=== PATIENT | male | born 1960 | race African-American/Black ===

== ENCOUNTER 2017-10-20 17:34 | Inpatient (IN) | payer OTHER ==
[2017-10-20 18:17] LABS: BASO # 0.1 x10^3/uL (0.0-0.2); BASO % 0 % (0-3); EOS # 0.1 x10^3/uL (0.0-0.7); EOS % 0 % (0-3); HEMATOCRIT 25.1 % (39.0-53.0); HEMOGLOBIN 8.3 g/dL (13.0-17.5); LYMPH # 1.1 x10^3/uL (1.0-4.8); LYMPH % 5 % (24-48); MEAN CORPUSCULAR HEMOGLOBIN 25 pg (25-35); MEAN CORPUSCULAR HGB CONC 33 g/dL (31-37); MEAN CORPUSCULAR VOLUME 74 fL (79-100); MONO # 1.9 x10^3/uL (0.0-1.1); MONO % 8 % (0-9); NEUT # 20.3 x10^3uL (1.8-7.7); NEUT % 87 % (31-73); PLATELET COUNT 495 x10^3/uL (140-400); RED BLOOD COUNT 3.39 x10^6/uL (4.30-5.70); RED CELL DISTRIBUTION WIDTH 16.5 % (11.5-14.5); WHITE BLOOD COUNT 23.4 x10^3/uL (4.0-11.0)
[2017-10-20 18:18] LABS: ADD MAN DIFF? YES
[2017-10-20 18:23] LABS: ANION GAP 14 (6-14); BLOOD UREA NITROGEN 79 mg/dL (8-26); BUN/CREATININE RATIO 7 (6-20); CALCIUM 9.7 mg/dL (8.5-10.1); CARBON DIOXIDE 28 mmol/L (21-32); CHLORIDE 92 mmol/L (98-107); CREATININE 11.4 mg/dL (0.7-1.3); GFR 4.6; GLUCOSE 105 mg/dL (70-99); POTASSIUM 4.4 mmol/L (3.5-5.1); SODIUM 134 mmol/L (136-145)
[2017-10-20 18:29] LABS: ALBUMIN 2.2 g/dL (3.4-5.0); ALBUMIN/GLOBULIN RATIO 0.4 (1.0-1.7); ALK PHOS 130 U/L (46-116); ALT (SGPT) 20 U/L (16-63); AST (SGOT) 18 U/L (15-37); TOTAL BILIRUBIN 0.5 mg/dL (0.2-1.0); TOTAL PROTEIN 8.4 g/dL (6.4-8.2)
[2017-10-20 18:35] LABS: NT-PRO BNP > 35000 pg/mL (0-124)
[2017-10-20] MEDS: IV NORMAL SALINE 1000ML BAG 1,000 ML IV (18:41)
[2017-10-20] MEDS ORDERED: CONTRAST GIVEN MC (18:45)
[2017-10-20] MEDS: IOHEXOL 300 MG/ML 100ML VIAL. IV (18:45)
[2017-10-20 18:58] LABS: LACTIC ACID 1.2 mmol/L (0.4-2.0)
[2017-10-20 19:08] LABS: % ATYL 1 % (0-0); % BANDS 1 % (0-9); % LYMPHS 11 % (24-48); % MONOS 4 % (0-10); % SEGS 83 % (35-66)
[2017-10-20 19:09] LABS: ANISOCYTOSIS SLIGHT; HYPOCHROMIA SLIGHT; MICROCYTOSIS SLIGHT; PLT ESTIMATE INCREASED (ADEQUATE); POLYCHROMASIA SLIGHT; TARGET CELLS OCC
[2017-10-20] MEDS ORDERED: PIP/TAZO PER PHARMACY MC (19:45)
[2017-10-20] MEDS ORDERED: MORPHINE SULFATE 4 MG/ML DISP.SYRIN. IV (20:00)
[2017-10-20] MEDS ORDERED: ONDANSETRON PF 4 MG/2 ML VIAL. IV (20:00)
[2017-10-20] MEDS: PIPERACILLIN/TAZOBACTAM 2.25 GM in IV NORMAL SALINE 50ML 50 ML IV (21:56)
[2017-10-20] MEDS: VANCOMYCIN 1.5 GM in IV 1/2 NORMAL SALINE 500 ML IV (22:42)
[2017-10-21] MEDS: VANCOMYCIN PER PHARMACY MC ×2 (02:25→03:04)
[2017-10-21] MEDS: PIPERACILLIN/TAZOBACTAM 2.25 GM in IV NORMAL SALINE 50ML 50 ML IV ×3 (05:33→22:56)
[2017-10-21 08:31] LABS: ADD MAN DIFF? NO
[2017-10-21 08:38] LABS: BASO # 0.1 x10^3/uL (0.0-0.2); BASO % 0 % (0-3); EOS # 0.1 x10^3/uL (0.0-0.7); EOS % 1 % (0-3); HEMATOCRIT 22.9 % (39.0-53.0); HEMOGLOBIN 7.5 g/dL (13.0-17.5); LYMPH # 0.9 x10^3/uL (1.0-4.8); LYMPH % 3 % (24-48); MEAN CORPUSCULAR HEMOGLOBIN 25 pg (25-35); MEAN CORPUSCULAR HGB CONC 33 g/dL (31-37); MEAN CORPUSCULAR VOLUME 75 fL (79-100); MONO # 1.8 x10^3/uL (0.0-1.1); MONO % 7 % (0-9); NEUT # 23.2 x10^3uL (1.8-7.7); NEUT % 89 % (31-73); PLATELET COUNT 487 x10^3/uL (140-400); RED BLOOD COUNT 3.05 x10^6/uL (4.30-5.70); RED CELL DISTRIBUTION WIDTH 16.5 % (11.5-14.5); WHITE BLOOD COUNT 26.1 x10^3/uL (4.0-11.0)
[2017-10-21 08:58] LABS: ALBUMIN 1.9 g/dL (3.4-5.0); ALBUMIN/GLOBULIN RATIO 0.3 (1.0-1.7); ALK PHOS 122 U/L (46-116); ALT (SGPT) 17 U/L (16-63); ANION GAP 13 (6-14); AST (SGOT) 14 U/L (15-37); BLOOD UREA NITROGEN 86 mg/dL (8-26); BUN/CREATININE RATIO 7 (6-20); CALCIUM 9.5 mg/dL (8.5-10.1); CARBON DIOXIDE 26 mmol/L (21-32); CHLORIDE 93 mmol/L (98-107); CREATININE 11.8 mg/dL (0.7-1.3); GFR 5.4; GLUCOSE 109 mg/dL (70-99); POTASSIUM 4.7 mmol/L (3.5-5.1); SODIUM 132 mmol/L (136-145); TOTAL BILIRUBIN 0.5 mg/dL (0.2-1.0); TOTAL PROTEIN 7.5 g/dL (6.4-8.2)
[2017-10-21] MEDS ORDERED: FOLIC/VIT B COMP W-C (RENAL) TABLET. PO (09:00)
[2017-10-21] MEDS ORDERED: FERROUS SULFATE 325 MG TABLET. PO (09:00)
[2017-10-21] MEDS ORDERED: ACETAMINOPHEN 325 MG TABLET. PO (09:00)
[2017-10-21] MEDS ORDERED: IRON SUCROSE COMPLEX 100 MG/5 ML VIAL IV (09:00)
[2017-10-21] MEDS ORDERED: METOPROLOL TART IMMED RELEASE 50 MG TABLET. PO (09:00)
[2017-10-21] MEDS ORDERED: NON FORMULARY ITEM (Pantoprazole Sodium (Protonix) 40 MG) PO (09:00)
[2017-10-21] MEDS: LACTOBACILLUS RHAMNOSUS GG 1 CAPSULE. PO ×2 (10:36→21:14)
[2017-10-21] MEDS ORDERED: PIPERACILLIN/TAZOBACTAM 3.375 GM in IV NORMAL SALINE 50ML 50 ML IV (12:00)
[2017-10-21] MEDS: APIXABAN 5 MG TABLET. PO ×2 (16:44→21:14)
[2017-10-21] MEDS ORDERED: LISINOPRIL 20 MG TABLET PO (21:00)
[2017-10-21] MEDS ORDERED: amLODIPine BESYLATE 10 MG TABLET PO (21:00)
[2017-10-21] MEDS: DARBEPOETIN ALFA 60 MCG/0.3 ML DISP.SYRIN. SQ (21:20)
[2017-10-22] MEDS: PIPERACILLIN/TAZOBACTAM 2.25 GM in IV NORMAL SALINE 50ML 50 ML IV ×3 (05:32→22:08)
[2017-10-22 05:48] LABS: ANION GAP 12 (6-14); BLOOD UREA NITROGEN 35 mg/dL (8-26); CALCIUM 9.4 mg/dL (8.5-10.1); CARBON DIOXIDE 27 mmol/L (21-32); CHLORIDE 97 mmol/L (98-107); CREATININE 6.3 mg/dL (0.7-1.3); GFR 11.1; GLUCOSE 83 mg/dL (70-99); POTASSIUM 4.4 mmol/L (3.5-5.1); SODIUM 136 mmol/L (136-145)
[2017-10-22 06:21] LABS: ADD MAN DIFF? NO
[2017-10-22 06:25] LABS: BASO # 0.1 x10^3/uL (0.0-0.2); BASO % 1 % (0-3); EOS # 0.3 x10^3/uL (0.0-0.7); EOS % 1 % (0-3); HEMATOCRIT 21.9 % (39.0-53.0); HEMOGLOBIN 7.4 g/dL (13.0-17.5); LYMPH # 1.1 x10^3/uL (1.0-4.8); LYMPH % 5 % (24-48); MEAN CORPUSCULAR HEMOGLOBIN 25 pg (25-35); MEAN CORPUSCULAR HGB CONC 34 g/dL (31-37); MEAN CORPUSCULAR VOLUME 75 fL (79-100); MONO # 2.2 x10^3/uL (0.0-1.1); MONO % 10 % (0-9); NEUT # 18.8 x10^3uL (1.8-7.7); NEUT % 84 % (31-73); PLATELET COUNT 461 x10^3/uL (140-400); RED BLOOD COUNT 2.91 x10^6/uL (4.30-5.70); RED CELL DISTRIBUTION WIDTH 16.4 % (11.5-14.5); WHITE BLOOD COUNT 22.5 x10^3/uL (4.0-11.0)
[2017-10-22] MEDS: APIXABAN 5 MG TABLET. PO ×2 (08:27→21:00)
[2017-10-22] MEDS: LACTOBACILLUS RHAMNOSUS GG 1 CAPSULE. PO ×2 (08:27→20:53)
[2017-10-22 10:28] LABS: HEP B SURFACE ABDY Non Reactive (.); HEP B SURFACE AG Negative (Negative)
[2017-10-22] MEDS: MORPHINE SULFATE 4 MG/ML DISP.SYRIN. IV (10:34)
[2017-10-22] MEDS ORDERED: CALCITRIOL 0.25 MCG CAPSULE. PO (16:00)
[2017-10-22] MEDS: VANCOMYCIN RANDOM LEVEL. MC (23:00)
[2017-10-23] MEDS: VANCOMYCIN PER PHARMACY MC (02:12)
[2017-10-23] MEDS: MORPHINE SULFATE 4 MG/ML DISP.SYRIN. IV (02:50)
[2017-10-23] MEDS: PIPERACILLIN/TAZOBACTAM 2.25 GM in IV NORMAL SALINE 50ML 50 ML IV ×3 (06:00→22:01)
[2017-10-23] MEDS: APIXABAN 5 MG TABLET. PO ×2 (08:15→20:53)
[2017-10-23] MEDS: LACTOBACILLUS RHAMNOSUS GG 1 CAPSULE. PO ×2 (08:26→20:53)
[2017-10-23 08:51] LABS: ADD MAN DIFF? NO
[2017-10-23] MEDS ORDERED: DIGOXIN IV 500 MCG/2 ML AMPUL. IV (09:45)
[2017-10-23] MEDS: DIGOXIN IV 500 MCG/2 ML AMPUL. IV ×2 (09:55→11:05)
[2017-10-23 10:08] LABS: ANION GAP 13 (6-14); BLOOD UREA NITROGEN 52 mg/dL (8-26); CALCIUM 9.5 mg/dL (8.5-10.1); CARBON DIOXIDE 28 mmol/L (21-32); CHLORIDE 96 mmol/L (98-107); CREATININE 9.2 mg/dL (0.7-1.3); GFR 7.1; GLUCOSE 73 mg/dL (70-99); POTASSIUM 4.5 mmol/L (3.5-5.1); SODIUM 137 mmol/L (136-145)
[2017-10-23 10:32] LABS: INR 1.8 (0.8-1.1); PROTHROMBIN TIME PATIENT 19.8 SEC (11.7-14.0)
[2017-10-23 10:38] LABS: RED BLOOD COUNT 2.76 x10^6/uL (4.30-5.70)
[2017-10-23] MEDS: METOPROLOL TARTRATE 5 MG/5 ML VIAL. IVP (10:38)
[2017-10-23 10:39] LABS: BASO # 0.1 x10^3/uL (0.0-0.2); BASO % 0 % (0-3); EOS # 0.6 x10^3/uL (0.0-0.7); EOS % 3 % (0-3); HEMOGLOBIN 6.9 g/dL (13.0-17.5); LYMPH # 1.3 x10^3/uL (1.0-4.8); LYMPH % 6 % (24-48); MEAN CORPUSCULAR HEMOGLOBIN 25 pg (25-35); MEAN CORPUSCULAR HGB CONC 33 g/dL (31-37); MEAN CORPUSCULAR VOLUME 76 fL (79-100); MONO # 1.9 x10^3/uL (0.0-1.1); MONO % 9 % (0-9); NEUT % 81 % (31-73); PLATELET COUNT 526 x10^3/uL (140-400); RED CELL DISTRIBUTION WIDTH 16.4 % (11.5-14.5)
[2017-10-23] MEDS ORDERED: LIDOCAINE 2%/EPI 1:100,000 20 ML VIAL. (13:07)
[2017-10-23] MEDS: LIDOCAINE 2%/EPI 1:100,000 20 ML VIAL. IJ (13:29)
[2017-10-23] MEDS: ANTI-COAG MONITOR BY PHARMACY. MC (14:03)
[2017-10-23 14:31] LABS: IMMEDIATE SPIN CROSSMATCH 1 2
[2017-10-23] MEDS: METOPROLOL TART IMMED RELEASE 50 MG TABLET. PO ×2 (14:48→20:56)
[2017-10-23] MEDS: VANCOMYCIN 500 MG in IV NORMAL SALINE 100ML 100 ML IV (17:34)
[2017-10-23 18:26] LABS: ADD MAN DIFF? NO
[2017-10-23 18:32] LABS: BASO # 0.1 x10^3/uL (0.0-0.2); BASO % 0 % (0-3); EOS # 0.3 x10^3/uL (0.0-0.7); EOS % 2 % (0-3); LYMPH # 0.9 x10^3/uL (1.0-4.8); LYMPH % 5 % (24-48); MEAN CORPUSCULAR HEMOGLOBIN 25 pg (25-35); MEAN CORPUSCULAR HGB CONC 33 g/dL (31-37); MEAN CORPUSCULAR VOLUME 76 fL (79-100); MONO # 1.7 x10^3/uL (0.0-1.1); MONO % 10 % (0-9); NEUT # 14.2 x10^3uL (1.8-7.7); NEUT % 83 % (31-73); PLATELET COUNT 467 x10^3/uL (140-400); RED BLOOD COUNT 3.17 x10^6/uL (4.30-5.70); RED CELL DISTRIBUTION WIDTH 16.5 % (11.5-14.5); WHITE BLOOD COUNT 17.2 x10^3/uL (4.0-11.0)
[2017-10-23 21:12] LABS: MRSA BY PCR Positive (Negative)
[2017-10-24] MEDS: MORPHINE SULFATE 4 MG/ML DISP.SYRIN. IV (03:53)
[2017-10-24 04:19] LABS: ADD MAN DIFF? NO
[2017-10-24 04:22] LABS: BASO # 0.1 x10^3/uL (0.0-0.2); BASO % 0 % (0-3); EOS # 0.6 x10^3/uL (0.0-0.7); EOS % 4 % (0-3); HEMATOCRIT 25.7 % (39.0-53.0); HEMOGLOBIN 8.6 g/dL (13.0-17.5); LYMPH # 1.3 x10^3/uL (1.0-4.8); LYMPH % 8 % (24-48); MEAN CORPUSCULAR HEMOGLOBIN 25 pg (25-35); MEAN CORPUSCULAR HGB CONC 34 g/dL (31-37); MEAN CORPUSCULAR VOLUME 76 fL (79-100); MONO % 12 % (0-9); NEUT # 12.7 x10^3uL (1.8-7.7); NEUT % 76 % (31-73); PLATELET COUNT 525 x10^3/uL (140-400); RED BLOOD COUNT 3.41 x10^6/uL (4.30-5.70); RED CELL DISTRIBUTION WIDTH 16.2 % (11.5-14.5); WHITE BLOOD COUNT 16.6 x10^3/uL (4.0-11.0)
[2017-10-24] MEDS: METOPROLOL TARTRATE 5 MG/5 ML VIAL. IVP (04:24)
[2017-10-24 05:01] LABS: ANION GAP 11 (6-14); BLOOD UREA NITROGEN 46 mg/dL (8-26); CALCIUM 9.9 mg/dL (8.5-10.1); CARBON DIOXIDE 28 mmol/L (21-32); CHLORIDE 98 mmol/L (98-107); CREATININE 8.4 mg/dL (0.7-1.3); GFR 7.9; GLUCOSE 101 mg/dL (70-99); POTASSIUM 4.7 mmol/L (3.5-5.1); SODIUM 137 mmol/L (136-145)
[2017-10-24] MEDS: PIPERACILLIN/TAZOBACTAM 2.25 GM in IV NORMAL SALINE 50ML 50 ML IV ×3 (05:55→22:01)
[2017-10-24] MEDS: LACTOBACILLUS RHAMNOSUS GG 1 CAPSULE. PO ×2 (08:38→21:59)
[2017-10-24] MEDS: APIXABAN 5 MG TABLET. PO ×2 (08:38→22:00)
[2017-10-24] MEDS: METOPROLOL TART IMMED RELEASE 50 MG TABLET. PO ×2 (08:39→22:00)
[2017-10-24] MEDS: ANTI-COAG MONITOR BY PHARMACY. MC (10:30)
[2017-10-24] MEDS: VANCOMYCIN PER PHARMACY MC ×2 (10:32→11:00)
[2017-10-24] MEDS ORDERED: diphenhydrAMINE 50 MG/ML VIAL IV ×2 (10:45)
[2017-10-24] MEDS ORDERED: ALBUMIN HUMAN 25% 200 ML IV (10:45)
[2017-10-24] MEDS ORDERED: 0.9 % SODIUM CHLORIDE 10 ML DISP.SYRIN. IV ×2 (10:45)
[2017-10-24] MEDS ORDERED: DIALYSIS PATIENT. MC (10:45)
[2017-10-24] MEDS ORDERED: IV NORMAL SALINE 1000ML BAG 1,000 ML IV ×2 (11:00)
[2017-10-24] MEDS ORDERED: HEPARIN for IV BOLUS 10,000 UNIT/10 ML VIAL. (11:42)
[2017-10-24] MEDS ORDERED: LIDOCAINE WITH 8.4% SOD BICARB 3 ML DISP.SYRIN. (11:42)
[2017-10-24] MEDS: LIDOCAINE WITH 8.4% SOD BICARB 3 ML DISP.SYRIN. INJ (12:35)
[2017-10-24] MEDS ORDERED: METOPROLOL TARTRATE 5 MG/5 ML VIAL. IVP (15:45)
[2017-10-24] MEDS: HYDROcodone/APAP 5/325MG 1 TAB TABLET PO (22:00)
[2017-10-25] MEDS: MORPHINE SULFATE 4 MG/ML DISP.SYRIN. IV (00:10)
[2017-10-25 03:57] LABS: ADD MAN DIFF? NO
[2017-10-25 04:18] LABS: BASO # 0.1 x10^3/uL (0.0-0.2); BASO % 0 % (0-3); EOS # 0.4 x10^3/uL (0.0-0.7); EOS % 2 % (0-3); HEMATOCRIT 24.9 % (39.0-53.0); HEMOGLOBIN 8.4 g/dL (13.0-17.5); LYMPH # 1.2 x10^3/uL (1.0-4.8); LYMPH % 7 % (24-48); MEAN CORPUSCULAR HEMOGLOBIN 25 pg (25-35); MEAN CORPUSCULAR HGB CONC 34 g/dL (31-37); MEAN CORPUSCULAR VOLUME 76 fL (79-100); MONO % 11 % (0-9); NEUT # 14.1 x10^3uL (1.8-7.7); NEUT % 79 % (31-73); PLATELET COUNT 511 x10^3/uL (140-400); RED BLOOD COUNT 3.29 x10^6/uL (4.30-5.70); RED CELL DISTRIBUTION WIDTH 16.3 % (11.5-14.5); WHITE BLOOD COUNT 17.7 x10^3/uL (4.0-11.0)
[2017-10-25 04:33] LABS: ANION GAP 10 (6-14); CALCIUM 9.3 mg/dL (8.5-10.1); CARBON DIOXIDE 30 mmol/L (21-32); CHLORIDE 99 mmol/L (98-107); CREATININE 5.3 mg/dL (0.7-1.3); GFR 13.5; GLUCOSE 104 mg/dL (70-99); POTASSIUM 4.4 mmol/L (3.5-5.1); SODIUM 139 mmol/L (136-145)
[2017-10-25 04:34] LABS: BLOOD UREA NITROGEN 22 mg/dL (8-26)
[2017-10-25] MEDS: PIPERACILLIN/TAZOBACTAM 2.25 GM in IV NORMAL SALINE 50ML 50 ML IV ×3 (06:14→21:57)
[2017-10-25] MEDS: hydrALAZINE 20 MG/ML VIAL. IVP (06:14)
[2017-10-25] MEDS: METOPROLOL TART IMMED RELEASE 50 MG TABLET. PO ×2 (09:02→20:28)
[2017-10-25] MEDS: APIXABAN 5 MG TABLET. PO ×2 (09:02→20:28)
[2017-10-25] MEDS: LACTOBACILLUS RHAMNOSUS GG 1 CAPSULE. PO ×2 (09:02→20:28)
[2017-10-25] MEDS: VANCOMYCIN PER PHARMACY MC (10:12)
[2017-10-25] MEDS: ANTI-COAG MONITOR BY PHARMACY. MC (10:19)
[2017-10-25] MEDS: amLODIPine BESYLATE 5 MG TABLET PO (10:23)
[2017-10-25] MEDS: PANTOPRAZOLE 40 MG TABLET.DR. PO (12:24)
[2017-10-25] MEDS: HYDROcodone/APAP 5/325MG 1 TAB TABLET PO (12:25)
[2017-10-25] MEDS: VANCOMYCIN 500 MG in IV NORMAL SALINE 100ML 100 ML IV (16:59)
[2017-10-26 05:19] LABS: BASO # 0.1 x10^3/uL (0.0-0.2); BASO % 0 % (0-3); EOS # 0.6 x10^3/uL (0.0-0.7); EOS % 3 % (0-3); HEMATOCRIT 25.1 % (39.0-53.0); HEMOGLOBIN 8.3 g/dL (13.0-17.5); LYMPH # 1.4 x10^3/uL (1.0-4.8); LYMPH % 7 % (24-48); MEAN CORPUSCULAR HEMOGLOBIN 25 pg (25-35); MEAN CORPUSCULAR HGB CONC 33 g/dL (31-37); MEAN CORPUSCULAR VOLUME 76 fL (79-100); MONO # 1.7 x10^3/uL (0.0-1.1); MONO % 9 % (0-9); NEUT # 15.5 x10^3uL (1.8-7.7); NEUT % 80 % (31-73); PLATELET COUNT 533 x10^3/uL (140-400); RED BLOOD COUNT 3.29 x10^6/uL (4.30-5.70); RED CELL DISTRIBUTION WIDTH 16.9 % (11.5-14.5); WHITE BLOOD COUNT 19.3 x10^3/uL (4.0-11.0)
[2017-10-26 05:20] LABS: ADD MAN DIFF? NO
[2017-10-26] MEDS: PIPERACILLIN/TAZOBACTAM 2.25 GM in IV NORMAL SALINE 50ML 50 ML IV ×3 (05:53→21:50)
[2017-10-26 06:24] LABS: ANION GAP 14 (6-14); BLOOD UREA NITROGEN 36 mg/dL (8-26); CALCIUM 9.5 mg/dL (8.5-10.1); CARBON DIOXIDE 26 mmol/L (21-32); CHLORIDE 98 mmol/L (98-107); CREATININE 7.8 mg/dL (0.7-1.3); GFR 8.6; GLUCOSE 84 mg/dL (70-99); POTASSIUM 4.6 mmol/L (3.5-5.1); SODIUM 138 mmol/L (136-145)
[2017-10-26] MEDS: APIXABAN 5 MG TABLET. PO ×2 (08:11→20:11)
[2017-10-26] MEDS: LACTOBACILLUS RHAMNOSUS GG 1 CAPSULE. PO ×2 (08:11→20:10)
[2017-10-26] MEDS: PANTOPRAZOLE 40 MG TABLET.DR. PO (08:12)
[2017-10-26] MEDS: METOPROLOL TART IMMED RELEASE 50 MG TABLET. PO ×2 (08:12→20:11)
[2017-10-26] MEDS: amLODIPine BESYLATE 5 MG TABLET PO (08:13)
[2017-10-26] MEDS: VANCOMYCIN PER PHARMACY MC (10:20)
[2017-10-26] MEDS: ANTI-COAG MONITOR BY PHARMACY. MC (10:23)
[2017-10-26] MEDS: ACETAMINOPHEN 325 MG TABLET. PO (20:10)
[2017-10-27 03:48] LABS: ADD MAN DIFF? NO
[2017-10-27] MEDS: hydrALAZINE 20 MG/ML VIAL. IVP (03:56)
[2017-10-27 04:42] LABS: BASO % 1 % (0-3); EOS % 3 % (0-3); HEMATOCRIT 24.7 % (39.0-53.0); HEMOGLOBIN 8.2 g/dL (13.0-17.5); LYMPH % 7 % (24-48); MEAN CORPUSCULAR HEMOGLOBIN 26 pg (25-35); MEAN CORPUSCULAR HGB CONC 33 g/dL (31-37); MEAN CORPUSCULAR VOLUME 77 fL (79-100); MONO % 12 % (0-9); NEUT % 77 % (31-73); PLATELET COUNT 579 x10^3/uL (140-400); RED CELL DISTRIBUTION WIDTH 16.9 % (11.5-14.5); WHITE BLOOD COUNT 21.4 x10^3/uL (4.0-11.0)
[2017-10-27 04:43] LABS: BASO # 0.1 x10^3/uL (0.0-0.2); EOS # 0.7 x10^3/uL (0.0-0.7); LYMPH # 1.5 x10^3/uL (1.0-4.8); MONO # 2.5 x10^3/uL (0.0-1.1); NEUT # 16.6 x10^3uL (1.8-7.7)
[2017-10-27 05:33] LABS: ANION GAP 13 (6-14); BLOOD UREA NITROGEN 52 mg/dL (8-26); CALCIUM 9.5 mg/dL (8.5-10.1); CARBON DIOXIDE 26 mmol/L (21-32); CHLORIDE 98 mmol/L (98-107); CREATININE 9.9 mg/dL (0.7-1.3); GFR 6.6; GLUCOSE 89 mg/dL (70-99); POTASSIUM 4.7 mmol/L (3.5-5.1); SODIUM 137 mmol/L (136-145)
[2017-10-27] MEDS: PIPERACILLIN/TAZOBACTAM 2.25 GM in IV NORMAL SALINE 50ML 50 ML IV (05:58)
[2017-10-27] MEDS ORDERED: fentaNYL PF VIAL 100 MCG/2 ML VIAL IV ×2 (07:00)
[2017-10-27] MEDS ORDERED: PROCHLORPERAZINE 10 MG/2 ML VIAL. IV (07:00)
[2017-10-27] MEDS ORDERED: MORPHINE SULFATE 4 MG/ML DISP.SYRIN. IV (07:00)
[2017-10-27] MEDS ORDERED: ONDANSETRON PF 4 MG/2 ML VIAL. IV (07:00)
[2017-10-27] MEDS ORDERED: LIDOCAINE 1% PF 2 ML VIAL. ID (07:00)
[2017-10-27] MEDS ORDERED: IV RINGERS,LACTATED 1000ML 1,000 ML IV (07:00)
[2017-10-27] MEDS: PANTOPRAZOLE 40 MG TABLET.DR. PO (07:30)
[2017-10-27] MEDS: amLODIPine BESYLATE 5 MG TABLET PO (09:00)
[2017-10-27] MEDS: METOPROLOL TART IMMED RELEASE 50 MG TABLET. PO ×2 (09:00→21:13)
[2017-10-27] MEDS: APIXABAN 5 MG TABLET. PO ×2 (09:00→21:12)
[2017-10-27] MEDS: LACTOBACILLUS RHAMNOSUS GG 1 CAPSULE. PO ×2 (09:00→21:12)
[2017-10-27] MEDS ORDERED: PROPOFOL 20 ML IV (10:51)
[2017-10-27] MEDS ORDERED: LIDOCAINE 2% PF Vial for OR 5 ML VIAL. (10:51)
[2017-10-27] MEDS: IV NORMAL SALINE 1000ML BAG 500 ML IV ×3 (11:00→19:00)
[2017-10-27] MEDS: LIDOCAINE 2% VISCOUS 15 ML SOLUTION. SWSW (11:14)
[2017-10-27] MEDS: BENZOCAINE ONE 20% MUCOSAL SPRAY. MM (11:15)
[2017-10-27] MEDS: LIDOCAINE 2% TOPICAL JELLY 5GM TUBE. TP (11:16)
[2017-10-27] MEDS ORDERED: PHENYLEPHRINE in 0.9% NACL PF 1 MG/10 ML SYRINGE. IV (11:49)
[2017-10-27] MEDS ORDERED: IV NORMAL SALINE 1000ML BAG 1,000 ML IV (13:32)
[2017-10-27] MEDS ORDERED: 0.9 % SODIUM CHLORIDE 10 ML DISP.SYRIN. IV ×2 (13:45)
[2017-10-27] MEDS ORDERED: DIALYSIS PATIENT. MC ×2 (13:45)
[2017-10-27] MEDS: ALTEPLASE 2 MG VIAL INT CAT ×2 (14:00→14:45)
[2017-10-27] MEDS ORDERED: ALTEPLASE 2 MG VIAL INT CAT (14:15)
[2017-10-27] MEDS: VANCOMYCIN 500 MG in IV NORMAL SALINE 100ML 100 ML IV (19:31)
[2017-10-28] MEDS: ACETAMINOPHEN 325 MG TABLET. PO ×2 (03:13→22:48)
[2017-10-28] MEDS: hydrALAZINE 20 MG/ML VIAL. IVP ×2 (03:15→21:04)
[2017-10-28 04:17] LABS: BASO % 0 % (0-3); EOS # 0.4 x10^3/uL (0.0-0.7); EOS % 2 % (0-3); HEMATOCRIT 24.9 % (39.0-53.0); HEMOGLOBIN 8.2 g/dL (13.0-17.5); LYMPH # 1.7 x10^3/uL (1.0-4.8); LYMPH % 9 % (24-48); MEAN CORPUSCULAR HEMOGLOBIN 25 pg (25-35); MEAN CORPUSCULAR HGB CONC 33 g/dL (31-37); MEAN CORPUSCULAR VOLUME 77 fL (79-100); MONO # 2.8 x10^3/uL (0.0-1.1); MONO % 15 % (0-9); NEUT # 14.1 x10^3uL (1.8-7.7); NEUT % 75 % (31-73); PLATELET COUNT 530 x10^3/uL (140-400); RED BLOOD COUNT 3.25 x10^6/uL (4.30-5.70); RED CELL DISTRIBUTION WIDTH 17.1 % (11.5-14.5)
[2017-10-28 04:18] LABS: ADD MAN DIFF? YES
[2017-10-28 04:37] LABS: ANION GAP 9 (6-14); CALCIUM 9.7 mg/dL (8.5-10.1); CARBON DIOXIDE 30 mmol/L (21-32); CHLORIDE 99 mmol/L (98-107); CREATININE 6.3 mg/dL (0.7-1.3); GFR 11.1; GLUCOSE 98 mg/dL (70-99); POTASSIUM 4.7 mmol/L (3.5-5.1); SODIUM 138 mmol/L (136-145)
[2017-10-28 04:38] LABS: BLOOD UREA NITROGEN 30 mg/dL (8-26)
[2017-10-28] MEDS: PANTOPRAZOLE 40 MG TABLET.DR. PO (06:10)
[2017-10-28] MEDS: ANTI-COAG MONITOR BY PHARMACY. MC (08:46)
[2017-10-28] MEDS: METOPROLOL TART IMMED RELEASE 50 MG TABLET. PO ×2 (08:47→21:03)
[2017-10-28] MEDS: APIXABAN 5 MG TABLET. PO ×2 (08:47→21:00)
[2017-10-28] MEDS: LACTOBACILLUS RHAMNOSUS GG 1 CAPSULE. PO ×2 (08:47→21:03)
[2017-10-28] MEDS: amLODIPine BESYLATE 5 MG TABLET PO (08:48)
[2017-10-28 10:08] LABS: % ATYL 3 % (0-0); % BANDS 11 % (0-9); % LYMPHS 6 % (24-48); % MONOS 9 % (0-10); % SEGS 71 % (35-66); NUCLEATED RBC 2; PLT ESTIMATE INCREASED (ADEQUATE)
[2017-10-28 10:09] LABS: ANISOCYTOSIS SLIGHT; POLYCHROMASIA PRESENT; TARGET CELLS FEW
[2017-10-28 10:10] LABS: POIKILOCYTOSIS SLIGHT; SCHISTOCYTES OCC
[2017-10-28] MEDS: VANCOMYCIN PER PHARMACY MC (12:40)
[2017-10-28 18:13] LABS: INR 1.9 (0.8-1.1); PARTIAL THROMBOPLASTIN TIME 43 SEC (24-38); PROTHROMBIN TIME PATIENT 21.5 SEC (11.7-14.0)
[2017-10-28] MEDS: DARBEPOETIN ALFA 60 MCG/0.3 ML DISP.SYRIN. SQ (21:03)
[2017-10-29] MEDS: PANTOPRAZOLE 40 MG TABLET.DR. PO (07:30)
[2017-10-29] MEDS: APIXABAN 5 MG TABLET. PO ×2 (09:00→20:24)
[2017-10-29] MEDS: LACTOBACILLUS RHAMNOSUS GG 1 CAPSULE. PO ×2 (09:00→20:23)
[2017-10-29] MEDS: VANCOMYCIN PER PHARMACY MC (09:23)
[2017-10-29] MEDS: ANTI-COAG MONITOR BY PHARMACY. MC (09:24)
[2017-10-29] MEDS: METOPROLOL TART IMMED RELEASE 50 MG TABLET. PO ×2 (11:15→20:24)
[2017-10-29] MEDS: amLODIPine BESYLATE 10 MG TABLET PO (11:16)
[2017-10-29 12:45] LABS: TYPE AND SCREEN 1 1
[2017-10-29] MEDS: LIDOCAINE WITH 8.4% SOD BICARB 3 ML DISP.SYRIN. INJ (13:37)
[2017-10-29] MEDS ORDERED: DIALYSIS PATIENT. MC (13:45)
[2017-10-29 15:01] LABS: INR 1.5 (0.8-1.1); PROTHROMBIN TIME PATIENT 17.7 SEC (11.7-14.0)
[2017-10-29] MEDS: VANCOMYCIN 500 MG in IV NORMAL SALINE 100ML 100 ML IV (18:15)
[2017-10-29] MEDS: HYDROcodone/APAP 5/325MG 1 TAB TABLET PO (19:41)
[2017-10-29] MEDS: diphenhydrAMINE HCL 25 MG CAPSULE PO (20:24)
[2017-10-30] MEDS: PANTOPRAZOLE 40 MG TABLET.DR. PO (06:12)
[2017-10-30] MEDS: APIXABAN 5 MG TABLET. PO ×2 (10:20→20:56)
[2017-10-30] MEDS: diphenhydrAMINE HCL 25 MG CAPSULE PO (10:20)
[2017-10-30] MEDS: METOPROLOL TART IMMED RELEASE 50 MG TABLET. PO ×2 (10:20→20:54)
[2017-10-30] MEDS: amLODIPine BESYLATE 10 MG TABLET PO (10:20)
[2017-10-30] MEDS: LACTOBACILLUS RHAMNOSUS GG 1 CAPSULE. PO ×2 (10:21→20:54)
[2017-10-30 12:21] LABS: BODY FLUID LDH 106 IU/L (.)
[2017-10-30] MEDS: VANCOMYCIN PER PHARMACY MC (13:59)
[2017-10-31] MEDS: VANCOMYCIN PER PHARMACY MC (08:23)
[2017-10-31] MEDS: ANTI-COAG MONITOR BY PHARMACY. MC (08:23)
[2017-10-31] MEDS: APIXABAN 5 MG TABLET. PO (09:00)
[2017-10-31] MEDS: PANTOPRAZOLE 40 MG TABLET.DR. PO (09:03)
[2017-10-31] MEDS: LACTOBACILLUS RHAMNOSUS GG 1 CAPSULE. PO (09:03)
[2017-10-31] MEDS: amLODIPine BESYLATE 10 MG TABLET PO (09:03)
[2017-10-31] MEDS: METOPROLOL TART IMMED RELEASE 50 MG TABLET. PO (09:04)
[2017-10-31] MEDS ORDERED: MIDAZOLAM HCL/PF 2 MG/2 ML VIAL. (10:35)
[2017-10-31] MEDS ORDERED: fentaNYL PF VIAL 100 MCG/2 ML VIAL (10:35)
[2017-10-31] MEDS ORDERED: LIDOCAINE WITH 8.4% SOD BICARB 3 ML DISP.SYRIN. (10:37)
[2017-10-31] MEDS ORDERED: HEPARIN for IV BOLUS 10,000 UNIT/10 ML VIAL. (10:37)
[2017-10-31] MEDS: MIDAZOLAM HCL/PF 2 MG/2 ML VIAL. IV (11:26)
[2017-10-31] MEDS: fentaNYL PF VIAL 100 MCG/2 ML VIAL IV (11:26)
[2017-10-31] MEDS: HEPARIN for IV BOLUS 10,000 UNIT/10 ML VIAL. INT CAT (11:28)
[2017-10-31] MEDS: LIDOCAINE WITH 8.4% SOD BICARB 3 ML DISP.SYRIN. IJ (11:30)
[2017-10-31] MEDS ORDERED: IV NORMAL SALINE 1000ML BAG 1,000 ML IV ×2 (14:00)
[2017-10-31] MEDS ORDERED: DIALYSIS PATIENT. MC ×2 (15:00)
[2017-10-31] MEDS: VANCOMYCIN 500 MG in IV NORMAL SALINE 100ML 100 ML IV (16:00)
[2017-10-31] MEDS: ACETAMINOPHEN 325 MG TABLET. PO (16:23)
== END 2017-10-31 19:31 | DRG 314 ==
LOC: 5 NORTH 21:09 → 2 NORTH 10-23 10:15 → ER 17:34 → 5 NORTH 20:13
PROVIDERS: Internal Medicine
PROC: B24BZZ4 Ultrasonography of Heart with Aorta, Transesophageal (ICD-10-PCS; principal; 2017-10-27 11:30)
PROC: 0W9B3ZZ Drainage of Left Pleural Cavity, Percutaneous Approach (ICD-10-PCS; 2017-10-27 12:23)
PROC: 05PY33Z Removal of Infusion Device from Upper Vein, Percutaneous Approach (ICD-10-PCS; 2017-10-27 12:23)
PROC: 02H633Z Insertion of Infusion Device into Right Atrium, Percutaneous Approach (ICD-10-PCS; 2017-10-27 12:23)
PROC: 0JH63XZ Insertion of Tunneled Vascular Access Device into Chest Subcutaneous Tissue and Fascia, Percutaneous Approach (ICD-10-PCS; 2017-10-27 12:23)
PROC: 30233L1 Transfusion of Nonautologous Fresh Plasma into Peripheral Vein, Percutaneous Approach (ICD-10-PCS; 2017-10-27 12:23)
PROC: 30233N1 Transfusion of Nonautologous Red Blood Cells into Peripheral Vein, Percutaneous Approach (ICD-10-PCS; 2017-10-27 12:23)
PROC: 30233K1 Transfusion of Nonautologous Frozen Plasma into Peripheral Vein, Percutaneous Approach (ICD-10-PCS; 2017-10-27 12:23)
DX: T80.211A Bloodstream infection due to central venous catheter, initial encounter (principal); A41.02 Sepsis due to Methicillin resistant Staphylococcus aureus; I26.99 Other pulmonary embolism without acute cor pulmonale; E43 Unspecified severe protein-calorie malnutrition; I13.2 Hypertensive heart and chronic kidney disease with heart failure and with stage 5 chronic kidney disease, or end stage renal disease; I27.20 Pulmonary hypertension, unspecified; J18.9 Pneumonia, unspecified organism; N18.6 End stage renal disease; I50.43 Acute on chronic combined systolic (congestive) and diastolic (congestive) heart failure; E87.1 Hypo-osmolality and hyponatremia; Z68.1 Body mass index [BMI] 19.9 or less, adult; I48.91 Unspecified atrial fibrillation; D64.9 Anemia, unspecified; E78.5 Hyperlipidemia, unspecified; K21.9 Gastro-esophageal reflux disease without esophagitis; Z83.3 Family history of diabetes mellitus; Z90.49 Acquired absence of other specified parts of digestive tract; Z90.81 Acquired absence of spleen; Z99.2 Dependence on renal dialysis; F32.9 Major depressive disorder, single episode, unspecified; K59.00 Constipation, unspecified; M19.90 Unspecified osteoarthritis, unspecified site; E21.3 Hyperparathyroidism, unspecified; J44.9 Chronic obstructive pulmonary disease, unspecified
CPT/HCPCS: 32555; 36415; 36556; 36558; 36589; 71045; 71046; 71250; 71275; 76937; 77001; 80048; 80053; 80202; 83605; 83615; 83880; 84157; 85007; 85025; 85610; 85730; 86706; 86850; 86900; 86901; 86920; 86927; 87040; 87070; 87071; 87075; 87186; 87205; 87340; 87641; 88112; 88305; 93005; 93306; 93312; 93320; 93325; 94640; 96360; 97116-GP; 97162-GP; 97166-GO; 97530-GP; 99152; 99153; 99285; 99285-25; A4215; C1750; C1769; C1892; J0360; J0690; J0881; J1160; J1644; J2250; J2270; J2370; J2543; J2704; J3010; J3370; J3490; J7030; P9016; P9017; Q0163; Q9967

== ENCOUNTER 2018-01-13 06:35 | Inpatient (IN) | payer OTHER ==
[2018-01-13] MEDS ORDERED: IPRATRPIUM/ALBUTEROL 0.5/2.5MG 3 ML NEBU. (06:51)
[2018-01-13] MEDS ORDERED: FUROSEMIDE 40 MG/4 ML VIAL. IVP (07:00)
[2018-01-13 07:04] LABS: ADD MAN DIFF? NO
[2018-01-13 07:06] LABS: BASE EXCESS ABG 4 mmol/L (-3-3); HCO3 ABG 30 mmol/L (21-28); PCO2 ABG 48 mmHg (35-46); PH ABG 7.41 (7.35-7.45); PO2 ABG 70 mmHg (65-108); SAT O2 ABG 91 % (92-99)
[2018-01-13 07:08] LABS: BASO # 0.1 x10^3/uL (0.0-0.2); BASO % 1 % (0-3); EOS # 0.2 x10^3/uL (0.0-0.7); EOS % 1 % (0-3); HEMATOCRIT 21.4 % (39.0-53.0); HEMOGLOBIN 7.1 g/dL (13.0-17.5); LYMPH # 1.6 x10^3/uL (1.0-4.8); LYMPH % 13 % (24-48); MEAN CORPUSCULAR HEMOGLOBIN 26 pg (25-35); MEAN CORPUSCULAR HGB CONC 33 g/dL (31-37); MEAN CORPUSCULAR VOLUME 78 fL (79-100); MONO % 8 % (0-9); NEUT # 9.3 x10^3uL (1.8-7.7); NEUT % 76 % (31-73); PLATELET COUNT 468 x10^3/uL (140-400); RED BLOOD COUNT 2.75 x10^6/uL (4.30-5.70); RED CELL DISTRIBUTION WIDTH 19.6 % (11.5-14.5); WHITE BLOOD COUNT 12.1 x10^3/uL (4.0-11.0)
[2018-01-13 07:11] LABS: FIO2 ABG 100
[2018-01-13 07:21] LABS: ANION GAP 7 (6-14); BLOOD UREA NITROGEN 78 mg/dL (8-26); BUN/CREATININE RATIO 9 (6-20); CALCIUM 10.9 mg/dL (8.5-10.1); CARBON DIOXIDE 32 mmol/L (21-32); CHLORIDE 96 mmol/L (98-107); CREATININE 9.1 mg/dL (0.7-1.3); GFR 7.2; GLUCOSE 100 mg/dL (70-99); POTASSIUM 4.5 mmol/L (3.5-5.1); SODIUM 135 mmol/L (136-145)
[2018-01-13] MEDS: FUROSEMIDE 100 MG/10 ML VIAL. IVP (07:25)
[2018-01-13 07:26] LABS: ALBUMIN 2.7 g/dL (3.4-5.0); ALBUMIN/GLOBULIN RATIO 0.4 (1.0-1.7); ALK PHOS 246 U/L (46-116); ALT (SGPT) 38 U/L (16-63); AST (SGOT) 41 U/L (15-37); MAGNESIUM 2.5 mg/dL (1.8-2.4); TOTAL BILIRUBIN 0.4 mg/dL (0.2-1.0); TOTAL PROTEIN 9.4 g/dL (6.4-8.2)
[2018-01-13 07:28] LABS: TROPONINI 0.047 ng/mL (0.000-0.055)
[2018-01-13] MEDS: NITROGLYCERIN OINT 1 GM PACKET. TP (07:28)
[2018-01-13 07:29] LABS: INR 1.3 (0.8-1.1); PROTHROMBIN TIME PATIENT 15.4 SEC (11.7-14.0)
[2018-01-13 07:34] LABS: CKMB INDEX 0.6 % (0-4); CKMB MASS 0.6 ng/mL (0.0-3.6); CREATINE KINASE 102 U/L (39-308)
[2018-01-13 07:41] LABS: LACTIC ACID 1.4 mmol/L (0.4-2.0)
[2018-01-13 08:03] LABS: NT-PRO BNP > 35000 pg/mL (0-124)
[2018-01-13] MEDS ORDERED: ONDANSETRON ODT 4 MG TAB.RAPDIS. PO (09:15)
[2018-01-13] MEDS ORDERED: ONDANSETRON PF 4 MG/2 ML VIAL. IV (09:15)
[2018-01-13] MEDS ORDERED: CALCITRIOL PO (09:15)
[2018-01-13] MEDS ORDERED: ACETAMINOPHEN 325 MG TABLET. PO ×2 (09:15)
[2018-01-13] MEDS ORDERED: MAGNESIUM HYDROXIDE 2,400 MG/30 ML ORAL.SUSP. PO (09:15)
[2018-01-13] MEDS ORDERED: METOPROLOL TART IMMED RELEASE 50 MG TABLET. PO (10:00)
[2018-01-13] MEDS: ALBUTEROL SULFATE 2.5 MG/3 ML NEBU. NEB ×3 (12:34→22:23)
[2018-01-13] MEDS ORDERED: IV NORMAL SALINE 1000ML BAG 1,000 ML IV ×2 (13:31)
[2018-01-13] MEDS ORDERED: ALBUMIN HUMAN 25% 200 ML IV (13:45)
[2018-01-13] MEDS ORDERED: DIALYSIS PATIENT. MC ×2 (13:45)
[2018-01-13] MEDS: METOPROLOL TART IMMED RELEASE 50 MG TABLET. PO ×2 (13:53→22:01)
[2018-01-13] MEDS: CALCIUM ACETATE 667 MG CAPSULE PO ×3 (13:53→17:38)
[2018-01-13] MEDS: PANTOPRAZOLE 40 MG TABLET.DR. PO (13:53)
[2018-01-13] MEDS: FOLIC/VIT B COMP W-C (RENAL) TABLET. PO (13:54)
[2018-01-13] MEDS: FERROUS SULFATE 325 MG TABLET. PO (13:54)
[2018-01-13 16:13] LABS: PHOSPHORUS 3.3 mg/dL (2.6-4.7)
[2018-01-13 17:01] LABS: HEPATITIS B SURFACE AG Nonreactive (Nonreactive)
[2018-01-13] MEDS: CALCITRIOL 0.25 MCG CAPSULE. PO (17:38)
[2018-01-13] MEDS ORDERED: CONTRAST GIVEN. MC (18:00)
[2018-01-13] MEDS: IOHEXOL 300 MG/ML 100ML VIAL. IV ×2 (18:00)
[2018-01-13] MEDS: hydrOXYzine PAMOATE 25 MG CAPSULE PO (22:02)
[2018-01-13] MEDS: amLODIPine BESYLATE 10 MG TABLET PO (22:02)
[2018-01-13] MEDS: LISINOPRIL 20 MG TABLET PO (22:02)
[2018-01-13] MEDS: DARBEPOETIN ALFA 40 MCG/0.4 ML DISP.SYRIN. SQ (22:03)
[2018-01-14] MEDS: ALBUTEROL SULFATE 2.5 MG/3 ML NEBU. IH (01:12)
[2018-01-14] MEDS: FERROUS SULFATE 325 MG TABLET. PO (08:30)
[2018-01-14] MEDS: CALCIUM ACETATE 667 MG CAPSULE PO ×3 (08:31→17:29)
[2018-01-14] MEDS: FOLIC/VIT B COMP W-C (RENAL) TABLET. PO (08:31)
[2018-01-14] MEDS: METOPROLOL TART IMMED RELEASE 50 MG TABLET. PO ×2 (08:31→20:43)
[2018-01-14] MEDS: PANTOPRAZOLE 40 MG TABLET.DR. PO (08:31)
[2018-01-14] MEDS: ALBUTEROL SULFATE 2.5 MG/3 ML NEBU. NEB ×2 (09:22→23:06)
[2018-01-14] MEDS ORDERED: cloNIDine HCL 0.1 MG TABLET PO (09:45)
[2018-01-14 10:26] LABS: CALCIUM PTH 10.6 mg/dL (8.7-10.2); CREATININE PTH 8.15 mg/dL (0.76-1.27); PHOSPHORUS PTH 3.4 mg/dL (2.5-4.5); PTH INTACT 119 pg/mL (15-65); eGFR AFRICAN-AMER 8 (>59); eGFR NON AFRICAN-AMER 6 (>59)
[2018-01-14 10:38] LABS: MEAN CORPUSCULAR HGB CONC 34 g/dL (31-37)
[2018-01-14] MEDS: FUROSEMIDE 40 MG/4 ML VIAL. IVP (10:49)
[2018-01-14 11:02] LABS: HEMOGLOBIN 6.2 g/dL (13.0-17.5)
[2018-01-14 11:03] LABS: HEMATOCRIT 18.7 % (39.0-53.0)
[2018-01-14] MEDS: IPRATRPIUM/ALBUTEROL 0.5/2.5MG 3 ML NEBU. NEB ×3 (11:46→20:29)
[2018-01-14 13:08] LABS: IMMEDIATE SPIN CROSSMATCH 1 1
[2018-01-14] MEDS ORDERED: levOFLOXacin PER PHARMACY. MC (17:30)
[2018-01-14] MEDS: LISINOPRIL 20 MG TABLET PO (20:42)
[2018-01-14] MEDS: amLODIPine BESYLATE 10 MG TABLET PO (20:43)
[2018-01-15] MEDS: ALBUTEROL SULFATE 2.5 MG/3 ML NEBU. NEB ×2 (03:18→09:37)
[2018-01-15 04:46] LABS: ADD MAN DIFF? NO
[2018-01-15 04:50] LABS: BASO % 0 % (0-3); EOS # 0.4 x10^3/uL (0.0-0.7); EOS % 4 % (0-3); HEMOGLOBIN 7.7 g/dL (13.0-17.5); LYMPH # 1.7 x10^3/uL (1.0-4.8); LYMPH % 19 % (24-48); MEAN CORPUSCULAR HEMOGLOBIN 27 pg (25-35); MEAN CORPUSCULAR HGB CONC 34 g/dL (31-37); MEAN CORPUSCULAR VOLUME 79 fL (79-100); MONO % 12 % (0-9); NEUT # 5.6 x10^3uL (1.8-7.7); NEUT % 65 % (31-73); PLATELET COUNT 449 x10^3/uL (140-400); RED BLOOD COUNT 2.92 x10^6/uL (4.30-5.70); RED CELL DISTRIBUTION WIDTH 19.3 % (11.5-14.5); WHITE BLOOD COUNT 8.7 x10^3/uL (4.0-11.0)
[2018-01-15 05:07] LABS: ALBUMIN 2.3 g/dL (3.4-5.0); ANION GAP 9 (6-14); BLOOD UREA NITROGEN 52 mg/dL (8-26); CALCIUM 9.7 mg/dL (8.5-10.1); CARBON DIOXIDE 28 mmol/L (21-32); CHLORIDE 100 mmol/L (98-107); CREATININE 6.5 mg/dL (0.7-1.3); GFR 10.7; GLUCOSE 94 mg/dL (70-99); PHOSPHORUS 1.4 mg/dL (2.6-4.7); POTASSIUM 3.6 mmol/L (3.5-5.1); SODIUM 137 mmol/L (136-145)
[2018-01-15] MEDS: IPRATRPIUM/ALBUTEROL 0.5/2.5MG 3 ML NEBU. NEB ×2 (07:07→13:45)
[2018-01-15] MEDS ORDERED: IV NORMAL SALINE 1000ML BAG 1,000 ML IV ×2 (07:12)
[2018-01-15] MEDS ORDERED: DIALYSIS PATIENT. MC ×2 (07:15)
[2018-01-15] MEDS ORDERED: 0.9 % SODIUM CHLORIDE 10 ML DISP.SYRIN. IV ×2 (07:15)
[2018-01-15] MEDS ORDERED: ALBUMIN HUMAN 25% 200 ML IV (07:15)
[2018-01-15] MEDS: FUROSEMIDE 40 MG/4 ML VIAL. IVP (13:03)
[2018-01-15] MEDS: PANTOPRAZOLE 40 MG TABLET.DR. PO (13:03)
[2018-01-15] MEDS: CALCIUM ACETATE 667 MG CAPSULE PO (13:04)
[2018-01-15] MEDS: FOLIC/VIT B COMP W-C (RENAL) TABLET. PO (13:04)
[2018-01-15] MEDS: METOPROLOL TART IMMED RELEASE 50 MG TABLET. PO (13:04)
[2018-01-15] MEDS: FERROUS SULFATE 325 MG TABLET. PO (13:04)
[2018-01-16] MEDS ORDERED: ERGOCALCIFEROL (VITAMIN D2) 50,000 UNIT CAPSULE. PO (09:00)
== END 2018-01-15 15:35 | disposition home or self-care (01) | DRG 640 ==
LOC: ER 06:35 → 2 NORTH 07:45
PROC: 30233N1 Transfusion of Nonautologous Red Blood Cells into Peripheral Vein, Percutaneous Approach (ICD-10-PCS; principal; 2018-01-13)
PROC: 5A1D70Z Performance of Urinary Filtration, Intermittent, Less than 6 Hours Per Day (ICD-10-PCS; 2018-01-13)
DX: E87.70 Fluid overload, unspecified (principal); J96.21 Acute and chronic respiratory failure with hypoxia; N18.6 End stage renal disease; I13.2 Hypertensive heart and chronic kidney disease with heart failure and with stage 5 chronic kidney disease, or end stage renal disease; R64 Cachexia; J98.11 Atelectasis; J90 Pleural effusion, not elsewhere classified; K21.9 Gastro-esophageal reflux disease without esophagitis; J44.9 Chronic obstructive pulmonary disease, unspecified; I50.9 Heart failure, unspecified; Z87.891 Personal history of nicotine dependence; E78.5 Hyperlipidemia, unspecified; Z86.711 Personal history of pulmonary embolism; F32.9 Major depressive disorder, single episode, unspecified; M19.90 Unspecified osteoarthritis, unspecified site; I48.2 Chronic atrial fibrillation; Z90.49 Acquired absence of other specified parts of digestive tract; Z99.2 Dependence on renal dialysis; Z99.81 Dependence on supplemental oxygen; Z86.14 Personal history of Methicillin resistant Staphylococcus aureus infection; Z79.899 Other long term (current) drug therapy; D63.1 Anemia in chronic kidney disease
CPT/HCPCS: 36415; 36600; 71045; 71046; 71275; 80053; 80069; 82306; 82553; 82805; 83605; 83735; 83880; 83970; 84100; 84484; 85014; 85018; 85025; 85610; 86850; 86900; 86901; 86920; 87340; 93005; 94640; 94760; 96374; 99285-25; J0881; J1940; J1956; J7613; J7620; P9016; Q0177

== ENCOUNTER 2018-02-25 08:16 | Inpatient (IN) | payer OTHER ==
[~2018-02-25] VITALS: Ht 180.3 cm; Wt 54.2 kg
[~2018-02-25 08:16] MED LIST: ACET325T21 PO; ACET325T9 PO; AMLO10TA6 PO; APIX5TAB PO; CALC0.25 PO; CALC667T PO; FERR325T14 PO; FOLI0.8T3 PO; HYDR25TA PO; IPRA3AMP29 NEB; IRON100V2 IV; LISI-130 PO; MAGN400O7 PO; METO50TA6 PO; PANT20TA2 PO
[2018-02-25] MEDS ORDERED: VANCOMYCIN PER PHARMACY MC ONE (08:30)
--- NOTE | 2018-02-25 08:41 | EKG ---
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
[2018-02-25] MEDS ORDERED: PIPERACILLIN/TAZOBACTAM 2.25 GM in IV NORMAL SALINE 100ML 100 ML IV ONE (08:45)
[2018-02-25] MEDS ORDERED: ACETAMINOPHEN 500 MG TABLET PO ONE (09:00)
[2018-02-25] MEDS ORDERED: VANCOMYCIN 1.5 GM in IV NORMAL SALINE 500ML BAG 500 ML IV ONE (09:00)
[2018-02-25 09:10] LABS: BASO % 0 % (0-3); EOS % 0 % (0-3); HEMATOCRIT 29.3 % (39.0-53.0); HEMOGLOBIN 9.6 g/dL (13.0-17.5); LYMPH % 5 % (24-48); MEAN CORPUSCULAR HEMOGLOBIN 26 pg (25-35); MEAN CORPUSCULAR HGB CONC 33 g/dL (31-37); MEAN CORPUSCULAR VOLUME 78 fL (79-100); MONO # 1.6 x10^3/uL (0.0-1.1); MONO % 8 % (0-9); NEUT # 18.3 x10^3uL (1.8-7.7); NEUT % 88 % (31-73); PLATELET COUNT 356 x10^3/uL (140-400); RED BLOOD COUNT 3.73 x10^6/uL (4.30-5.70); RED CELL DISTRIBUTION WIDTH 18.9 % (11.5-14.5); WHITE BLOOD COUNT 20.9 x10^3/uL (4.0-11.0)
--- NOTE | 2018-02-25 09:16 | RAD ---
Exam: AP portable chest History: Fever. Comparison: January 14, 2018. Findings: Cardiac silhouette remains enlarged. Right internal jugular dialysis catheter is again seen. Small bilateral pleural effusions are present. Pulmonary vascularity is accentuated. Both lower lung hernandez demonstrate alveolar densities. Impression: 1. Bilateral alveolar densities, could be asymmetric pulmonary edema versus atelectasis versus pneumonia. 2. Small bilateral pleural effusions, similar to previous study. 3. Accentuation of pulmonary vascularity, compatible with volume overload/pulmonary edema. Electronically signed by: Lincoln Smith MD (02/25/2018 9:13 AM) [place] [id number]
[2018-02-25 09:17] LABS: CALCIUM 9.5 mg/dL (8.5-10.1); CREATININE 7.3 mg/dL (0.7-1.3); GFR 9.3; POTASSIUM 5.4 mmol/L (3.5-5.1)
[2018-02-25 09:23] LABS: ALBUMIN 2.8 g/dL (3.4-5.0); ALBUMIN/GLOBULIN RATIO 0.5 (1.0-1.7); TOTAL BILIRUBIN 0.4 mg/dL (0.2-1.0); TOTAL PROTEIN 8.7 g/dL (6.4-8.2)
[2018-02-25] MEDS: fentaNYL PF VIAL 100 MCG/2 ML VIAL IV PRN ×4 (09:25→21:22)
[2018-02-25] MEDS ORDERED: IV NORMAL SALINE 500ML BAG 500 ML IV ONE (09:30)
--- NOTE | 2018-02-25 10:52 | PHYS DOC ---
Past Medical History Past Medical History: CHF, COPD, GERD, Hypertension, Renal Failure Past Surgical History: Appendectomy, Other Additional Past Surgical Histo: spleen, small bowel Alcohol Use: None Drug Use: None Adult General Chief Complaint Chief Complaint: FEVER HPI HPI 57-year-old male who is chronically ill secondary to multiple medical problems including end-stage renal disease on dialysis who is currently incarcerated presents with fever, lethargy and some shortness of breath. Patient states over the last 2 days he has felt like he's had a fever. He has had a cough. His been dry. He states he is at his last dialysis treatment as scheduled yesterday. He denies any nausea or vomiting. He states he has a very sore spot on his tailbone. He thinks this is from laying around too much. He states he has a port in his right upper chest but it is not been particularly tender and it has been working for dialysis. [] Review of Systems Review of Systems Constitutional: Per history of present illness[] Eyes: Denies change in visual acuity, redness, or eye pain [] HENT: Denies nasal congestion or sore throat [] Respiratory: Denies cough or shortness of breath [] Cardiovascular: No additional information not addressed in HPI [] GI: Denies abdominal pain, nausea, vomiting, bloody stools or diarrhea [] : Denies dysuria or hematuria [] Musculoskeletal: Denies back pain or joint pain [] Integument: A sore area on his buttock[] Neurologic: Denies headache, focal weakness or sensory changes [] Endocrine: Denies polyuria or polydipsia [] All other systems were reviewed and found to be within normal limits, except as documented in this note. Current Medications Current Medications Current Medications Medications (Trade) Dose Ordered Sig/Lissette Start Time Stop Time Status Last Admin Dose Admin Acetaminophen (Tylenol) 1,000 mg 1X ONCE 02/25/18 09:00 02/25/18 09:01 DC 02/25/18 09:25 1,000 MG Fentanyl Citrate (Fentanyl 2ml Vial) 50 mcg PRN Q15MIN PRN 02/25/18 08:30 02/26/18 08:29 02/25/18 09:25 50 MCG Piperacillin Sod/ Tazobactam Sod 2.25 gm/Sodium Chloride 100 ml @ 200 mls/hr 1X ONCE 02/25/18 08:45 02/25/18 09:14 DC 02/25/18 09:25 200 MLS/HR Sodium Chloride 500 ml @ 500 mls/hr 1X ONCE 02/25/18 09:30 02/25/18 10:29 DC 02/25/18 09:47 500 MLS/HR Vancomycin HCl (Vanco Per Pharmacy) 1 each 1X ONCE 02/25/18 08:30 02/25/18 08:56 DC Vancomycin HCl 1.5 gm/Sodium Chloride 500 ml @ 250 mls/hr 1X ONCE 02/25/18 09:00 02/25/18 10:59 DC 02/25/18 11:07 250 MLS/HR Allergies Allergies Allergies Coded Allergies Type Severity Reaction Last Updated Verified I S O L A T I O N *CONTACT* Allergy Unknown 10/27/17 Yes No Known Medication Allergies Allergy Unknown 10/27/17 Yes Physical Exam Physical Exam Constitutional: Frail, acute on chronically ill. [] HENT: Normocephalic, atraumatic, bilateral external ears normal, oropharynx moist, no oral exudates, nose normal. [] Eyes: PERRLA, EOMI, conjunctiva normal, no discharge. [] Neck: Normal range of motion, no tenderness, supple, no stridor. [] Cardiovascular: Tachycardic no obvious murmur[] Lungs & Thorax: He has a dialysis catheter in his right upper chest there is no surrounding erythema or tenderness[] Abdomen: Bowel sounds normal, soft, no tenderness, no masses, no pulsatile masses. [] Skin: Small decubitus and sacral region. [] Back: No tenderness, no CVA tenderness. [] Extremities: Full range of motion no clubbing cyanosis or edema[] Neurologic: Alert and oriented X 3, normal motor function, normal sensory function, no focal deficits noted. [] Psychologic: Depressed affect. [] Current Patient Data Vital Signs Vital Signs Date Time Temp Pulse Resp B/P (MAP) Pulse Ox O2 Delivery O2 Flow Rate FiO2 02/25/18 08:16 100.5 117 32 166/79 (108) 92 Room Air 3.0 100.5 Lab Values Laboratory Tests Test 02/25/18 08:45 White Blood Count 20.9 x10^3/uL (4.0-11.0) H Red Blood Count 3.73 x10^6/uL (4.30-5.70) L Hemoglobin 9.6 g/dL (13.0-17.5) L Hematocrit 29.3 % (39.0-53.0) L Mean Corpuscular Volume 78 fL (79-100) L Mean Corpuscular Hemoglobin 26 pg (25-35) Mean Corpuscular Hemoglobin Concent 33 g/dL (31-37) Red Cell Distribution Width 18.9 % (11.5-14.5) H Platelet Count 356 x10^3/uL (140-400) Neutrophils (%) (Auto) 88 % (31-73) H Lymphocytes (%) (Auto) 5 % (24-48) L Monocytes (%) (Auto) 8 % (0-9) Eosinophils (%) (Auto) 0 % (0-3) Basophils (%) (Auto) 0 % (0-3) Neutrophils # (Auto) 18.3 x10^3uL (1.8-7.7) H Lymphocytes # (Auto) 1.0 x10^3/uL (1.0-4.8) Monocytes # (Auto) 1.6 x10^3/uL (0.0-1.1) H Eosinophils # (Auto) 0.0 x10^3/uL (0.0-0.7) Basophils # (Auto) 0.0 x10^3/uL (0.0-0.2) Segmented Neutrophils % 88 % (35-66) H Band Neutrophils % 3 % (0-9) Lymphocytes % 4 % (24-48) L Monocytes % 4 % (0-10) Eosinophils % 1 % (0-5) Platelet Estimate Adequate (ADEQUATE) Anisocytosis Slight Sodium Level 132 mmol/L (136-145) L Potassium Level 5.4 mmol/L (3.5-5.1) H Chloride Level 94 mmol/L (98-107) L Carbon Dioxide Level 31 mmol/L (21-32) Anion Gap 7 (6-14) Blood Urea Nitrogen 62 mg/dL (8-26) H Creatinine 7.3 mg/dL (0.7-1.3) H Estimated GFR (Cockcroft-Gault) 9.3 BUN/Creatinine Ratio 8 (6-20) Glucose Level 71 mg/dL (70-99) Lactic Acid Level 0.9 mmol/L (0.4-2.0) Calcium Level 9.5 mg/dL (8.5-10.1) Total Bilirubin 0.4 mg/dL (0.2-1.0) Aspartate Amino Transferase (AST) 24 U/L (15-37) Alanine Aminotransferase (ALT) 20 U/L (16-63) Alkaline Phosphatase 93 U/L (46-116) Total Protein 8.7 g/dL (6.4-8.2) H Albumin 2.8 g/dL (3.4-5.0) L Albumin/Globulin Ratio 0.5 (1.0-1.7) L Laboratory Tests 02/25/18 08:45 Laboratory Tests 02/25/18 08:45 EKG EKG EKG: Sinus tachycardia rate of [address]-T changes[] Radiology/Procedures Radiology/Procedures [] Impressions: PROCEDURE: PORTABLE CHEST 1V Exam: AP portable chest History: Fever. Comparison: January 14, 2018. Findings: Cardiac silhouette remains enlarged. Right internal jugular dialysis catheter is again seen. Small bilateral pleural effusions are present. Pulmonary vascularity is accentuated. Both lower lung hernandez demonstrate alveolar densities. Impression: 1. Bilateral alveolar densities, could be asymmetric pulmonary edema versus atelectasis versus pneumonia. 2. Small bilateral pleural effusions, similar to previous study. 3. Accentuation of pulmonary vascularity, compatible with volume overload/pulmonary edema. Course & Med Decision Making Course & Med Decision Making Pertinent Labs and Imaging studies reviewed. (See chart for details) [ED course: A beta which reveals a acutely ill 57-year-old male who has a low- grade temperature tachycardic elevated white count and a potential source of a right chest catheter. Patient mitt Sirs criteria and was initially treated for sepsis using broad-spectrum antibiotics including vancomycin and Zosyn. His lactic acid was 0.9 so IV fluid resuscitation was not initiated. We will go ahead and admit the patient to Dr. Romano to have nephrology and infectious disease help in the assessment of the patient. CRITICAL CARE: Time spent was 35 minutes. This includes medical management, evaluation, reevaluation, discussion with consultants and family. Critical Care does NOT include time spent on separately billed procedures. ] Dragon Disclaimer Dragon Disclaimer This electronic medical record was generated, in whole or in part, using a voice recognition dictation system. Departure Departure Impression: Primary Impression: Sepsis Additional Impression: End stage renal disease on dialysis Disposition: 09 ADMITTED INPATIENT Admitting Physician: Jalen Burr Condition: GUARDED Referrals: NO PCP (PCP) Problem Qualifiers Primary Impression: Sepsis Sepsis type: sepsis due to unspecified organism Qualified Codes: A41.9 - Sepsis, unspecified organism ENE RAMON DO Feb 25, 2018 10:52
[2018-02-25] MEDS ORDERED: ONDANSETRON PF 4 MG/2 ML VIAL. IV PRN (11:15)
[2018-02-25] MEDS ORDERED: ACETAMINOPHEN 325 MG TABLET. PO PRN ×2 (11:15→21:30)
[2018-02-25 11:23] LABS: % BANDS 3 % (0-9); % EOS 1 % (0-5); % LYMPHS 4 % (24-48); % MONOS 4 % (0-10); % SEGS 88 % (35-66)
[2018-02-25 11:26] LABS: ANISOCYTOSIS SLIGHT; PLT ESTIMATE ADEQUATE (ADEQUATE)
--- NOTE | 2018-02-25 12:24 | PDOC1 ---
History and Physical Date of Admission Date of Admission DATE: 02/25/18 TIME: 12:23 Identification/Chief Complaint Chief Complaint CC SEEN IN ER HX end-stage renal disease on dialysis who is currently incarcerated presents with fever, lethargy and some shortness of breath. over the last 2 days he has felt like he's had a fever.ALSO has had a cough. Past Medical History Cardiovascular: CHF, HTN, Hyperlipidemia Pulmonary: Asthma, Pulmonary embolus, Pneumonia GI: GERD Heme/Onc: Anemia NOS Hepatobiliary: No pertinent hx Psych: Depression Musculoskeletal: Osteoarthritis Infectious disease: No pertinent hx Renal/: Chronic renal failure Endocrine: No pertinent hx, Hyperparathyroidism Past Surgical History Past Surgical History: Appendectomy, Other Family History Family History: No Significant, Diabetes Social History ALCOHOL: none Drugs: None Current Problem List Problem List Problems Medical Problems: (1) End stage renal disease on dialysis Status: Acute (2) Sepsis Status: Acute Current Medications Current Medications Current Medications Piperacillin Sod/ Tazobactam Sod 2.25 gm/Sodium Chloride 100 ml @ 200 mls/hr 1X ONCE IV Last administered on 02/25/18at 09:25; Start 02/25/18 at 08:45; Stop 02/25/18 at 09:14; Status DC Vancomycin HCl (Vanco Per Pharmacy) 1 each 1X ONCE MC ; Start 02/25/18 at 08:30 ; Stop 02/25/18 at 08:56; Status DC Fentanyl Citrate (Fentanyl 2ml Vial) 50 mcg PRN Q15MIN PRN IV PAIN GREATER THAN 3/10 Last administered on 02/25/18at 09:25; Start 02/25/18 at 08:30; Stop at 08:29 Acetaminophen (Tylenol) 1,000 mg 1X ONCE PO Last administered on 02/25/18at 09: 25; Start 02/25/18 at 09:00; Stop 02/25/18 at 09:01; Status DC Vancomycin HCl 1.5 gm/Sodium Chloride 500 ml @ 250 mls/hr 1X ONCE IV Last administered on 02/25/18at 11:07; Start 02/25/18 at 09:00; Stop 02/25/18 at 10:59 ; Status DC Sodium Chloride 500 ml @ 500 mls/hr 1X ONCE IV Last administered on at 09:47; Start 02/25/18 at 09:30; Stop 02/25/18 at 10:29; Status DC Ondansetron HCl (Zofran) 4 mg PRN Q8HRS PRN IV NAUSEA/VOMITING; Start 02/25/18 at 11:15; Stop 02/26/18 at 11:14 Fentanyl Citrate (Fentanyl 2ml Vial) 50 mcg PRN Q2HR PRN IV PAIN; Start at 11:15; Stop 02/26/18 at 11:14 Acetaminophen (Tylenol) 650 mg PRN Q4HRS PRN PO FEVER; Start 02/25/18 at 11:15 ; Stop 02/26/18 at 11:14 Active Scripts Active Metoprolol Tartrate 50 Mg Tablet 50 Mg PO BID 60 Days Reported Tylenol (Acetaminophen) 325 Mg Tablet 1-2 Tab PO QID PRN Milk Of Magnesia (Magnesium Hydroxide) 400 Mg/5 Ml Oral.susp 30 Ml PO BID PRN Duoneb 0.5-3(2.5) Mg/3 Ml (Albuterol/Ipratropium) 3 Ml Ampul.neb 3 Ml NEB Q4HRS PRN Hydroxyzine Hcl 25 Mg Tablet 1 Tab PO Q6HRS PRN Calcium Acetate 667 Mg Tablet 667 Mg PO TIDWMEALS Calcitriol 0.25 Mcg Capsule 1 Cap PO QTUTHSA Protonix (Pantoprazole Sodium) 20 Mg Tablet.dr 40 Mg PO DAILY Nephro-Bennie Tablet (Folic Acid/Vitamin B Comp W-C) 0.8 Mg Tablet 1 Tab PO DAILY Metoprolol Tartrate 50 Mg Tablet 1 Tab PO BID Lisinopril 40 Mg Tablet 1 Tab PO QHS Ferrous Sulfate 325 Mg Tablet 1 Tab PO DAILY Calcitriol 0.25 Mcg Capsule 1 Cap PO M/W/F Amlodipine Besylate 10 Mg Tablet 10 Mg PO QHS Acetaminophen 325 Mg Tablet 325 Mg PO PRN Q8HRS Allergies Allergies: Coded Allergies: I S O L A T I O N *CONTACT* (Verified Allergy, Unknown, 10/27/17) mrsa No Known Medication Allergies (Verified Allergy, Unknown, 10/27/17) ROS Review of System Review of Systems Review of Systems Constitutional: Per history of present illness[] Eyes: Denies change in visual acuity, redness, or eye pain [] HENT: Denies nasal congestion or sore throat [] Respiratory: Denies cough or shortness of breath [] Cardiovascular: No additional information not addressed in HPI [] GI: Denies abdominal pain, nausea, vomiting, bloody stools or diarrhea [] : Denies dysuria or hematuria [] Musculoskeletal: Denies back pain or joint pain [] Integument: A sore area on his buttock[] Neurologic: Denies headache, focal weakness or sensory changes [] Endocrine: Denies polyuria or polydipsia [] 14 PT systems were reviewed and found to be within normal limits, except as documented General: YES: Chills, Fatigue, Malaise Skin: Yes Dry Skin Physical Exam Physical Exam Physical Exam Physical Exam Constitutional: Frail, acute on chronically ill. [] HENT: Normocephalic, atraumatic, bilateral external ears normal, oropharynx moist, no oral exudates, nose normal. [] Eyes: PERRLA, EOMI, conjunctiva normal, no discharge. [] Neck: Normal range of motion, no tenderness, supple, no stridor. [] Cardiovascular: Tachycardic no obvious murmur[] Lungs & Thorax: He has a dialysis catheter in his right upper chest there is no surrounding erythema or tenderness[] Abdomen: Bowel sounds normal, soft, no tenderness, no masses, no pulsatile masses. [] Skin: Small decubitus and sacral region. [] Back: No tenderness, no CVA tenderness. [] Extremities: Full range of motion no clubbing cyanosis or edema[] Neurologic: Alert and oriented X 3, normal motor function, normal sensory function, no focal deficits noted. [] Psychologic: Depressed affect. [] General: Alert, Oriented X3, Cooperative, mild distress HEENT: Atraumatic, PERRLA, EOMI Lungs: Normal air movement Breasts: Not examined Abdomen: Normal bowel sounds, Soft Rectal Exam: not examined Neuro: Normal speech, Cranial nerves 3-12 NL Psych/Mental Status: Mood NL Vitals Vitals Vital Signs Date Time Temp Pulse Resp B/P (MAP) Pulse Ox O2 Delivery O2 Flow Rate FiO2 02/25/18 11:06 98.4 98.4 02/25/18 08:16 117 32 166/79 (108) 92 Room Air 3.0 Labs Labs Laboratory Tests Test 02/25/18 08:45 White Blood Count 20.9 x10^3/uL (4.0-11.0) Red Blood Count 3.73 x10^6/uL (4.30-5.70) Hemoglobin 9.6 g/dL (13.0-17.5) Hematocrit 29.3 % (39.0-53.0) Mean Corpuscular Volume 78 fL (79-100) Mean Corpuscular Hemoglobin 26 pg (25-35) Mean Corpuscular Hemoglobin Concent 33 g/dL (31-37) Red Cell Distribution Width 18.9 % (11.5-14.5) Platelet Count 356 x10^3/uL (140-400) Neutrophils (%) (Auto) 88 % (31-73) Lymphocytes (%) (Auto) 5 % (24-48) Monocytes (%) (Auto) 8 % (0-9) Eosinophils (%) (Auto) 0 % (0-3) Basophils (%) (Auto) 0 % (0-3) Neutrophils # (Auto) 18.3 x10^3uL (1.8-7.7) Lymphocytes # (Auto) 1.0 x10^3/uL (1.0-4.8) Monocytes # (Auto) 1.6 x10^3/uL (0.0-1.1) Eosinophils # (Auto) 0.0 x10^3/uL (0.0-0.7) Basophils # (Auto) 0.0 x10^3/uL (0.0-0.2) Segmented Neutrophils % 88 % (35-66) Band Neutrophils % 3 % (0-9) Lymphocytes % 4 % (24-48) Monocytes % 4 % (0-10) Eosinophils % 1 % (0-5) Platelet Estimate Adequate (ADEQUATE) Anisocytosis Slight Sodium Level 132 mmol/L (136-145) Potassium Level 5.4 mmol/L (3.5-5.1) Chloride Level 94 mmol/L (98-107) Carbon Dioxide Level 31 mmol/L (21-32) Anion Gap 7 (6-14) Blood Urea Nitrogen 62 mg/dL (8-26) Creatinine 7.3 mg/dL (0.7-1.3) Estimated GFR (Cockcroft-Gault) 9.3 BUN/Creatinine Ratio 8 (6-20) Glucose Level 71 mg/dL (70-99) Lactic Acid Level 0.9 mmol/L (0.4-2.0) Calcium Level 9.5 mg/dL (8.5-10.1) Total Bilirubin 0.4 mg/dL (0.2-1.0) Aspartate Amino Transf (AST/SGOT) 24 U/L (15-37) Alanine Aminotransferase (ALT/SGPT) 20 U/L (16-63) Alkaline Phosphatase 93 U/L (46-116) Total Protein 8.7 g/dL (6.4-8.2) Albumin 2.8 g/dL (3.4-5.0) Albumin/Globulin Ratio 0.5 (1.0-1.7) Laboratory Tests Test 02/25/18 08:45 White Blood Count 20.9 x10^3/uL (4.0-11.0) Red Blood Count 3.73 x10^6/uL (4.30-5.70) Hemoglobin 9.6 g/dL (13.0-17.5) Hematocrit 29.3 % (39.0-53.0) Mean Corpuscular Volume 78 fL (79-100) Mean Corpuscular Hemoglobin 26 pg (25-35) Mean Corpuscular Hemoglobin Concent 33 g/dL (31-37) Red Cell Distribution Width 18.9 % (11.5-14.5) Platelet Count 356 x10^3/uL (140-400) Neutrophils (%) (Auto) 88 % (31-73) Lymphocytes (%) (Auto) 5 % (24-48) Monocytes (%) (Auto) 8 % (0-9) Eosinophils (%) (Auto) 0 % (0-3) Basophils (%) (Auto) 0 % (0-3) Neutrophils # (Auto) 18.3 x10^3uL (1.8-7.7) Lymphocytes # (Auto) 1.0 x10^3/uL (1.0-4.8) Monocytes # (Auto) 1.6 x10^3/uL (0.0-1.1) Eosinophils # (Auto) 0.0 x10^3/uL (0.0-0.7) Basophils # (Auto) 0.0 x10^3/uL (0.0-0.2) Segmented Neutrophils % 88 % (35-66) Band Neutrophils % 3 % (0-9) Lymphocytes % 4 % (24-48) Monocytes % 4 % (0-10) Eosinophils % 1 % (0-5) Platelet Estimate Adequate (ADEQUATE) Anisocytosis Slight Sodium Level 132 mmol/L (136-145) Potassium Level 5.4 mmol/L (3.5-5.1) Chloride Level 94 mmol/L (98-107) Carbon Dioxide Level 31 mmol/L (21-32) Anion Gap 7 (6-14) Blood Urea Nitrogen 62 mg/dL (8-26) Creatinine 7.3 mg/dL (0.7-1.3) Estimated GFR (Cockcroft-Gault) 9.3 BUN/Creatinine Ratio 8 (6-20) Glucose Level 71 mg/dL (70-99) Lactic Acid Level 0.9 mmol/L (0.4-2.0) Calcium Level 9.5 mg/dL (8.5-10.1) Total Bilirubin 0.4 mg/dL (0.2-1.0) Aspartate Amino Transf (AST/SGOT) 24 U/L (15-37) Alanine Aminotransferase (ALT/SGPT) 20 U/L (16-63) Alkaline Phosphatase 93 U/L (46-116) Total Protein 8.7 g/dL (6.4-8.2) Albumin 2.8 g/dL (3.4-5.0) Albumin/Globulin Ratio 0.5 (1.0-1.7) Images Images Exam: AP portable chest History: Fever. Comparison: January 14, 2018. Findings: Cardiac silhouette remains enlarged. Right internal jugular dialysis catheter is again seen. Small bilateral pleural effusions are present. Pulmonary vascularity is accentuated. Both lower lung hernandez demonstrate alveolar densities. Impression: 1. Bilateral alveolar densities, could be asymmetric pulmonary edema versus atelectasis versus pneumonia. 2. Small bilateral pleural effusions, similar to previous study. 3. Accentuation of pulmonary vascularity, compatible with volume overload/pulmonary edema. Electronically signed by: Lincoln Smith MD (02/25/2018 9:13 AM) [facility] VTE Prophylaxis Ordered VTE Prophylaxis Devices: Yes VTE Pharmacological Prophylaxi: Yes Assessment/Plan Assessment/Plan Impression: Sepsis End stage renal disease on dialysis Possible volume overload vs pneumonia PLAN ADMITTED INPATIENT NEPHROLOGY CONSULT ID CONSULT BLOOD AND URINE CULTURES CARRIE SIFUENTES MD Feb 25, 2018 12:24
[2018-02-25 12:35] VITALS: BP 116/69
--- NOTE | 2018-02-25 12:41 | PDOC ---
Infectious Disease Note Vital Sign Vital Signs Vital Signs Date Time Temp Pulse Resp B/P (MAP) Pulse Ox O2 Delivery O2 Flow Rate FiO2 02/25/18 11:06 98.4 98.4 02/25/18 08:16 117 32 166/79 (108) 92 Room Air 3.0 Labs Lab Laboratory Tests Test 02/25/18 08:45 White Blood Count 20.9 x10^3/uL (4.0-11.0) Red Blood Count 3.73 x10^6/uL (4.30-5.70) Hemoglobin 9.6 g/dL (13.0-17.5) Hematocrit 29.3 % (39.0-53.0) Mean Corpuscular Volume 78 fL (79-100) Mean Corpuscular Hemoglobin 26 pg (25-35) Mean Corpuscular Hemoglobin Concent 33 g/dL (31-37) Red Cell Distribution Width 18.9 % (11.5-14.5) Platelet Count 356 x10^3/uL (140-400) Neutrophils (%) (Auto) 88 % (31-73) Lymphocytes (%) (Auto) 5 % (24-48) Monocytes (%) (Auto) 8 % (0-9) Eosinophils (%) (Auto) 0 % (0-3) Basophils (%) (Auto) 0 % (0-3) Neutrophils # (Auto) 18.3 x10^3uL (1.8-7.7) Lymphocytes # (Auto) 1.0 x10^3/uL (1.0-4.8) Monocytes # (Auto) 1.6 x10^3/uL (0.0-1.1) Eosinophils # (Auto) 0.0 x10^3/uL (0.0-0.7) Basophils # (Auto) 0.0 x10^3/uL (0.0-0.2) Segmented Neutrophils % 88 % (35-66) Band Neutrophils % 3 % (0-9) Lymphocytes % 4 % (24-48) Monocytes % 4 % (0-10) Eosinophils % 1 % (0-5) Platelet Estimate Adequate (ADEQUATE) Anisocytosis Slight Sodium Level 132 mmol/L (136-145) Potassium Level 5.4 mmol/L (3.5-5.1) Chloride Level 94 mmol/L (98-107) Carbon Dioxide Level 31 mmol/L (21-32) Anion Gap 7 (6-14) Blood Urea Nitrogen 62 mg/dL (8-26) Creatinine 7.3 mg/dL (0.7-1.3) Estimated GFR (Cockcroft-Gault) 9.3 BUN/Creatinine Ratio 8 (6-20) Glucose Level 71 mg/dL (70-99) Lactic Acid Level 0.9 mmol/L (0.4-2.0) Calcium Level 9.5 mg/dL (8.5-10.1) Total Bilirubin 0.4 mg/dL (0.2-1.0) Aspartate Amino Transf (AST/SGOT) 24 U/L (15-37) Alanine Aminotransferase (ALT/SGPT) 20 U/L (16-63) Alkaline Phosphatase 93 U/L (46-116) Total Protein 8.7 g/dL (6.4-8.2) Albumin 2.8 g/dL (3.4-5.0) Albumin/Globulin Ratio 0.5 (1.0-1.7) Objective Assessment Fever Leukocytosis Pulmonary infiltrate , pneumonia vs chf Encephalopathy ESRD Plan Plan of Care mcnally culture vanc and zosyn supportive care BILL BENTLEY MD Feb 25, 2018 12:40
[2018-02-25 15:00] VITALS: BP 106/64
[2018-02-25] MEDS ORDERED: IV NORMAL SALINE 1000ML BAG 1,000 ML IV PRN ×2 (16:33)
[2018-02-25] MEDS ORDERED: DIALYSIS PATIENT. MC PRN ×2 (16:45)
[2018-02-25] MEDS ORDERED: 0.9 % SODIUM CHLORIDE 10 ML DISP.SYRIN. IV PRN ×2 (16:45)
[2018-02-25 19:00] VITALS: BP 130/85
[2018-02-25] MEDS: ZOLPIDEM 5 MG TABLET. PO PRN ×2 (21:22→22:38)
[2018-02-25] MEDS ORDERED: MAGNESIUM HYDROXIDE 2,400 MG/30 ML ORAL.SUSP. PO PRN (21:30)
--- NOTE | 2018-02-25 21:40 | CONS ---
DATE OF CONSULTATION: 02/25/2018 REASON FOR CONSULTATION: Pneumonia and antibiotic management. HISTORY OF PRESENT ILLNESS: This is a 57-year-old gentleman, who is incarcerated, who says he was done with dialysis and he was lethargic, weak and not responding properly. He did have fever, hence he was brought in. The patient was found to have fever, leukocytosis and bilateral pulmonary infiltrate. The patient is admitted with the diagnosis of possible pneumonia. The patient denies missing any dialysis. The patient denies any nausea, vomiting, diarrhea. Denies any chest pain. He does have shortness of breath. Denies any headache or visual symptoms. PAST MEDICAL HISTORY: Positive for congestive heart failure, COPD, gastroesophageal reflux disease, hypertension, end-stage renal disease, on hemodialysis. PAST SURGICAL HISTORY: The patient has had splenectomy done, small wall surgery done, appendicectomy done. SOCIAL HISTORY: Negative for smoking, alcohol or illicit drug use. ALLERGIES: No known drug allergies. CURRENT MEDICATIONS: The patient is started on vancomycin and Zosyn. REVIEW OF SYSTEMS: As per HPI, all other systems reviewed are negative. PHYSICAL EXAMINATION: GENERAL: Alert, oriented gentleman, not in any distress. VITAL SIGNS: Stable with a T-max of 100.5, pulse 117, respirations 32, blood pressure 166/79. HEENT: Both pupils are round and reacting. No conjunctival lesion, no lesion in the mouth. NECK: Supple, no JVP, no lymphadenopathy. LUNGS: Clear. HEART: S1, S2 regular. ABDOMEN: Benign. EXTREMITIES: No edema, cyanosis. SKIN: Unremarkable. The patient does have a right upper chest dialysis catheter, which is not showing any obvious signs of infection. LABORATORY DATA: White count is 20.9, hemoglobin 9.6, platelets are normal. BUN and creatinine 62 and 7.3. Lactic acid 0.9. Has had MRSA screen positive in the past and he has had MRSA in the pleural fluid in October. IMAGING STUDIES: Chest x-ray showing bilateral alveolar densities, small pleural effusion. IMPRESSION: 1. Fever. 2. Leukocytosis. 3. Bilateral pulmonary infiltrate. This could be pneumonia. This could be congestive heart failure. 4. History of congestive heart failure. 5. History of empyema with methicillin-resistant Staphylococcus aureus. 6. End-stage renal disease, on hemodialysis. RECOMMENDATIONS: Agree with vancomycin and Zosyn for the time being, supportive care. We will check the cultures and adjust. Thank you very much, Dr. Romano for giving me the opportunity to participate in this patient's care. BILL BENTLEY MD DR: AYLEEN/nahomy JOB#: [id number] / [id number]
[2018-02-25] MEDS: LISINOPRIL 20 MG TABLET PO SCH (22:39)
[2018-02-25 23:00] VITALS: BP 142/75
[2018-02-26 03:00] VITALS: BP 150/82
[2018-02-26] MEDS: fentaNYL PF VIAL 100 MCG/2 ML VIAL IV PRN (03:50)
[2018-02-26 04:42] LABS: BASO % 0 % (0-3); EOS # 0.2 x10^3/uL (0.0-0.7); EOS % 1 % (0-3); HEMATOCRIT 30.5 % (39.0-53.0); HEMOGLOBIN 9.9 g/dL (13.0-17.5); LYMPH % 5 % (24-48); MEAN CORPUSCULAR HEMOGLOBIN 26 pg (25-35); MEAN CORPUSCULAR HGB CONC 32 g/dL (31-37); MEAN CORPUSCULAR VOLUME 79 fL (79-100); MONO # 1.3 x10^3/uL (0.0-1.1); MONO % 6 % (0-9); NEUT # 18.4 x10^3uL (1.8-7.7); NEUT % 88 % (31-73); PLATELET COUNT 373 x10^3/uL (140-400); RED BLOOD COUNT 3.84 x10^6/uL (4.30-5.70); WHITE BLOOD COUNT 20.9 x10^3/uL (4.0-11.0)
[2018-02-26 05:08] LABS: ALBUMIN 2.7 g/dL (3.4-5.0); ALBUMIN/GLOBULIN RATIO 0.5 (1.0-1.7); CALCIUM 9.7 mg/dL (8.5-10.1); CREATININE 5.7 mg/dL (0.7-1.3); GFR 12.4; POTASSIUM 4.4 mmol/L (3.5-5.1); TOTAL BILIRUBIN 0.4 mg/dL (0.2-1.0); TOTAL PROTEIN 8.7 g/dL (6.4-8.2)
[2018-02-26 07:00] VITALS: BP 134/77
[2018-02-26] MEDS: PANTOPRAZOLE 40 MG TABLET.DR. PO SCH (07:30)
[2018-02-26] MEDS: CALCIUM ACETATE 667 MG CAPSULE PO SCH ×3 (08:00→17:31)
[2018-02-26] MEDS: FOLIC/VIT B COMP W-C (RENAL) TABLET. PO SCH (09:00)
[2018-02-26] MEDS ORDERED: METOPROLOL TART IMMED RELEASE 50 MG TABLET. PO SCH ×2 (09:00)
[2018-02-26] MEDS: FERROUS SULFATE 325 MG TABLET. PO SCH (09:00)
[2018-02-26] MEDS ORDERED: cloNIDine HCL 0.1 MG TABLET PO PRN (09:15)
[2018-02-26] MEDS ORDERED: ACETAMINOPHEN 325 MG TABLET. PO PRN (09:15)
[2018-02-26] MEDS ORDERED: IV NORMAL SALINE 1000ML BAG 1,000 ML IV PRN ×2 (10:12)
[2018-02-26] MEDS ORDERED: DIALYSIS PATIENT. MC PRN (10:15)
[2018-02-26] MEDS ORDERED: diphenhydrAMINE 50 MG/ML VIAL IV PRN ×2 (10:15)
--- NOTE | 2018-02-26 10:28 | PDOC ---
Infectious Disease Note Subjective Subjective pt feeling better ROS ROS no n/v/d/sob Vital Sign Vital Signs Vital Signs Date Time Temp Pulse Resp B/P (MAP) Pulse Ox O2 Delivery O2 Flow Rate FiO2 02/26/18 07:00 100.0 84 20 134/77 (96) 99 Nasal Cannula 2.0 100.0 Physical Exam PHYSICAL EXAM GENERAL: Alert, oriented gentleman, not in any distress. VITAL SIGNS: Stable HEENT: Both pupils are round and reacting. No conjunctival lesion, no lesion in the mouth. NECK: Supple, no JVP, no lymphadenopathy. LUNGS: Clear. HEART: S1, S2 regular. ABDOMEN: Benign. EXTREMITIES: No edema, cyanosis. SKIN: Unremarkable. The patient does have a right upper chest dialysis catheter, which is not showing any obvious signs of infection. Labs Lab Laboratory Tests Test 02/25/18 12:35 02/25/18 14:00 02/25/18 16:23 02/26/18 03:30 Lactic Acid Level 1.1 mmol/L (0.4-2.0) Nasal Screen MRSA (PCR) Positive (Negative) Hepatitis B Surface Antigen Nonreactive (Nonreactive) Hepatitis B Surface Antibody Nonreactive White Blood Count 20.9 x10^3/uL (4.0-11.0) Red Blood Count 3.84 x10^6/uL (4.30-5.70) Hemoglobin 9.9 g/dL (13.0-17.5) Hematocrit 30.5 % (39.0-53.0) Mean Corpuscular Volume 79 fL (79-100) Mean Corpuscular Hemoglobin 26 pg (25-35) Mean Corpuscular Hemoglobin Concent 32 g/dL (31-37) Red Cell Distribution Width 19.0 % (11.5-14.5) Platelet Count 373 x10^3/uL (140-400) Neutrophils (%) (Auto) 88 % (31-73) Lymphocytes (%) (Auto) 5 % (24-48) Monocytes (%) (Auto) 6 % (0-9) Eosinophils (%) (Auto) 1 % (0-3) Basophils (%) (Auto) 0 % (0-3) Neutrophils # (Auto) 18.4 x10^3uL (1.8-7.7) Lymphocytes # (Auto) 1.0 x10^3/uL (1.0-4.8) Monocytes # (Auto) 1.3 x10^3/uL (0.0-1.1) Eosinophils # (Auto) 0.2 x10^3/uL (0.0-0.7) Basophils # (Auto) 0.0 x10^3/uL (0.0-0.2) Sodium Level 134 mmol/L (136-145) Potassium Level 4.4 mmol/L (3.5-5.1) Chloride Level 97 mmol/L (98-107) Carbon Dioxide Level 27 mmol/L (21-32) Anion Gap 10 (6-14) Blood Urea Nitrogen 43 mg/dL (8-26) Creatinine 5.7 mg/dL (0.7-1.3) Estimated GFR (Cockcroft-Gault) 12.4 BUN/Creatinine Ratio 8 (6-20) Glucose Level 83 mg/dL (70-99) Calcium Level 9.7 mg/dL (8.5-10.1) Total Bilirubin 0.4 mg/dL (0.2-1.0) Aspartate Amino Transf (AST/SGOT) 22 U/L (15-37) Alanine Aminotransferase (ALT/SGPT) 18 U/L (16-63) Alkaline Phosphatase 102 U/L (46-116) Total Protein 8.7 g/dL (6.4-8.2) Albumin 2.7 g/dL (3.4-5.0) Albumin/Globulin Ratio 0.5 (1.0-1.7) Micro BLOOD CULTURE Final GRAM POSITIVE COCCI IN CLUSTERS IN 5 OF 6(AEROBIC BOTTLE THIS SET);3 SETS WERE DRAWN. THE RESULTS WERE CALLED TO [facility](5S)ON 02/26/18 AT 0940 BY Matt CLEARY. THE BLOOD CULTURE HAS BEEN SENT TO [facility] FOR FURTHER WORKUP. Objective Assessment Fever Leukocytosis Pulmonary infiltrate , pneumonia vs chf Encephalopathy ESRD BC + with staph, id pending Plan Plan of Care mcnally culture vanc supportive care will await id on staph, if staph a , then likely will need to replace HD cath BILL BENTLEY MD Feb 26, 2018 10:28
[2018-02-26 11:00] VITALS: BP 129/91
[2018-02-26] MEDS ORDERED: VANCOMYCIN 1.5 GM in IV NORMAL SALINE 500ML BAG 500 ML IV ONE (11:00)
--- NOTE | 2018-02-26 11:45 | PDOC2 ---
CONSULT Date of Consult Date of Consult DATE: 02/26/18 TIME: 11:40 Reason for Consult Reason for Consult: HIGH K AND ESRD Referring Physician Referring Physician: MARIA Identification/Chief Complaint Chief Complaint FEVERS AND SOB Source Source: Chart review, Patient History of Present Illness Reason for Visit: THIS IS A 57 YR OLD WITH SOB AND FEVERS OF SEVERAL DAYS. CXRAY SUGGESTIVE OF PNEUMONIA. HX ALSO NOTED FOR ESRD AND HE IS ON OP HD ON TTS. HIS K WAS ELEVATED ON ADMIT. ESRD DUE TO HTN. LABS ARE OTHERWISE C/W ESRD. HE IS ALSO NOTED TO HAVE LEUCOCYTOSIS Past Medical History Cardiovascular: CHF, HTN, Hyperlipidemia Pulmonary: Asthma, Pulmonary embolus, Pneumonia GI: GERD Heme/Onc: Anemia NOS Hepatobiliary: No pertinent hx Psych: Depression Musculoskeletal: Osteoarthritis Infectious disease: No pertinent hx Renal/: Chronic renal failure Endocrine: No pertinent hx, Hyperparathyroidism Past Surgical History Past Surgical History: Appendectomy, Other Family History Family History: No Significant, Diabetes Social History ALCOHOL: none Drugs: None Lives: Alone Current Problem List Problem List Problems Medical Problems: (1) End stage renal disease on dialysis Status: Acute (2) Sepsis Status: Acute Current Medications Current Medications Current Medications Piperacillin Sod/ Tazobactam Sod 2.25 gm/Sodium Chloride 100 ml @ 200 mls/hr 1X ONCE IV Last administered on 02/25/18at 09:25; Start 02/25/18 at 08:45; Stop 02/25/18 at 09:14; Status DC Vancomycin HCl (Vanco Per Pharmacy) 1 each 1X ONCE MC ; Start 02/25/18 at 08:30 ; Stop 02/25/18 at 08:56; Status DC Fentanyl Citrate (Fentanyl 2ml Vial) 50 mcg PRN Q15MIN PRN IV PAIN GREATER THAN 3/10 Last administered on 02/25/18at 09:25; Start 02/25/18 at 08:30; Stop at 08:29; Status DC Acetaminophen (Tylenol) 1,000 mg 1X ONCE PO Last administered on 02/25/18at 09: 25; Start 02/25/18 at 09:00; Stop 02/25/18 at 09:01; Status DC Vancomycin HCl 1.5 gm/Sodium Chloride 500 ml @ 250 mls/hr 1X ONCE IV Last administered on 02/25/18at 11:07; Start 02/25/18 at 09:00; Stop 02/25/18 at 10:59 ; Status DC Sodium Chloride 500 ml @ 500 mls/hr 1X ONCE IV Last administered on at 09:47; Start 02/25/18 at 09:30; Stop 02/25/18 at 10:29; Status DC Ondansetron HCl (Zofran) 4 mg PRN Q8HRS PRN IV NAUSEA/VOMITING; Start 02/25/18 at 11:15; Stop 02/26/18 at 09:06; Status DC Fentanyl Citrate (Fentanyl 2ml Vial) 50 mcg PRN Q2HR PRN IV PAIN Last administered on 02/26/18at 03:50; Start 02/25/18 at 11:15; Stop 02/26/18 at 11:14 ; Status DC Acetaminophen (Tylenol) 650 mg PRN Q4HRS PRN PO FEVER Last administered on 02/26at 03:50; Start 02/25/18 at 11:15; Stop 02/26/18 at 09:13; Status DC Sodium Chloride 1,000 ml @ 1,000 mls/hr Q1H PRN IV hypotension; Start 02/25/18 at 16:33; Stop 02/25/18 at 22:32; Status DC Sodium Chloride (Normal Saline Flush) 10 ml 1X PRN PRN IV AP catheter pack; Start 02/25/18 at 16:45; Stop 02/26/18 at 16:44 Sodium Chloride (Normal Saline Flush) 10 ml 1X PRN PRN IV CONSTRUCTION PROJECT MGR catheter pack; Start 02/25/18 at 16:45; Stop 02/26/18 at 16:44 Sodium Chloride 1,000 ml @ 400 mls/hr Q2H30M PRN IV PATENCY; Start 02/25/18 at 16:33; Stop 02/26/18 at 04:32; Status DC Info (PHARMACY MONITORING -- do not chart) 1 each PRN DAILY PRN MC SEE COMMENTS ; Start 02/25/18 at 16:45; Status UNV Info (PHARMACY MONITORING -- do not chart) 1 each PRN DAILY PRN MC SEE COMMENTS ; Start 02/25/18 at 16:45 Zolpidem Tartrate (Ambien) 5 mg HS PRN PO INSOMNIA, MAY REPEAT X1 Last administered on 02/25/18at 22:38; Start 02/25/18 at 21:15 Acetaminophen (Tylenol) 325 mg PRN Q8HRS PRN PO MILD PAIN; Start 02/25/18 at 21 :30; Stop 02/26/18 at 09:06; Status DC Amlodipine Besylate (Norvasc) 10 mg QHS PO ; Start 02/26/18 at 21:00 Ferrous Sulfate (Feosol) 325 mg DAILY PO ; Start 02/26/18 at 09:00 Vitamin B Complex/ Vitamin C (Kiara-Bennie) 1 tab DAILY PO ; Start 02/26/18 at 09: 00 Albuterol Sulfate (Ventolin Neb Soln) 2.5 mg PRN Q4HRS PRN NEB SHORTNESS OF BREATH; Start 02/25/18 at 21:45 Lisinopril (Prinivil) 40 mg QHS PO Last administered on 02/25/18at 22:39; Start 02/25/18 at 22:00 Magnesium Hydroxide (Milk Of Magnesia) 2,400 mg BID PRN PO CONSTIPATION; Start 02/25/18 at 21:30; Status UNV Metoprolol Tartrate (Lopressor) 50 mg BID PO ; Start 02/26/18 at 09:00; Status UNV Metoprolol Tartrate (Lopressor) 50 mg BID PO ; Start 02/26/18 at 09:00; Status UNV Calcitriol (Rocaltrol) 0.25 mcg QTUTHSA PO ; Start 02/26/18 at 16:00 Calcium Acetate (Phoslo) 667 mg TIDWMEALS PO ; Start 02/26/18 at 08:00 Hydroxyzine Pamoate (Vistaril) 25 mg PRN Q6HRS PRN PO ITCHING; Start 02/25/18 at 21:45 Pantoprazole Sodium (Protonix) 40 mg DAILYAC PO ; Start 02/26/18 at 07:30 Acetaminophen (Tylenol) 650 mg PRN Q8HRS PRN PO MILD PAIN; Start 02/26/18 at 09 :15 Ondansetron HCl (Zofran) 4 mg PRN Q6HRS PRN IV NAUSEA/VOMITING; Start 02/26/18 at 09:15 Clonidine HCl (Catapres) 0.1 mg PRN Q1HR PRN PO HYPERTENSION, SEE COMMENTS; Start 02/26/18 at 09:15 Fentanyl Citrate (Fentanyl 2ml Vial) 50 mcg PRN Q2HR PRN IV SEVERE PAIN; Start 02/26/18 at 09:15 Acetaminophen/ Hydrocodone Bitart (Lortab 5/325) 1 tab PRN Q4HRS PRN PO PAIN; Start 02/26/18 at 09:15 Calcitriol (Rocaltrol) 0.25 mcg MoWeFr PO ; Start 02/27/18 at 09:00; Status Cancel Vancomycin HCl (Vanco Per Pharmacy) 1 each PRN DAILY PRN MC SEE COMMENTS; Start 02/26/18 at 10:00 Vancomycin HCl 1.5 gm/Sodium Chloride 500 ml @ 250 mls/hr 1X ONCE IV ; Start 02/26/18 at 11:00; Stop 02/26/18 at 12:59; Status Cancel Sodium Chloride 1,000 ml @ 1,000 mls/hr Q1H PRN IV hypotension; Start 02/26/18 at 10:12; Stop 02/26/18 at 16:11 Diphenhydramine HCl (Benadryl) 25 mg 1X PRN PRN IV ITCHING; Start 02/26/18 at 10:15; Stop 02/27/18 at 10:14 Diphenhydramine HCl (Benadryl) 25 mg 1X PRN PRN IV ITCHING; Start 02/26/18 at 10:15; Stop 02/27/18 at 10:14 Sodium Chloride 1,000 ml @ 400 mls/hr Q2H30M PRN IV PATENCY; Start 02/26/18 at 10:12; Stop 02/26/18 at 22:11 Info (PHARMACY MONITORING -- do not chart) 1 each PRN DAILY PRN MC SEE COMMENTS ; Start 02/26/18 at 10:15 Active Scripts Active Metoprolol Tartrate 50 Mg Tablet 50 Mg PO BID 60 Days Reported Tylenol (Acetaminophen) 325 Mg Tablet 1-2 Tab PO QID PRN Milk Of Magnesia (Magnesium Hydroxide) 400 Mg/5 Ml Oral.susp 30 Ml PO BID PRN Duoneb 0.5-3(2.5) Mg/3 Ml (Albuterol/Ipratropium) 3 Ml Ampul.neb 3 Ml NEB Q4HRS PRN Hydroxyzine Hcl 25 Mg Tablet 1 Tab PO Q6HRS PRN Calcium Acetate 667 Mg Tablet 667 Mg PO TIDWMEALS Calcitriol 0.25 Mcg Capsule 1 Cap PO QTUTHSA Protonix (Pantoprazole Sodium) 20 Mg Tablet.dr 40 Mg PO DAILY Nephro-Bennie Tablet (Folic Acid/Vitamin B Comp W-C) 0.8 Mg Tablet 1 Tab PO DAILY Metoprolol Tartrate 50 Mg Tablet 1 Tab PO BID Lisinopril 40 Mg Tablet 1 Tab PO QHS Ferrous Sulfate 325 Mg Tablet 1 Tab PO DAILY Calcitriol 0.25 Mcg Capsule 1 Cap PO M/W/ Amlodipine Besylate 10 Mg Tablet 10 Mg PO QHS Acetaminophen 325 Mg Tablet 325 Mg PO PRN Q8HRS Allergies Allergies: Coded Allergies: I S O L A T I O N *CONTACT* (Verified Allergy, Unknown, 10/27/17) mrsa No Known Medication Allergies (Verified Allergy, Unknown, 10/27/17) ROS General: YES: Fatigue PSYCHOLOGICAL ROS: YES: Anxiety Eyes: Yes Decreased vision HEENT: YES: Heacaches ALLERGY AND IMMUNOLOGY: YES: Seasonal Allergies Respiratory: YES: Cough, Shortness of breath Cardiovascular: yes Orthopnea Gastrointestinal: Yes Constipation Genitourinary: YES Other (ANURIA) Musculoskeletal: Yes Muscular Weakness Neurological: Yes Weakness Skin: Yes Dry Skin Physical Exam General: Alert, Oriented X3, Cooperative HEENT: Atraumatic, PERRLA, EOMI, Mucous membr. moist/pink Lungs: Other (POOR BASILAR AIRFLOW) Heart: Regular rate Abdomen: Normal bowel sounds, Soft, No tenderness Extremities: No clubbing Skin: No breakdown Neuro: Normal speech, Cranial nerves 3-12 NL Psych/Mental Status: Mental status NL, Mood NL MUSCULOSKELETAL: No deformity, No swelling Vitals VITALS Vital Signs Date Time Temp Pulse Resp B/P (MAP) Pulse Ox O2 Delivery O2 Flow Rate FiO2 02/26/18 11:00 98.2 61 20 129/91 (104) 98.2 02/26/18 08:00 Nasal Cannula 2.0 02/26/18 07:00 99 Labs Labs Laboratory Tests Test 02/25/18 08:45 02/25/18 12:35 02/25/18 14:00 02/25/18 16:23 White Blood Count 20.9 x10^3/uL (4.0-11.0) Red Blood Count 3.73 x10^6/uL (4.30-5.70) Hemoglobin 9.6 g/dL (13.0-17.5) Hematocrit 29.3 % (39.0-53.0) Mean Corpuscular Volume 78 fL (79-100) Mean Corpuscular Hemoglobin 26 pg (25-35) Mean Corpuscular Hemoglobin Concent 33 g/dL (31-37) Red Cell Distribution Width 18.9 % (11.5-14.5) Platelet Count 356 x10^3/uL (140-400) Neutrophils (%) (Auto) 88 % (31-73) Lymphocytes (%) (Auto) 5 % (24-48) Monocytes (%) (Auto) 8 % (0-9) Eosinophils (%) (Auto) 0 % (0-3) Basophils (%) (Auto) 0 % (0-3) Neutrophils # (Auto) 18.3 x10^3uL (1.8-7.7) Lymphocytes # (Auto) 1.0 x10^3/uL (1.0-4.8) Monocytes # (Auto) 1.6 x10^3/uL (0.0-1.1) Eosinophils # (Auto) 0.0 x10^3/uL (0.0-0.7) Basophils # (Auto) 0.0 x10^3/uL (0.0-0.2) Segmented Neutrophils % 88 % (35-66) Band Neutrophils % 3 % (0-9) Lymphocytes % 4 % (24-48) Monocytes % 4 % (0-10) Eosinophils % 1 % (0-5) Platelet Estimate Adequate (ADEQUATE) Anisocytosis Slight Sodium Level 132 mmol/L (136-145) Potassium Level 5.4 mmol/L (3.5-5.1) Chloride Level 94 mmol/L (98-107) Carbon Dioxide Level 31 mmol/L (21-32) Anion Gap 7 (6-14) Blood Urea Nitrogen 62 mg/dL (8-26) Creatinine 7.3 mg/dL (0.7-1.3) Estimated GFR (Cockcroft-Gault) 9.3 BUN/Creatinine Ratio 8 (6-20) Glucose Level 71 mg/dL (70-99) Lactic Acid Level 0.9 mmol/L (0.4-2.0) 1.1 mmol/L (0.4-2.0) Calcium Level 9.5 mg/dL (8.5-10.1) Total Bilirubin 0.4 mg/dL (0.2-1.0) Aspartate Amino Transf (AST/SGOT) 24 U/L (15-37) Alanine Aminotransferase (ALT/SGPT) 20 U/L (16-63) Alkaline Phosphatase 93 U/L (46-116) Total Protein 8.7 g/dL (6.4-8.2) Albumin 2.8 g/dL (3.4-5.0) Albumin/Globulin Ratio 0.5 (1.0-1.7) Nasal Screen MRSA (PCR) Positive (Negative) Hepatitis B Surface Antigen Nonreactive (Nonreactive) Hepatitis B Surface Antibody Nonreactive Test 02/26/18 03:30 White Blood Count 20.9 x10^3/uL (4.0-11.0) Red Blood Count 3.84 x10^6/uL (4.30-5.70) Hemoglobin 9.9 g/dL (13.0-17.5) Hematocrit 30.5 % (39.0-53.0) Mean Corpuscular Volume 79 fL (79-100) Mean Corpuscular Hemoglobin 26 pg (25-35) Mean Corpuscular Hemoglobin Concent 32 g/dL (31-37) Red Cell Distribution Width 19.0 % (11.5-14.5) Platelet Count 373 x10^3/uL (140-400) Neutrophils (%) (Auto) 88 % (31-73) Lymphocytes (%) (Auto) 5 % (24-48) Monocytes (%) (Auto) 6 % (0-9) Eosinophils (%) (Auto) 1 % (0-3) Basophils (%) (Auto) 0 % (0-3) Neutrophils # (Auto) 18.4 x10^3uL (1.8-7.7) Lymphocytes # (Auto) 1.0 x10^3/uL (1.0-4.8) Monocytes # (Auto) 1.3 x10^3/uL (0.0-1.1) Eosinophils # (Auto) 0.2 x10^3/uL (0.0-0.7) Basophils # (Auto) 0.0 x10^3/uL (0.0-0.2) Sodium Level 134 mmol/L (136-145) Potassium Level 4.4 mmol/L (3.5-5.1) Chloride Level 97 mmol/L (98-107) Carbon Dioxide Level 27 mmol/L (21-32) Anion Gap 10 (6-14) Blood Urea Nitrogen 43 mg/dL (8-26) Creatinine 5.7 mg/dL (0.7-1.3) Estimated GFR (Cockcroft-Gault) 12.4 BUN/Creatinine Ratio 8 (6-20) Glucose Level 83 mg/dL (70-99) Calcium Level 9.7 mg/dL (8.5-10.1) Total Bilirubin 0.4 mg/dL (0.2-1.0) Aspartate Amino Transf (AST/SGOT) 22 U/L (15-37) Alanine Aminotransferase (ALT/SGPT) 18 U/L (16-63) Alkaline Phosphatase 102 U/L (46-116) Total Protein 8.7 g/dL (6.4-8.2) Albumin 2.7 g/dL (3.4-5.0) Albumin/Globulin Ratio 0.5 (1.0-1.7) Laboratory Tests Test 02/25/18 12:35 02/25/18 14:00 02/25/18 16:23 02/26/18 03:30 Lactic Acid Level 1.1 mmol/L (0.4-2.0) Nasal Screen MRSA (PCR) Positive (Negative) Hepatitis B Surface Antigen Nonreactive (Nonreactive) Hepatitis B Surface Antibody Nonreactive White Blood Count 20.9 x10^3/uL (4.0-11.0) Red Blood Count 3.84 x10^6/uL (4.30-5.70) Hemoglobin 9.9 g/dL (13.0-17.5) Hematocrit 30.5 % (39.0-53.0) Mean Corpuscular Volume 79 fL (79-100) Mean Corpuscular Hemoglobin 26 pg (25-35) Mean Corpuscular Hemoglobin Concent 32 g/dL (31-37) Red Cell Distribution Width 19.0 % (11.5-14.5) Platelet Count 373 x10^3/uL (140-400) Neutrophils (%) (Auto) 88 % (31-73) Lymphocytes (%) (Auto) 5 % (24-48) Monocytes (%) (Auto) 6 % (0-9) Eosinophils (%) (Auto) 1 % (0-3) Basophils (%) (Auto) 0 % (0-3) Neutrophils # (Auto) 18.4 x10^3uL (1.8-7.7) Lymphocytes # (Auto) 1.0 x10^3/uL (1.0-4.8) Monocytes # (Auto) 1.3 x10^3/uL (0.0-1.1) Eosinophils # (Auto) 0.2 x10^3/uL (0.0-0.7) Basophils # (Auto) 0.0 x10^3/uL (0.0-0.2) Sodium Level 134 mmol/L (136-145) Potassium Level 4.4 mmol/L (3.5-5.1) Chloride Level 97 mmol/L (98-107) Carbon Dioxide Level 27 mmol/L (21-32) Anion Gap 10 (6-14) Blood Urea Nitrogen 43 mg/dL (8-26) Creatinine 5.7 mg/dL (0.7-1.3) Estimated GFR (Cockcroft-Gault) 12.4 BUN/Creatinine Ratio 8 (6-20) Glucose Level 83 mg/dL (70-99) Calcium Level 9.7 mg/dL (8.5-10.1) Total Bilirubin 0.4 mg/dL (0.2-1.0) Aspartate Amino Transf (AST/SGOT) 22 U/L (15-37) Alanine Aminotransferase (ALT/SGPT) 18 U/L (16-63) Alkaline Phosphatase 102 U/L (46-116) Total Protein 8.7 g/dL (6.4-8.2) Albumin 2.7 g/dL (3.4-5.0) Albumin/Globulin Ratio 0.5 (1.0-1.7) Assessment/Plan Assessment/Plan IMP FEVER PROB BACTEREMIA SUSPECT PNEUMONIA ANEMIA HTN ESRD LEUCOCYTOSIS HYPERKALEMIA PLAN HD TODAY UF TO DW ARANESP ANTIBIOTICS DEPENDING ON PATHOGEN MAY NEED TO HAVE DIALYSIS CATHETER REMOVED D/W ID WILL FOLLOW JEANE ESCOBAR MD Feb 26, 2018 11:45
--- NOTE | 2018-02-26 11:48 | PDOC ---
PROGRESS NOTES Chief Complaint Chief Complaint Sepsis End stage renal disease on dialysis Possible volume overload vs pneumonia, mixed Anemia of ESRD Incarcerated CAchexia BMI 17 History of Present Illness History of Present Illness Seen in dialysis Skin and bones, cachectic BMI 17 MAXIMUM TEMPERATURE 101 Blood pressure high Chest x-ray both a component of may be pneumonia and fluid overload WBC 20, hemoglobin 9 Creatinine 5.7 with normal bicarbonate and potassium Did not miss any dialysis Denies real cough but SOA was the prominent symptom Plan: Continue coverage for pneumonia ID on board Clonidine prn Dialysis per renal-renal on board Blood cultures, labs again tomorrow Back to nursing home on discharge Nutrition consult for severe PCM Vitals Vitals Vital Signs Date Time Temp Pulse Resp B/P (MAP) Pulse Ox O2 Delivery O2 Flow Rate FiO2 02/26/18 11:00 98.2 61 20 129/91 (104) 98.2 02/26/18 08:00 Nasal Cannula 2.0 02/26/18 07:00 99 Physical Exam Physical Exam GENERAL: Alert, oriented gentleman, not in any distress. VITAL SIGNS: Stable HEENT: Both pupils are round and reacting. No conjunctival lesion, no lesion in the mouth. NECK: Supple, no JVP, no lymphadenopathy. LUNGS: Clear. HEART: S1, S2 regular. ABDOMEN: Benign. EXTREMITIES: No edema, cyanosis. SKIN: Unremarkable. The patient does have a right upper chest dialysis catheter, which is not showing any obvious signs of infection. General: Alert, Oriented X3, Cooperative Heart: Regular rate Lungs: Crackles Abdomen: Normal bowel sounds, Soft, No tenderness Extremities: No clubbing Skin: No breakdown Labs LABS Laboratory Tests Test 02/25/18 12:35 02/25/18 14:00 02/25/18 16:23 02/26/18 03:30 Lactic Acid Level 1.1 mmol/L (0.4-2.0) Nasal Screen MRSA (PCR) Positive (Negative) Hepatitis B Surface Antigen Nonreactive (Nonreactive) Hepatitis B Surface Antibody Nonreactive White Blood Count 20.9 x10^3/uL (4.0-11.0) Red Blood Count 3.84 x10^6/uL (4.30-5.70) Hemoglobin 9.9 g/dL (13.0-17.5) Hematocrit 30.5 % (39.0-53.0) Mean Corpuscular Volume 79 fL (79-100) Mean Corpuscular Hemoglobin 26 pg (25-35) Mean Corpuscular Hemoglobin Concent 32 g/dL (31-37) Red Cell Distribution Width 19.0 % (11.5-14.5) Platelet Count 373 x10^3/uL (140-400) Neutrophils (%) (Auto) 88 % (31-73) Lymphocytes (%) (Auto) 5 % (24-48) Monocytes (%) (Auto) 6 % (0-9) Eosinophils (%) (Auto) 1 % (0-3) Basophils (%) (Auto) 0 % (0-3) Neutrophils # (Auto) 18.4 x10^3uL (1.8-7.7) Lymphocytes # (Auto) 1.0 x10^3/uL (1.0-4.8) Monocytes # (Auto) 1.3 x10^3/uL (0.0-1.1) Eosinophils # (Auto) 0.2 x10^3/uL (0.0-0.7) Basophils # (Auto) 0.0 x10^3/uL (0.0-0.2) Sodium Level 134 mmol/L (136-145) Potassium Level 4.4 mmol/L (3.5-5.1) Chloride Level 97 mmol/L (98-107) Carbon Dioxide Level 27 mmol/L (21-32) Anion Gap 10 (6-14) Blood Urea Nitrogen 43 mg/dL (8-26) Creatinine 5.7 mg/dL (0.7-1.3) Estimated GFR (Cockcroft-Gault) 12.4 BUN/Creatinine Ratio 8 (6-20) Glucose Level 83 mg/dL (70-99) Calcium Level 9.7 mg/dL (8.5-10.1) Total Bilirubin 0.4 mg/dL (0.2-1.0) Aspartate Amino Transf (AST/SGOT) 22 U/L (15-37) Alanine Aminotransferase (ALT/SGPT) 18 U/L (16-63) Alkaline Phosphatase 102 U/L (46-116) Total Protein 8.7 g/dL (6.4-8.2) Albumin 2.7 g/dL (3.4-5.0) Albumin/Globulin Ratio 0.5 (1.0-1.7) Review of Systems Review of Systems cough, SOA, poor appetite, weak, the rest of ROS 14 point negative Assessment and Plan Assessmemt and Plan Problems Medical Problems: (1) End stage renal disease on dialysis Status: Acute (2) Sepsis Status: Acute Comment Review of Relevant I have reviewed the following items mirian (where applicable) has been applied. Labs Laboratory Tests Test 02/25/18 08:45 02/25/18 12:35 02/25/18 14:00 02/25/18 16:23 White Blood Count 20.9 x10^3/uL (4.0-11.0) Red Blood Count 3.73 x10^6/uL (4.30-5.70) Hemoglobin 9.6 g/dL (13.0-17.5) Hematocrit 29.3 % (39.0-53.0) Mean Corpuscular Volume 78 fL (79-100) Mean Corpuscular Hemoglobin 26 pg (25-35) Mean Corpuscular Hemoglobin Concent 33 g/dL (31-37) Red Cell Distribution Width 18.9 % (11.5-14.5) Platelet Count 356 x10^3/uL (140-400) Neutrophils (%) (Auto) 88 % (31-73) Lymphocytes (%) (Auto) 5 % (24-48) Monocytes (%) (Auto) 8 % (0-9) Eosinophils (%) (Auto) 0 % (0-3) Basophils (%) (Auto) 0 % (0-3) Neutrophils # (Auto) 18.3 x10^3uL (1.8-7.7) Lymphocytes # (Auto) 1.0 x10^3/uL (1.0-4.8) Monocytes # (Auto) 1.6 x10^3/uL (0.0-1.1) Eosinophils # (Auto) 0.0 x10^3/uL (0.0-0.7) Basophils # (Auto) 0.0 x10^3/uL (0.0-0.2) Segmented Neutrophils % 88 % (35-66) Band Neutrophils % 3 % (0-9) Lymphocytes % 4 % (24-48) Monocytes % 4 % (0-10) Eosinophils % 1 % (0-5) Platelet Estimate Adequate (ADEQUATE) Anisocytosis Slight Sodium Level 132 mmol/L (136-145) Potassium Level 5.4 mmol/L (3.5-5.1) Chloride Level 94 mmol/L (98-107) Carbon Dioxide Level 31 mmol/L (21-32) Anion Gap 7 (6-14) Blood Urea Nitrogen 62 mg/dL (8-26) Creatinine 7.3 mg/dL (0.7-1.3) Estimated GFR (Cockcroft-Gault) 9.3 BUN/Creatinine Ratio 8 (6-20) Glucose Level 71 mg/dL (70-99) Lactic Acid Level 0.9 mmol/L (0.4-2.0) 1.1 mmol/L (0.4-2.0) Calcium Level 9.5 mg/dL (8.5-10.1) Total Bilirubin 0.4 mg/dL (0.2-1.0) Aspartate Amino Transf (AST/SGOT) 24 U/L (15-37) Alanine Aminotransferase (ALT/SGPT) 20 U/L (16-63) Alkaline Phosphatase 93 U/L (46-116) Total Protein 8.7 g/dL (6.4-8.2) Albumin 2.8 g/dL (3.4-5.0) Albumin/Globulin Ratio 0.5 (1.0-1.7) Nasal Screen MRSA (PCR) Positive (Negative) Hepatitis B Surface Antigen Nonreactive (Nonreactive) Hepatitis B Surface Antibody Nonreactive Test 02/26/18 03:30 White Blood Count 20.9 x10^3/uL (4.0-11.0) Red Blood Count 3.84 x10^6/uL (4.30-5.70) Hemoglobin 9.9 g/dL (13.0-17.5) Hematocrit 30.5 % (39.0-53.0) Mean Corpuscular Volume 79 fL (79-100) Mean Corpuscular Hemoglobin 26 pg (25-35) Mean Corpuscular Hemoglobin Concent 32 g/dL (31-37) Red Cell Distribution Width 19.0 % (11.5-14.5) Platelet Count 373 x10^3/uL (140-400) Neutrophils (%) (Auto) 88 % (31-73) Lymphocytes (%) (Auto) 5 % (24-48) Monocytes (%) (Auto) 6 % (0-9) Eosinophils (%) (Auto) 1 % (0-3) Basophils (%) (Auto) 0 % (0-3) Neutrophils # (Auto) 18.4 x10^3uL (1.8-7.7) Lymphocytes # (Auto) 1.0 x10^3/uL (1.0-4.8) Monocytes # (Auto) 1.3 x10^3/uL (0.0-1.1) Eosinophils # (Auto) 0.2 x10^3/uL (0.0-0.7) Basophils # (Auto) 0.0 x10^3/uL (0.0-0.2) Sodium Level 134 mmol/L (136-145) Potassium Level 4.4 mmol/L (3.5-5.1) Chloride Level 97 mmol/L (98-107) Carbon Dioxide Level 27 mmol/L (21-32) Anion Gap 10 (6-14) Blood Urea Nitrogen 43 mg/dL (8-26) Creatinine 5.7 mg/dL (0.7-1.3) Estimated GFR (Cockcroft-Gault) 12.4 BUN/Creatinine Ratio 8 (6-20) Glucose Level 83 mg/dL (70-99) Calcium Level 9.7 mg/dL (8.5-10.1) Total Bilirubin 0.4 mg/dL (0.2-1.0) Aspartate Amino Transf (AST/SGOT) 22 U/L (15-37) Alanine Aminotransferase (ALT/SGPT) 18 U/L (16-63) Alkaline Phosphatase 102 U/L (46-116) Total Protein 8.7 g/dL (6.4-8.2) Albumin 2.7 g/dL (3.4-5.0) Albumin/Globulin Ratio 0.5 (1.0-1.7) Laboratory Tests Test 02/25/18 12:35 02/25/18 14:00 02/25/18 16:23 02/26/18 03:30 Lactic Acid Level 1.1 mmol/L (0.4-2.0) Nasal Screen MRSA (PCR) Positive (Negative) Hepatitis B Surface Antigen Nonreactive (Nonreactive) Hepatitis B Surface Antibody Nonreactive White Blood Count 20.9 x10^3/uL (4.0-11.0) Red Blood Count 3.84 x10^6/uL (4.30-5.70) Hemoglobin 9.9 g/dL (13.0-17.5) Hematocrit 30.5 % (39.0-53.0) Mean Corpuscular Volume 79 fL (79-100) Mean Corpuscular Hemoglobin 26 pg (25-35) Mean Corpuscular Hemoglobin Concent 32 g/dL (31-37) Red Cell Distribution Width 19.0 % (11.5-14.5) Platelet Count 373 x10^3/uL (140-400) Neutrophils (%) (Auto) 88 % (31-73) Lymphocytes (%) (Auto) 5 % (24-48) Monocytes (%) (Auto) 6 % (0-9) Eosinophils (%) (Auto) 1 % (0-3) Basophils (%) (Auto) 0 % (0-3) Neutrophils # (Auto) 18.4 x10^3uL (1.8-7.7) Lymphocytes # (Auto) 1.0 x10^3/uL (1.0-4.8) Monocytes # (Auto) 1.3 x10^3/uL (0.0-1.1) Eosinophils # (Auto) 0.2 x10^3/uL (0.0-0.7) Basophils # (Auto) 0.0 x10^3/uL (0.0-0.2) Sodium Level 134 mmol/L (136-145) Potassium Level 4.4 mmol/L (3.5-5.1) Chloride Level 97 mmol/L (98-107) Carbon Dioxide Level 27 mmol/L (21-32) Anion Gap 10 (6-14) Blood Urea Nitrogen 43 mg/dL (8-26) Creatinine 5.7 mg/dL (0.7-1.3) Estimated GFR (Cockcroft-Gault) 12.4 BUN/Creatinine Ratio 8 (6-20) Glucose Level 83 mg/dL (70-99) Calcium Level 9.7 mg/dL (8.5-10.1) Total Bilirubin 0.4 mg/dL (0.2-1.0) Aspartate Amino Transf (AST/SGOT) 22 U/L (15-37) Alanine Aminotransferase (ALT/SGPT) 18 U/L (16-63) Alkaline Phosphatase 102 U/L (46-116) Total Protein 8.7 g/dL (6.4-8.2) Albumin 2.7 g/dL (3.4-5.0) Albumin/Globulin Ratio 0.5 (1.0-1.7) Microbiology 02/25/18 Blood Culture - Final, Complete Medications Current Medications Piperacillin Sod/ Tazobactam Sod 2.25 gm/Sodium Chloride 100 ml @ 200 mls/hr 1X ONCE IV Last administered on 02/25/18at 09:25; Start 02/25/18 at 08:45; Stop 02/25/18 at 09:14; Status DC Vancomycin HCl (Vanco Per Pharmacy) 1 each 1X ONCE MC ; Start 02/25/18 at 08:30 ; Stop 02/25/18 at 08:56; Status DC Fentanyl Citrate (Fentanyl 2ml Vial) 50 mcg PRN Q15MIN PRN IV PAIN GREATER THAN 3/10 Last administered on 02/25/18at 09:25; Start 02/25/18 at 08:30; Stop at 08:29; Status DC Acetaminophen (Tylenol) 1,000 mg 1X ONCE PO Last administered on 02/25/18at 09: 25; Start 02/25/18 at 09:00; Stop 02/25/18 at 09:01; Status DC Vancomycin HCl 1.5 gm/Sodium Chloride 500 ml @ 250 mls/hr 1X ONCE IV Last administered on 02/25/18at 11:07; Start 02/25/18 at 09:00; Stop 02/25/18 at 10:59 ; Status DC Sodium Chloride 500 ml @ 500 mls/hr 1X ONCE IV Last administered on at 09:47; Start 02/25/18 at 09:30; Stop 02/25/18 at 10:29; Status DC Ondansetron HCl (Zofran) 4 mg PRN Q8HRS PRN IV NAUSEA/VOMITING; Start 02/25/18 at 11:15; Stop 02/26/18 at 09:06; Status DC Fentanyl Citrate (Fentanyl 2ml Vial) 50 mcg PRN Q2HR PRN IV PAIN Last administered on 02/26/18at 03:50; Start 02/25/18 at 11:15; Stop 02/26/18 at 11:14 ; Status DC Acetaminophen (Tylenol) 650 mg PRN Q4HRS PRN PO FEVER Last administered on 02/26at 03:50; Start 02/25/18 at 11:15; Stop 02/26/18 at 09:13; Status DC Sodium Chloride 1,000 ml @ 1,000 mls/hr Q1H PRN IV hypotension; Start 02/25/18 at 16:33; Stop 02/25/18 at 22:32; Status DC Sodium Chloride (Normal Saline Flush) 10 ml 1X PRN PRN IV AP catheter pack; Start 02/25/18 at 16:45; Stop 02/26/18 at 16:44 Sodium Chloride (Normal Saline Flush) 10 ml 1X PRN PRN IV PLATE GRINDER catheter pack; Start 02/25/18 at 16:45; Stop 02/26/18 at 16:44 Sodium Chloride 1,000 ml @ 400 mls/hr Q2H30M PRN IV PATENCY; Start 02/25/18 at 16:33; Stop 02/26/18 at 04:32; Status DC Info (PHARMACY MONITORING -- do not chart) 1 each PRN DAILY PRN MC SEE COMMENTS ; Start 02/25/18 at 16:45; Status UNV Info (PHARMACY MONITORING -- do not chart) 1 each PRN DAILY PRN MC SEE COMMENTS ; Start 02/25/18 at 16:45 Zolpidem Tartrate (Ambien) 5 mg HS PRN PO INSOMNIA, MAY REPEAT X1 Last administered on 02/25/18at 22:38; Start 02/25/18 at 21:15 Acetaminophen (Tylenol) 325 mg PRN Q8HRS PRN PO MILD PAIN; Start 02/25/18 at 21 :30; Stop 02/26/18 at 09:06; Status DC Amlodipine Besylate (Norvasc) 10 mg QHS PO ; Start 02/26/18 at 21:00 Ferrous Sulfate (Feosol) 325 mg DAILY PO ; Start 02/26/18 at 09:00 Vitamin B Complex/ Vitamin C (Kiara-Bennie) 1 tab DAILY PO ; Start 02/26/18 at 09: 00 Albuterol Sulfate (Ventolin Neb Soln) 2.5 mg PRN Q4HRS PRN NEB SHORTNESS OF BREATH; Start 02/25/18 at 21:45 Lisinopril (Prinivil) 40 mg QHS PO Last administered on 02/25/18at 22:39; Start 02/25/18 at 22:00 Magnesium Hydroxide (Milk Of Magnesia) 2,400 mg BID PRN PO CONSTIPATION; Start 02/25/18 at 21:30; Status UNV Metoprolol Tartrate (Lopressor) 50 mg BID PO ; Start 02/26/18 at 09:00; Status UNV Metoprolol Tartrate (Lopressor) 50 mg BID PO ; Start 02/26/18 at 09:00; Status UNV Calcitriol (Rocaltrol) 0.25 mcg QTUTHSA PO ; Start 02/26/18 at 16:00 Calcium Acetate (Phoslo) 667 mg TIDWMEALS PO ; Start 02/26/18 at 08:00 Hydroxyzine Pamoate (Vistaril) 25 mg PRN Q6HRS PRN PO ITCHING; Start 02/25/18 at 21:45 Pantoprazole Sodium (Protonix) 40 mg DAILYAC PO ; Start 02/26/18 at 07:30 Acetaminophen (Tylenol) 650 mg PRN Q8HRS PRN PO MILD PAIN; Start 02/26/18 at 09 :15 Ondansetron HCl (Zofran) 4 mg PRN Q6HRS PRN IV NAUSEA/VOMITING; Start 02/26/18 at 09:15 Clonidine HCl (Catapres) 0.1 mg PRN Q1HR PRN PO HYPERTENSION, SEE COMMENTS; Start 02/26/18 at 09:15 Fentanyl Citrate (Fentanyl 2ml Vial) 50 mcg PRN Q2HR PRN IV SEVERE PAIN; Start 02/26/18 at 09:15 Acetaminophen/ Hydrocodone Bitart (Lortab 5/325) 1 tab PRN Q4HRS PRN PO PAIN; Start 02/26/18 at 09:15 Calcitriol (Rocaltrol) 0.25 mcg MoWeFr PO ; Start 02/27/18 at 09:00; Status Cancel Vancomycin HCl (Vanco Per Pharmacy) 1 each PRN DAILY PRN MC SEE COMMENTS; Start 02/26/18 at 10:00 Vancomycin HCl 1.5 gm/Sodium Chloride 500 ml @ 250 mls/hr 1X ONCE IV ; Start 02/26/18 at 11:00; Stop 02/26/18 at 12:59; Status Cancel Sodium Chloride 1,000 ml @ 1,000 mls/hr Q1H PRN IV hypotension; Start 02/26/18 at 10:12; Stop 02/26/18 at 16:11 Diphenhydramine HCl (Benadryl) 25 mg 1X PRN PRN IV ITCHING; Start 02/26/18 at 10:15; Stop 02/27/18 at 10:14 Diphenhydramine HCl (Benadryl) 25 mg 1X PRN PRN IV ITCHING; Start 02/26/18 at 10:15; Stop 02/27/18 at 10:14 Sodium Chloride 1,000 ml @ 400 mls/hr Q2H30M PRN IV PATENCY; Start 02/26/18 at 10:12; Stop 02/26/18 at 22:11 Info (PHARMACY MONITORING -- do not chart) 1 each PRN DAILY PRN MC SEE COMMENTS ; Start 02/26/18 at 10:15 Active Scripts Active Metoprolol Tartrate 50 Mg Tablet 50 Mg PO BID 60 Days Reported Tylenol (Acetaminophen) 325 Mg Tablet 1-2 Tab PO QID PRN Milk Of Magnesia (Magnesium Hydroxide) 400 Mg/5 Ml Oral.susp 30 Ml PO BID PRN Duoneb 0.5-3(2.5) Mg/3 Ml (Albuterol/Ipratropium) 3 Ml Ampul.neb 3 Ml NEB Q4HRS PRN Hydroxyzine Hcl 25 Mg Tablet 1 Tab PO Q6HRS PRN Calcium Acetate 667 Mg Tablet 667 Mg PO TIDWMEALS Calcitriol 0.25 Mcg Capsule 1 Cap PO QTUTHSA Protonix (Pantoprazole Sodium) 20 Mg Tablet.dr 40 Mg PO DAILY Nephro-Bennie Tablet (Folic Acid/Vitamin B Comp W-C) 0.8 Mg Tablet 1 Tab PO DAILY Metoprolol Tartrate 50 Mg Tablet 1 Tab PO BID Lisinopril 40 Mg Tablet 1 Tab PO QHS Ferrous Sulfate 325 Mg Tablet 1 Tab PO DAILY Calcitriol 0.25 Mcg Capsule 1 Cap PO M// Amlodipine Besylate 10 Mg Tablet 10 Mg PO QHS Acetaminophen 325 Mg Tablet 325 Mg PO PRN Q8HRS Vitals/I & O Vital Sign - Last 24 Hours 02/25/18 02/25/18 02/25/18 02/25/18 12:35 15:00 16:10 19:00 Temp 98.2 98.8 98.4 98.2 98.8 98.4 Pulse 134 142 93 Resp 18 18 19 B/P (MAP) 116/69 (85) 106/64 (78) 130/85 (100) Pulse Ox 94 95 92 O2 Delivery Nasal Cannula Nasal Cannula Nasal Cannula Room Air O2 Flow Rate 2.0 2.0 2.0 02/25/18 02/25/18 02/25/18 02/25/18 19:12 20:00 21:22 21:58 Resp 20 Pulse Ox 93 91 91 O2 Delivery Nasal Cannula Nasal Cannula Nasal Cannula Nasal Cannula O2 Flow Rate 2.0 2.0 2.0 2.0 02/25/18 02/25/18 02/26/18 02/26/18 22:39 23:00 03:00 03:50 Temp 100.0 101.0 100.0 101.0 Pulse 101 101 97 Resp 17 16 B/P (MAP) 142/75 142/75 (97) 150/82 (104) Pulse Ox 92 92 92 O2 Delivery Nasal Cannula Nasal Cannula Nasal Cannula O2 Flow Rate 2.0 2.0 2.0 02/26/18 02/26/18 02/26/18 02/26/18 04:20 07:00 08:00 11:00 Temp 100.0 98.2 100.0 98.2 Pulse 84 61 Resp 20 20 B/P (MAP) 134/77 (96) 129/91 (104) Pulse Ox 92 99 O2 Delivery Nasal Cannula Nasal Cannula Nasal Cannula O2 Flow Rate 2.0 2.0 2.0 Intake and Output 02/25/18 02/25/18 02/26/18 15:00 23:00 07:00 Intake Total 600 ml 120 ml Balance 600 ml 120 ml JIMENEZ BELCHER MD Feb 26, 2018 11:48
[2018-02-26] MEDS: ALBUTEROL SULFATE 2.5 MG/3 ML NEBU. NEB PRN ×2 (12:05→21:27)
[2018-02-26] MEDS: HYDROcodone/APAP 5/325MG 1 TAB TABLET PO PRN (13:14)
[2018-02-26 15:00] VITALS: BP 108/73
[2018-02-26] MEDS: ALPRAZolam 0.25 MG TABLET PO PRN (15:15)
[2018-02-26] MEDS: VANCOMYCIN PER PHARMACY MC PRN (15:20)
[2018-02-26] MEDS: CALCITRIOL 0.25 MCG CAPSULE. PO SCH (16:23)
[2018-02-26] MEDS: VANCOMYCIN 500 MG in IV NORMAL SALINE 100ML 100 ML IV SCH (16:24)
[2018-02-26 19:00] VITALS: BP 110/70
[2018-02-26] MEDS: ZOLPIDEM 5 MG TABLET. PO PRN (21:40)
[2018-02-26] MEDS: LISINOPRIL 20 MG TABLET PO SCH (21:40)
[2018-02-26] MEDS: amLODIPine BESYLATE 10 MG TABLET PO SCH (21:41)
[2018-02-26] MEDS: DARBEPOETIN ALFA 60 MCG/0.3 ML DISP.SYRIN. SQ SCH (21:43)
[2018-02-26 23:00] VITALS: BP 134/87
[2018-02-27 03:00] VITALS: BP 107/59
[2018-02-27] MEDS: HYDROcodone/APAP 5/325MG 1 TAB TABLET PO PRN ×2 (03:00→16:48)
[2018-02-27 04:31] LABS: BASO % 0 % (0-3); EOS # 0.4 x10^3/uL (0.0-0.7); EOS % 3 % (0-3); HEMATOCRIT 32.5 % (39.0-53.0); HEMOGLOBIN 10.8 g/dL (13.0-17.5); LYMPH # 1.5 x10^3/uL (1.0-4.8); LYMPH % 13 % (24-48); MEAN CORPUSCULAR HEMOGLOBIN 27 pg (25-35); MEAN CORPUSCULAR HGB CONC 33 g/dL (31-37); MEAN CORPUSCULAR VOLUME 80 fL (79-100); MONO # 1.6 x10^3/uL (0.0-1.1); MONO % 14 % (0-9); NEUT # 7.9 x10^3uL (1.8-7.7); NEUT % 70 % (31-73); PLATELET COUNT 355 x10^3/uL (140-400); RED BLOOD COUNT 4.09 x10^6/uL (4.30-5.70); RED CELL DISTRIBUTION WIDTH 19.2 % (11.5-14.5); WHITE BLOOD COUNT 11.4 x10^3/uL (4.0-11.0)
[2018-02-27 04:42] LABS: ALBUMIN 2.6 g/dL (3.4-5.0); CALCIUM 9.6 mg/dL (8.5-10.1); CREATININE 4.9 mg/dL (0.7-1.3); GFR 14.8; PHOSPHORUS 2.9 mg/dL (2.6-4.7); POTASSIUM 4.1 mmol/L (3.5-5.1)
[2018-02-27 07:00] VITALS: BP 112/69
[2018-02-27] MEDS: FOLIC/VIT B COMP W-C (RENAL) TABLET. PO SCH (08:27)
[2018-02-27] MEDS: PANTOPRAZOLE 40 MG TABLET.DR. PO SCH (08:27)
[2018-02-27] MEDS: FERROUS SULFATE 325 MG TABLET. PO SCH (08:27)
[2018-02-27] MEDS: CALCIUM ACETATE 667 MG CAPSULE PO SCH ×3 (08:27→16:46)
[2018-02-27] MEDS ORDERED: CALCITRIOL 0.25 MCG CAPSULE. PO SCH (09:00)
--- NOTE | 2018-02-27 10:24 | PDOC ---
Infectious Disease Note Subjective Subjective pt feeling better ROS ROS no n/v/d/fever Vital Sign Vital Signs Vital Signs Date Time Temp Pulse Resp B/P (MAP) Pulse Ox O2 Delivery O2 Flow Rate FiO2 02/27/18 08:00 Nasal Cannula 2.0 02/27/18 07:00 97.7 87 18 112/69 (83) 100 97.7 Physical Exam PHYSICAL EXAM GENERAL: Alert, oriented gentleman, not in any distress. VITAL SIGNS: Stable HEENT: Both pupils are round and reacting. No conjunctival lesion, no lesion in the mouth. NECK: Supple, no JVP, no lymphadenopathy. LUNGS: Clear. HEART: S1, S2 regular. ABDOMEN: Benign. EXTREMITIES: No edema, cyanosis. SKIN: Unremarkable. The patient does have a right upper chest dialysis catheter, which is not showing any obvious signs of infection. Labs Lab Laboratory Tests Test 02/27/18 03:25 White Blood Count 11.4 x10^3/uL (4.0-11.0) Red Blood Count 4.09 x10^6/uL (4.30-5.70) Hemoglobin 10.8 g/dL (13.0-17.5) Hematocrit 32.5 % (39.0-53.0) Mean Corpuscular Volume 80 fL (79-100) Mean Corpuscular Hemoglobin 27 pg (25-35) Mean Corpuscular Hemoglobin Concent 33 g/dL (31-37) Red Cell Distribution Width 19.2 % (11.5-14.5) Platelet Count 355 x10^3/uL (140-400) Neutrophils (%) (Auto) 70 % (31-73) Lymphocytes (%) (Auto) 13 % (24-48) Monocytes (%) (Auto) 14 % (0-9) Eosinophils (%) (Auto) 3 % (0-3) Basophils (%) (Auto) 0 % (0-3) Neutrophils # (Auto) 7.9 x10^3uL (1.8-7.7) Lymphocytes # (Auto) 1.5 x10^3/uL (1.0-4.8) Monocytes # (Auto) 1.6 x10^3/uL (0.0-1.1) Eosinophils # (Auto) 0.4 x10^3/uL (0.0-0.7) Basophils # (Auto) 0.0 x10^3/uL (0.0-0.2) Sodium Level 137 mmol/L (136-145) Potassium Level 4.1 mmol/L (3.5-5.1) Chloride Level 97 mmol/L (98-107) Carbon Dioxide Level 30 mmol/L (21-32) Anion Gap 10 (6-14) Blood Urea Nitrogen 36 mg/dL (8-26) Creatinine 4.9 mg/dL (0.7-1.3) Estimated GFR (Cockcroft-Gault) 14.8 Glucose Level 117 mg/dL (70-99) Calcium Level 9.6 mg/dL (8.5-10.1) Phosphorus Level 2.9 mg/dL (2.6-4.7) Albumin 2.6 g/dL (3.4-5.0) Micro BLOOD CULTURE Final GRAM POSITIVE COCCI IN CLUSTERS IN 5 OF 6(AEROBIC BOTTLE THIS SET);3 SETS WERE DRAWN. THE RESULTS WERE CALLED TO [facility](5S)ON 02/26/18 AT 0940 BY Matt CLEARY. THE BLOOD CULTURE HAS BEEN SENT TO LAB [facility] FOR FURTHER WORKUP. Objective Assessment Fever Leukocytosis Pulmonary infiltrate , pneumonia vs chf Encephalopathy ESRD BC + with staph, id pending Plan Plan of Care mcnally culture vanc supportive care will await id on staph, if staph aureus , then likely will need to replace HD BILL Fajardo MD Feb 27, 2018 10:24
[2018-02-27] MEDS: VANCOMYCIN PER PHARMACY MC PRN (11:14)
--- NOTE | 2018-02-27 11:43 | PDOC ---
Renal-Progress Notes Subjective Notes Notes FEELING BETTER History of Present Illness Hx of present illness STABLE Vitals Vitals Vital Signs Date Time Temp Pulse Resp B/P (MAP) Pulse Ox O2 Delivery O2 Flow Rate FiO2 02/27/18 08:00 Nasal Cannula 2.0 02/27/18 07:00 97.7 87 18 112/69 (83) 100 97.7 Weight Weight [ ] I.O. Intake and Output Intake and Output 02/27/18 07:00 Intake Total 840 ml Output Total 0 ml Balance 840 ml Intake Oral 840 ml Output Urine Total 0 ml # Voids 2 # Bowel Movements 1 Labs Labs Laboratory Tests Test 02/27/18 03:25 White Blood Count 11.4 x10^3/uL (4.0-11.0) Red Blood Count 4.09 x10^6/uL (4.30-5.70) Hemoglobin 10.8 g/dL (13.0-17.5) Hematocrit 32.5 % (39.0-53.0) Mean Corpuscular Volume 80 fL (79-100) Mean Corpuscular Hemoglobin 27 pg (25-35) Mean Corpuscular Hemoglobin Concent 33 g/dL (31-37) Red Cell Distribution Width 19.2 % (11.5-14.5) Platelet Count 355 x10^3/uL (140-400) Neutrophils (%) (Auto) 70 % (31-73) Lymphocytes (%) (Auto) 13 % (24-48) Monocytes (%) (Auto) 14 % (0-9) Eosinophils (%) (Auto) 3 % (0-3) Basophils (%) (Auto) 0 % (0-3) Neutrophils # (Auto) 7.9 x10^3uL (1.8-7.7) Lymphocytes # (Auto) 1.5 x10^3/uL (1.0-4.8) Monocytes # (Auto) 1.6 x10^3/uL (0.0-1.1) Eosinophils # (Auto) 0.4 x10^3/uL (0.0-0.7) Basophils # (Auto) 0.0 x10^3/uL (0.0-0.2) Sodium Level 137 mmol/L (136-145) Potassium Level 4.1 mmol/L (3.5-5.1) Chloride Level 97 mmol/L (98-107) Carbon Dioxide Level 30 mmol/L (21-32) Anion Gap 10 (6-14) Blood Urea Nitrogen 36 mg/dL (8-26) Creatinine 4.9 mg/dL (0.7-1.3) Estimated GFR (Cockcroft-Gault) 14.8 Glucose Level 117 mg/dL (70-99) Calcium Level 9.6 mg/dL (8.5-10.1) Phosphorus Level 2.9 mg/dL (2.6-4.7) Albumin 2.6 g/dL (3.4-5.0) Micro Micro Microbiology 02/25/18 Blood Culture - Final, Complete Review of Systems Constitutional: yes: weakness, alert, oriented Ears/Nose/Throat: Yes: no symptom reported Eyes: Yes: no symptom reported Pulmonary: Yes dyspnea Cardiovascular: Yes no symptom reported Gastrointestional: Yes: no symptom reported Genitourinary: Yes: no symptom reported Musculoskeletal: Yes: muscle stiffness Skin: Yes no symptom reported Psychiatric/Neurological: Yes: no symptom reported Endocrine: Yes: no symptom reported Physical Exam General Appearance: no apparent distress Skin: warm Respiratory: bilateral CTA Heart: S1S2 Abdomen: soft, bowel sounds present Genitourinary: bladder flat Extremities: pulses present Neurology: alert, oriented Musculoskeletal: Osteoarthritis Assessment Assessment IMP SEPSIS ANEMIA HTN DM II ESRD PNEUMONIA ACUTE DIASTOLIC CHF PLAN CONT ANTIBIOTICS HD TOMORROW CONT ARANESP ATTEMPT TO SALVAGE CATHETER D/W ID JEANE ESCOBAR MD Feb 27, 2018 11:43
--- NOTE | 2018-02-27 11:47 | PDOC ---
PROGRESS NOTES Chief Complaint Chief Complaint Sepsis End stage renal disease on dialysis Possible volume overload vs pneumonia, mixed Anemia of ESRD Incarcerated CAchexia BMI 17 GPC bacteremia 5 /6 bottles Indwelling HD cath, ry subclavian (changed recently) History of Present Illness History of Present Illness He does not complain of anything, looks clinically well But growing GPC bacteria 5 out of 6 bottles Awaiting further identification and sensitivities On IV vancomycin on hemodialysis days The rest labs and VS are okay No fever, no white ct Plan: Continue IV Vanco Dialysis per renal Will be here over the weekend most likely, still waiting for identification of the GPC and sensitivities Right indwelling HD catheter was recently changed last admission when he had the same bacteremia No redness or pain in that area BAck to fpc on dc Vitals Vitals Vital Signs Date Time Temp Pulse Resp B/P (MAP) Pulse Ox O2 Delivery O2 Flow Rate FiO2 02/27/18 08:00 Nasal Cannula 2.0 02/27/18 07:00 97.7 87 18 112/69 (83) 100 97.7 Physical Exam Physical Exam GENERAL: Alert, oriented gentleman, not in any distress. VITAL SIGNS: Stable HEENT: Both pupils are round and reacting. No conjunctival lesion, no lesion in the mouth. NECK: Supple, no JVP, no lymphadenopathy. LUNGS: Clear. HEART: S1, S2 regular. ABDOMEN: Benign. EXTREMITIES: No edema, cyanosis. SKIN: Unremarkable. The patient does have a right upper chest dialysis catheter, which is not showing any obvious signs of infection. General: Alert, Oriented X3, Cooperative Heart: Regular rate Lungs: Crackles Abdomen: Normal bowel sounds, Soft, No tenderness Extremities: No clubbing Skin: No breakdown Labs LABS Laboratory Tests Test 02/27/18 03:25 White Blood Count 11.4 x10^3/uL (4.0-11.0) Red Blood Count 4.09 x10^6/uL (4.30-5.70) Hemoglobin 10.8 g/dL (13.0-17.5) Hematocrit 32.5 % (39.0-53.0) Mean Corpuscular Volume 80 fL (79-100) Mean Corpuscular Hemoglobin 27 pg (25-35) Mean Corpuscular Hemoglobin Concent 33 g/dL (31-37) Red Cell Distribution Width 19.2 % (11.5-14.5) Platelet Count 355 x10^3/uL (140-400) Neutrophils (%) (Auto) 70 % (31-73) Lymphocytes (%) (Auto) 13 % (24-48) Monocytes (%) (Auto) 14 % (0-9) Eosinophils (%) (Auto) 3 % (0-3) Basophils (%) (Auto) 0 % (0-3) Neutrophils # (Auto) 7.9 x10^3uL (1.8-7.7) Lymphocytes # (Auto) 1.5 x10^3/uL (1.0-4.8) Monocytes # (Auto) 1.6 x10^3/uL (0.0-1.1) Eosinophils # (Auto) 0.4 x10^3/uL (0.0-0.7) Basophils # (Auto) 0.0 x10^3/uL (0.0-0.2) Sodium Level 137 mmol/L (136-145) Potassium Level 4.1 mmol/L (3.5-5.1) Chloride Level 97 mmol/L (98-107) Carbon Dioxide Level 30 mmol/L (21-32) Anion Gap 10 (6-14) Blood Urea Nitrogen 36 mg/dL (8-26) Creatinine 4.9 mg/dL (0.7-1.3) Estimated GFR (Cockcroft-Gault) 14.8 Glucose Level 117 mg/dL (70-99) Calcium Level 9.6 mg/dL (8.5-10.1) Phosphorus Level 2.9 mg/dL (2.6-4.7) Albumin 2.6 g/dL (3.4-5.0) Review of Systems Review of Systems A 14 point ROS was completed with the following noted as positive: Other systems reviewed and negative. \CONSTITUTIONAL: No fever or chills EYES: No recent changes SKIN: No rash or itching CARDIOVASCULAR: No chest pain, syncope, palpitations, or edema RESPIRATORY: No SOB or cough GASTROINTESTINAL: No nausea, vomiting or abdominal pain NEUROLOGICAL: No headaches or weakness ENDOCRINE: No cold or heat intolerance GENITOURINARY: No urgency or frequency of urination MUSCULOSKELETAL: No back pain or joint pain LYMPHATICS: No enlarged lymph nodes PSYCHIATRIC: No anxiety or depression Assessment and Plan Assessmemt and Plan Problems Medical Problems: (1) End stage renal disease on dialysis Status: Acute (2) Sepsis Status: Acute Comment Review of Relevant I have reviewed the following items mirian (where applicable) has been applied. Labs Laboratory Tests Test 02/25/18 12:35 02/25/18 14:00 02/25/18 16:23 02/26/18 03:30 Lactic Acid Level 1.1 mmol/L (0.4-2.0) Nasal Screen MRSA (PCR) Positive (Negative) Hepatitis B Surface Antigen Nonreactive (Nonreactive) Hepatitis B Surface Antibody Nonreactive White Blood Count 20.9 x10^3/uL (4.0-11.0) Red Blood Count 3.84 x10^6/uL (4.30-5.70) Hemoglobin 9.9 g/dL (13.0-17.5) Hematocrit 30.5 % (39.0-53.0) Mean Corpuscular Volume 79 fL (79-100) Mean Corpuscular Hemoglobin 26 pg (25-35) Mean Corpuscular Hemoglobin Concent 32 g/dL (31-37) Red Cell Distribution Width 19.0 % (11.5-14.5) Platelet Count 373 x10^3/uL (140-400) Neutrophils (%) (Auto) 88 % (31-73) Lymphocytes (%) (Auto) 5 % (24-48) Monocytes (%) (Auto) 6 % (0-9) Eosinophils (%) (Auto) 1 % (0-3) Basophils (%) (Auto) 0 % (0-3) Neutrophils # (Auto) 18.4 x10^3uL (1.8-7.7) Lymphocytes # (Auto) 1.0 x10^3/uL (1.0-4.8) Monocytes # (Auto) 1.3 x10^3/uL (0.0-1.1) Eosinophils # (Auto) 0.2 x10^3/uL (0.0-0.7) Basophils # (Auto) 0.0 x10^3/uL (0.0-0.2) Sodium Level 134 mmol/L (136-145) Potassium Level 4.4 mmol/L (3.5-5.1) Chloride Level 97 mmol/L (98-107) Carbon Dioxide Level 27 mmol/L (21-32) Anion Gap 10 (6-14) Blood Urea Nitrogen 43 mg/dL (8-26) Creatinine 5.7 mg/dL (0.7-1.3) Estimated GFR (Cockcroft-Gault) 12.4 BUN/Creatinine Ratio 8 (6-20) Glucose Level 83 mg/dL (70-99) Calcium Level 9.7 mg/dL (8.5-10.1) Total Bilirubin 0.4 mg/dL (0.2-1.0) Aspartate Amino Transf (AST/SGOT) 22 U/L (15-37) Alanine Aminotransferase (ALT/SGPT) 18 U/L (16-63) Alkaline Phosphatase 102 U/L (46-116) Total Protein 8.7 g/dL (6.4-8.2) Albumin 2.7 g/dL (3.4-5.0) Albumin/Globulin Ratio 0.5 (1.0-1.7) Random Vancomycin Level 24.1 mcg/mL Test 02/27/18 03:25 White Blood Count 11.4 x10^3/uL (4.0-11.0) Red Blood Count 4.09 x10^6/uL (4.30-5.70) Hemoglobin 10.8 g/dL (13.0-17.5) Hematocrit 32.5 % (39.0-53.0) Mean Corpuscular Volume 80 fL (79-100) Mean Corpuscular Hemoglobin 27 pg (25-35) Mean Corpuscular Hemoglobin Concent 33 g/dL (31-37) Red Cell Distribution Width 19.2 % (11.5-14.5) Platelet Count 355 x10^3/uL (140-400) Neutrophils (%) (Auto) 70 % (31-73) Lymphocytes (%) (Auto) 13 % (24-48) Monocytes (%) (Auto) 14 % (0-9) Eosinophils (%) (Auto) 3 % (0-3) Basophils (%) (Auto) 0 % (0-3) Neutrophils # (Auto) 7.9 x10^3uL (1.8-7.7) Lymphocytes # (Auto) 1.5 x10^3/uL (1.0-4.8) Monocytes # (Auto) 1.6 x10^3/uL (0.0-1.1) Eosinophils # (Auto) 0.4 x10^3/uL (0.0-0.7) Basophils # (Auto) 0.0 x10^3/uL (0.0-0.2) Sodium Level 137 mmol/L (136-145) Potassium Level 4.1 mmol/L (3.5-5.1) Chloride Level 97 mmol/L (98-107) Carbon Dioxide Level 30 mmol/L (21-32) Anion Gap 10 (6-14) Blood Urea Nitrogen 36 mg/dL (8-26) Creatinine 4.9 mg/dL (0.7-1.3) Estimated GFR (Cockcroft-Gault) 14.8 Glucose Level 117 mg/dL (70-99) Calcium Level 9.6 mg/dL (8.5-10.1) Phosphorus Level 2.9 mg/dL (2.6-4.7) Albumin 2.6 g/dL (3.4-5.0) Laboratory Tests Test 02/27/18 03:25 White Blood Count 11.4 x10^3/uL (4.0-11.0) Red Blood Count 4.09 x10^6/uL (4.30-5.70) Hemoglobin 10.8 g/dL (13.0-17.5) Hematocrit 32.5 % (39.0-53.0) Mean Corpuscular Volume 80 fL (79-100) Mean Corpuscular Hemoglobin 27 pg (25-35) Mean Corpuscular Hemoglobin Concent 33 g/dL (31-37) Red Cell Distribution Width 19.2 % (11.5-14.5) Platelet Count 355 x10^3/uL (140-400) Neutrophils (%) (Auto) 70 % (31-73) Lymphocytes (%) (Auto) 13 % (24-48) Monocytes (%) (Auto) 14 % (0-9) Eosinophils (%) (Auto) 3 % (0-3) Basophils (%) (Auto) 0 % (0-3) Neutrophils # (Auto) 7.9 x10^3uL (1.8-7.7) Lymphocytes # (Auto) 1.5 x10^3/uL (1.0-4.8) Monocytes # (Auto) 1.6 x10^3/uL (0.0-1.1) Eosinophils # (Auto) 0.4 x10^3/uL (0.0-0.7) Basophils # (Auto) 0.0 x10^3/uL (0.0-0.2) Sodium Level 137 mmol/L (136-145) Potassium Level 4.1 mmol/L (3.5-5.1) Chloride Level 97 mmol/L (98-107) Carbon Dioxide Level 30 mmol/L (21-32) Anion Gap 10 (6-14) Blood Urea Nitrogen 36 mg/dL (8-26) Creatinine 4.9 mg/dL (0.7-1.3) Estimated GFR (Cockcroft-Gault) 14.8 Glucose Level 117 mg/dL (70-99) Calcium Level 9.6 mg/dL (8.5-10.1) Phosphorus Level 2.9 mg/dL (2.6-4.7) Albumin 2.6 g/dL (3.4-5.0) Microbiology 02/25/18 Blood Culture - Final, Complete Medications Current Medications Piperacillin Sod/ Tazobactam Sod 2.25 gm/Sodium Chloride 100 ml @ 200 mls/hr 1X ONCE IV Last administered on 02/25/18at 09:25; Start 02/25/18 at 08:45; Stop 02/25/18 at 09:14; Status DC Vancomycin HCl (Vanco Per Pharmacy) 1 each 1X ONCE MC Last administered on 06/02at 08:30; Start 02/25/18 at 08:30; Stop 02/25/18 at 08:56; Status DC Fentanyl Citrate (Fentanyl 2ml Vial) 50 mcg PRN Q15MIN PRN IV PAIN GREATER THAN 3/10 Last administered on 02/25/18at 09:25; Start 02/25/18 at 08:30; Stop at 08:29; Status DC Acetaminophen (Tylenol) 1,000 mg 1X ONCE PO Last administered on 02/25/18at 09: 25; Start 02/25/18 at 09:00; Stop 02/25/18 at 09:01; Status DC Vancomycin HCl 1.5 gm/Sodium Chloride 500 ml @ 250 mls/hr 1X ONCE IV Last administered on 02/25/18at 11:07; Start 02/25/18 at 09:00; Stop 02/25/18 at 10:59 ; Status DC Sodium Chloride 500 ml @ 500 mls/hr 1X ONCE IV Last administered on at 09:47; Start 02/25/18 at 09:30; Stop 02/25/18 at 10:29; Status DC Ondansetron HCl (Zofran) 4 mg PRN Q8HRS PRN IV NAUSEA/VOMITING; Start 02/25/18 at 11:15; Stop 02/26/18 at 09:06; Status DC Fentanyl Citrate (Fentanyl 2ml Vial) 50 mcg PRN Q2HR PRN IV PAIN Last administered on 02/26/18at 03:50; Start 02/25/18 at 11:15; Stop 02/26/18 at 11:14 ; Status DC Acetaminophen (Tylenol) 650 mg PRN Q4HRS PRN PO FEVER Last administered on 02/26at 03:50; Start 02/25/18 at 11:15; Stop 02/26/18 at 09:13; Status DC Sodium Chloride 1,000 ml @ 1,000 mls/hr Q1H PRN IV hypotension; Start 02/25/18 at 16:33; Stop 02/25/18 at 22:32; Status DC Sodium Chloride (Normal Saline Flush) 10 ml 1X PRN PRN IV AP catheter pack; Start 02/25/18 at 16:45; Stop 02/26/18 at 16:44; Status DC Sodium Chloride (Normal Saline Flush) 10 ml 1X PRN PRN IV JAVAS[employer]ELOPER catheter pack; Start 02/25/18 at 16:45; Stop 02/26/18 at 16:44; Status DC Sodium Chloride 1,000 ml @ 400 mls/hr Q2H30M PRN IV PATENCY; Start 02/25/18 at 16:33; Stop 02/26/18 at 04:32; Status DC Info (PHARMACY MONITORING -- do not chart) 1 each PRN DAILY PRN MC SEE COMMENTS ; Start 02/25/18 at 16:45; Status UNV Info (PHARMACY MONITORING -- do not chart) 1 each PRN DAILY PRN MC SEE COMMENTS ; Start 02/25/18 at 16:45 Zolpidem Tartrate (Ambien) 5 mg HS PRN PO INSOMNIA, MAY REPEAT X1 Last administered on 02/26/18at 21:40; Start 02/25/18 at 21:15 Acetaminophen (Tylenol) 325 mg PRN Q8HRS PRN PO MILD PAIN; Start 02/25/18 at 21 :30; Stop 02/26/18 at 09:06; Status DC Amlodipine Besylate (Norvasc) 10 mg QHS PO Last administered on 02/26/18at 21:41 ; Start 02/26/18 at 21:00 Ferrous Sulfate (Feosol) 325 mg DAILY PO Last administered on 02/27/18at 08:27; Start 02/26/18 at 09:00 Vitamin B Complex/ Vitamin C (Kiara-Bennie) 1 tab DAILY PO Last administered on 08:27; Start 02/26/18 at 09:00 Albuterol Sulfate (Ventolin Neb Soln) 2.5 mg PRN Q4HRS PRN NEB SHORTNESS OF BREATH Last administered on 02/26/18at 21:27; Start 02/25/18 at 21:45 Lisinopril (Prinivil) 40 mg QHS PO Last administered on 02/26/18at 21:40; Start 02/25/18 at 22:00 Magnesium Hydroxide (Milk Of Magnesia) 2,400 mg BID PRN PO CONSTIPATION; Start 02/25/18 at 21:30; Status UNV Metoprolol Tartrate (Lopressor) 50 mg BID PO ; Start 02/26/18 at 09:00; Status UNV Metoprolol Tartrate (Lopressor) 50 mg BID PO ; Start 02/26/18 at 09:00; Status UNV Calcitriol (Rocaltrol) 0.25 mcg QTUTHSA PO Last administered on 02/26/18at 16:23 ; Start 02/26/18 at 16:00 Calcium Acetate (Phoslo) 667 mg TIDWMEALS PO Last administered on 02/27/18at 08: 27; Start 02/26/18 at 08:00 Hydroxyzine Pamoate (Vistaril) 25 mg PRN Q6HRS PRN PO ITCHING; Start 02/25/18 at 21:45 Pantoprazole Sodium (Protonix) 40 mg DAILYAC PO Last administered on 02/27/18at 08:27; Start 02/26/18 at 07:30 Acetaminophen (Tylenol) 650 mg PRN Q8HRS PRN PO MILD PAIN; Start 02/26/18 at 09 :15 Ondansetron HCl (Zofran) 4 mg PRN Q6HRS PRN IV NAUSEA/VOMITING; Start 02/26/18 at 09:15 Clonidine HCl (Catapres) 0.1 mg PRN Q1HR PRN PO HYPERTENSION, SEE COMMENTS; Start 02/26/18 at 09:15 Fentanyl Citrate (Fentanyl 2ml Vial) 50 mcg PRN Q2HR PRN IV SEVERE PAIN; Start 02/26/18 at 09:15 Acetaminophen/ Hydrocodone Bitart (Lortab 5/325) 1 tab PRN Q4HRS PRN PO MODERATE-SEVERE PAIN Last administered on 02/27/18at 03:00; Start 02/26/18 at 09: 15 Calcitriol (Rocaltrol) 0.25 mcg MoWeFr PO ; Start 02/27/18 at 09:00; Status Cancel Vancomycin HCl (Vanco Per Pharmacy) 1 each PRN DAILY PRN MC SEE COMMENTS Last administered on 02/27/18at 11:14; Start 02/26/18 at 10:00 Vancomycin HCl 1.5 gm/Sodium Chloride 500 ml @ 250 mls/hr 1X ONCE IV ; Start 02/26/18 at 11:00; Stop 02/26/18 at 12:59; Status Cancel Sodium Chloride 1,000 ml @ 1,000 mls/hr Q1H PRN IV hypotension; Start 02/26/18 at 10:12; Stop 02/26/18 at 16:11; Status DC Diphenhydramine HCl (Benadryl) 25 mg 1X PRN PRN IV ITCHING; Start 02/26/18 at 10:15; Stop 02/27/18 at 10:14; Status DC Diphenhydramine HCl (Benadryl) 25 mg 1X PRN PRN IV ITCHING; Start 02/26/18 at 10:15; Stop 02/27/18 at 10:14; Status DC Sodium Chloride 1,000 ml @ 400 mls/hr Q2H30M PRN IV PATENCY; Start 02/26/18 at 10:12; Stop 02/26/18 at 22:11; Status DC Info (PHARMACY MONITORING -- do not chart) 1 each PRN DAILY PRN MC SEE COMMENTS ; Start 02/26/18 at 10:15 Darbepoetin Uche (Aranesp) 60 mcg WEEKLYHS SQ Last administered on 02/26/18at 21 :43; Start 02/26/18 at 21:00 Alprazolam (Xanax) 0.25 mg PRN Q8HRS PRN PO ANXIETY / AGITATION Last administered on 02/26/18at 15:15; Start 02/26/18 at 14:15 Vancomycin HCl 500 mg/Sodium Chloride 100 ml @ 100 mls/hr QTUTHSA IV Last administered on 02/26/18at 16:24; Start 02/26/18 at 16:00 Lactobacillus Rhamnosus (Culturelle) 1 cap BID PO ; Start 02/27/18 at 21:00 Active Scripts Active Metoprolol Tartrate 50 Mg Tablet 50 Mg PO BID 60 Days Reported Tylenol (Acetaminophen) 325 Mg Tablet 1-2 Tab PO QID PRN Milk Of Magnesia (Magnesium Hydroxide) 400 Mg/5 Ml Oral.susp 30 Ml PO BID PRN Duoneb 0.5-3(2.5) Mg/3 Ml (Albuterol/Ipratropium) 3 Ml Ampul.neb 3 Ml NEB Q4HRS PRN Hydroxyzine Hcl 25 Mg Tablet 1 Tab PO Q6HRS PRN Calcium Acetate 667 Mg Tablet 667 Mg PO TIDWMEALS Calcitriol 0.25 Mcg Capsule 1 Cap PO QTUTHSA Protonix (Pantoprazole Sodium) 20 Mg Tablet.dr 40 Mg PO DAILY Nephro-Bennie Tablet (Folic Acid/Vitamin B Comp W-C) 0.8 Mg Tablet 1 Tab PO DAILY Metoprolol Tartrate 50 Mg Tablet 1 Tab PO BID Lisinopril 40 Mg Tablet 1 Tab PO QHS Ferrous Sulfate 325 Mg Tablet 1 Tab PO DAILY Calcitriol 0.25 Mcg Capsule 1 Cap PO M/W/F Amlodipine Besylate 10 Mg Tablet 10 Mg PO QHS Acetaminophen 325 Mg Tablet 325 Mg PO PRN Q8HRS Vitals/I & O Vital Sign - Last 24 Hours 02/26/18 02/26/18 02/26/18 02/26/18 12:07 13:14 15:00 19:00 Temp 98.6 97.6 98.6 97.6 Pulse 104 92 Resp 20 18 B/P (MAP) 108/73 (85) 110/70 (83) Pulse Ox 94 96 99 O2 Delivery Nasal Cannula Nasal Cannula Nasal Cannula Room Air O2 Flow Rate 2.0 2.0 2.0 02/26/18 02/26/18 02/26/18 02/26/18 20:00 21:28 21:40 21:41 Pulse 94 94 B/P (MAP) 134/87 134/87 O2 Delivery Nasal Cannula Nasal Cannula O2 Flow Rate 2.0 2.0 02/26/18 02/27/18 02/27/18 02/27/18 23:00 03:00 03:00 04:00 Temp 97.7 97.7 97.7 97.7 Pulse 94 91 Resp 18 18 B/P (MAP) 134/87 (103) 107/59 (75) Pulse Ox 99 98 O2 Delivery Nasal Cannula Room Air Nasal Cannula Nasal Cannula O2 Flow Rate 2.0 2.0 2.0 02/27/18 02/27/18 07:00 08:00 Temp 97.7 97.7 Pulse 87 Resp 18 B/P (MAP) 112/69 (83) Pulse Ox 100 O2 Delivery Nasal Cannula Nasal Cannula O2 Flow Rate 2.0 2.0 Intake and Output 02/26/18 02/26/18 02/27/18 15:00 23:00 07:00 Intake Total 480 ml 360 ml Output Total 0 ml Balance 480 ml 360 ml Nutrition Consultation Dietary Evaluation: Recommendations by RD: Increase Calorie Intake, Protein supplementation Comments: nepro tid Expected Outcomes/Goals: to meet > 75% est nutr needs Interpretation of weight loss: >5% in 1 month Malnutrition Findings: Weight Status: Underweight JIMENEZ BELCHER MD Feb 27, 2018 11:47
[2018-02-27 11:52] VITALS: BP 129/81
[2018-02-27 15:41] VITALS: BP 123/78
[2018-02-27 19:00] VITALS: BP 137/81
[2018-02-27] MEDS: LACTOBACILLUS RHAMNOSUS GG 1 CAPSULE. PO SCH (20:29)
[2018-02-27] MEDS: amLODIPine BESYLATE 10 MG TABLET PO SCH (20:30)
[2018-02-27] MEDS: LISINOPRIL 20 MG TABLET PO SCH (20:30)
[2018-02-27] MEDS: ALPRAZolam 0.25 MG TABLET PO PRN (20:36)
[2018-02-27 23:00] VITALS: BP 126/77
[2018-02-28] VITALS (7 sets, daily range): BP systolic 123–155; BP diastolic 68–83
[2018-02-28] MEDS: HYDROcodone/APAP 5/325MG 1 TAB TABLET PO PRN ×3 (02:10→14:58)
[2018-02-28 05:56] LABS: BASO % 0 % (0-3); EOS # 0.6 x10^3/uL (0.0-0.7); EOS % 7 % (0-3); HEMATOCRIT 30.7 % (39.0-53.0); HEMOGLOBIN 10.1 g/dL (13.0-17.5); LYMPH # 1.8 x10^3/uL (1.0-4.8); LYMPH % 19 % (24-48); MEAN CORPUSCULAR HEMOGLOBIN 26 pg (25-35); MEAN CORPUSCULAR HGB CONC 33 g/dL (31-37); MEAN CORPUSCULAR VOLUME 79 fL (79-100); MONO # 1.4 x10^3/uL (0.0-1.1); MONO % 15 % (0-9); NEUT # 5.6 x10^3uL (1.8-7.7); NEUT % 59 % (31-73); PLATELET COUNT 359 x10^3/uL (140-400); RED BLOOD COUNT 3.88 x10^6/uL (4.30-5.70); RED CELL DISTRIBUTION WIDTH 18.8 % (11.5-14.5); WHITE BLOOD COUNT 9.4 x10^3/uL (4.0-11.0)
[2018-02-28 06:15] LABS: ALBUMIN 2.5 g/dL (3.4-5.0); CALCIUM 10.1 mg/dL (8.5-10.1); CREATININE 6.9 mg/dL (0.7-1.3); PHOSPHORUS 3.3 mg/dL (2.6-4.7); POTASSIUM 4.6 mmol/L (3.5-5.1)
[2018-02-28] MEDS: CALCIUM ACETATE 667 MG CAPSULE PO SCH ×3 (09:01→18:44)
[2018-02-28] MEDS: LACTOBACILLUS RHAMNOSUS GG 1 CAPSULE. PO SCH ×2 (09:01→20:42)
[2018-02-28] MEDS: FERROUS SULFATE 325 MG TABLET. PO SCH (09:01)
[2018-02-28] MEDS: PANTOPRAZOLE 40 MG TABLET.DR. PO SCH (09:01)
[2018-02-28] MEDS: FOLIC/VIT B COMP W-C (RENAL) TABLET. PO SCH (09:01)
[2018-02-28] MEDS: ALPRAZolam 0.25 MG TABLET PO PRN (09:09)
--- NOTE | 2018-02-28 09:45 | PDOC ---
PROGRESS NOTES Subjective Subjective SEEN IN FOLLOW UP OF ESRD Objective Objective Vital Signs Date Time Temp Pulse Resp B/P (MAP) Pulse Ox O2 Delivery O2 Flow Rate FiO2 02/28/18 09:02 18 100 Nasal Cannula 2.0 02/28/18 07:00 97.7 71 125/73 (90) 97.7 Intake and Output 02/28/18 07:00 Output Total 2 ml Balance -2 ml Output Urine Total 2 ml # Voids 2 # Bowel Movements 1 Physical Exam Abdomen: Normal bowel sounds, Soft, No tenderness, No hepatosplenomegaly, No masses Heart: Regular rate, Normal S1, Normal S2, No murmurs, Gallops Extremities: No clubbing, No cyanosis, No edema, Normal pulses, No tenderness/ swelling General: Alert, Oriented X3, Cooperative, No acute distress Lungs: Clear to auscultation, Normal air movement Diagnosis RENAL FAILURE: ESRD Assessment Assessment Problems Medical Problems: (1) End stage renal disease on dialysis Status: Acute (2) Sepsis Status: Acute Plan Plan of Care FOR DIALYSIS TODAY FOR SOLUTE CLEARANCE AND FLUID CONTROL Comment Review of Relevant I have reviewed the following items mirian (where applicable) has been applied. Labs Laboratory Tests Test 02/27/18 03:25 02/28/18 04:50 White Blood Count 11.4 x10^3/uL (4.0-11.0) 9.4 x10^3/uL (4.0-11.0) Red Blood Count 4.09 x10^6/uL (4.30-5.70) 3.88 x10^6/uL (4.30-5.70) Hemoglobin 10.8 g/dL (13.0-17.5) 10.1 g/dL (13.0-17.5) Hematocrit 32.5 % (39.0-53.0) 30.7 % (39.0-53.0) Mean Corpuscular Volume 80 fL (79-100) 79 fL (79-100) Mean Corpuscular Hemoglobin 27 pg (25-35) 26 pg (25-35) Mean Corpuscular Hemoglobin Concent 33 g/dL (31-37) 33 g/dL (31-37) Red Cell Distribution Width 19.2 % (11.5-14.5) 18.8 % (11.5-14.5) Platelet Count 355 x10^3/uL (140-400) 359 x10^3/uL (140-400) Neutrophils (%) (Auto) 70 % (31-73) 59 % (31-73) Lymphocytes (%) (Auto) 13 % (24-48) 19 % (24-48) Monocytes (%) (Auto) 14 % (0-9) 15 % (0-9) Eosinophils (%) (Auto) 3 % (0-3) 7 % (0-3) Basophils (%) (Auto) 0 % (0-3) 0 % (0-3) Neutrophils # (Auto) 7.9 x10^3uL (1.8-7.7) 5.6 x10^3uL (1.8-7.7) Lymphocytes # (Auto) 1.5 x10^3/uL (1.0-4.8) 1.8 x10^3/uL (1.0-4.8) Monocytes # (Auto) 1.6 x10^3/uL (0.0-1.1) 1.4 x10^3/uL (0.0-1.1) Eosinophils # (Auto) 0.4 x10^3/uL (0.0-0.7) 0.6 x10^3/uL (0.0-0.7) Basophils # (Auto) 0.0 x10^3/uL (0.0-0.2) 0.0 x10^3/uL (0.0-0.2) Sodium Level 137 mmol/L (136-145) 135 mmol/L (136-145) Potassium Level 4.1 mmol/L (3.5-5.1) 4.6 mmol/L (3.5-5.1) Chloride Level 97 mmol/L (98-107) 96 mmol/L (98-107) Carbon Dioxide Level 30 mmol/L (21-32) 30 mmol/L (21-32) Anion Gap 10 (6-14) 9 (6-14) Blood Urea Nitrogen 36 mg/dL (8-26) 61 mg/dL (8-26) Creatinine 4.9 mg/dL (0.7-1.3) 6.9 mg/dL (0.7-1.3) Estimated GFR (Cockcroft-Gault) 14.8 10.0 Glucose Level 117 mg/dL (70-99) 95 mg/dL (70-99) Calcium Level 9.6 mg/dL (8.5-10.1) 10.1 mg/dL (8.5-10.1) Phosphorus Level 2.9 mg/dL (2.6-4.7) 3.3 mg/dL (2.6-4.7) Albumin 2.6 g/dL (3.4-5.0) 2.5 g/dL (3.4-5.0) Erythrocyte Sedimentation Rate 60 (0-15) Laboratory Tests Test 02/28/18 04:50 White Blood Count 9.4 x10^3/uL (4.0-11.0) Red Blood Count 3.88 x10^6/uL (4.30-5.70) Hemoglobin 10.1 g/dL (13.0-17.5) Hematocrit 30.7 % (39.0-53.0) Mean Corpuscular Volume 79 fL (79-100) Mean Corpuscular Hemoglobin 26 pg (25-35) Mean Corpuscular Hemoglobin Concent 33 g/dL (31-37) Red Cell Distribution Width 18.8 % (11.5-14.5) Platelet Count 359 x10^3/uL (140-400) Neutrophils (%) (Auto) 59 % (31-73) Lymphocytes (%) (Auto) 19 % (24-48) Monocytes (%) (Auto) 15 % (0-9) Eosinophils (%) (Auto) 7 % (0-3) Basophils (%) (Auto) 0 % (0-3) Neutrophils # (Auto) 5.6 x10^3uL (1.8-7.7) Lymphocytes # (Auto) 1.8 x10^3/uL (1.0-4.8) Monocytes # (Auto) 1.4 x10^3/uL (0.0-1.1) Eosinophils # (Auto) 0.6 x10^3/uL (0.0-0.7) Basophils # (Auto) 0.0 x10^3/uL (0.0-0.2) Erythrocyte Sedimentation Rate 60 (0-15) Sodium Level 135 mmol/L (136-145) Potassium Level 4.6 mmol/L (3.5-5.1) Chloride Level 96 mmol/L (98-107) Carbon Dioxide Level 30 mmol/L (21-32) Anion Gap 9 (6-14) Blood Urea Nitrogen 61 mg/dL (8-26) Creatinine 6.9 mg/dL (0.7-1.3) Estimated GFR (Cockcroft-Gault) 10.0 Glucose Level 95 mg/dL (70-99) Calcium Level 10.1 mg/dL (8.5-10.1) Phosphorus Level 3.3 mg/dL (2.6-4.7) Albumin 2.5 g/dL (3.4-5.0) Microbiology 02/25/18 Blood Culture - Final, Complete Medications Current Medications Piperacillin Sod/ Tazobactam Sod 2.25 gm/Sodium Chloride 100 ml @ 200 mls/hr 1X ONCE IV Last administered on 02/25/18 09:25; Start 02/25/18 at 08:45; Stop 02/25/18 at 09:14; Status DC Vancomycin HCl (Vanco Per Pharmacy) 1 each 1X ONCE MC Last administered on 06/02at 08:30; Start 02/25/18 at 08:30; Stop 02/25/18 at 08:56; Status DC Fentanyl Citrate (Fentanyl 2ml Vial) 50 mcg PRN Q15MIN PRN IV PAIN GREATER THAN 3/10 Last administered on 02/25/18at 09:25; Start 02/25/18 at 08:30; Stop at 08:29; Status DC Acetaminophen (Tylenol) 1,000 mg 1X ONCE PO Last administered on 02/25/18at 09: 25; Start 02/25/18 at 09:00; Stop 02/25/18 at 09:01; Status DC Vancomycin HCl 1.5 gm/Sodium Chloride 500 ml @ 250 mls/hr 1X ONCE IV Last administered on 02/25/18at 11:07; Start 02/25/18 at 09:00; Stop 02/25/18 at 10:59 ; Status DC Sodium Chloride 500 ml @ 500 mls/hr 1X ONCE IV Last administered on at 09:47; Start 02/25/18 at 09:30; Stop 02/25/18 at 10:29; Status DC Ondansetron HCl (Zofran) 4 mg PRN Q8HRS PRN IV NAUSEA/VOMITING; Start 02/25/18 at 11:15; Stop 02/26/18 at 09:06; Status DC Fentanyl Citrate (Fentanyl 2ml Vial) 50 mcg PRN Q2HR PRN IV PAIN Last administered on 02/26/18at 03:50; Start 02/25/18 at 11:15; Stop 02/26/18 at 11:14 ; Status DC Acetaminophen (Tylenol) 650 mg PRN Q4HRS PRN PO FEVER Last administered on 02/26at 03:50; Start 02/25/18 at 11:15; Stop 02/26/18 at 09:13; Status DC Sodium Chloride 1,000 ml @ 1,000 mls/hr Q1H PRN IV hypotension; Start 02/25/18 at 16:33; Stop 02/25/18 at 22:32; Status DC Sodium Chloride (Normal Saline Flush) 10 ml 1X PRN PRN IV AP catheter pack; Start 02/25/18 at 16:45; Stop 02/26/18 at 16:44; Status DC Sodium Chloride (Normal Saline Flush) 10 ml 1X PRN PRN IV [employer] catheter pack; Start 02/25/18 at 16:45; Stop 02/26/18 at 16:44; Status DC Sodium Chloride 1,000 ml @ 400 mls/hr Q2H30M PRN IV PATENCY; Start 02/25/18 at 16:33; Stop 02/26/18 at 04:32; Status DC Info (PHARMACY MONITORING -- do not chart) 1 each PRN DAILY PRN MC SEE COMMENTS ; Start 02/25/18 at 16:45; Status UNV Info (PHARMACY MONITORING -- do not chart) 1 each PRN DAILY PRN MC SEE COMMENTS ; Start 02/25/18 at 16:45 Zolpidem Tartrate (Ambien) 5 mg HS PRN PO INSOMNIA, MAY REPEAT X1 Last administered on 02/26/18at 21:40; Start 02/25/18 at 21:15 Acetaminophen (Tylenol) 325 mg PRN Q8HRS PRN PO MILD PAIN; Start 02/25/18 at 21 :30; Stop 02/26/18 at 09:06; Status DC Amlodipine Besylate (Norvasc) 10 mg QHS PO Last administered on 02/27/18at 20:30 ; Start 02/26/18 at 21:00 Ferrous Sulfate (Feosol) 325 mg DAILY PO Last administered on 02/28/18at 09:01; Start 02/26/18 at 09:00 Vitamin B Complex/ Vitamin C (Kiara-Bennie) 1 tab DAILY PO Last administered on at 09:01; Start 02/26/18 at 09:00 Albuterol Sulfate (Ventolin Neb Soln) 2.5 mg PRN Q4HRS PRN NEB SHORTNESS OF BREATH Last administered on 02/26/18at 21:27; Start 02/25/18 at 21:45 Lisinopril (Prinivil) 40 mg QHS PO Last administered on 02/27/18at 20:30; Start 02/25/18 at 22:00 Magnesium Hydroxide (Milk Of Magnesia) 2,400 mg BID PRN PO CONSTIPATION; Start 02/25/18 at 21:30; Status UNV Metoprolol Tartrate (Lopressor) 50 mg BID PO ; Start 02/26/18 at 09:00; Status UNV Metoprolol Tartrate (Lopressor) 50 mg BID PO ; Start 02/26/18 at 09:00; Status UNV Calcitriol (Rocaltrol) 0.25 mcg QTUTHSA PO Last administered on 02/26/18at 16:23 ; Start 02/26/18 at 16:00 Calcium Acetate (Phoslo) 667 mg TIDWMEALS PO Last administered on 02/28/18at 09: 01; Start 02/26/18 at 08:00 Hydroxyzine Pamoate (Vistaril) 25 mg PRN Q6HRS PRN PO ITCHING; Start 02/25/18 at 21:45 Pantoprazole Sodium (Protonix) 40 mg DAILYAC PO Last administered on 02/28/18at 09:01; Start 02/26/18 at 07:30 Acetaminophen (Tylenol) 650 mg PRN Q8HRS PRN PO MILD PAIN; Start 02/26/18 at 09 :15 Ondansetron HCl (Zofran) 4 mg PRN Q6HRS PRN IV NAUSEA/VOMITING; Start 02/26/18 at 09:15 Clonidine HCl (Catapres) 0.1 mg PRN Q1HR PRN PO HYPERTENSION, SEE COMMENTS; Start 02/26/18 at 09:15 Fentanyl Citrate (Fentanyl 2ml Vial) 50 mcg PRN Q2HR PRN IV SEVERE PAIN; Start 02/26/18 at 09:15 Acetaminophen/ Hydrocodone Bitart (Lortab 5/325) 1 tab PRN Q4HRS PRN PO MODERATE-SEVERE PAIN Last administered on 02/28/18at 09:02; Start 02/26/18 at 09: 15 Calcitriol (Rocaltrol) 0.25 mcg MoWeFr PO ; Start 02/27/18 at 09:00; Status Cancel Vancomycin HCl (Vanco Per Pharmacy) 1 each PRN DAILY PRN MC SEE COMMENTS Last administered on 02/27/18at 11:14; Start 02/26/18 at 10:00 Vancomycin HCl 1.5 gm/Sodium Chloride 500 ml @ 250 mls/hr 1X ONCE IV ; Start 02/26/18 at 11:00; Stop 02/26/18 at 12:59; Status Cancel Sodium Chloride 1,000 ml @ 1,000 mls/hr Q1H PRN IV hypotension; Start 02/26/18 at 10:12; Stop 02/26/18 at 16:11; Status DC Diphenhydramine HCl (Benadryl) 25 mg 1X PRN PRN IV ITCHING; Start 02/26/18 at 10:15; Stop 02/27/18 at 10:14; Status DC Diphenhydramine HCl (Benadryl) 25 mg 1X PRN PRN IV ITCHING; Start 02/26/18 at 10:15; Stop 02/27/18 at 10:14; Status DC Sodium Chloride 1,000 ml @ 400 mls/hr Q2H30M PRN IV PATENCY; Start 02/26/18 at 10:12; Stop 02/26/18 at 22:11; Status DC Info (PHARMACY MONITORING -- do not chart) 1 each PRN DAILY PRN MC SEE COMMENTS ; Start 02/26/18 at 10:15 Darbepoetin Uche (Aranesp) 60 mcg WEEKLYHS SQ Last administered on 02/26/18at 21 :43; Start 02/26/18 at 21:00 Alprazolam (Xanax) 0.25 mg PRN Q8HRS PRN PO ANXIETY / AGITATION Last administered on 02/28/18at 09:09; Start 02/26/18 at 14:15 Vancomycin HCl 500 mg/Sodium Chloride 100 ml @ 100 mls/hr QTUTHSA IV Last administered on 02/26/18at 16:24; Start 02/26/18 at 16:00 Lactobacillus Rhamnosus (Culturelle) 1 cap BID PO Last administered on at 09:01; Start 02/27/18 at 21:00 Active Scripts Active Metoprolol Tartrate 50 Mg Tablet 50 Mg PO BID 60 Days Reported Tylenol (Acetaminophen) 325 Mg Tablet 1-2 Tab PO QID PRN Milk Of Magnesia (Magnesium Hydroxide) 400 Mg/5 Ml Oral.susp 30 Ml PO BID PRN Duoneb 0.5-3(2.5) Mg/3 Ml (Albuterol/Ipratropium) 3 Ml Ampul.neb 3 Ml NEB Q4HRS PRN Hydroxyzine Hcl 25 Mg Tablet 1 Tab PO Q6HRS PRN Calcium Acetate 667 Mg Tablet 667 Mg PO TIDWMEALS Calcitriol 0.25 Mcg Capsule 1 Cap PO QTUTHSA Protonix (Pantoprazole Sodium) 20 Mg Tablet.dr 40 Mg PO DAILY Nephro-Bennie Tablet (Folic Acid/Vitamin B Comp W-C) 0.8 Mg Tablet 1 Tab PO DAILY Metoprolol Tartrate 50 Mg Tablet 1 Tab PO BID Lisinopril 40 Mg Tablet 1 Tab PO QHS Ferrous Sulfate 325 Mg Tablet 1 Tab PO DAILY Calcitriol 0.25 Mcg Capsule 1 Cap PO M/W/F Amlodipine Besylate 10 Mg Tablet 10 Mg PO QHS Acetaminophen 325 Mg Tablet 325 Mg PO PRN Q8HRS Vitals/I & O Vital Sign - Last 24 Hours 02/27/18 02/27/18 02/27/18 02/27/18 11:52 15:41 16:48 17:48 Temp 97.9 97.9 97.9 97.9 Pulse 82 93 Resp 18 18 B/P (MAP) 129/81 (97) 123/78 (93) Pulse Ox 100 100 O2 Delivery Nasal Cannula Nasal Cannula Nasal Cannula Nasal Cannula O2 Flow Rate 2.0 2.0 2.0 2.0 02/27/18 02/27/18 02/27/18 02/27/18 19:00 20:00 20:30 20:30 Temp 97.7 97.7 Pulse 87 87 87 Resp 18 B/P (MAP) 137/81 (99) 137/81 137/81 Pulse Ox 100 O2 Delivery Nasal Cannula Nasal Cannula O2 Flow Rate 2.0 2.0 02/27/18 02/28/18 02/28/18 02/28/18 23:00 02:10 03:00 07:00 Temp 97.7 97.8 97.7 97.7 97.8 97.7 Pulse 100 82 71 Resp 18 18 20 B/P (MAP) 126/77 (93) 123/69 (87) 125/73 (90) Pulse Ox 99 99 100 100 O2 Delivery Nasal Cannula Nasal Cannula 2L O2 Flow Rate 2.0 2.0 02/28/18 09:02 Resp 18 Pulse Ox 100 O2 Delivery Nasal Cannula O2 Flow Rate 2.0 Intake and Output 02/27/18 02/27/18 02/28/18 15:00 23:00 07:00 Output Total 2 ml Balance -2 ml Nutrition Consultation Dietary Evaluation: Recommendations by RD: Increase Calorie Intake, Protein supplementation Comments: nepro tid Expected Outcomes/Goals: to meet > 75% est nutr needs Interpretation of weight loss: >5% in 1 month Malnutrition Findings: Weight Status: Underweight DELORES HODGE MD Feb 28, 2018 09:45
--- NOTE | 2018-02-28 11:11 | PDOC ---
PROGRESS NOTES Chief Complaint Chief Complaint Sepsis End stage renal disease on dialysis Possible volume overload vs pneumonia, mixed Anemia of ESRD Incarcerated CAchexia BMI 17 GPC bacteremia 5 /6 bottles Indwelling HD cath, ry subclavian (changed recently) History of Present Illness History of Present Illness Wants To be discharged He does not complain of anything, looks clinically well But growing GPC bacteria 5 out of 6 bottles Awaiting further identification and sensitivities On IV vancomycin on hemodialysis days The rest labs and VS are okay No fever, no white ct Plan: Continue IV Vanco Dialysis per renal Will be here over the weekend most likely, still waiting for identification of the GPC and sensitivities Right indwelling HD catheter was recently changed last admission when he had the same bacteremia No redness or pain in that area BAck to alf on dc SHOULD WE DO AV FISTULA INSTEAD GIVEN RECURRENT STAPH BACTEREMIA PROBS? Vitals Vitals Vital Signs Date Time Temp Pulse Resp B/P (MAP) Pulse Ox O2 Delivery O2 Flow Rate FiO2 02/28/18 09:02 18 100 Nasal Cannula 2.0 02/28/18 07:00 97.7 71 125/73 (90) 97.7 Physical Exam Physical Exam GENERAL: Alert, oriented gentleman, not in any distress. VITAL SIGNS: Stable HEENT: Both pupils are round and reacting. No conjunctival lesion, no lesion in the mouth. NECK: Supple, no JVP, no lymphadenopathy. LUNGS: Clear. HEART: S1, S2 regular. ABDOMEN: Benign. EXTREMITIES: No edema, cyanosis. SKIN: Unremarkable. The patient does have a right upper chest dialysis catheter, which is not showing any obvious signs of infection. General: Alert, Oriented X3, Cooperative, No acute distress Heart: Regular rate, Normal S1, Normal S2, No murmurs, Gallops Lungs: Crackles Abdomen: Normal bowel sounds, Soft, No tenderness, No hepatosplenomegaly, No masses Extremities: No clubbing, No cyanosis, No edema, Normal pulses, No tenderness/ swelling Skin: No breakdown Labs LABS Laboratory Tests Test 02/28/18 04:50 White Blood Count 9.4 x10^3/uL (4.0-11.0) Red Blood Count 3.88 x10^6/uL (4.30-5.70) Hemoglobin 10.1 g/dL (13.0-17.5) Hematocrit 30.7 % (39.0-53.0) Mean Corpuscular Volume 79 fL (79-100) Mean Corpuscular Hemoglobin 26 pg (25-35) Mean Corpuscular Hemoglobin Concent 33 g/dL (31-37) Red Cell Distribution Width 18.8 % (11.5-14.5) Platelet Count 359 x10^3/uL (140-400) Neutrophils (%) (Auto) 59 % (31-73) Lymphocytes (%) (Auto) 19 % (24-48) Monocytes (%) (Auto) 15 % (0-9) Eosinophils (%) (Auto) 7 % (0-3) Basophils (%) (Auto) 0 % (0-3) Neutrophils # (Auto) 5.6 x10^3uL (1.8-7.7) Lymphocytes # (Auto) 1.8 x10^3/uL (1.0-4.8) Monocytes # (Auto) 1.4 x10^3/uL (0.0-1.1) Eosinophils # (Auto) 0.6 x10^3/uL (0.0-0.7) Basophils # (Auto) 0.0 x10^3/uL (0.0-0.2) Erythrocyte Sedimentation Rate 60 (0-15) Sodium Level 135 mmol/L (136-145) Potassium Level 4.6 mmol/L (3.5-5.1) Chloride Level 96 mmol/L (98-107) Carbon Dioxide Level 30 mmol/L (21-32) Anion Gap 9 (6-14) Blood Urea Nitrogen 61 mg/dL (8-26) Creatinine 6.9 mg/dL (0.7-1.3) Estimated GFR (Cockcroft-Gault) 10.0 Glucose Level 95 mg/dL (70-99) Calcium Level 10.1 mg/dL (8.5-10.1) Phosphorus Level 3.3 mg/dL (2.6-4.7) Albumin 2.5 g/dL (3.4-5.0) Review of Systems Review of Systems A 14 point ROS was completed with the following noted as positive: Other systems reviewed and negative. \CONSTITUTIONAL: No fever or chills EYES: No recent changes SKIN: No rash or itching CARDIOVASCULAR: No chest pain, syncope, palpitations, or edema RESPIRATORY: No SOB or cough GASTROINTESTINAL: No nausea, vomiting or abdominal pain NEUROLOGICAL: No headaches or weakness ENDOCRINE: No cold or heat intolerance GENITOURINARY: No urgency or frequency of urination MUSCULOSKELETAL: No back pain or joint pain LYMPHATICS: No enlarged lymph nodes PSYCHIATRIC: No anxiety or depression Assessment and Plan Assessmemt and Plan Problems Medical Problems: (1) End stage renal disease on dialysis Status: Acute (2) Sepsis Status: Acute Comment Review of Relevant I have reviewed the following items mirian (where applicable) has been applied. Labs Laboratory Tests Test 02/27/18 03:25 02/28/18 04:50 White Blood Count 11.4 x10^3/uL (4.0-11.0) 9.4 x10^3/uL (4.0-11.0) Red Blood Count 4.09 x10^6/uL (4.30-5.70) 3.88 x10^6/uL (4.30-5.70) Hemoglobin 10.8 g/dL (13.0-17.5) 10.1 g/dL (13.0-17.5) Hematocrit 32.5 % (39.0-53.0) 30.7 % (39.0-53.0) Mean Corpuscular Volume 80 fL (79-100) 79 fL (79-100) Mean Corpuscular Hemoglobin 27 pg (25-35) 26 pg (25-35) Mean Corpuscular Hemoglobin Concent 33 g/dL (31-37) 33 g/dL (31-37) Red Cell Distribution Width 19.2 % (11.5-14.5) 18.8 % (11.5-14.5) Platelet Count 355 x10^3/uL (140-400) 359 x10^3/uL (140-400) Neutrophils (%) (Auto) 70 % (31-73) 59 % (31-73) Lymphocytes (%) (Auto) 13 % (24-48) 19 % (24-48) Monocytes (%) (Auto) 14 % (0-9) 15 % (0-9) Eosinophils (%) (Auto) 3 % (0-3) 7 % (0-3) Basophils (%) (Auto) 0 % (0-3) 0 % (0-3) Neutrophils # (Auto) 7.9 x10^3uL (1.8-7.7) 5.6 x10^3uL (1.8-7.7) Lymphocytes # (Auto) 1.5 x10^3/uL (1.0-4.8) 1.8 x10^3/uL (1.0-4.8) Monocytes # (Auto) 1.6 x10^3/uL (0.0-1.1) 1.4 x10^3/uL (0.0-1.1) Eosinophils # (Auto) 0.4 x10^3/uL (0.0-0.7) 0.6 x10^3/uL (0.0-0.7) Basophils # (Auto) 0.0 x10^3/uL (0.0-0.2) 0.0 x10^3/uL (0.0-0.2) Sodium Level 137 mmol/L (136-145) 135 mmol/L (136-145) Potassium Level 4.1 mmol/L (3.5-5.1) 4.6 mmol/L (3.5-5.1) Chloride Level 97 mmol/L (98-107) 96 mmol/L (98-107) Carbon Dioxide Level 30 mmol/L (21-32) 30 mmol/L (21-32) Anion Gap 10 (6-14) 9 (6-14) Blood Urea Nitrogen 36 mg/dL (8-26) 61 mg/dL (8-26) Creatinine 4.9 mg/dL (0.7-1.3) 6.9 mg/dL (0.7-1.3) Estimated GFR (Cockcroft-Gault) 14.8 10.0 Glucose Level 117 mg/dL (70-99) 95 mg/dL (70-99) Calcium Level 9.6 mg/dL (8.5-10.1) 10.1 mg/dL (8.5-10.1) Phosphorus Level 2.9 mg/dL (2.6-4.7) 3.3 mg/dL (2.6-4.7) Albumin 2.6 g/dL (3.4-5.0) 2.5 g/dL (3.4-5.0) Erythrocyte Sedimentation Rate 60 (0-15) Laboratory Tests Test 02/28/18 04:50 White Blood Count 9.4 x10^3/uL (4.0-11.0) Red Blood Count 3.88 x10^6/uL (4.30-5.70) Hemoglobin 10.1 g/dL (13.0-17.5) Hematocrit 30.7 % (39.0-53.0) Mean Corpuscular Volume 79 fL (79-100) Mean Corpuscular Hemoglobin 26 pg (25-35) Mean Corpuscular Hemoglobin Concent 33 g/dL (31-37) Red Cell Distribution Width 18.8 % (11.5-14.5) Platelet Count 359 x10^3/uL (140-400) Neutrophils (%) (Auto) 59 % (31-73) Lymphocytes (%) (Auto) 19 % (24-48) Monocytes (%) (Auto) 15 % (0-9) Eosinophils (%) (Auto) 7 % (0-3) Basophils (%) (Auto) 0 % (0-3) Neutrophils # (Auto) 5.6 x10^3uL (1.8-7.7) Lymphocytes # (Auto) 1.8 x10^3/uL (1.0-4.8) Monocytes # (Auto) 1.4 x10^3/uL (0.0-1.1) Eosinophils # (Auto) 0.6 x10^3/uL (0.0-0.7) Basophils # (Auto) 0.0 x10^3/uL (0.0-0.2) Erythrocyte Sedimentation Rate 60 (0-15) Sodium Level 135 mmol/L (136-145) Potassium Level 4.6 mmol/L (3.5-5.1) Chloride Level 96 mmol/L (98-107) Carbon Dioxide Level 30 mmol/L (21-32) Anion Gap 9 (6-14) Blood Urea Nitrogen 61 mg/dL (8-26) Creatinine 6.9 mg/dL (0.7-1.3) Estimated GFR (Cockcroft-Gault) 10.0 Glucose Level 95 mg/dL (70-99) Calcium Level 10.1 mg/dL (8.5-10.1) Phosphorus Level 3.3 mg/dL (2.6-4.7) Albumin 2.5 g/dL (3.4-5.0) Microbiology 02/25/18 Blood Culture - Final, Complete Medications Current Medications Piperacillin Sod/ Tazobactam Sod 2.25 gm/Sodium Chloride 100 ml @ 200 mls/hr 1X ONCE IV Last administered on 02/25/18at 09:25; Start 02/25/18 at 08:45; Stop 02/25/18 at 09:14; Status DC Vancomycin HCl (Vanco Per Pharmacy) 1 each 1X ONCE MC Last administered on 06/02at 08:30; Start 02/25/18 at 08:30; Stop 02/25/18 at 08:56; Status DC Fentanyl Citrate (Fentanyl 2ml Vial) 50 mcg PRN Q15MIN PRN IV PAIN GREATER THAN 3/10 Last administered on 02/25/18at 09:25; Start 02/25/18 at 08:30; Stop at 08:29; Status DC Acetaminophen (Tylenol) 1,000 mg 1X ONCE PO Last administered on 02/25/18at 09: 25; Start 02/25/18 at 09:00; Stop 02/25/18 at 09:01; Status DC Vancomycin HCl 1.5 gm/Sodium Chloride 500 ml @ 250 mls/hr 1X ONCE IV Last administered on 02/25/18at 11:07; Start 02/25/18 at 09:00; Stop 02/25/18 at 10:59 ; Status DC Sodium Chloride 500 ml @ 500 mls/hr 1X ONCE IV Last administered on at 09:47; Start 02/25/18 at 09:30; Stop 02/25/18 at 10:29; Status DC Ondansetron HCl (Zofran) 4 mg PRN Q8HRS PRN IV NAUSEA/VOMITING; Start 02/25/18 at 11:15; Stop 02/26/18 at 09:06; Status DC Fentanyl Citrate (Fentanyl 2ml Vial) 50 mcg PRN Q2HR PRN IV PAIN Last administered on 02/26/18at 03:50; Start 02/25/18 at 11:15; Stop 02/26/18 at 11:14 ; Status DC Acetaminophen (Tylenol) 650 mg PRN Q4HRS PRN PO FEVER Last administered on 02/26at 03:50; Start 02/25/18 at 11:15; Stop 02/26/18 at 09:13; Status DC Sodium Chloride 1,000 ml @ 1,000 mls/hr Q1H PRN IV hypotension; Start 02/25/18 at 16:33; Stop 02/25/18 at 22:32; Status DC Sodium Chloride (Normal Saline Flush) 10 ml 1X PRN PRN IV AP catheter pack; Start 02/25/18 at 16:45; Stop 02/26/18 at 16:44; Status DC Sodium Chloride (Normal Saline Flush) 10 ml 1X PRN PRN IV YARD PERSON catheter pack; Start 02/25/18 at 16:45; Stop 02/26/18 at 16:44; Status DC Sodium Chloride 1,000 ml @ 400 mls/hr Q2H30M PRN IV PATENCY; Start 02/25/18 at 16:33; Stop 02/26/18 at 04:32; Status DC Info (PHARMACY MONITORING -- do not chart) 1 each PRN DAILY PRN MC SEE COMMENTS ; Start 02/25/18 at 16:45; Status UNV Info (PHARMACY MONITORING -- do not chart) 1 each PRN DAILY PRN MC SEE COMMENTS ; Start 02/25/18 at 16:45 Zolpidem Tartrate (Ambien) 5 mg HS PRN PO INSOMNIA, MAY REPEAT X1 Last administered on 02/26/18at 21:40; Start 02/25/18 at 21:15 Acetaminophen (Tylenol) 325 mg PRN Q8HRS PRN PO MILD PAIN; Start 02/25/18 at 21 :30; Stop 02/26/18 at 09:06; Status DC Amlodipine Besylate (Norvasc) 10 mg QHS PO Last administered on 02/27/18at 20:30 ; Start 02/26/18 at 21:00 Ferrous Sulfate (Feosol) 325 mg DAILY PO Last administered on 02/28/18at 09:01; Start 02/26/18 at 09:00 Vitamin B Complex/ Vitamin C (Kiara-Bennie) 1 tab DAILY PO Last administered on at 09:01; Start 02/26/18 at 09:00 Albuterol Sulfate (Ventolin Neb Soln) 2.5 mg PRN Q4HRS PRN NEB SHORTNESS OF BREATH Last administered on 02/26/18at 21:27; Start 02/25/18 at 21:45 Lisinopril (Prinivil) 40 mg QHS PO Last administered on 02/27/18at 20:30; Start 02/25/18 at 22:00 Magnesium Hydroxide (Milk Of Magnesia) 2,400 mg BID PRN PO CONSTIPATION; Start 02/25/18 at 21:30; Status UNV Metoprolol Tartrate (Lopressor) 50 mg BID PO ; Start 02/26/18 at 09:00; Status UNV Metoprolol Tartrate (Lopressor) 50 mg BID PO ; Start 02/26/18 at 09:00; Status UNV Calcitriol (Rocaltrol) 0.25 mcg QTUTHSA PO Last administered on 02/26/18at 16:23 ; Start 02/26/18 at 16:00 Calcium Acetate (Phoslo) 667 mg TIDWMEALS PO Last administered on 02/28/18at 09: 01; Start 02/26/18 at 08:00 Hydroxyzine Pamoate (Vistaril) 25 mg PRN Q6HRS PRN PO ITCHING; Start 02/25/18 at 21:45 Pantoprazole Sodium (Protonix) 40 mg DAILYAC PO Last administered on 02/28/18at 09:01; Start 02/26/18 at 07:30 Acetaminophen (Tylenol) 650 mg PRN Q8HRS PRN PO MILD PAIN; Start 02/26/18 at 09 :15 Ondansetron HCl (Zofran) 4 mg PRN Q6HRS PRN IV NAUSEA/VOMITING; Start 02/26/18 at 09:15 Clonidine HCl (Catapres) 0.1 mg PRN Q1HR PRN PO HYPERTENSION, SEE COMMENTS; Start 02/26/18 at 09:15 Fentanyl Citrate (Fentanyl 2ml Vial) 50 mcg PRN Q2HR PRN IV SEVERE PAIN; Start 02/26/18 at 09:15 Acetaminophen/ Hydrocodone Bitart (Lortab 5/325) 1 tab PRN Q4HRS PRN PO MODERATE-SEVERE PAIN Last administered on 02/28/18at 09:02; Start 02/26/18 at 09: 15 Calcitriol (Rocaltrol) 0.25 mcg MoWeFr PO ; Start 02/27/18 at 09:00; Status Cancel Vancomycin HCl (Vanco Per Pharmacy) 1 each PRN DAILY PRN MC SEE COMMENTS Last administered on 02/27/18at 11:14; Start 02/26/18 at 10:00 Vancomycin HCl 1.5 gm/Sodium Chloride 500 ml @ 250 mls/hr 1X ONCE IV ; Start 02/26/18 at 11:00; Stop 02/26/18 at 12:59; Status Cancel Sodium Chloride 1,000 ml @ 1,000 mls/hr Q1H PRN IV hypotension; Start 02/26/18 at 10:12; Stop 02/26/18 at 16:11; Status DC Diphenhydramine HCl (Benadryl) 25 mg 1X PRN PRN IV ITCHING; Start 02/26/18 at 10:15; Stop 02/27/18 at 10:14; Status DC Diphenhydramine HCl (Benadryl) 25 mg 1X PRN PRN IV ITCHING; Start 02/26/18 at 10:15; Stop 02/27/18 at 10:14; Status DC Sodium Chloride 1,000 ml @ 400 mls/hr Q2H30M PRN IV PATENCY; Start 02/26/18 at 10:12; Stop 02/26/18 at 22:11; Status DC Info (PHARMACY MONITORING -- do not chart) 1 each PRN DAILY PRN MC SEE COMMENTS ; Start 02/26/18 at 10:15 Darbepoetin Uche (Aranesp) 60 mcg WEEKLYHS SQ Last administered on 02/26/18at 21 :43; Start 02/26/18 at 21:00 Alprazolam (Xanax) 0.25 mg PRN Q8HRS PRN PO ANXIETY / AGITATION Last administered on 02/28/18at 09:09; Start 02/26/18 at 14:15 Vancomycin HCl 500 mg/Sodium Chloride 100 ml @ 100 mls/hr QTUTHSA IV Last administered on 02/26/18at 16:24; Start 02/26/18 at 16:00 Lactobacillus Rhamnosus (Culturelle) 1 cap BID PO Last administered on at 09:01; Start 02/27/18 at 21:00 Active Scripts Active Metoprolol Tartrate 50 Mg Tablet 50 Mg PO BID 60 Days Reported Tylenol (Acetaminophen) 325 Mg Tablet 1-2 Tab PO QID PRN Milk Of Magnesia (Magnesium Hydroxide) 400 Mg/5 Ml Oral.susp 30 Ml PO BID PRN Duoneb 0.5-3(2.5) Mg/3 Ml (Albuterol/Ipratropium) 3 Ml Ampul.neb 3 Ml NEB Q4HRS PRN Hydroxyzine Hcl 25 Mg Tablet 1 Tab PO Q6HRS PRN Calcium Acetate 667 Mg Tablet 667 Mg PO TIDWMEALS Calcitriol 0.25 Mcg Capsule 1 Cap PO QTUTHSA Protonix (Pantoprazole Sodium) 20 Mg Tablet.dr 40 Mg PO DAILY Nephro-Bennie Tablet (Folic Acid/Vitamin B Comp W-C) 0.8 Mg Tablet 1 Tab PO DAILY Metoprolol Tartrate 50 Mg Tablet 1 Tab PO BID Lisinopril 40 Mg Tablet 1 Tab PO QHS Ferrous Sulfate 325 Mg Tablet 1 Tab PO DAILY Calcitriol 0.25 Mcg Capsule 1 Cap PO // Amlodipine Besylate 10 Mg Tablet 10 Mg PO QHS Acetaminophen 325 Mg Tablet 325 Mg PO PRN Q8HRS Vitals/I & O Vital Sign - Last 24 Hours 02/27/18 02/27/18 02/27/18 02/27/18 11:52 15:41 16:48 17:48 Temp 97.9 97.9 97.9 97.9 Pulse 82 93 Resp 18 18 B/P (MAP) 129/81 (97) 123/78 (93) Pulse Ox 100 100 O2 Delivery Nasal Cannula Nasal Cannula Nasal Cannula Nasal Cannula O2 Flow Rate 2.0 2.0 2.0 2.0 02/27/18 02/27/18 02/27/18 02/27/18 19:00 20:00 20:30 20:30 Temp 97.7 97.7 Pulse 87 87 87 Resp 18 B/P (MAP) 137/81 (99) 137/81 137/81 Pulse Ox 100 O2 Delivery Nasal Cannula Nasal Cannula O2 Flow Rate 2.0 2.0 02/27/18 02/28/18 02/28/18 02/28/18 23:00 02:10 03:00 07:00 Temp 97.7 97.8 97.7 97.7 97.8 97.7 Pulse 100 82 71 Resp 18 18 20 B/P (MAP) 126/77 (93) 123/69 (87) 125/73 (90) Pulse Ox 99 99 100 100 O2 Delivery Nasal Cannula Nasal Cannula 2L O2 Flow Rate 2.0 2.0 02/28/18 09:02 Resp 18 Pulse Ox 100 O2 Delivery Nasal Cannula O2 Flow Rate 2.0 Intake and Output 02/27/18 02/27/18 02/28/18 15:00 23:00 07:00 Output Total 2 ml Balance -2 ml Nutrition Consultation Dietary Evaluation: Recommendations by RD: Increase Calorie Intake, Protein supplementation Comments: nepro tid Expected Outcomes/Goals: to meet > 75% est nutr needs Interpretation of weight loss: >5% in 1 month Malnutrition Findings: Weight Status: Underweight JIMENEZ BELCEHR MD Feb 28, 2018 11:11
--- NOTE | 2018-02-28 11:29 | PDOC ---
Infectious Disease Note Subjective Subjective No further fevers last 48 hours No N/V/D/chills/sweats/SOA Wants to leave or at least be able to get up and walk ROS ROS per HPI otherwise neg Vital Sign Vital Signs Vital Signs Date Time Temp Pulse Resp B/P (MAP) Pulse Ox O2 Delivery O2 Flow Rate FiO2 02/28/18 09:02 18 100 Nasal Cannula 2.0 02/28/18 07:00 97.7 71 125/73 (90) 97.7 Physical Exam PHYSICAL EXAM GENERAL: Lying down, NAD LUNGS: Clear. HEART: S1, S2 regular. ABDOMEN: Soft, NT EXTREMITIES: No edema, cyanosis. SKIN: warm without rash OPERATIONS SUPPORT SPECIALIST: Alert and oriented x 3 Tunnelled HDC (10/31) no obvious signs of infection Labs Lab Laboratory Tests Test 02/28/18 04:50 White Blood Count 9.4 x10^3/uL (4.0-11.0) Red Blood Count 3.88 x10^6/uL (4.30-5.70) Hemoglobin 10.1 g/dL (13.0-17.5) Hematocrit 30.7 % (39.0-53.0) Mean Corpuscular Volume 79 fL (79-100) Mean Corpuscular Hemoglobin 26 pg (25-35) Mean Corpuscular Hemoglobin Concent 33 g/dL (31-37) Red Cell Distribution Width 18.8 % (11.5-14.5) Platelet Count 359 x10^3/uL (140-400) Neutrophils (%) (Auto) 59 % (31-73) Lymphocytes (%) (Auto) 19 % (24-48) Monocytes (%) (Auto) 15 % (0-9) Eosinophils (%) (Auto) 7 % (0-3) Basophils (%) (Auto) 0 % (0-3) Neutrophils # (Auto) 5.6 x10^3uL (1.8-7.7) Lymphocytes # (Auto) 1.8 x10^3/uL (1.0-4.8) Monocytes # (Auto) 1.4 x10^3/uL (0.0-1.1) Eosinophils # (Auto) 0.6 x10^3/uL (0.0-0.7) Basophils # (Auto) 0.0 x10^3/uL (0.0-0.2) Erythrocyte Sedimentation Rate 60 (0-15) Sodium Level 135 mmol/L (136-145) Potassium Level 4.6 mmol/L (3.5-5.1) Chloride Level 96 mmol/L (98-107) Carbon Dioxide Level 30 mmol/L (21-32) Anion Gap 9 (6-14) Blood Urea Nitrogen 61 mg/dL (8-26) Creatinine 6.9 mg/dL (0.7-1.3) Estimated GFR (Cockcroft-Gault) 10.0 Glucose Level 95 mg/dL (70-99) Calcium Level 10.1 mg/dL (8.5-10.1) Phosphorus Level 3.3 mg/dL (2.6-4.7) Albumin 2.5 g/dL (3.4-5.0) Micro BLOOD CULTURE Final GRAM POSITIVE COCCI IN CLUSTERS IN 5 OF 6(AEROBIC BOTTLE THIS SET);3 SETS WERE DRAWN. THE RESULTS WERE CALLED TO PIPER BARRIENTOS(5S)ON 02/26/18 AT 0940 BY Matt CLEARY. 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 The chart was reviewed. The case was discussed. Agree with the plan of care. LACEY MONTGOMERY APRN Feb 28, 2018 11:29 BILL BENTLEY MD Feb 28, 2018 13:01
[2018-02-28] MEDS: VANCOMYCIN PER PHARMACY MC PRN (13:49)
[2018-02-28] MEDS ORDERED: IV NORMAL SALINE 1000ML BAG 1,000 ML IV PRN ×2 (14:39)
[2018-02-28] MEDS ORDERED: LABETALOL 20 MG/4 ML DISP.SYRIN. IVP PRN (14:45)
[2018-02-28] MEDS ORDERED: ALBUMIN HUMAN 25% 200 ML IV PRN (14:45)
[2018-02-28] MEDS ORDERED: DIALYSIS PATIENT. MC PRN (14:45)
[2018-02-28] MEDS ORDERED: diphenhydrAMINE 50 MG/ML VIAL IV PRN ×2 (14:45)
[2018-02-28] MEDS ORDERED: ACETAMINOPHEN 500 MG TABLET PO PRN (14:45)
[2018-02-28] MEDS ORDERED: cloNIDine HCL 0.1 MG TABLET PO PRN (14:45)
[2018-02-28] MEDS: CALCITRIOL 0.25 MCG CAPSULE. PO SCH (18:44)
[2018-02-28] MEDS: VANCOMYCIN 500 MG in IV NORMAL SALINE 100ML 100 ML IV SCH (18:46)
[2018-02-28] MEDS: LISINOPRIL 20 MG TABLET PO SCH (20:42)
[2018-02-28] MEDS: amLODIPine BESYLATE 10 MG TABLET PO SCH (20:42)
[2018-02-28] MEDS: fentaNYL PF VIAL 100 MCG/2 ML VIAL IV PRN (22:51)
[2018-03-01] MEDS: ZOLPIDEM 5 MG TABLET. PO PRN ×2 (00:25→21:13)
[2018-03-01] MEDS: fentaNYL PF VIAL 100 MCG/2 ML VIAL IV PRN ×4 (02:06→19:19)
[2018-03-01 03:00] VITALS: BP 129/66
[2018-03-01] MEDS: HYDROcodone/APAP 5/325MG 1 TAB TABLET PO PRN ×3 (03:33→16:05)
[2018-03-01 07:00] VITALS: BP 136/69
[2018-03-01] MEDS: VANCOMYCIN PER PHARMACY MC PRN (08:28)
[2018-03-01] MEDS: LACTOBACILLUS RHAMNOSUS GG 1 CAPSULE. PO SCH ×2 (09:18→21:13)
[2018-03-01] MEDS: PANTOPRAZOLE 40 MG TABLET.DR. PO SCH (09:18)
[2018-03-01] MEDS: CALCIUM ACETATE 667 MG CAPSULE PO SCH ×3 (09:18→21:13)
[2018-03-01] MEDS: FOLIC/VIT B COMP W-C (RENAL) TABLET. PO SCH (09:18)
[2018-03-01] MEDS: FERROUS SULFATE 325 MG TABLET. PO SCH (09:18)
--- NOTE | 2018-03-01 10:43 | PDOC ---
Infectious Disease Note Subjective Subjective Feeling alright No N/V/D/chills/sweats/SOA Vital Sign Vital Signs Vital Signs Date Time Temp Pulse Resp B/P (MAP) Pulse Ox O2 Delivery O2 Flow Rate FiO2 03/01/18 09:15 18 Nasal Cannula 03/01/18 07:00 97.9 90 136/69 (91) 100 2.0 97.9 Physical Exam PHYSICAL EXAM GENERAL: Lying down, watching TV LUNGS: Clear. HEART: S1, S2 regular. ABDOMEN: Soft, NT EXTREMITIES: No edema, cyanosis. SKIN: warm without rash DOVETAILER: Alert and oriented x 3 Tunnelled HDC (10/31) no obvious signs of infection Labs Micro 02/25. BLD CULT RESULT 1 Preliminary Staphylococcus aureus Objective Assessment Staph aureus bacteremia (5 of 6 bottles) POA from 02/25. 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 The chart was reviewed. The case was discussed. Agree with the plan of care. LACEY MONTGOMERY APRN Mar 01, 2018 10:43 BILL BENTLEY MD Mar 01, 2018 11:50
[2018-03-01 11:00] VITALS: BP 144/70
--- NOTE | 2018-03-01 11:47 | PDOC ---
PROGRESS NOTES Chief Complaint Chief Complaint Sepsis End stage renal disease on dialysis Possible volume overload vs pneumonia, mixed Anemia of ESRD Incarcerated CAchexia BMI 17 GPC bacteremia 5 /6 bottles Indwelling HD cath, ry subclavian (changed recently) History of Present Illness History of Present Illness Wants To be discharged He does not complain of anything, looks clinically well But growing GPC bacteria 5 out of 6 bottles Awaiting further identification and sensitivities On IV vancomycin on hemodialysis days The rest labs and VS are okay No fever, no white ct After Discussion with ID and renal, agreeable to AV fistula-has previous histories of GPC bacteremia and HD dialysis catheters being changed Pt agreeable to AV fistula Plan: Continue IV Vanco Dialysis per renal Wants to dc tmr Awaiting vasc sx to se pt re AV fistula creation Vitals Vitals Vital Signs Date Time Temp Pulse Resp B/P (MAP) Pulse Ox O2 Delivery O2 Flow Rate FiO2 03/01/18 10:56 18 Nasal Cannula 3.0 03/01/18 09:45 100 03/01/18 07:00 97.9 90 136/69 (91) 97.9 Physical Exam Physical Exam GENERAL: Lying down, watching TV LUNGS: Clear. HEART: S1, S2 regular. ABDOMEN: Soft, NT EXTREMITIES: No edema, cyanosis. SKIN: warm without rash [employer]: Alert and oriented x 3 Tunnelled HDC (10/31) no obvious signs of infection General: Alert, Oriented X3, Cooperative, No acute distress Heart: Regular rate, Normal S1, Normal S2, No murmurs, Gallops Lungs: Crackles Abdomen: Normal bowel sounds, Soft, No tenderness, No hepatosplenomegaly, No masses Extremities: No clubbing, No cyanosis, No edema, Normal pulses, No tenderness/ swelling Skin: No breakdown Review of Systems Review of Systems A 14 point ROS was completed with the following noted as positive: Other systems reviewed and negative. \CONSTITUTIONAL: No fever or chills EYES: No recent changes SKIN: No rash or itching CARDIOVASCULAR: No chest pain, syncope, palpitations, or edema RESPIRATORY: No SOB or cough GASTROINTESTINAL: No nausea, vomiting or abdominal pain NEUROLOGICAL: No headaches or weakness ENDOCRINE: No cold or heat intolerance GENITOURINARY: No urgency or frequency of urination MUSCULOSKELETAL: No back pain or joint pain LYMPHATICS: No enlarged lymph nodes PSYCHIATRIC: No anxiety or depression Assessment and Plan Assessmemt and Plan Problems Medical Problems: (1) End stage renal disease on dialysis Status: Acute (2) Sepsis Status: Acute Comment Review of Relevant I have reviewed the following items mirian (where applicable) has been applied. Labs Laboratory Tests Test 02/28/18 04:50 White Blood Count 9.4 x10^3/uL (4.0-11.0) Red Blood Count 3.88 x10^6/uL (4.30-5.70) Hemoglobin 10.1 g/dL (13.0-17.5) Hematocrit 30.7 % (39.0-53.0) Mean Corpuscular Volume 79 fL (79-100) Mean Corpuscular Hemoglobin 26 pg (25-35) Mean Corpuscular Hemoglobin Concent 33 g/dL (31-37) Red Cell Distribution Width 18.8 % (11.5-14.5) Platelet Count 359 x10^3/uL (140-400) Neutrophils (%) (Auto) 59 % (31-73) Lymphocytes (%) (Auto) 19 % (24-48) Monocytes (%) (Auto) 15 % (0-9) Eosinophils (%) (Auto) 7 % (0-3) Basophils (%) (Auto) 0 % (0-3) Neutrophils # (Auto) 5.6 x10^3uL (1.8-7.7) Lymphocytes # (Auto) 1.8 x10^3/uL (1.0-4.8) Monocytes # (Auto) 1.4 x10^3/uL (0.0-1.1) Eosinophils # (Auto) 0.6 x10^3/uL (0.0-0.7) Basophils # (Auto) 0.0 x10^3/uL (0.0-0.2) Erythrocyte Sedimentation Rate 60 (0-15) Sodium Level 135 mmol/L (136-145) Potassium Level 4.6 mmol/L (3.5-5.1) Chloride Level 96 mmol/L (98-107) Carbon Dioxide Level 30 mmol/L (21-32) Anion Gap 9 (6-14) Blood Urea Nitrogen 61 mg/dL (8-26) Creatinine 6.9 mg/dL (0.7-1.3) Estimated GFR (Cockcroft-Gault) 10.0 Glucose Level 95 mg/dL (70-99) Calcium Level 10.1 mg/dL (8.5-10.1) Phosphorus Level 3.3 mg/dL (2.6-4.7) Albumin 2.5 g/dL (3.4-5.0) Microbiology 02/25/18 Blood Culture - Preliminary, Resulted 02/25/18 Blood Culture Result 1 (LILIANA) - Preliminary, Resulted Medications Current Medications Piperacillin Sod/ Tazobactam Sod 2.25 gm/Sodium Chloride 100 ml @ 200 mls/hr 1X ONCE IV Last administered on 02/25/18at 09:25; Start 02/25/18 at 08:45; Stop 02/25/18 at 09:14; Status DC Vancomycin HCl (Vanco Per Pharmacy) 1 each 1X ONCE MC Last administered on 06/02at 08:30; Start 02/25/18 at 08:30; Stop 02/25/18 at 08:56; Status DC Fentanyl Citrate (Fentanyl 2ml Vial) 50 mcg PRN Q15MIN PRN IV PAIN GREATER THAN 3/10 Last administered on 02/25/18at 09:25; Start 02/25/18 at 08:30; Stop at 08:29; Status DC Acetaminophen (Tylenol) 1,000 mg 1X ONCE PO Last administered on 02/25/18at 09: 25; Start 02/25/18 at 09:00; Stop 02/25/18 at 09:01; Status DC Vancomycin HCl 1.5 gm/Sodium Chloride 500 ml @ 250 mls/hr 1X ONCE IV Last administered on 02/25/18at 11:07; Start 02/25/18 at 09:00; Stop 02/25/18 at 10:59 ; Status DC Sodium Chloride 500 ml @ 500 mls/hr 1X ONCE IV Last administered on at 09:47; Start 02/25/18 at 09:30; Stop 02/25/18 at 10:29; Status DC Ondansetron HCl (Zofran) 4 mg PRN Q8HRS PRN IV NAUSEA/VOMITING; Start 02/25/18 at 11:15; Stop 02/26/18 at 09:06; Status DC Fentanyl Citrate (Fentanyl 2ml Vial) 50 mcg PRN Q2HR PRN IV PAIN Last administered on 02/26/18at 03:50; Start 02/25/18 at 11:15; Stop 02/26/18 at 11:14 ; Status DC Acetaminophen (Tylenol) 650 mg PRN Q4HRS PRN PO FEVER Last administered on 02/26at 03:50; Start 02/25/18 at 11:15; Stop 02/26/18 at 09:13; Status DC Sodium Chloride 1,000 ml @ 1,000 mls/hr Q1H PRN IV hypotension; Start 02/25/18 at 16:33; Stop 02/25/18 at 22:32; Status DC Sodium Chloride (Normal Saline Flush) 10 ml 1X PRN PRN IV AP catheter pack; Start 02/25/18 at 16:45; Stop 02/26/18 at 16:44; Status DC Sodium Chloride (Normal Saline Flush) 10 ml 1X PRN PRN IV CUSTOM BIKE BUILDER catheter pack; Start 02/25/18 at 16:45; Stop 02/26/18 at 16:44; Status DC Sodium Chloride 1,000 ml @ 400 mls/hr Q2H30M PRN IV PATENCY; Start 02/25/18 at 16:33; Stop 02/26/18 at 04:32; Status DC Info (PHARMACY MONITORING -- do not chart) 1 each PRN DAILY PRN MC SEE COMMENTS ; Start 02/25/18 at 16:45; Status UNV Info (PHARMACY MONITORING -- do not chart) 1 each PRN DAILY PRN MC SEE COMMENTS ; Start 02/25/18 at 16:45; Stop 02/28/18 at 13:49; Status DC Zolpidem Tartrate (Ambien) 5 mg HS PRN PO INSOMNIA, MAY REPEAT X1 Last administered on 03/01/18at 00:25; Start 02/25/18 at 21:15 Acetaminophen (Tylenol) 325 mg PRN Q8HRS PRN PO MILD PAIN; Start 02/25/18 at 21 :30; Stop 02/26/18 at 09:06; Status DC Amlodipine Besylate (Norvasc) 10 mg QHS PO Last administered on 02/28/18at 20:42 ; Start 02/26/18 at 21:00 Ferrous Sulfate (Feosol) 325 mg DAILY PO Last administered on 03/01/18at 09:18; Start 02/26/18 at 09:00 Vitamin B Complex/ Vitamin C (Kiara-Bennie) 1 tab DAILY PO Last administered on at 09:18; Start 02/26/18 at 09:00 Albuterol Sulfate (Ventolin Neb Soln) 2.5 mg PRN Q4HRS PRN NEB SHORTNESS OF BREATH Last administered on 02/26/18at 21:27; Start 02/25/18 at 21:45 Lisinopril (Prinivil) 40 mg QHS PO Last administered on 02/28/18at 20:42; Start 02/25/18 at 22:00 Magnesium Hydroxide (Milk Of Magnesia) 2,400 mg BID PRN PO CONSTIPATION; Start 02/25/18 at 21:30; Status UNV Metoprolol Tartrate (Lopressor) 50 mg BID PO ; Start 02/26/18 at 09:00; Status UNV Metoprolol Tartrate (Lopressor) 50 mg BID PO ; Start 02/26/18 at 09:00; Status UNV Calcitriol (Rocaltrol) 0.25 mcg QTUTHSA PO Last administered on 02/28/18at 18:44 ; Start 02/26/18 at 16:00 Calcium Acetate (Phoslo) 667 mg TIDWMEALS PO Last administered on 03/01/18at 09: 18; Start 02/26/18 at 08:00 Hydroxyzine Pamoate (Vistaril) 25 mg PRN Q6HRS PRN PO ITCHING; Start 02/25/18 at 21:45 Pantoprazole Sodium (Protonix) 40 mg DAILYAC PO Last administered on 03/01/18at 09:18; Start 02/26/18 at 07:30 Acetaminophen (Tylenol) 650 mg PRN Q8HRS PRN PO MILD PAIN; Start 02/26/18 at 09 :15 Ondansetron HCl (Zofran) 4 mg PRN Q6HRS PRN IV NAUSEA/VOMITING; Start 02/26/18 at 09:15 Clonidine HCl (Catapres) 0.1 mg PRN Q1HR PRN PO HYPERTENSION, SEE COMMENTS; Start 02/26/18 at 09:15 Fentanyl Citrate (Fentanyl 2ml Vial) 50 mcg PRN Q2HR PRN IV SEVERE PAIN Last administered on 03/01/18at 09:15; Start 02/26/18 at 09:15 Acetaminophen/ Hydrocodone Bitart (Lortab 5/325) 1 tab PRN Q4HRS PRN PO MODERATE-SEVERE PAIN Last administered on 03/01/18at 10:56; Start 02/26/18 at 09: 15 Calcitriol (Rocaltrol) 0.25 mcg MoWeFr PO ; Start 02/27/18 at 09:00; Status Cancel Vancomycin HCl (Vanco Per Pharmacy) 1 each PRN DAILY PRN MC SEE COMMENTS Last administered on 03/01/18at 08:28; Start 02/26/18 at 10:00 Vancomycin HCl 1.5 gm/Sodium Chloride 500 ml @ 250 mls/hr 1X ONCE IV ; Start 02/26/18 at 11:00; Stop 02/26/18 at 12:59; Status Cancel Sodium Chloride 1,000 ml @ 1,000 mls/hr Q1H PRN IV hypotension; Start 02/26/18 at 10:12; Stop 02/26/18 at 16:11; Status DC Diphenhydramine HCl (Benadryl) 25 mg 1X PRN PRN IV ITCHING; Start 02/26/18 at 10:15; Stop 02/27/18 at 10:14; Status DC Diphenhydramine HCl (Benadryl) 25 mg 1X PRN PRN IV ITCHING; Start 02/26/18 at 10:15; Stop 02/27/18 at 10:14; Status DC Sodium Chloride 1,000 ml @ 400 mls/hr Q2H30M PRN IV PATENCY; Start 02/26/18 at 10:12; Stop 02/26/18 at 22:11; Status DC Info (PHARMACY MONITORING -- do not chart) 1 each PRN DAILY PRN MC SEE COMMENTS ; Start 02/26/18 at 10:15; Stop 02/28/18 at 14:47; Status DC Darbepoetin Uche (Aranesp) 60 mcg WEEKLYHS SQ Last administered on 02/26/18at 21 :43; Start 02/26/18 at 21:00 Alprazolam (Xanax) 0.25 mg PRN Q8HRS PRN PO ANXIETY / AGITATION Last administered on 02/28/18at 09:09; Start 02/26/18 at 14:15 Vancomycin HCl 500 mg/Sodium Chloride 100 ml @ 100 mls/hr QTUTHSA IV Last administered on 02/28/18at 18:46; Start 02/26/18 at 16:00 Lactobacillus Rhamnosus (Culturelle) 1 cap BID PO Last administered on at 09:18; Start 02/27/18 at 21:00 Sodium Chloride 1,000 ml @ 1,000 mls/hr Q1H PRN IV hypotension; Start 02/28/18 at 14:39; Stop 02/28/18 at 20:38; Status DC Albumin Human 200 ml @ 200 mls/hr 1X PRN PRN IV Hypotension; Start 02/28/18 at 14:45; Stop 02/28/18 at 20:44; Status DC Acetaminophen (Tylenol) 500 mg 1X PRN PRN PO MILD PAIN / TEMP; Start 02/28/18 at 14:45; Stop 03/01/18 at 14:44 Diphenhydramine HCl (Benadryl) 25 mg 1X PRN PRN IV ITCHING; Start 02/28/18 at 14:45; Stop 03/01/18 at 14:44 Diphenhydramine HCl (Benadryl) 25 mg 1X PRN PRN IV ITCHING; Start 02/28/18 at 14:45; Stop 03/01/18 at 14:44 Labetalol HCl (Normodyne Iv Push) 10 mg PRN Q1HR PRN IVP SBP > 180; Start 02/28 at 14:45; Stop 03/01/18 at 14:44 Clonidine HCl (Catapres) 0.1 mg 1X PRN PRN PO SBP > 180; Start 02/28/18 at 14: 45; Stop 03/01/18 at 14:44 Sodium Chloride 1,000 ml @ 400 mls/hr Q2H30M PRN IV PATENCY; Start 02/28/18 at 14:39; Stop 03/01/18 at 02:38; Status DC Info (PHARMACY MONITORING -- do not chart) 1 each PRN DAILY PRN MC SEE COMMENTS ; Start 02/28/18 at 14:45 Active Scripts Active Metoprolol Tartrate 50 Mg Tablet 50 Mg PO BID 60 Days Reported Tylenol (Acetaminophen) 325 Mg Tablet 1-2 Tab PO QID PRN Milk Of Magnesia (Magnesium Hydroxide) 400 Mg/5 Ml Oral.susp 30 Ml PO BID PRN Duoneb 0.5-3(2.5) Mg/3 Ml (Albuterol/Ipratropium) 3 Ml Ampul.neb 3 Ml NEB Q4HRS PRN Hydroxyzine Hcl 25 Mg Tablet 1 Tab PO Q6HRS PRN Calcium Acetate 667 Mg Tablet 667 Mg PO TIDWMEALS Calcitriol 0.25 Mcg Capsule 1 Cap PO QTUTHSA Protonix (Pantoprazole Sodium) 20 Mg Tablet.dr 40 Mg PO DAILY Nephro-Bennie Tablet (Folic Acid/Vitamin B Comp W-C) 0.8 Mg Tablet 1 Tab PO DAILY Metoprolol Tartrate 50 Mg Tablet 1 Tab PO BID Lisinopril 40 Mg Tablet 1 Tab PO QHS Ferrous Sulfate 325 Mg Tablet 1 Tab PO DAILY Calcitriol 0.25 Mcg Capsule 1 Cap PO // Amlodipine Besylate 10 Mg Tablet 10 Mg PO QHS Acetaminophen 325 Mg Tablet 325 Mg PO PRN Q8HRS Vitals/I & O Vital Sign - Last 24 Hours 02/28/18 02/28/18 02/28/18 02/28/18 14:58 15:00 15:59 16:22 Temp 98.6 98.6 98.6 98.6 Pulse 79 79 Resp 18 18 18 18 B/P (MAP) 136/76 (96) 136/73 (94) Pulse Ox 100 100 100 O2 Delivery Nasal Cannula 2L 2L O2 Flow Rate 2.0 02/28/18 02/28/18 02/28/18 02/28/18 19:00 20:00 20:42 20:42 Temp 97.7 97.7 Pulse 86 86 86 Resp 18 B/P (MAP) 144/71 (95) 144/71 144/71 Pulse Ox 100 O2 Delivery Nasal Cannula Nasal Cannula O2 Flow Rate 2.0 2.0 02/28/18 02/28/18 03/01/18 03/01/18 22:51 22:55 02:06 03:00 Temp 97.9 98.3 97.9 98.3 Pulse 95 85 Resp 19 20 B/P (MAP) 155/83 (107) 129/66 (87) Pulse Ox 100 99 99 96 O2 Delivery Nasal Cannula Nasal Cannula Nasal Cannula Nasal Cannula O2 Flow Rate 2.0 2.0 2.0 2.0 03/01/18 03/01/18 03/01/18 03/01/18 03:33 04:33 07:00 08:00 Temp 97.9 97.9 Pulse 90 Resp 18 B/P (MAP) 136/69 (91) Pulse Ox 99 99 100 O2 Delivery Nasal Cannula Nasal Cannula Nasal Cannula Nasal Cannula O2 Flow Rate 2.0 2.0 2.0 3.0 03/01/18 03/01/18 03/01/18 09:15 09:45 10:56 Resp 18 18 Pulse Ox 100 O2 Delivery Nasal Cannula Nasal Cannula Nasal Cannula O2 Flow Rate 3.0 3.0 Intake and Output 02/28/18 02/28/18 03/01/18 15:00 23:00 07:00 Intake Total 300 ml 600 ml Output Total 0 ml Balance 300 ml 600 ml 0 ml Nutrition Consultation Dietary Evaluation: Recommendations by RD: Increase Calorie Intake, Protein supplementation Comments: nepro tid Expected Outcomes/Goals: to meet > 75% est nutr needs Interpretation of weight loss: >5% in 1 month Malnutrition Findings: Weight Status: Underweight JIMENEZ BELCHER MD Mar 01, 2018 11:47
--- NOTE | 2018-03-01 13:18 | PDOC ---
Provider Note Provider Note (please see full dictation) 57 yo male with ESRD on dialysis via a right IJ tunneled catheter. He is right handed. Good radial pulses. Will need bilateral arm vein mapping to determine the best option for intermediate project manager arm access construction. AUSTIN PATEL MD Mar 01, 2018 13:18
--- NOTE | 2018-03-01 14:37 | RAD ---
Bilateral upper extremity vein mapping, 03/01/2018: History: Renal failure, surgical planning Duplex evaluation of the cephalic and basilic veins in the upper extremities was performed utilizing grayscale, color-flow and spectral Doppler analysis. The basilic vein in the right upper extremity is patent measuring 2.2 to 2.5 mm in diameter in the upper arm and 1.6 to 2.2 mm in the forearm. The cephalic vein in the right upper extremity is patent but small measuring 1.3 mm in the upper arm and 0.7 mm in the forearm. The left basilic vein is patent measuring 1.9 to 2.0 mm in the upper arm and approximately 1.1 mm in the forearm. The left cephalic vein is patent measuring 1.3 to 1.8 mm in the upper arm and 1.1 to 1.4 mm in the forearm. IMPRESSION: Patent but small basilic and cephalic veins in both upper extremities as described above and fully delineated on the technologist worksheet available in the [employer] PACS system.
[2018-03-01 15:00] VITALS: BP 142/78
[2018-03-01 19:00] VITALS: BP 159/80
--- NOTE | 2018-03-01 20:52 | CONS ---
DATE OF CONSULTATION: 03/01/2018 CHIEF COMPLAINT: Chronic renal failure. HISTORY OF PRESENT ILLNESS: The patient is a 57-year-old male, with chronic kidney disease, who was admitted with fevers, lethargy and shortness of breath. He has had intermittent fevers for the last few months. He has been on dialysis for several months. He is currently dialyzing through a right internal jugular tunneled catheter. He is right-handed. He denies any recent imaging of his arms for dialysis access mapping. PAST MEDICAL HISTORY: 1. Chronic kidney disease, on dialysis. 2. Hypertension. 3. Hyperlipidemia. 4. Congestive heart failure. 5. History of asthma. 6. Gastroesophageal reflux disease. 7. COPD. PAST SURGICAL HISTORY: 1. Splenectomy. 2. Appendectomy. 3. Tunneled catheter placement. SOCIAL HISTORY: He denies any smoking or alcohol use. He is currently incarcerated. CURRENT MEDICATIONS: Please see detailed medication administration record. This was reviewed. He is on clonidine, labetalol, lactobacillus, erythropoietin, amlodipine, vancomycin, calcitriol, vancomycin, iron sulfate, calcium acetate, Protonix, lisinopril, hydroxyzine and albuterol. ALLERGIES: No known drug allergies. FAMILY HISTORY: Noncontributory. REVIEW OF SYSTEMS: He has had generalized fevers as well as malaise. He denies any specific chest pain. He has intermittent shortness of breath. He denies any nausea, vomiting, diarrhea, constipation, hematochezia, melena or other GI symptoms at this time. He has chronic renal failure, on hemodialysis. He denies any unilateral weakness, numbness, visual loss, speech change or other TIA or stroke symptoms. He has some chronic numbness in his hands that is unchanged. PHYSICAL EXAMINATION: GENERAL: This is a thin, chronically ill appearing male, in no acute distress. VITAL SIGNS: Temperature 97.9, pulse 63, blood pressure 144/70, respirations 18. NECK: Supple, no lymphadenopathy. He has a right internal jugular tunneled dialysis catheter. No tenderness along the catheter site. ABDOMEN: Soft, nontender, nondistended. No palpable masses. EXTREMITIES: He has palpable radial, femoral and popliteal pulse bilaterally. No significant peripheral edema. LABORATORY DATA: Significant for white blood cell 9.4, hemoglobin 10.1, platelet count of 359. Sodium 135, potassium 4.6, BUN 61, creatinine 6.9, glucose 95. IMPRESSION: 1. Chronic kidney disease requiring long-term hemodialysis access. 2. Hypertension. 3. Chronic obstructive pulmonary disease. 4. Intermittent fevers, although no fevers recently. RECOMMENDATIONS: 1. Vein mapping of both upper extremities to determine best option for long-term access. 2. I discussed options for long-term hemodialysis placement including pamunkey arteriovenous fistula formation versus shunt placement. Risks and potential benefits were detailed. He acknowledged and requested to proceed as soon as possible. AUSTIN PATEL MD DR: FRANCE/nahomy JOB#: [id number] / [id number] BILL Mauro MD, CARRIE HODGE, JEANE CARABALLO MD, MD
[2018-03-01] MEDS: LISINOPRIL 20 MG TABLET PO SCH (21:13)
[2018-03-01] MEDS: amLODIPine BESYLATE 10 MG TABLET PO SCH (21:14)
[2018-03-01 23:00] VITALS: BP 155/84
[2018-03-02] MEDS: HYDROcodone/APAP 5/325MG 1 TAB TABLET PO PRN ×4 (01:58→19:12)
[2018-03-02 03:00] VITALS: BP 145/78
[2018-03-02 07:00] VITALS: BP 164/91
[2018-03-02] MEDS: CALCIUM ACETATE 667 MG CAPSULE PO SCH ×3 (09:15→16:37)
[2018-03-02] MEDS: FERROUS SULFATE 325 MG TABLET. PO SCH (09:15)
[2018-03-02] MEDS: FOLIC/VIT B COMP W-C (RENAL) TABLET. PO SCH (09:15)
[2018-03-02] MEDS: PANTOPRAZOLE 40 MG TABLET.DR. PO SCH (09:15)
[2018-03-02] MEDS: LACTOBACILLUS RHAMNOSUS GG 1 CAPSULE. PO SCH ×2 (09:15→21:11)
[2018-03-02] MEDS: fentaNYL PF VIAL 100 MCG/2 ML VIAL IV PRN ×5 (09:16→21:12)
--- NOTE | 2018-03-02 09:22 | PDOC ---
Infectious Disease Note Subjective: Subjective Feeling alright No N/V/D/chills/sweats/SOA ROS: ROS Negative except for above. Vital Signs: Vital Signs Vital Signs Date Time Temp Pulse Resp B/P (MAP) Pulse Ox O2 Delivery O2 Flow Rate FiO2 03/02/18 07:00 98.0 82 20 164/91 (115) 100 Room Air 98.0 03/02/18 03:00 2.0 Physical Exam: PHYSICAL EXAM GENERAL: Lying down, watching TV LUNGS: Clear. HEART: S1, S2 regular. ABDOMEN: Soft, NT EXTREMITIES: No edema, cyanosis. SKIN: warm without rash ,has some skin lesions ,superficial scratch unger, no signs of secondary infection CANDY WAFFLE ASSEMBLER: Alert and oriented x 3 Tunnelled HDC (10/31) no obvious signs of infection Medications: Inpatient Meds: Current Medications Medications (Trade) Dose Ordered Sig/Lissette Start Time Stop Time Status Last Admin Dose Admin Acetaminophen (Tylenol) 500 mg 1X PRN PRN 02/28/18 14:45 03/01/18 14:44 DC Acetaminophen/ Hydrocodone Bitart (Lortab 5/325) 1 tab PRN Q4HRS PRN 02/26/18 09:15 03/02/18 01:58 Albumin Human 200 ml @ 200 mls/hr 1X PRN PRN 02/28/18 14:45 02/28/18 20:44 DC Albuterol Sulfate (Ventolin Neb Soln) 2.5 mg PRN Q4HRS PRN 02/25/18 21:45 02/26/18 21:27 Alprazolam (Xanax) 0.25 mg PRN Q8HRS PRN 02/26/18 14:15 02/28/18 09:09 Amlodipine Besylate (Norvasc) 10 mg QHS 02/26/18 21:00 03/01/18 21:14 Calcitriol (Rocaltrol) 0.25 mcg MoWeFr 02/27/18 09:00 Cancel Calcium Acetate (Phoslo) 667 mg TIDWMEALS 02/26/18 08:00 03/01/18 21:13 Clonidine HCl (Catapres) 0.1 mg 1X PRN PRN 02/28/18 14:45 03/01/18 14:44 DC Darbepoetin Uche (Aranesp) 60 mcg WEEKLYHS 02/26/18 21:00 02/26/18 21:43 Diphenhydramine HCl (Benadryl) 25 mg 1X PRN PRN 02/28/18 14:45 03/01/18 14:44 DC Fentanyl Citrate (Fentanyl 2ml Vial) 50 mcg PRN Q2HR PRN 02/26/18 09:15 03/01/18 19:19 Ferrous Sulfate (Feosol) 325 mg DAILY 02/26/18 09:00 03/01/18 09:18 Hydroxyzine Pamoate (Vistaril) 25 mg PRN Q6HRS PRN 02/25/18 21:45 Info (PHARMACY MONITORING -- do not chart) 1 each PRN DAILY PRN 02/28/18 14:45 Labetalol HCl (Normodyne Iv Push) 10 mg PRN Q1HR PRN 02/28/18 14:45 03/01/18 14:44 DC Lactobacillus Rhamnosus (Culturelle) 1 cap BID 02/27/18 21:00 03/01/18 21:13 Lisinopril (Prinivil) 40 mg QHS 02/25/18 22:00 03/01/18 21:13 Magnesium Hydroxide (Milk Of Magnesia) 2,400 mg BID PRN 02/25/18 21:30 UNV Metoprolol Tartrate (Lopressor) 50 mg BID 02/26/18 09:00 UNV Ondansetron HCl (Zofran) 4 mg PRN Q6HRS PRN 02/26/18 09:15 Pantoprazole Sodium (Protonix) 40 mg DAILYAC 02/26/18 07:30 03/01/18 09:18 Piperacillin Sod/ Tazobactam Sod 2.25 gm/Sodium Chloride 100 ml @ 200 mls/hr 1X ONCE 02/25/18 08:45 02/25/18 09:14 DC 02/25/18 09:25 Sodium Chloride 1,000 ml @ 400 mls/hr Q2H30M PRN 02/28/18 14:39 03/01/18 02:38 DC Sodium Chloride (Normal Saline Flush) 10 ml 1X PRN PRN 02/25/18 16:45 02/26/18 16:44 DC Vancomycin HCl (Vanco Per Pharmacy) 1 each PRN DAILY PRN 02/26/18 10:00 03/01/18 08:28 Vancomycin HCl 1.5 gm/Sodium Chloride 500 ml @ 250 mls/hr 1X ONCE 02/26/18 11:00 02/26/18 12:59 Cancel Vancomycin HCl 500 mg/Sodium Chloride 100 ml @ 100 mls/hr QTUTHSA 02/26/18 16:00 02/28/18 18:46 Vitamin B Complex/ Vitamin C (Kiara-Bennie) 1 tab DAILY 02/26/18 09:00 03/01/18 09:18 Zolpidem Tartrate (Ambien) 5 mg HS PRN 02/25/18 21:15 03/01/18 21:13 Labs: Micro RUN DATE: 03/01/18 PAGE 1 RUN TIME: 1611 [facility] [address] [place] [address] Yossi Wilson M.D., Automotive Design Drafter PATIENT: TEJA ROSENBAUM ACCT: [id number] LOC: [address] [place] [address] U : [id number] AGE/SX: 57/M ROOM: [facility] REG : 02/25/[address]: CARRIE SIFUENTES MD : 1960 BED: 1 DIS : STATUS: ADM IN TLOC: SPEC #: [id number] ILYA: 02/25/18-1235 STATUS: COMP REQ #: [id number] RECD: 09/ [facility] DR: ENE RAMON DO SOURCE: BLOOD ENTR: 02/26/[address] [facility] [address]: BILL BENTLEY MD [facility]: CARRIE SIFUENTES MD, VENU S MD NO PCP ORDERED: BLD CULT - LC Procedure Result BLOOD CULTURE LC Final Final report BLD CULT RESULT 1 Final Comment Methicillin - resistant Staphylococcus aureus Based on resistance to oxacillin this isolate would be resistant to all currently available beta-lactam antimicrobial agents, with the exception of the newer cephalosporins with anti-MRSA activity, such as Ceftaroline This isolate is presumed to be resistant to clindamycin based on detection of inducible clindamycin resistance in vitro by D test. Clindamycin may still be effective in some patients. CLINDAMYCIN =R ERYTHROMYCIN =R ANTIMICROBIAL SUSCEPTIBILITY Final Comment S = Susceptible; I = Intermediate; R = Resistant P = Positive; N = Negative MICS are expressed in micrograms per mL Antibiotic RSLT#1 RSLT#2 RSLT#3 RSLT#4 Ciprofloxacin R>=8 Clindamycin R =R Erythromycin R>=8 Gentamicin S<=0.5 Levofloxacin R>=8 Linezolid S =2 Oxacillin R>=4 Penicillin R>=0.5 Rifampin S<=0.5 Tetracycline R>=16 Trimethoprim/Sulfa R>=320 Vancomycin S =1 CONTINUED ON NEXT PAGE RUN DATE: 03/01/18 PAGE 2 RUN TIME: 1069 [facility] [address] [facility] [place] [address] Yossi Wilson M.D., Automotive Design Drafter SPEC: [id number] PATIENT: TEJA ROSENBAUM [id number] ( Continued) Procedure Result ANTIMICROBIAL SUSCEPTIBILITY Final (continued) Performed at: [address], [place], [place] [id number] Policy Writer Sales: MAYA Epps MD, Phone: [phone] Objective: Assessment: MRSA bacteremia (5 of 6 bottles) POA from 02/25. Source ? likely skin or HDC different strain compared to October 2017 Tetracycline resistant Fever - better Leukocytosis - resolved Pulmonary infiltrates with bilateral pleural effusion,likely CHF Encephalopathy - improved ESRD currently getting dialysed through a right internal jugular tunneled catheter. 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 Plan: Plan of Care Continue vancomycin q //fri postdialysis Random trough 24.1 HDC will need be replace ,Vascular on case Repeat BC from 02/28 in process repeat BC will need echo Supportive care TATA BENTLEY MD Mar 02, 2018 09:22
--- NOTE | 2018-03-02 09:24 | PDOC ---
PROGRESS NOTES Chief Complaint Chief Complaint Sepsis MRSA BACTEREMIA End stage renal disease on dialysis Possible volume overload vs pneumonia, mixed Anemia of ESRD Incarcerated CAchexia BMI 17 GPC bacteremia 5 /6 bottles Indwelling HD cath, ry subclavian (changed recently) History of Present Illness History of Present Illness Wants To be discharged MRSA bacteremia on blood culture final No fevers, no white count Nontoxic appearing Resistant to most antibiotics, sensitive to gentamicin and vancomycin Vein mapping done, appreciate vasc surgery I am unsure though if AV fistula making will be done as outpatient or while here inpatient Patient wants to go home and prefers to have it done as outpatient Plan: Await ID rounds, await vasc surgery Rounds might need PICC line Vitals Vitals Vital Signs Date Time Temp Pulse Resp B/P (MAP) Pulse Ox O2 Delivery O2 Flow Rate FiO2 03/02/18 09:16 18 100 Nasal Cannula 3.0 03/02/18 07:00 98.0 82 164/91 (115) 98.0 Physical Exam Physical Exam GENERAL: Lying down, watching TV LUNGS: Clear. HEART: S1, S2 regular. ABDOMEN: Soft, NT EXTREMITIES: No edema, cyanosis. 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 \CONSTITUTIONAL: No fever or chills EYES: No recent changes SKIN: No rash or itching CARDIOVASCULAR: No chest pain, syncope, palpitations, or edema RESPIRATORY: No SOB or cough GASTROINTESTINAL: No nausea, vomiting or abdominal pain NEUROLOGICAL: No headaches or weakness ENDOCRINE: No cold or heat intolerance GENITOURINARY: No urgency or frequency of urination MUSCULOSKELETAL: No back pain or joint pain LYMPHATICS: No enlarged lymph nodes PSYCHIATRIC: No anxiety or depression Assessment and Plan Assessmemt and Plan Problems Medical Problems: (1) End stage renal disease on dialysis Status: Acute (2) Sepsis Status: Acute Comment Review of Relevant I have reviewed the following items mirian (where applicable) has been applied. Labs Microbiology 02/28/18 Blood Culture - Preliminary, Resulted NO GROWTH AFTER 1 DAY Medications Current Medications Piperacillin Sod/ Tazobactam Sod 2.25 gm/Sodium Chloride 100 ml @ 200 mls/hr 1X ONCE IV Last administered on 02/25/18at 09:25; Start 02/25/18 at 08:45; Stop 02/25/18 at 09:14; Status DC Vancomycin HCl (Vanco Per Pharmacy) 1 each 1X ONCE MC Last administered on 06/02at 08:30; Start 02/25/18 at 08:30; Stop 02/25/18 at 08:56; Status DC Fentanyl Citrate (Fentanyl 2ml Vial) 50 mcg PRN Q15MIN PRN IV PAIN GREATER THAN 3/10 Last administered on 02/25/18at 09:25; Start 02/25/18 at 08:30; Stop at 08:29; Status DC Acetaminophen (Tylenol) 1,000 mg 1X ONCE PO Last administered on 02/25/18at 09: 25; Start 02/25/18 at 09:00; Stop 02/25/18 at 09:01; Status DC Vancomycin HCl 1.5 gm/Sodium Chloride 500 ml @ 250 mls/hr 1X ONCE IV Last administered on 02/25/18at 11:07; Start 02/25/18 at 09:00; Stop 02/25/18 at 10:59 ; Status DC Sodium Chloride 500 ml @ 500 mls/hr 1X ONCE IV Last administered on at 09:47; Start 02/25/18 at 09:30; Stop 02/25/18 at 10:29; Status DC Ondansetron HCl (Zofran) 4 mg PRN Q8HRS PRN IV NAUSEA/VOMITING; Start 02/25/18 at 11:15; Stop 02/26/18 at 09:06; Status DC Fentanyl Citrate (Fentanyl 2ml Vial) 50 mcg PRN Q2HR PRN IV PAIN Last administered on 02/26/18at 03:50; Start 02/25/18 at 11:15; Stop 02/26/18 at 11:14 ; Status DC Acetaminophen (Tylenol) 650 mg PRN Q4HRS PRN PO FEVER Last administered on 02/26at 03:50; Start 02/25/18 at 11:15; Stop 02/26/18 at 09:13; Status DC Sodium Chloride 1,000 ml @ 1,000 mls/hr Q1H PRN IV hypotension; Start 02/25/18 at 16:33; Stop 02/25/18 at 22:32; Status DC Sodium Chloride (Normal Saline Flush) 10 ml 1X PRN PRN IV AP catheter pack; Start 02/25/18 at 16:45; Stop 02/26/18 at 16:44; Status DC Sodium Chloride (Normal Saline Flush) 10 ml 1X PRN PRN IV 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; Start 02/25/18 at 16:45; Stop 02/26/18 at 16:44; Status DC Sodium Chloride 1,000 ml @ 400 mls/hr Q2H30M PRN IV PATENCY; Start 02/25/18 at 16:33; Stop 02/26/18 at 04:32; Status DC Info (PHARMACY MONITORING -- do not chart) 1 each PRN DAILY PRN MC SEE COMMENTS ; Start 02/25/18 at 16:45; Status UNV Info (PHARMACY MONITORING -- do not chart) 1 each PRN DAILY PRN MC SEE COMMENTS ; Start 02/25/18 at 16:45; Stop 02/28/18 at 13:49; Status DC Zolpidem Tartrate (Ambien) 5 mg HS PRN PO INSOMNIA, MAY REPEAT X1 Last administered on 03/01/18at 21:13; Start 02/25/18 at 21:15 Acetaminophen (Tylenol) 325 mg PRN Q8HRS PRN PO MILD PAIN; Start 02/25/18 at 21 :30; Stop 02/26/18 at 09:06; Status DC Amlodipine Besylate (Norvasc) 10 mg QHS PO Last administered on 03/01/18at 21:14 ; Start 02/26/18 at 21:00 Ferrous Sulfate (Feosol) 325 mg DAILY PO Last administered on 03/02/18at 09:15; Start 02/26/18 at 09:00 Vitamin B Complex/ Vitamin C (Kiara-Bennie) 1 tab DAILY PO Last administered on at 09:15; Start 02/26/18 at 09:00 Albuterol Sulfate (Ventolin Neb Soln) 2.5 mg PRN Q4HRS PRN NEB SHORTNESS OF BREATH Last administered on 02/26/18at 21:27; Start 02/25/18 at 21:45 Lisinopril (Prinivil) 40 mg QHS PO Last administered on 03/01/18at 21:13; Start 02/25/18 at 22:00 Magnesium Hydroxide (Milk Of Magnesia) 2,400 mg BID PRN PO CONSTIPATION; Start 02/25/18 at 21:30; Status UNV Metoprolol Tartrate (Lopressor) 50 mg BID PO ; Start 02/26/18 at 09:00; Status UNV Metoprolol Tartrate (Lopressor) 50 mg BID PO ; Start 02/26/18 at 09:00; Status UNV Calcitriol (Rocaltrol) 0.25 mcg QTUTHSA PO Last administered on 02/28/18at 18:44 ; Start 02/26/18 at 16:00 Calcium Acetate (Phoslo) 667 mg TIDWMEALS PO Last administered on 03/02/18at 09: 15; Start 02/26/18 at 08:00 Hydroxyzine Pamoate (Vistaril) 25 mg PRN Q6HRS PRN PO ITCHING; Start 02/25/18 at 21:45 Pantoprazole Sodium (Protonix) 40 mg DAILYAC PO Last administered on 03/02/18at 09:15; Start 02/26/18 at 07:30 Acetaminophen (Tylenol) 650 mg PRN Q8HRS PRN PO MILD PAIN; Start 02/26/18 at 09 :15 Ondansetron HCl (Zofran) 4 mg PRN Q6HRS PRN IV NAUSEA/VOMITING; Start 02/26/18 at 09:15 Clonidine HCl (Catapres) 0.1 mg PRN Q1HR PRN PO HYPERTENSION, SEE COMMENTS; Start 02/26/18 at 09:15 Fentanyl Citrate (Fentanyl 2ml Vial) 50 mcg PRN Q2HR PRN IV SEVERE PAIN Last administered on 03/02/18at 09:16; Start 02/26/18 at 09:15 Acetaminophen/ Hydrocodone Bitart (Lortab 5/325) 1 tab PRN Q4HRS PRN PO MODERATE-SEVERE PAIN Last administered on 03/02/18at 09:16; Start 02/26/18 at 09: 15 Calcitriol (Rocaltrol) 0.25 mcg MoWeFr PO ; Start 02/27/18 at 09:00; Status Cancel Vancomycin HCl (Vanco Per Pharmacy) 1 each PRN DAILY PRN MC SEE COMMENTS Last administered on 03/01/18at 08:28; Start 02/26/18 at 10:00 Vancomycin HCl 1.5 gm/Sodium Chloride 500 ml @ 250 mls/hr 1X ONCE IV ; Start 02/26/18 at 11:00; Stop 02/26/18 at 12:59; Status Cancel Sodium Chloride 1,000 ml @ 1,000 mls/hr Q1H PRN IV hypotension; Start 02/26/18 at 10:12; Stop 02/26/18 at 16:11; Status DC Diphenhydramine HCl (Benadryl) 25 mg 1X PRN PRN IV ITCHING; Start 02/26/18 at 10:15; Stop 02/27/18 at 10:14; Status DC Diphenhydramine HCl (Benadryl) 25 mg 1X PRN PRN IV ITCHING; Start 02/26/18 at 10:15; Stop 02/27/18 at 10:14; Status DC Sodium Chloride 1,000 ml @ 400 mls/hr Q2H30M PRN IV PATENCY; Start 02/26/18 at 10:12; Stop 02/26/18 at 22:11; Status DC Info (PHARMACY MONITORING -- do not chart) 1 each PRN DAILY PRN MC SEE COMMENTS ; Start 02/26/18 at 10:15; Stop 02/28/18 at 14:47; Status DC Darbepoetin Uche (Aranesp) 60 mcg WEEKLYHS SQ Last administered on 02/26/18at 21 :43; Start 02/26/18 at 21:00 Alprazolam (Xanax) 0.25 mg PRN Q8HRS PRN PO ANXIETY / AGITATION Last administered on 02/28/18at 09:09; Start 02/26/18 at 14:15 Vancomycin HCl 500 mg/Sodium Chloride 100 ml @ 100 mls/hr QTUTHSA IV Last administered on 02/28/18at 18:46; Start 02/26/18 at 16:00 Lactobacillus Rhamnosus (Culturelle) 1 cap BID PO Last administered on at 09:15; Start 02/27/18 at 21:00 Sodium Chloride 1,000 ml @ 1,000 mls/hr Q1H PRN IV hypotension; Start 02/28/18 at 14:39; Stop 02/28/18 at 20:38; Status DC Albumin Human 200 ml @ 200 mls/hr 1X PRN PRN IV Hypotension; Start 02/28/18 at 14:45; Stop 02/28/18 at 20:44; Status DC Acetaminophen (Tylenol) 500 mg 1X PRN PRN PO MILD PAIN / TEMP; Start 02/28/18 at 14:45; Stop 03/01/18 at 14:44; Status DC Diphenhydramine HCl (Benadryl) 25 mg 1X PRN PRN IV ITCHING; Start 02/28/18 at 14:45; Stop 03/01/18 at 14:44; Status DC Diphenhydramine HCl (Benadryl) 25 mg 1X PRN PRN IV ITCHING; Start 02/28/18 at 14:45; Stop 03/01/18 at 14:44; Status DC Labetalol HCl (Normodyne Iv Push) 10 mg PRN Q1HR PRN IVP SBP > 180; Start 02/28 at 14:45; Stop 03/01/18 at 14:44; Status DC Clonidine HCl (Catapres) 0.1 mg 1X PRN PRN PO SBP > 180; Start 02/28/18 at 14: 45; Stop 03/01/18 at 14:44; Status DC Sodium Chloride 1,000 ml @ 400 mls/hr Q2H30M PRN IV PATENCY; Start 02/28/18 at 14:39; Stop 03/01/18 at 02:38; Status DC Info (PHARMACY MONITORING -- do not chart) 1 each PRN DAILY PRN MC SEE COMMENTS ; Start 02/28/18 at 14:45 Active Scripts Active Metoprolol Tartrate 50 Mg Tablet 50 Mg PO BID 60 Days Reported Tylenol (Acetaminophen) 325 Mg Tablet 1-2 Tab PO QID PRN Milk Of Magnesia (Magnesium Hydroxide) 400 Mg/5 Ml Oral.susp 30 Ml PO BID PRN Duoneb 0.5-3(2.5) Mg/3 Ml (Albuterol/Ipratropium) 3 Ml Ampul.neb 3 Ml NEB Q4HRS PRN Hydroxyzine Hcl 25 Mg Tablet 1 Tab PO Q6HRS PRN Calcium Acetate 667 Mg Tablet 667 Mg PO TIDWMEALS Calcitriol 0.25 Mcg Capsule 1 Cap PO QTUTHSA Protonix (Pantoprazole Sodium) 20 Mg Tablet.dr 40 Mg PO DAILY Nephro-Bennie Tablet (Folic Acid/Vitamin B Comp W-C) 0.8 Mg Tablet 1 Tab PO DAILY Metoprolol Tartrate 50 Mg Tablet 1 Tab PO BID Lisinopril 40 Mg Tablet 1 Tab PO QHS Ferrous Sulfate 325 Mg Tablet 1 Tab PO DAILY Calcitriol 0.25 Mcg Capsule 1 Cap PO M// Amlodipine Besylate 10 Mg Tablet 10 Mg PO QHS Acetaminophen 325 Mg Tablet 325 Mg PO PRN Q8HRS Vitals/I & O Vital Sign - Last 24 Hours 03/01/18 03/01/18 03/01/18 03/01/18 10:56 11:00 11:56 15:00 Temp 97.7 97.8 97.7 97.8 Pulse 63 65 Resp 18 18 16 18 B/P (MAP) 144/70 (94) 142/78 (99) Pulse Ox 94 95 O2 Delivery Nasal Cannula Nasal Cannula Nasal Cannula O2 Flow Rate 3.0 2.0 2.0 03/01/18 03/01/18 03/01/18 03/01/18 16:05 19:00 19:19 19:50 Temp 98.2 98.2 Pulse 84 Resp 16 16 B/P (MAP) 159/80 (106) Pulse Ox 100 95 95 O2 Delivery Nasal Cannula Nasal Cannula Nasal Cannula Nasal Cannula O2 Flow Rate 3.0 2.0 3.0 3.0 03/01/18 03/01/18 03/01/18 03/01/18 20:00 21:13 21:14 23:00 Temp 98.2 98.2 Pulse 84 84 87 Resp 16 B/P (MAP) 159/80 159/80 155/84 (107) Pulse Ox 98 O2 Delivery Nasal Cannula Nasal Cannula O2 Flow Rate 2.0 2.0 03/02/18 03/02/18 03/02/18 03/02/18 01:58 03:00 03:00 07:00 Temp 98.0 98.0 98.0 98.0 Pulse 76 82 Resp 18 20 B/P (MAP) 145/78 (100) 164/91 (115) Pulse Ox 98 99 99 100 O2 Delivery Nasal Cannula Nasal Cannula Room Air Room Air O2 Flow Rate 2.0 2.0 03/02/1818 09:16 09:16 Resp 18 18 Pulse Ox 100 100 O2 Delivery Nasal Cannula Nasal Cannula O2 Flow Rate 2.0 3.0 Intake and Output 03/01/18 03/01/18 03/02/18 15:00 23:00 07:00 Intake Total 600 ml 1100 ml 250 ml Balance 600 ml 1100 ml 250 ml Nutrition Consultation Dietary Evaluation: Recommendations by RD: Increase Calorie Intake, Protein supplementation Comments: nepro tid Expected Outcomes/Goals: to meet > 75% est nutr needs Interpretation of weight loss: >5% in 1 month Malnutrition Findings: Weight Status: Underweight JIMENEZ BELCHER MD Mar 02, 2018 09:24
[2018-03-02 09:29] LABS: PROTHROMBIN TIME PATIENT 13.1 SEC (11.7-14.0)
--- NOTE | 2018-03-02 10:41 | CARD ---
MR#: [id number] Date of Study: 03/02/2018 Ordering Physician: LACEY MONTGOMERY, Referring Physician: CARRIE SIFUENTES Tech: Katie Barber RDCS APPROVED REPORT EXAM: Two-dimensional and M-mode echocardiogram with Doppler and color Doppler. Other Information Quality : Good INDICATION Infection:Rule out subacute bacterial endocarditis 2D DIMENSIONS RVDd2.8 (2.9-3.5cm)Left Atrium(2D)3.9 (1.6-4.0cm) IVSd1.3 (0.7-1.1cm)Aortic Root(2D)2.9 (2.0-3.7cm) LVDd3.7 (3.9-5.9cm)LVOT Diameter2.0 (1.8-2.4cm) PWd1.2 (0.7-1.1cm)LVDs2.8 (2.5-4.0cm) FS (%) 27.0 %SV28.9 ml LVEF(%)55.0 (>50%) Aortic Valve AoV Peak Norris.158.1cm/sAoV VTI27.1cm AO Peak GR.10.0mmHgLVOT VTI 20.46cm AO Mean GR.5mmHgAVA (VTI)2.30cm2 Mitral Valve MV E Eseymmip71.0cm/sMV DECEL [id number] MV A Apawtoig68.8cm/sE/A Ratio0.7 TDI Lateral E' P. V7.72cm/sMedial E' P. V4.31cm/s E/Lateral E'8.7E/Medial E'15.5 Tricuspid Valve TR P. Tlydzhid606sq/sRAP [id number] TR Peak Gr.35fcYyNEAQ00boBi Pulmonary Vein S1 Ntrvhynt72.3cm/sS2 Hyqfzlga79.81cm/s D2 Bmawrwkk70.8cm/s LEFT VENTRICLE The left ventricle is normal size. There is mild concentric left ventricular hypertrophy. The left ve ntricular systolic function is normal. The Ejection Fraction is 55-60%. There is normal LV segmental wall motion. Transmitral Doppler flow pattern is Grade I-abnormal relaxation pattern. RIGHT VENTRICLE The right ventricle is normal size. The right ventricular systolic function is normal. ATRIA The left atrium size is normal. The right atrium size is normal. The interatrial septum is intact wit h no evidence for an atrial septal defect or patent foramen ovale as noted on 2-D or Doppler imaging. AORTIC VALVE The aortic valve is mildly thickened but opens well. Doppler and Color Flow revealed no significant a ortic regurgitation. There is no significant aortic valvular stenosis. MITRAL VALVE The mitral valve is modeately calcified but opens well. Mitral annular calcification is mild. There i s no evidence of mitral valve prolapse. There is no mitral valve stenosis. Doppler and Color-flow rev ealed mild mitral regurgitation. TRICUSPID VALVE The tricuspid valve is normal in structure and function. Doppler and Color Flow revealed trace tricus pid regurgitation. There is mild pulmonary hypertension. The PA pressure was estimated at 36 mmHg. Th ere is no tricuspid valve stenosis. PULMONIC VALVE The pulmonic valve is not well visualized. Doppler and Color Flow revealed no pulmonic valvular regur gitation. There is no pulmonic valvular stenosis. GREAT VESSELS The aortic root is normal in size. The ascending aorta is not well seen. The IVC is normal in size an d collapses >50% with inspiration. PERICARDIAL EFFUSION There is no evidence of significant pericardial effusion. Critical Notification Critical Value: No <Conclusion> The left ventricular systolic function is normal. The Ejection Fraction is 55-60%. There is normal LV segmental wall motion. Transmitral Doppler flow pattern is Grade I-abnormal relaxation pattern. Mild mitral regurgitation. Trace tricuspid regurgitation. The PA pressure was estimated at 36 mmHg. There is no evidence of significant pericardial effusion. Signed by : Rafi Diaz, Electronically Approved : 03/02/2018 10:40:10
[2018-03-02 11:00] VITALS: BP_SYST 123; BP_SYST 159; BP_DIAS 75
--- NOTE | 2018-03-02 13:09 | PDOC ---
Renal-Progress Notes Subjective Notes Notes FEELING BETTER History of Present Illness Hx of present illness NONE Vitals Vitals Vital Signs Date Time Temp Pulse Resp B/P (MAP) Pulse Ox O2 Delivery O2 Flow Rate FiO2 03/02/18 13:05 100 Nasal Cannula 3.0 03/02/18 13:04 16 03/02/18 11:00 98.0 74 159/75 (103) 98.0 Weight Weight [ ] I.O. Intake and Output Intake and Output 03/02/18 07:00 Intake Total 1950 ml Balance 1950 ml Intake Oral 1950 ml # Bowel Movements 1 Labs Labs Laboratory Tests Test 03/02/18 08:35 Prothrombin Time 13.1 SEC (11.7-14.0) Prothromb Time International Ratio 1.0 (0.8-1.1) Micro Micro Microbiology 02/28/18 Blood Culture - Preliminary, Resulted NO GROWTH AFTER 2 DAYS Review of Systems Constitutional: yes: weakness, alert, oriented Ears/Nose/Throat: Yes: no symptom reported Eyes: Yes: no symptom reported Pulmonary: Yes dyspnea Cardiovascular: Yes no symptom reported Gastrointestional: Yes: no symptom reported Genitourinary: Yes: no symptom reported Musculoskeletal: Yes: muscle stiffness Skin: Yes no symptom reported Psychiatric/Neurological: Yes: no symptom reported Endocrine: Yes: no symptom reported Physical Exam General Appearance: no apparent distress Skin: warm Respiratory: bilateral CTA Heart: S1S2 Abdomen: soft, bowel sounds present Genitourinary: bladder flat Extremities: pulses present Neurology: alert, oriented Musculoskeletal: Osteoarthritis Assessment Assessment IMP SEPSIS ANEMIA HTN DM II ESRD PNEUMONIA ACUTE DIASTOLIC CHF PLAN CONT ANTIBIOTICS HD TOMORROW CONT ARANESP VASCULAR FOLLOWING FOR ACCESS JEANE ESCOBAR MD Mar 02, 2018 13:09
[2018-03-02] MEDS: VANCOMYCIN PER PHARMACY MC PRN (14:23)
[2018-03-02 15:00] VITALS: BP 158/77
--- NOTE | 2018-03-02 16:03 | PDOC ---
Provider Note Provider Note Vascular S: Patient seen in room, no complaints. O: Awake and alert VSS, afebrile Bilateral palpable radial pulses, IV in right arm. Vein Mapping: The basilic vein in the right upper extremity is patent measuring 2.2 to 2.5 mm in diameter in the upper arm and 1.6 to 2.2 mm in the forearm. The cephalic vein in the right upper extremity is patent but small measuring 1.3 mm in the upper arm and 0.7 mm in the forearm. The left basilic vein is patent measuring 1.9 to 2.0 mm in the upper arm and approximately 1.1 mm in the forearm. The left cephalic vein is patent measuring 1.3 to 1.8 mm in the upper arm and 1.1 to 1.4 mm in the forearm. A/P: End-stage renal disease currently receiving dialysis via a permacath needs long- term access. Vein mapping with small bilateral cephalic and basilic veins by US, probably too small for fistula, will likely need shunt, discussed with Dr. Souza, he will perform a bedside US prior to surgical procedure. Protective measures left arm. NPO after IVONE NAVA APRN Mar 02, 2018 16:03
[2018-03-02 19:00] VITALS: BP 156/90
[2018-03-02] MEDS: ALPRAZolam 0.25 MG TABLET PO PRN (21:11)
[2018-03-02] MEDS: amLODIPine BESYLATE 10 MG TABLET PO SCH (21:11)
[2018-03-02] MEDS: LISINOPRIL 20 MG TABLET PO SCH (21:12)
[2018-03-02] MEDS: ZOLPIDEM 5 MG TABLET. PO PRN (22:19)
[2018-03-02 22:44] VITALS: BP 164/87
[2018-03-03 03:00] VITALS: BP 144/82
[2018-03-03] MEDS ORDERED: SURGICEL HEMOSTAT 2X3 EACH. ONE (05:51)
[2018-03-03] MEDS ORDERED: SURGICEL FIBRILLAR 1X2 EACH. ONE (05:52)
[2018-03-03] MEDS ORDERED: PAPAVERINE 60 MG/2 ML VIAL FOR OR ONLY. ONE (05:53)
[2018-03-03] MEDS ORDERED: HEPARIN SODIUM 5,000 UNIT in IV NORMAL SALINE 500ML BAG 500 ML IRR ONE (06:00)
[2018-03-03] MEDS ORDERED: LIDOCAINE 1% PF 2 ML VIAL. ID PRN (07:00)
[2018-03-03] MEDS ORDERED: fentaNYL PF VIAL 100 MCG/2 ML VIAL IV PRN ×2 (07:00)
[2018-03-03] MEDS ORDERED: IV RINGERS,LACTATED 1000ML 1,000 ML IV SCH (07:00)
[2018-03-03] MEDS ORDERED: PROCHLORPERAZINE 10 MG/2 ML VIAL. IV PRN (07:00)
[2018-03-03] MEDS ORDERED: ONDANSETRON PF 4 MG/2 ML VIAL. IV PRN (07:00)
[2018-03-03] MEDS ORDERED: MORPHINE SULFATE 2 MG/ML VIAL. IV PRN (07:00)
[2018-03-03] MEDS ORDERED: HYDROmorphone 2 MG/ML VIAL IV PRN (07:00)
[2018-03-03] MEDS ORDERED: fentaNYL PF VIAL 100 MCG/2 ML VIAL ONE (07:21)
[2018-03-03] MEDS: PANTOPRAZOLE 40 MG TABLET.DR. PO SCH (07:30)
[2018-03-03] MEDS: CALCIUM ACETATE 667 MG CAPSULE PO SCH ×3 (08:00→17:56)
[2018-03-03] MEDS ORDERED: LIDOCAINE 1% PF 30 ML VIAL. INJ ONE (08:07)
[2018-03-03] MEDS ORDERED: PROPOFOL 20 ML IV ONE ×2 (08:12)
[2018-03-03] MEDS ORDERED: SEVOFLURANE 61 TO 120 MINUTES. IH ONE (08:13)
[2018-03-03] MEDS ORDERED: ONDANSETRON PF 4 MG/2 ML VIAL. ONE (08:13)
[2018-03-03] MEDS ORDERED: DEXAMETHASONE SOD PHOS 20 MG/5 ML VIAL. ONE (08:13)
[2018-03-03] MEDS ORDERED: PHENYLEPHRINE in 0.9% NACL PF 1 MG/10 ML SYRINGE. IV ONE ×2 (08:17→08:49)
[2018-03-03] MEDS ORDERED: HEPARIN for IV BOLUS 10,000 UNIT/10 ML VIAL. ONE (08:49)
[2018-03-03] MEDS ORDERED: PROTAMINE 50 MG/5 ML VIAL. IV ONE (08:49)
[2018-03-03] MEDS: FOLIC/VIT B COMP W-C (RENAL) TABLET. PO SCH (09:00)
[2018-03-03] MEDS: LACTOBACILLUS RHAMNOSUS GG 1 CAPSULE. PO SCH ×2 (09:00→20:57)
[2018-03-03] MEDS: FERROUS SULFATE 325 MG TABLET. PO SCH (09:00)
--- NOTE | 2018-03-03 09:15 | PDOC ---
BRIEF OPERATIVE NOTE Date: Mar 03, 2018 Pre-Op Diagnosis ESRD Post-Op Diagnosis Same Procedure Performed Left Brachial-Cephalic AV Fistula Creation Surgeon Beti Borrego DO, FACS, RPVI Anesthesia Type: General Blood Loss 5mL Specimens Obtained None Complications None Operative Note Dictated BETI BORREGO DO Mar 03, 2018 09:15
--- NOTE | 2018-03-03 09:17 | PDOC ---
SURGICAL PROGRESS NOTE Vital Signs Vital Signs Date Time Temp Pulse Resp B/P (MAP) Pulse Ox O2 Delivery O2 Flow Rate FiO2 03/03/18 07:16 97.4 77 15 188/84 97 Nasal Cannula 2.0 97.4 I&O Intake and Output 03/03/18 07:00 Intake Total 900 ml Output Total 0 ml Balance 900 ml Intake Oral 900 ml Output Urine Total 0 ml Labs Laboratory Tests Test 03/02/18 08:35 Prothrombin Time 13.1 SEC (11.7-14.0) Prothromb Time International Ratio 1.0 (0.8-1.1) Problem List Problems Medical Problems: (1) End stage renal disease on dialysis Status: Acute (2) Sepsis Status: Acute Assessment/Plan OK to D/C from vascular standpoint once stable from medical team. Remove ZOHRA bandage in 2 days. Ok to shower. BETI BORREGO DO Mar 03, 2018 09:17
--- NOTE | 2018-03-03 09:20 | PDOC ---
Infectious Disease Note Subjective: Subjective attempted twice to see pt per dialysis unit pt is in surgery since 7 am this am Vital Signs: Vital Signs Vital Signs Date Time Temp Pulse Resp B/P (MAP) Pulse Ox O2 Delivery O2 Flow Rate FiO2 03/03/18 07:16 97.4 77 15 188/84 97 Nasal Cannula 2.0 97.4 Medications: Inpatient Meds: Current Medications Medications (Trade) Dose Ordered Sig/Lissette Start Time Stop Time Status Last Admin Dose Admin Acetaminophen (Tylenol) 500 mg 1X PRN PRN 02/28/18 14:45 03/01/18 14:44 DC Acetaminophen/ Hydrocodone Bitart (Lortab 5/325) 1 tab PRN Q4HRS PRN 02/26/18 09:15 03/02/18 19:12 1 TAB Albumin Human 200 ml @ 200 mls/hr 1X PRN PRN 02/28/18 14:45 02/28/18 20:44 DC Albuterol Sulfate (Ventolin Neb Soln) 2.5 mg PRN Q4HRS PRN 02/25/18 21:45 02/26/18 21:27 2.5 MG Alprazolam (Xanax) 0.25 mg PRN Q8HRS PRN 02/26/18 14:15 03/02/18 21:11 0.25 MG Amlodipine Besylate (Norvasc) 10 mg QHS 02/26/18 21:00 03/02/18 21:11 10 MG Calcitriol (Rocaltrol) 0.25 mcg MoWeFr 02/27/18 09:00 Cancel Calcium Acetate (Phoslo) 667 mg TIDWMEALS 02/26/18 08:00 03/02/18 16:37 667 MG Cefazolin Sodium 1 gm/Sodium Chloride 500 ml @ 500 mls/hr 1X ONCE 03/03/18 06:00 03/03/18 06:59 DC 03/03/18 08:15 Cefazolin Sodium/ Dextrose 50 ml @ 100 mls/hr 1X PREOP PRN 03/03/18 06:00 03/04/18 05:59 03/03/18 07:53 100 MLS/HR Cellulose (Surgicel Fibrillar 1x2) 1 each STK-MED ONCE 03/03/18 05:52 03/03/18 06:52 DC 03/03/18 08:47 1 EACH Cellulose (Surgicel Hemostat 2x3) 1 each STK-MED ONCE 03/03/18 05:51 03/03/18 06:52 DC Clonidine HCl (Catapres) 0.1 mg 1X PRN PRN 02/28/18 14:45 03/01/18 14:44 DC Darbepoetin Uche (Aranesp) 60 mcg WEEKLYHS 02/26/18 21:00 02/26/18 21:43 60 MCG Dexamethasone Sodium Phosphate (Decadron) 20 mg STK-MED ONCE 03/03/18 08:13 03/03/18 08:14 DC Diphenhydramine HCl (Benadryl) 25 mg 1X PRN PRN 02/28/18 14:45 03/01/18 14:44 DC Fentanyl Citrate (Fentanyl 2ml Vial) 100 mcg STK-MED ONCE 03/03/18 07:21 03/03/18 07:22 DC Ferrous Sulfate (Feosol) 325 mg DAILY 02/26/18 09:00 03/02/18 09:15 325 MG Heparin Sodium (Porcine) (Heparin Sodium) 10,000 unit STK-MED ONCE 03/03/18 08:49 03/03/18 08:50 DC Heparin Sodium (Porcine) 5000 unit/Sodium Chloride 505 ml @ 505 mls/hr 1X ONCE 03/03/18 06:00 03/03/18 06:59 DC 03/03/18 08:15 Hydromorphone HCl (Dilaudid) 0.5 mg PRN Q10MIN PRN 03/03/18 07:00 03/03/18 21:00 Hydroxyzine Pamoate (Vistaril) 25 mg PRN Q6HRS PRN 02/25/18 21:45 Info (PHARMACY MONITORING -- do not chart) 1 each PRN DAILY PRN 02/28/18 14:45 Labetalol HCl (Normodyne Iv Push) 10 mg PRN Q1HR PRN 02/28/18 14:45 03/01/18 14:44 DC Lactobacillus Rhamnosus (Culturelle) 1 cap BID 02/27/18 21:00 03/02/18 21:11 1 CAP Lidocaine HCl (Xylocaine 1% Pf 30ml Vial) 30 ml STK-MED ONCE 03/03/18 08:07 03/03/18 08:12 DC 03/03/18 08:07 1 ML Lidocaine HCl (Xylocaine-Mpf 1% 2ml Vial) 2 ml PRN 1X PRN 03/03/18 07:00 03/03/18 21:00 Lisinopril (Prinivil) 40 mg QHS 02/25/18 22:00 03/02/18 21:12 40 MG Magnesium Hydroxide (Milk Of Magnesia) 2,400 mg BID PRN 02/25/18 21:30 UNV Metoprolol Tartrate (Lopressor) 50 mg BID 02/26/18 09:00 UNV Morphine Sulfate (Morphine Sulfate) 1 mg PRN Q10MIN PRN 03/03/18 07:00 03/03/18 21:00 Ondansetron HCl (Zofran) 4 mg STK-MED ONCE 03/03/18 08:13 03/03/18 08:14 DC Pantoprazole Sodium (Protonix) 40 mg DAILYAC 02/26/18 07:30 03/02/18 09:15 40 MG Papaverine HCl 60 mg STK-MED ONCE 03/03/18 05:53 03/03/18 06:53 DC Phenylephrine HCl (PHENYLEPHRINE in 0.9% NACL PF) 1 mg STK-MED ONCE 03/03/18 08:49 03/03/18 08:50 DC Piperacillin Sod/ Tazobactam Sod 2.25 gm/Sodium Chloride 100 ml @ 200 mls/hr 1X ONCE 02/25/18 08:45 02/25/18 09:14 DC 02/25/18 09:25 200 MLS/HR Prochlorperazine Edisylate (Compazine) 5 mg PACU PRN PRN 03/03/18 07:00 03/03/18 21:00 Propofol 20 ml @ As Directed STK-MED ONCE 03/03/18 08:12 03/03/18 08:14 DC Protamine Sulfate (Protamine) 50 mg STK-MED ONCE 03/03/18 08:49 03/03/18 08:50 DC Ringer's Solution 1,000 ml @ 30 mls/hr Q24H 03/03/18 07:00 03/03/18 18:59 Sevoflurane (Ultane) 60 ml STK-MED ONCE 03/03/18 08:13 03/03/18 08:14 DC Sodium Chloride 1,000 ml @ 400 mls/hr Q2H30M PRN 02/28/18 14:39 03/01/18 02:38 DC Sodium Chloride (Normal Saline Flush) 10 ml 1X PRN PRN 02/25/18 16:45 02/26/18 16:44 DC Vancomycin HCl (Vanco Per Pharmacy) 1 each PRN DAILY PRN 02/26/18 10:00 03/02/18 14:23 1 EACH Vancomycin HCl 1.5 gm/Sodium Chloride 500 ml @ 250 mls/hr 1X ONCE 02/26/18 11:00 02/26/18 12:59 Cancel Vancomycin HCl 500 mg/Sodium Chloride 100 ml @ 100 mls/hr QTUTHSA 02/26/18 16:00 02/28/18 18:46 100 MLS/HR Vitamin B Complex/ Vitamin C (Kiara-Bennie) 1 tab DAILY 02/26/18 09:00 03/02/18 09:15 1 TAB Zolpidem Tartrate (Ambien) 5 mg HS PRN 02/25/18 21:15 03/02/18 22:19 5 MG Labs: Micro RUN DATE: 03/01/18 PAGE 1 RUN TIME: 1611 [facility] [address] [place] [address] Yossi Wilson M.D., Facility Service Associate PATIENT: TEJA ROSENBAUM ACCT: [id number] LOC: [address] [place] [address] U : [id number] AGE/SX: 57/M ROOM: 563 REG : 02/25/[address]: CARRIE SIFUENTES MD : 1960 BED: 1 DIS : STATUS: ADM IN TLOC: SPEC #: [id number] ILYA: 02/25/18 STATUS: COMP REQ #: [id number] RECD: 02/26/[address] [facility] [address]: ENE RAMON DO SOURCE: BLOOD ENTR: 02/26/[address] [facility] [address]: BILL BENTLEY MD SPDESC: CARRIE SIFUENTES MD, VENU S MD NO PCP ORDERED: JAVIER CULT - LC Procedure Result BLOOD CULTURE LC Final Final report BLD CULT RESULT 1 Final Comment Methicillin - resistant Staphylococcus aureus Based on resistance to oxacillin this isolate would be resistant to all currently available beta-lactam antimicrobial agents, with the exception of the newer cephalosporins with anti-MRSA activity, such as Ceftaroline This isolate is presumed to be resistant to clindamycin based on detection of inducible clindamycin resistance in vitro by D test. Clindamycin may still be effective in some patients. CLINDAMYCIN =R ERYTHROMYCIN =R ANTIMICROBIAL SUSCEPTIBILITY Final Comment S = Susceptible; I = Intermediate; R = Resistant P = Positive; N = Negative MICS are expressed in micrograms per mL Antibiotic RSLT#1 RSLT#2 RSLT#3 RSLT#4 Ciprofloxacin R>=8 Clindamycin R =R Erythromycin R>=8 Gentamicin S<=0.5 Levofloxacin R>=8 Linezolid S =2 Oxacillin R>=4 Penicillin R>=0.5 Rifampin S<=0.5 Tetracycline R>=16 Trimethoprim/Sulfa R>=320 Vancomycin S =1 CONTINUED ON NEXT PAGE RUN DATE: 03/01/18 PAGE 2 RUN TIME: 1619 [facility] [address] [place] [address] Yossi Wilson M.D., Facility Service Associate SPEC: [id number] PATIENT: ALEJANDRA ROSENBAUMD [id number] ( Continued) Procedure Result ANTIMICROBIAL SUSCEPTIBILITY Final (continued) Performed at: - [facility] [address] [facility] [address], [place], [place] [id number] Roof Slater: MAYA Epps MD, Phone: [phone] Objective: Assessment: MRSA bacteremia (5 of 6 bottles) POA from 02/25. Source ? likely skin or HDC different strain compared to October 2017 Tetracycline resistant BC from 02/28 neg so far Fever - better Leukocytosis - resolved Pulmonary infiltrates with bilateral pleural effusion,likely CHF Encephalopathy - improved ESRD currently getting dialysed through a right internal jugular tunneled catheter. 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
--- NOTE | 2018-03-03 09:41 | OP ---
DATE OF SURGERY: 03/03/2018 ATTENDING SURGEON: Beti Borrego DO PREOPERATIVE DIAGNOSIS: End-stage renal disease, on hemodialysis. POSTOPERATIVE DIAGNOSIS: End-stage renal disease, on hemodialysis. PROCEDURE: Creation of a left upper extremity brachiocephalic AV fistula. ANESTHESIA: General. SPECIMENS: None. ESTIMATED BLOOD LOSS: 5 mL. COMPLICATIONS: None. PREOPERATIVE INDICATIONS: The patient is a pleasant 57-year-old male who is currently an inmate who is in need of permanent dialysis access. The patient currently has a right-sided tunneled dialysis catheter. The patient was consented for left upper extremity fistula creation and understood all risks, benefits and alternatives of the procedure including but not limited to arterial steal syndrome, chronic neuropathy, need for revision of his fistula and thrombosis of his fistula. The patient understood these risks and agreed to proceed. OPERATIVE PROCEDURE: The patient was brought to the operating suite, placed in supine position. After establishing adequate anesthesia, the patient's left upper extremity was prepped and draped in sterile fashion. Next, a timeout procedure was performed. It was confirmed that the patient did receive appropriate preoperative antibiotics and the correct operative site was marked and draped. Following this, an antecubital incision just above the antecubital fossa was made and carried through skin and subcutaneous tissue. Dissection was carried down to the cephalic vein where the patient had a large generous cephalic vein, which was not appreciated on the vein mapping. This was circumferentially dissected proximally and distally and I felt that this vein was usable for fistula creation. After I had mobilized the entire length of the vein that I would need then incised over the deep fascia and exposed the brachial artery just above the antecubital fossa. Brachial artery was controlled proximally and distally with vessel loops. The vessel was soft and healthy vessel. Next, the patient was systemically heparinized per weight-based protocol and this was allowed to circulate. Following this, the brachial artery was controlled proximally and distally and then 11 blade scalpel was used to create an arteriotomy. This was extended using Maria scissors. Following this, the cephalic vein was ligated with silk ligatures and divided. A bulldog clamp was used to control backbleeding. The vein was flushed with heparinized saline solution and this flushed easily with no obstruction. Following this after preparing the vein, a 7-0 Prolene suture was used to sew an end-to-side anastomosis in a running fashion. Prior to completing the anastomosis, we did backbleed and flush the vessels appropriately and then the anastomosis was completed and flow was restored. The patient had an excellent palpable thrill throughout the cephalic vein after resuming flow. We had good hemostasis at the level of the anastomosis. Following this, a small dose of protamine was administered and then Fibrillar was used surrounding the connection. After I was satisfied with the hemostasis and I confirmed that the lap, sponge, needle and instrument count to be correct, the skin was closed using interrupted 3-0 Vicryl suture in a deep dermal fashion followed by Dermabond for the skin. A sterile dressing was subsequently placed including a compressive wrap. The patient tolerated the procedure well, had a palpable pulse at the level of the wrist and the radial artery at the conclusion of the procedure and he was transferred to the postanesthesia care unit in stable condition. BETI BORREGO DO DR: CARA/nahomy JOB#: [id number] / [id number]
[2018-03-03] MEDS ORDERED: IV NORMAL SALINE 1000ML BAG 1,000 ML IV PRN ×2 (10:19)
--- NOTE | 2018-03-03 10:28 | PDOC ---
Renal-Progress Notes Subjective Notes Notes NONE History of Present Illness Hx of present illness STABLE Vitals Vitals Vital Signs Date Time Temp Pulse Resp B/P (MAP) Pulse Ox O2 Delivery O2 Flow Rate FiO2 03/03/18 10:00 Nasal Cannula 2 03/03/18 09:54 97 78 20 166/78 98 97.0 Weight Weight [ ] I.O. Intake and Output Intake and Output 03/03/18 07:00 Intake Total 900 ml Output Total 0 ml Balance 900 ml Intake Oral 900 ml Output Urine Total 0 ml Micro Micro Microbiology 02/28/18 Blood Culture - Preliminary, Resulted NO GROWTH AFTER 2 DAYS Review of Systems Constitutional: yes: weakness, alert, oriented Ears/Nose/Throat: Yes: no symptom reported Eyes: Yes: no symptom reported Pulmonary: Yes dyspnea Cardiovascular: Yes no symptom reported Gastrointestional: Yes: no symptom reported Genitourinary: Yes: no symptom reported Musculoskeletal: Yes: muscle stiffness Skin: Yes no symptom reported Psychiatric/Neurological: Yes: no symptom reported Endocrine: Yes: no symptom reported Physical Exam General Appearance: no apparent distress Skin: warm Respiratory: bilateral CTA Heart: S1S2 Abdomen: soft, bowel sounds present Genitourinary: bladder flat Extremities: pulses present Neurology: alert, oriented Musculoskeletal: Osteoarthritis Assessment Assessment IMP SEPSIS ANEMIA HTN DM II ESRD PNEUMONIA ACUTE DIASTOLIC CHF S/P L AVF PLAN CONT ANTIBIOTICS HD TODAY UF TO DW CONT ARANESP VASCULAR FOLLOWING FOR ACCESS JEANE ESCOBAR MD Mar 03, 2018 10:28
[2018-03-03] MEDS ORDERED: DIALYSIS PATIENT. MC PRN ×2 (10:30)
--- NOTE | 2018-03-03 10:38 | PDOC ---
PROGRESS NOTES Chief Complaint Chief Complaint Sepsis MRSA BACTEREMIA - End stage renal disease on dialysis Possible volume overload vs pneumonia, mixed Anemia of ESRD Incarcerated CAchexia BMI 17 GPC bacteremia 5 /6 bottles Indwelling HD cath, ry subclavian (changed recently) History of Present Illness History of Present Illness Wants To be discharged MRSA bacteremia on blood culture final No fevers, no white count Nontoxic appearing Hold off on PICC line until tomorrow as per ID-discussed with ID Echocardiogram ordered yesterday 03/02/18 results below <Conclusion> The left ventricular systolic function is normal. The Ejection Fraction is 55-60%. There is normal LV segmental wall motion. Transmitral Doppler flow pattern is Grade I-abnormal relaxation pattern. Mild mitral regurgitation. Trace tricuspid regurgitation. The PA pressure was estimated at 36 mmHg. There is no evidence of significant pericardial effusion. BC: Resistant to most antibiotics, sensitive to gentamicin and vancomycin Vein mapping done, appreciate vasc surgery Plan: Follow ID recs VAnc PICC maybe tmr HD per renal Vitals Vitals Vital Signs Date Time Temp Pulse Resp B/P (MAP) Pulse Ox O2 Delivery O2 Flow Rate FiO2 03/03/18 10:00 Nasal Cannula 2 03/03/18 09:54 97 78 20 166/78 98 97.0 Physical Exam General: Alert, Oriented X3, Cooperative, No acute distress Heart: Regular rate, Normal S1, Normal S2, No murmurs, Gallops Lungs: Crackles Abdomen: Normal bowel sounds, Soft, No tenderness, No hepatosplenomegaly, No masses Extremities: No clubbing, No cyanosis, No edema, Normal pulses, No tenderness/ swelling Skin: No breakdown Review of Systems Review of Systems A 14 point ROS was completed with the following noted as positive: Other systems reviewed and negative. \CONSTITUTIONAL: No fever or chills EYES: No recent changes SKIN: No rash or itching CARDIOVASCULAR: No chest pain, syncope, palpitations, or edema RESPIRATORY: No SOB or cough GASTROINTESTINAL: No nausea, vomiting or abdominal pain NEUROLOGICAL: No headaches or weakness ENDOCRINE: No cold or heat intolerance GENITOURINARY: No urgency or frequency of urination MUSCULOSKELETAL: No back pain or joint pain LYMPHATICS: No enlarged lymph nodes PSYCHIATRIC: No anxiety or depression Assessment and Plan Assessmemt and Plan Problems Medical Problems: (1) End stage renal disease on dialysis Status: Acute (2) Sepsis Status: Acute Comment Review of Relevant I have reviewed the following items mirian (where applicable) has been applied. Labs Laboratory Tests Test 03/02/18 08:35 Prothrombin Time 13.1 SEC (11.7-14.0) Prothromb Time International Ratio 1.0 (0.8-1.1) Microbiology 02/28/18 Blood Culture - Preliminary, Resulted NO GROWTH AFTER 2 DAYS Medications Current Medications Piperacillin Sod/ Tazobactam Sod 2.25 gm/Sodium Chloride 100 ml @ 200 mls/hr 1X ONCE IV Last administered on 02/25/18at 09:25; Start 02/25/18 at 08:45; Stop 02/25/18 at 09:14; Status DC Vancomycin HCl (Vanco Per Pharmacy) 1 each 1X ONCE MC Last administered on 06/02at 08:30; Start 02/25/18 at 08:30; Stop 02/25/18 at 08:56; Status DC Fentanyl Citrate (Fentanyl 2ml Vial) 50 mcg PRN Q15MIN PRN IV PAIN GREATER THAN 3/10 Last administered on 02/25/18at 09:25; Start 02/25/18 at 08:30; Stop at 08:29; Status DC Acetaminophen (Tylenol) 1,000 mg 1X ONCE PO Last administered on 02/25/18at 09: 25; Start 02/25/18 at 09:00; Stop 02/25/18 at 09:01; Status DC Vancomycin HCl 1.5 gm/Sodium Chloride 500 ml @ 250 mls/hr 1X ONCE IV Last administered on 02/25/18at 11:07; Start 02/25/18 at 09:00; Stop 02/25/18 at 10:59 ; Status DC Sodium Chloride 500 ml @ 500 mls/hr 1X ONCE IV Last administered on at 09:47; Start 02/25/18 at 09:30; Stop 02/25/18 at 10:29; Status DC Ondansetron HCl (Zofran) 4 mg PRN Q8HRS PRN IV NAUSEA/VOMITING; Start 02/25/18 at 11:15; Stop 02/26/18 at 09:06; Status DC Fentanyl Citrate (Fentanyl 2ml Vial) 50 mcg PRN Q2HR PRN IV PAIN Last administered on 02/26/18at 03:50; Start 02/25/18 at 11:15; Stop 02/26/18 at 11:14 ; Status DC Acetaminophen (Tylenol) 650 mg PRN Q4HRS PRN PO FEVER Last administered on 02/26at 03:50; Start 02/25/18 at 11:15; Stop 02/26/18 at 09:13; Status DC Sodium Chloride 1,000 ml @ 1,000 mls/hr Q1H PRN IV hypotension; Start 02/25/18 at 16:33; Stop 02/25/18 at 22:32; Status DC Sodium Chloride (Normal Saline Flush) 10 ml 1X PRN PRN IV AP catheter pack; Start 02/25/18 at 16:45; Stop 02/26/18 at 16:44; Status DC Sodium Chloride (Normal Saline Flush) 10 ml 1X PRN PRN IV [employer] ADVIS[employer] catheter pack; Start 02/25/18 at 16:45; Stop 02/26/18 at 16:44; Status DC Sodium Chloride 1,000 ml @ 400 mls/hr Q2H30M PRN IV PATENCY; Start 02/25/18 at 16:33; Stop 02/26/18 at 04:32; Status DC Info (PHARMACY MONITORING -- do not chart) 1 each PRN DAILY PRN MC SEE COMMENTS ; Start 02/25/18 at 16:45; Status UNV Info (PHARMACY MONITORING -- do not chart) 1 each PRN DAILY PRN MC SEE COMMENTS ; Start 02/25/18 at 16:45; Stop 02/28/18 at 13:49; Status DC Zolpidem Tartrate (Ambien) 5 mg HS PRN PO INSOMNIA, MAY REPEAT X1 Last administered on 03/02/18at 22:19; Start 02/25/18 at 21:15 Acetaminophen (Tylenol) 325 mg PRN Q8HRS PRN PO MILD PAIN; Start 02/25/18 at 21 :30; Stop 02/26/18 at 09:06; Status DC Amlodipine Besylate (Norvasc) 10 mg QHS PO Last administered on 03/02/18at 21:11 ; Start 02/26/18 at 21:00 Ferrous Sulfate (Feosol) 325 mg DAILY PO Last administered on 03/02/18at 09:15; Start 02/26/18 at 09:00 Vitamin B Complex/ Vitamin C (Kiara-Bennie) 1 tab DAILY PO Last administered on at 09:15; Start 02/26/18 at 09:00 Albuterol Sulfate (Ventolin Neb Soln) 2.5 mg PRN Q4HRS PRN NEB SHORTNESS OF BREATH Last administered on 02/26/18at 21:27; Start 02/25/18 at 21:45 Lisinopril (Prinivil) 40 mg QHS PO Last administered on 03/02/18at 21:12; Start 02/25/18 at 22:00 Magnesium Hydroxide (Milk Of Magnesia) 2,400 mg BID PRN PO CONSTIPATION; Start 02/25/18 at 21:30; Status UNV Metoprolol Tartrate (Lopressor) 50 mg BID PO ; Start 02/26/18 at 09:00; Status UNV Metoprolol Tartrate (Lopressor) 50 mg BID PO ; Start 02/26/18 at 09:00; Status UNV Calcitriol (Rocaltrol) 0.25 mcg QTUTHSA PO Last administered on 02/28/18at 18:44 ; Start 02/26/18 at 16:00 Calcium Acetate (Phoslo) 667 mg TIDWMEALS PO Last administered on 03/02/18at 16: 37; Start 02/26/18 at 08:00 Hydroxyzine Pamoate (Vistaril) 25 mg PRN Q6HRS PRN PO ITCHING; Start 02/25/18 at 21:45 Pantoprazole Sodium (Protonix) 40 mg DAILYAC PO Last administered on 03/02/18at 09:15; Start 02/26/18 at 07:30 Acetaminophen (Tylenol) 650 mg PRN Q8HRS PRN PO MILD PAIN; Start 02/26/18 at 09 :15 Ondansetron HCl (Zofran) 4 mg PRN Q6HRS PRN IV NAUSEA/VOMITING; Start 02/26/18 at 09:15 Clonidine HCl (Catapres) 0.1 mg PRN Q1HR PRN PO HYPERTENSION, SEE COMMENTS; Start 02/26/18 at 09:15 Fentanyl Citrate (Fentanyl 2ml Vial) 50 mcg PRN Q2HR PRN IV SEVERE PAIN Last administered on 03/02/18at 21:12; Start 02/26/18 at 09:15 Acetaminophen/ Hydrocodone Bitart (Lortab 5/325) 1 tab PRN Q4HRS PRN PO MODERATE-SEVERE PAIN Last administered on 03/02/18at 19:12; Start 02/26/18 at 09: 15 Calcitriol (Rocaltrol) 0.25 mcg MoWeFr PO ; Start 02/27/18 at 09:00; Status Cancel Vancomycin HCl (Vanco Per Pharmacy) 1 each PRN DAILY PRN MC SEE COMMENTS Last administered on 03/02/18at 14:23; Start 02/26/18 at 10:00 Vancomycin HCl 1.5 gm/Sodium Chloride 500 ml @ 250 mls/hr 1X ONCE IV ; Start 02/26/18 at 11:00; Stop 02/26/18 at 12:59; Status Cancel Sodium Chloride 1,000 ml @ 1,000 mls/hr Q1H PRN IV hypotension; Start 02/26/18 at 10:12; Stop 02/26/18 at 16:11; Status DC Diphenhydramine HCl (Benadryl) 25 mg 1X PRN PRN IV ITCHING; Start 02/26/18 at 10:15; Stop 02/27/18 at 10:14; Status DC Diphenhydramine HCl (Benadryl) 25 mg 1X PRN PRN IV ITCHING; Start 02/26/18 at 10:15; Stop 02/27/18 at 10:14; Status DC Sodium Chloride 1,000 ml @ 400 mls/hr Q2H30M PRN IV PATENCY; Start 02/26/18 at 10:12; Stop 02/26/18 at 22:11; Status DC Info (PHARMACY MONITORING -- do not chart) 1 each PRN DAILY PRN MC SEE COMMENTS ; Start 02/26/18 at 10:15; Stop 02/28/18 at 14:47; Status DC Darbepoetin Uche (Aranesp) 60 mcg WEEKLYHS SQ Last administered on 02/26/18at 21 :43; Start 02/26/18 at 21:00 Alprazolam (Xanax) 0.25 mg PRN Q8HRS PRN PO ANXIETY / AGITATION Last administered on 03/02/18at 21:11; Start 02/26/18 at 14:15 Vancomycin HCl 500 mg/Sodium Chloride 100 ml @ 100 mls/hr QTUTHSA IV Last administered on 02/28/18at 18:46; Start 02/26/18 at 16:00 Lactobacillus Rhamnosus (Culturelle) 1 cap BID PO Last administered on at 21:11; Start 02/27/18 at 21:00 Sodium Chloride 1,000 ml @ 1,000 mls/hr Q1H PRN IV hypotension; Start 02/28/18 at 14:39; Stop 02/28/18 at 20:38; Status DC Albumin Human 200 ml @ 200 mls/hr 1X PRN PRN IV Hypotension; Start 02/28/18 at 14:45; Stop 02/28/18 at 20:44; Status DC Acetaminophen (Tylenol) 500 mg 1X PRN PRN PO MILD PAIN / TEMP; Start 02/28/18 at 14:45; Stop 03/01/18 at 14:44; Status DC Diphenhydramine HCl (Benadryl) 25 mg 1X PRN PRN IV ITCHING; Start 02/28/18 at 14:45; Stop 03/01/18 at 14:44; Status DC Diphenhydramine HCl (Benadryl) 25 mg 1X PRN PRN IV ITCHING; Start 02/28/18 at 14:45; Stop 03/01/18 at 14:44; Status DC Labetalol HCl (Normodyne Iv Push) 10 mg PRN Q1HR PRN IVP SBP > 180; Start 02/28 at 14:45; Stop 03/01/18 at 14:44; Status DC Clonidine HCl (Catapres) 0.1 mg 1X PRN PRN PO SBP > 180; Start 02/28/18 at 14: 45; Stop 03/01/18 at 14:44; Status DC Sodium Chloride 1,000 ml @ 400 mls/hr Q2H30M PRN IV PATENCY; Start 02/28/18 at 14:39; Stop 03/01/18 at 02:38; Status DC Info (PHARMACY MONITORING -- do not chart) 1 each PRN DAILY PRN MC SEE COMMENTS ; Start 02/28/18 at 14:45 Heparin Sodium (Porcine) 5000 unit/Sodium Chloride 505 ml @ 505 mls/hr 1X ONCE IRR Last administered on 03/03/18at 08:15; Start 03/03/18 at 06:00; Stop at 06:59; Status DC Cefazolin Sodium 1 gm/Sodium Chloride 500 ml @ 500 mls/hr 1X ONCE IRR Last administered on 03/03/18at 08:15; Start 03/03/18 at 06:00; Stop 03/03/18 at 06:59 ; Status DC Ondansetron HCl (Zofran) 4 mg PRN Q6HRS PRN IV NAUSEA/VOMITING; Start 03/03/18 at 07:00; Stop 03/03/18 at 21:00 Fentanyl Citrate (Fentanyl 2ml Vial) 25 mcg PRN Q5MIN PRN IV MILD PAIN; Start 03/03/18 at 07:00; Stop 03/03/18 at 21:00 Fentanyl Citrate (Fentanyl 2ml Vial) 50 mcg PRN Q5MIN PRN IV MODERATE TO SEVERE PAIN Last administered on 03/03/18at 09:41; Start 03/03/18 at 07:00; Stop 03/03/18 at 21:00 Morphine Sulfate (Morphine Sulfate) 1 mg PRN Q10MIN PRN IV SEVERE PAIN; Start 03/03/18 at 07:00; Stop 03/03/18 at 21:00 Ringer's Solution 1,000 ml @ 30 mls/hr Q24H IV ; Start 03/03/18 at 07:00; Stop 03/03/18 at 18:59 Lidocaine HCl (Xylocaine-Mpf 1% 2ml Vial) 2 ml PRN 1X PRN ID IV START; Start at 07:00; Stop 03/03/18 at 21:00 Hydromorphone HCl (Dilaudid) 0.5 mg PRN Q10MIN PRN IV SEV PAIN, Second choice; Start 03/03/18 at 07:00; Stop 03/03/18 at 21:00 Prochlorperazine Edisylate (Compazine) 5 mg PACU PRN PRN IV NAUSEA, MRX1; Start 03/03/18 at 07:00; Stop 03/03/18 at 21:00 Cellulose (Surgicel Hemostat 2x3) 1 each STK-MED ONCE .ROUTE ; Start 03/03/18 at 05:51; Stop 03/03/18 at 06:52; Status DC Cellulose (Surgicel Fibrillar 1x2) 1 each STK-MED ONCE .ROUTE Last administered on 03/03/18at 08:47; Start 03/03/18 at 05:52; Stop 03/03/18 at 06:52 ; Status DC Papaverine HCl 60 mg STK-MED ONCE .ROUTE ; Start 03/03/18 at 05:53; Stop at 06:53; Status DC Cefazolin Sodium/ Dextrose 50 ml @ As Directed STK-MED ONCE IV ; Start 03/03/18 at 06:56; Stop 03/03/18 at 06:57; Status DC Cefazolin Sodium/ Dextrose 50 ml @ 100 mls/hr 1X PREOP PRN IV Pre Op Dose Last administered on 03/03/18at 07:53; Start 03/03/18 at 06:00; Stop 03/04/18 at 05:59 Fentanyl Citrate (Fentanyl 2ml Vial) 100 mcg STK-MED ONCE .ROUTE ; Start at 07:21; Stop 03/03/18 at 07:22; Status DC Lidocaine HCl (Xylocaine 1% Pf 30ml Vial) 30 ml STK-MED ONCE INJ Last administered on 03/03/18at 08:07; Start 03/03/18 at 08:07; Stop 03/03/18 at 08:12 ; Status DC Propofol 20 ml @ As Directed STK-MED ONCE IV ; Start 03/03/18 at 08:12; Stop at 08:14; Status DC Propofol 20 ml @ As Directed STK-MED ONCE IV ; Start 03/03/18 at 08:12; Stop at 08:14; Status DC Dexamethasone Sodium Phosphate (Decadron) 20 mg STK-MED ONCE .ROUTE ; Start at 08:13; Stop 03/03/18 at 08:14; Status DC Ondansetron HCl (Zofran) 4 mg STK-MED ONCE .ROUTE ; Start 03/03/18 at 08:13; Stop 03/03/18 at 08:14; Status DC Sevoflurane (Ultane) 60 ml STK-MED ONCE IH ; Start 03/03/18 at 08:13; Stop 03/03 at 08:14; Status DC Phenylephrine HCl (PHENYLEPHRINE in 0.9% NACL PF) 1 mg STK-MED ONCE IV ; Start 03/03/18 at 08:17; Stop 03/03/18 at 08:18; Status DC Heparin Sodium (Porcine) (Heparin Sodium) 10,000 unit STK-MED ONCE .ROUTE ; Start 03/03/18 at 08:49; Stop 03/03/18 at 08:50; Status DC Protamine Sulfate (Protamine) 50 mg STK-MED ONCE IV ; Start 03/03/18 at 08:49; Stop 03/03/18 at 08:50; Status DC Phenylephrine HCl (PHENYLEPHRINE in 0.9% NACL PF) 1 mg STK-MED ONCE IV ; Start 03/03/18 at 08:49; Stop 03/03/18 at 08:50; Status DC Sodium Chloride 1,000 ml @ 1,000 mls/hr Q1H PRN IV hypotension; Start 03/03/18 at 10:19; Stop 03/03/18 at 16:18 Sodium Chloride 1,000 ml @ 400 mls/hr Q2H30M PRN IV PATENCY; Start 03/03/18 at 10:19; Stop 03/03/18 at 22:18 Info (PHARMACY MONITORING -- do not chart) 1 each PRN DAILY PRN MC SEE COMMENTS ; Start 03/03/18 at 10:30; Status UNV Info (PHARMACY MONITORING -- do not chart) 1 each PRN DAILY PRN MC SEE COMMENTS ; Start 03/03/18 at 10:30; Status UNV Active Scripts Active Metoprolol Tartrate 50 Mg Tablet 50 Mg PO BID 60 Days Reported Tylenol (Acetaminophen) 325 Mg Tablet 1-2 Tab PO QID PRN Milk Of Magnesia (Magnesium Hydroxide) 400 Mg/5 Ml Oral.susp 30 Ml PO BID PRN Duoneb 0.5-3(2.5) Mg/3 Ml (Albuterol/Ipratropium) 3 Ml Ampul.neb 3 Ml NEB Q4HRS PRN Hydroxyzine Hcl 25 Mg Tablet 1 Tab PO Q6HRS PRN Calcium Acetate 667 Mg Tablet 667 Mg PO TIDWMEALS Calcitriol 0.25 Mcg Capsule 1 Cap PO QTUTHSA Protonix (Pantoprazole Sodium) 20 Mg Tablet.dr 40 Mg PO DAILY Nephro-Bennie Tablet (Folic Acid/Vitamin B Comp W-C) 0.8 Mg Tablet 1 Tab PO DAILY Metoprolol Tartrate 50 Mg Tablet 1 Tab PO BID Lisinopril 40 Mg Tablet 1 Tab PO QHS Ferrous Sulfate 325 Mg Tablet 1 Tab PO DAILY Calcitriol 0.25 Mcg Capsule 1 Cap PO M/W/F Amlodipine Besylate 10 Mg Tablet 10 Mg PO QHS Acetaminophen 325 Mg Tablet 325 Mg PO PRN Q8HRS Vitals/I & O Vital Sign - Last 24 Hours 03/02/18 03/02/18 03/02/18 03/02/18 11:00 12:11 13:05 14:05 Temp 98.0 98.0 Pulse 74 Resp 20 16 16 B/P (MAP) 159/75 (103) Pulse Ox 100 100 100 O2 Delivery Room Air Nasal Cannula Nasal Cannula O2 Flow Rate 3.0 3.0 03/02/18 03/02/18 03/02/18 03/02/18 14:22 14:52 15:00 16:38 Temp 98.0 98.0 Pulse 79 Resp 16 16 20 18 B/P (MAP) 158/77 (104) Pulse Ox 100 100 100 O2 Delivery Nasal Cannula 2L Nasal Cannula O2 Flow Rate 3.0 3.0 03/02/18 03/02/18 03/02/18 03/02/18 19:00 19:12 20:00 20:12 Temp 97.6 97.6 Pulse 78 Resp 19 16 B/P (MAP) 156/90 (112) Pulse Ox 96 96 O2 Delivery Nasal Cannula Nasal Cannula Nasal Cannula Nasal Cannula O2 Flow Rate 2.0 3.0 3.0 3.0 03/02/18 03/02/18 03/02/18 03/02/18 21:11 21:12 21:12 21:42 Pulse 78 78 B/P (MAP) 156/90 156/90 Pulse Ox 96 93 O2 Delivery Nasal Cannula Nasal Cannula O2 Flow Rate 3.0 3.0 03/02/18 03/03/18 03/03/18 03/03/18 22:44 03:00 07:16 08:00 Temp 97.8 97.4 97.4 97.8 97.4 97.4 Pulse 78 77 77 Resp 17 16 15 B/P (MAP) 164/87 (112) 144/82 (102) 188/84 Pulse Ox 93 100 97 O2 Delivery Room Air Nasal Cannula Nasal Cannula Nasal Cannula O2 Flow Rate 2.0 2.0 2.0 03/03/18 03/03/18 03/03/18 03/03/18 08:54 09:09 09:09 09:24 Temp 97.0 96.9 97.0 96.9 Pulse 78 92 69 Resp 20 20 20 B/P (MAP) 166/81 138/78 112/85 Pulse Ox 99 100 98 O2 Delivery Nasal Cannula Mask Simple Mask O2 Flow Rate 2 10 10 10 03/03/18 03/03/18 03/03/18 03/03/18 09:39 09:41 09:54 10:00 Temp 97 97.0 Pulse 78 78 Resp 20 22 20 B/P (MAP) 146/77 166/78 Pulse Ox 99 96 98 O2 Delivery Nasal Cannula Room Air Nasal Cannula Nasal Cannula O2 Flow Rate 2 2 2 Intake and Output 03/02/18 03/02/18 03/03/18 15:00 23:00 07:00 Intake Total 600 ml 300 ml Output Total 0 ml Balance 600 ml 300 ml 0 ml Nutrition Consultation Dietary Evaluation: Recommendations by RD: Increase Calorie Intake, Protein supplementation Comments: nepro tid Expected Outcomes/Goals: to meet > 75% est nutr needs Interpretation of weight loss: >5% in 1 month Malnutrition Findings: Weight Status: Underweight JIMENEZ BELCHER MD Mar 03, 2018 10:38
[2018-03-03 11:00] VITALS: BP 147/73
[2018-03-03] MEDS: HYDROcodone/APAP 5/325MG 1 TAB TABLET PO PRN ×2 (11:49→17:56)
[2018-03-03] MEDS: VANCOMYCIN PER PHARMACY MC PRN ×2 (13:44→13:48)
[2018-03-03] MEDS: ALBUTEROL SULFATE 2.5 MG/3 ML NEBU. NEB PRN (17:19)
[2018-03-03] MEDS: CALCITRIOL 0.25 MCG CAPSULE. PO SCH (17:56)
[2018-03-03] MEDS: VANCOMYCIN 500 MG in IV NORMAL SALINE 100ML 100 ML IV SCH (17:56)
[2018-03-03] MEDS: ALPRAZolam 0.25 MG TABLET PO PRN (17:59)
[2018-03-03 19:00] VITALS: BP 151/75
[2018-03-03] MEDS: amLODIPine BESYLATE 10 MG TABLET PO SCH (20:57)
[2018-03-03] MEDS: LISINOPRIL 20 MG TABLET PO SCH (20:58)
[2018-03-03] MEDS: fentaNYL PF VIAL 100 MCG/2 ML VIAL IV PRN (20:58)
[2018-03-03] MEDS: ZOLPIDEM 5 MG TABLET. PO PRN (22:45)
[2018-03-03 23:00] VITALS: BP 157/82
[2018-03-04] MEDS: ALPRAZolam 0.25 MG TABLET PO PRN ×2 (02:12→15:33)
[2018-03-04] MEDS: HYDROcodone/APAP 5/325MG 1 TAB TABLET PO PRN ×3 (02:12→15:27)
[2018-03-04 03:00] VITALS: BP 156/85
[2018-03-04 07:00] VITALS: BP 137/69
[2018-03-04] MEDS: PANTOPRAZOLE 40 MG TABLET.DR. PO SCH (08:45)
[2018-03-04] MEDS: CALCIUM ACETATE 667 MG CAPSULE PO SCH ×3 (08:45→17:07)
[2018-03-04] MEDS: FERROUS SULFATE 325 MG TABLET. PO SCH (08:45)
[2018-03-04] MEDS: LACTOBACILLUS RHAMNOSUS GG 1 CAPSULE. PO SCH ×2 (08:45→21:11)
--- NOTE | 2018-03-04 08:49 | PDOC ---
PROGRESS NOTES Subjective Subjective "I feel fine. I don't have any pain in my left arm or hand." Objective Objective Vascular Surgery - POD#1 Left brachial AVF creation O: Resting comfortably in bed. No complaints LUE: Mathew wrap and dressing removed. Incision intact. No swelling to hand or arm. +thrill and bruit to AVF. Left hand slightly cooler than right. No pallor or mottling noted. Strong radial pulse. 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 Patient denies numbness, tingling or pain to left hand. Plan: 1. POD#1 Left brachial AVF creation. Instructed patient that access cannot happen for 6-8 weeks. This will allow AVF to mature. 2. Continue to use tunneled dialysis catheter until AVF has matured. 3. Instructed patient to remove dressing tomorrow and may shower as long as tunneled catheter is protected. 4. Instructed patient to apply a warm glove to left hand if he notices tingling or numbness to hand. 5. Ok to discharge from a Vascular Surgery perspective. Will sign off at this point. Vital Signs Date Time Temp Pulse Resp B/P (MAP) Pulse Ox O2 Delivery O2 Flow Rate FiO2 03/04/18 07:00 98.2 78 16 137/69 (91) 97 Room Air 98.2 18 06:23 95.0 Intake and Output 18 07:00 Intake Total 980 ml Output Total 0 ml Balance 980 ml Intake Oral 930 ml IV Total 50 ml Output Urine Total 0 ml # Voids 1 Assessment Assessment Problems Medical Problems: (1) End stage renal disease on dialysis Status: Acute (2) Sepsis Status: Acute Comment Review of Relevant I have reviewed the following items mirian (where applicable) has been applied. Labs Microbiology 03/02/18 Blood Culture - Final, Complete Medications Current Medications Piperacillin Sod/ Tazobactam Sod 2.25 gm/Sodium Chloride 100 ml @ 200 mls/hr 1X ONCE IV Last administered on 02/25/18at 09:25; Start 02/25/18 at 08:45; Stop 02/25/18 at 09:14; Status DC Vancomycin HCl (Vanco Per Pharmacy) 1 each 1X ONCE MC Last administered on 06/02at 08:30; Start 02/25/18 at 08:30; Stop 02/25/18 at 08:56; Status DC Fentanyl Citrate (Fentanyl 2ml Vial) 50 mcg PRN Q15MIN PRN IV PAIN GREATER THAN 3/10 Last administered on 02/25/18at 09:25; Start 02/25/18 at 08:30; Stop at 08:29; Status DC Acetaminophen (Tylenol) 1,000 mg 1X ONCE PO Last administered on 02/25/18at 09: 25; Start 02/25/18 at 09:00; Stop 02/25/18 at 09:01; Status DC Vancomycin HCl 1.5 gm/Sodium Chloride 500 ml @ 250 mls/hr 1X ONCE IV Last administered on 02/25/18at 11:07; Start 02/25/18 at 09:00; Stop 02/25/18 at 10:59 ; Status DC Sodium Chloride 500 ml @ 500 mls/hr 1X ONCE IV Last administered on at 09:47; Start 02/25/18 at 09:30; Stop 02/25/18 at 10:29; Status DC Ondansetron HCl (Zofran) 4 mg PRN Q8HRS PRN IV NAUSEA/VOMITING; Start 02/25/18 at 11:15; Stop 02/26/18 at 09:06; Status DC Fentanyl Citrate (Fentanyl 2ml Vial) 50 mcg PRN Q2HR PRN IV PAIN Last administered on 02/26/18at 03:50; Start 02/25/18 at 11:15; Stop 02/26/18 at 11:14 ; Status DC Acetaminophen (Tylenol) 650 mg PRN Q4HRS PRN PO FEVER Last administered on 02/26at 03:50; Start 02/25/18 at 11:15; Stop 02/26/18 at 09:13; Status DC Sodium Chloride 1,000 ml @ 1,000 mls/hr Q1H PRN IV hypotension; Start 02/25/18 at 16:33; Stop 02/25/18 at 22:32; Status DC Sodium Chloride (Normal Saline Flush) 10 ml 1X PRN PRN IV AP catheter pack; Start 02/25/18 at 16:45; Stop 02/26/18 at 16:44; Status DC Sodium Chloride (Normal Saline Flush) 10 ml 1X PRN PRN 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; Start 02/25/18 at 16:45; Stop 02/26/18 at 16:44; Status DC Sodium Chloride 1,000 ml @ 400 mls/hr Q2H30M PRN IV PATENCY; Start 02/25/18 at 16:33; Stop 02/26/18 at 04:32; Status DC Info (PHARMACY MONITORING -- do not chart) 1 each PRN DAILY PRN MC SEE COMMENTS ; Start 02/25/18 at 16:45; Status UNV Info (PHARMACY MONITORING -- do not chart) 1 each PRN DAILY PRN MC SEE COMMENTS ; Start 02/25/18 at 16:45; Stop 02/28/18 at 13:49; Status DC Zolpidem Tartrate (Ambien) 5 mg HS PRN PO INSOMNIA, MAY REPEAT X1 Last administered on 03/03/18at 22:45; Start 02/25/18 at 21:15 Acetaminophen (Tylenol) 325 mg PRN Q8HRS PRN PO MILD PAIN; Start 02/25/18 at 21 :30; Stop 02/26/18 at 09:06; Status DC Amlodipine Besylate (Norvasc) 10 mg QHS PO Last administered on 03/03/18at 20:57 ; Start 02/26/18 at 21:00 Ferrous Sulfate (Feosol) 325 mg DAILY PO Last administered on 03/02/18at 09:15; Start 02/26/18 at 09:00 Vitamin B Complex/ Vitamin C (Kiara-Bennie) 1 tab DAILY PO Last administered on at 09:15; Start 02/26/18 at 09:00 Albuterol Sulfate (Ventolin Neb Soln) 2.5 mg PRN Q4HRS PRN NEB SHORTNESS OF BREATH Last administered on 03/03/18at 17:19; Start 02/25/18 at 21:45 Lisinopril (Prinivil) 40 mg QHS PO Last administered on 03/03/18at 20:58; Start 02/25/18 at 22:00 Magnesium Hydroxide (Milk Of Magnesia) 2,400 mg BID PRN PO CONSTIPATION; Start 02/25/18 at 21:30; Status UNV Metoprolol Tartrate (Lopressor) 50 mg BID PO ; Start 02/26/18 at 09:00; Status UNV Metoprolol Tartrate (Lopressor) 50 mg BID PO ; Start 02/26/18 at 09:00; Status UNV Calcitriol (Rocaltrol) 0.25 mcg QTUTHSA PO Last administered on 03/03/18at 17:56 ; Start 02/26/18 at 16:00 Calcium Acetate (Phoslo) 667 mg TIDWMEALS PO Last administered on 03/03/18at 17: 56; Start 02/26/18 at 08:00 Hydroxyzine Pamoate (Vistaril) 25 mg PRN Q6HRS PRN PO ITCHING; Start 02/25/18 at 21:45 Pantoprazole Sodium (Protonix) 40 mg DAILYAC PO Last administered on 03/02/18at 09:15; Start 02/26/18 at 07:30 Acetaminophen (Tylenol) 650 mg PRN Q8HRS PRN PO MILD PAIN; Start 02/26/18 at 09 :15 Ondansetron HCl (Zofran) 4 mg PRN Q6HRS PRN IV NAUSEA/VOMITING; Start 02/26/18 at 09:15 Clonidine HCl (Catapres) 0.1 mg PRN Q1HR PRN PO HYPERTENSION, SEE COMMENTS; Start 02/26/18 at 09:15 Fentanyl Citrate (Fentanyl 2ml Vial) 50 mcg PRN Q2HR PRN IV SEVERE PAIN Last administered on 03/03/18at 20:58; Start 02/26/18 at 09:15 Acetaminophen/ Hydrocodone Bitart (Lortab 5/325) 1 tab PRN Q4HRS PRN PO MODERATE-SEVERE PAIN Last administered on 03/04/18at 06:23; Start 02/26/18 at 09: 15 Calcitriol (Rocaltrol) 0.25 mcg MoWeFr PO ; Start 02/27/18 at 09:00; Status Cancel Vancomycin HCl (Vanco Per Pharmacy) 1 each PRN DAILY PRN MC SEE COMMENTS Last administered on 03/03/18at 13:48; Start 02/26/18 at 10:00 Vancomycin HCl 1.5 gm/Sodium Chloride 500 ml @ 250 mls/hr 1X ONCE IV ; Start 02/26/18 at 11:00; Stop 02/26/18 at 12:59; Status Cancel Sodium Chloride 1,000 ml @ 1,000 mls/hr Q1H PRN IV hypotension; Start 02/26/18 at 10:12; Stop 02/26/18 at 16:11; Status DC Diphenhydramine HCl (Benadryl) 25 mg 1X PRN PRN IV ITCHING; Start 02/26/18 at 10:15; Stop 02/27/18 at 10:14; Status DC Diphenhydramine HCl (Benadryl) 25 mg 1X PRN PRN IV ITCHING; Start 02/26/18 at 10:15; Stop 02/27/18 at 10:14; Status DC Sodium Chloride 1,000 ml @ 400 mls/hr Q2H30M PRN IV PATENCY; Start 02/26/18 at 10:12; Stop 02/26/18 at 22:11; Status DC Info (PHARMACY MONITORING -- do not chart) 1 each PRN DAILY PRN MC SEE COMMENTS ; Start 02/26/18 at 10:15; Stop 02/28/18 at 14:47; Status DC Darbepoetin Uche (Aranesp) 60 mcg WEEKLYHS SQ Last administered on 02/26/18at 21 :43; Start 02/26/18 at 21:00 Alprazolam (Xanax) 0.25 mg PRN Q8HRS PRN PO ANXIETY / AGITATION Last administered on 03/04/18at 02:12; Start 02/26/18 at 14:15 Vancomycin HCl 500 mg/Sodium Chloride 100 ml @ 100 mls/hr QTUTHSA IV Last administered on 03/03/18at 17:56; Start 02/26/18 at 16:00 Lactobacillus Rhamnosus (Culturelle) 1 cap BID PO Last administered on at 20:57; Start 02/27/18 at 21:00 Sodium Chloride 1,000 ml @ 1,000 mls/hr Q1H PRN IV hypotension; Start 02/28/18 at 14:39; Stop 02/28/18 at 20:38; Status DC Albumin Human 200 ml @ 200 mls/hr 1X PRN PRN IV Hypotension; Start 02/28/18 at 14:45; Stop 02/28/18 at 20:44; Status DC Acetaminophen (Tylenol) 500 mg 1X PRN PRN PO MILD PAIN / TEMP; Start 02/28/18 at 14:45; Stop 03/01/18 at 14:44; Status DC Diphenhydramine HCl (Benadryl) 25 mg 1X PRN PRN IV ITCHING; Start 02/28/18 at 14:45; Stop 03/01/18 at 14:44; Status DC Diphenhydramine HCl (Benadryl) 25 mg 1X PRN PRN IV ITCHING; Start 02/28/18 at 14:45; Stop 03/01/18 at 14:44; Status DC Labetalol HCl (Normodyne Iv Push) 10 mg PRN Q1HR PRN IVP SBP > 180; Start 02/28 at 14:45; Stop 03/01/18 at 14:44; Status DC Clonidine HCl (Catapres) 0.1 mg 1X PRN PRN PO SBP > 180; Start 02/28/18 at 14: 45; Stop 03/01/18 at 14:44; Status DC Sodium Chloride 1,000 ml @ 400 mls/hr Q2H30M PRN IV PATENCY; Start 02/28/18 at 14:39; Stop 03/01/18 at 02:38; Status DC Info (PHARMACY MONITORING -- do not chart) 1 each PRN DAILY PRN MC SEE COMMENTS ; Start 02/28/18 at 14:45 Heparin Sodium (Porcine) 5000 unit/Sodium Chloride 505 ml @ 505 mls/hr 1X ONCE IRR Last administered on 03/03/18at 08:15; Start 03/03/18 at 06:00; Stop at 06:59; Status DC Cefazolin Sodium 1 gm/Sodium Chloride 500 ml @ 500 mls/hr 1X ONCE IRR Last administered on 03/03/18at 08:15; Start 03/03/18 at 06:00; Stop 03/03/18 at 06:59 ; Status DC Ondansetron HCl (Zofran) 4 mg PRN Q6HRS PRN IV NAUSEA/VOMITING; Start 03/03/18 at 07:00; Stop 03/03/18 at 21:00; Status DC Fentanyl Citrate (Fentanyl 2ml Vial) 25 mcg PRN Q5MIN PRN IV MILD PAIN; Start 03/03/18 at 07:00; Stop 03/03/18 at 21:00; Status DC Fentanyl Citrate (Fentanyl 2ml Vial) 50 mcg PRN Q5MIN PRN IV MODERATE TO SEVERE PAIN Last administered on 03/03/18at 09:41; Start 03/03/18 at 07:00; Stop 03/03/18 at 21:00; Status DC Morphine Sulfate (Morphine Sulfate) 1 mg PRN Q10MIN PRN IV SEVERE PAIN; Start 03/03/18 at 07:00; Stop 03/03/18 at 21:00; Status DC Ringer's Solution 1,000 ml @ 30 mls/hr Q24H IV Last administered on 03/03/18at 07:00; Start 03/03/18 at 07:00; Stop 03/03/18 at 18:59; Status DC Lidocaine HCl (Xylocaine-Mpf 1% 2ml Vial) 2 ml PRN 1X PRN ID IV START; Start at 07:00; Stop 03/03/18 at 21:00; Status DC Hydromorphone HCl (Dilaudid) 0.5 mg PRN Q10MIN PRN IV SEV PAIN, Second choice; Start 03/03/18 at 07:00; Stop 03/03/18 at 21:00; Status DC Prochlorperazine Edisylate (Compazine) 5 mg PACU PRN PRN IV NAUSEA, MRX1; Start 03/03/18 at 07:00; Stop 03/03/18 at 21:00; Status DC Cellulose (Surgicel Hemostat 2x3) 1 each STK-MED ONCE .ROUTE ; Start 03/03/18 at 05:51; Stop 03/03/18 at 06:52; Status DC Cellulose (Surgicel Fibrillar 1x2) 1 each STK-MED ONCE .ROUTE Last administered on 03/03/18at 08:47; Start 03/03/18 at 05:52; Stop 03/03/18 at 06:52 ; Status DC Papaverine HCl 60 mg STK-MED ONCE .ROUTE ; Start 03/03/18 at 05:53; Stop at 06:53; Status DC Cefazolin Sodium/ Dextrose 50 ml @ As Directed STK-MED ONCE IV ; Start 03/03/18 at 06:56; Stop 03/03/18 at 06:57; Status DC Cefazolin Sodium/ Dextrose 50 ml @ 100 mls/hr 1X PREOP PRN IV Pre Op Dose Last administered on 03/03/18at 07:53; Start 03/03/18 at 06:00; Stop 03/04/18 at 05:59; Status DC Fentanyl Citrate (Fentanyl 2ml Vial) 100 mcg STK-MED ONCE .ROUTE ; Start at 07:21; Stop 03/03/18 at 07:22; Status DC Lidocaine HCl (Xylocaine 1% Pf 30ml Vial) 30 ml STK-MED ONCE INJ Last administered on 03/03/18at 08:07; Start 03/03/18 at 08:07; Stop 03/03/18 at 08:12 ; Status DC Propofol 20 ml @ As Directed STK-MED ONCE IV ; Start 03/03/18 at 08:12; Stop at 08:14; Status DC Propofol 20 ml @ As Directed STK-MED ONCE IV ; Start 03/03/18 at 08:12; Stop at 08:14; Status DC Dexamethasone Sodium Phosphate (Decadron) 20 mg STK-MED ONCE .ROUTE ; Start at 08:13; Stop 03/03/18 at 08:14; Status DC Ondansetron HCl (Zofran) 4 mg STK-MED ONCE .ROUTE ; Start 03/03/18 at 08:13; Stop 03/03/18 at 08:14; Status DC Sevoflurane (Ultane) 60 ml STK-MED ONCE IH ; Start 03/03/18 at 08:13; Stop 03/03 at 08:14; Status DC Phenylephrine HCl (PHENYLEPHRINE in 0.9% NACL PF) 1 mg STK-MED ONCE IV ; Start 03/03/18 at 08:17; Stop 03/03/18 at 08:18; Status DC Heparin Sodium (Porcine) (Heparin Sodium) 10,000 unit STK-MED ONCE .ROUTE ; Start 03/03/18 at 08:49; Stop 03/03/18 at 08:50; Status DC Protamine Sulfate (Protamine) 50 mg STK-MED ONCE IV ; Start 03/03/18 at 08:49; Stop 03/03/18 at 08:50; Status DC Phenylephrine HCl (PHENYLEPHRINE in 0.9% NACL PF) 1 mg STK-MED ONCE IV ; Start 03/03/18 at 08:49; Stop 03/03/18 at 08:50; Status DC Sodium Chloride 1,000 ml @ 1,000 mls/hr Q1H PRN IV hypotension; Start 03/03/18 at 10:19; Stop 03/03/18 at 16:18; Status DC Sodium Chloride 1,000 ml @ 400 mls/hr Q2H30M PRN IV PATENCY; Start 03/03/18 at 10:19; Stop 03/03/18 at 22:18; Status DC Info (PHARMACY MONITORING -- do not chart) 1 each PRN DAILY PRN MC SEE COMMENTS ; Start 03/03/18 at 10:30; Status UNV Info (PHARMACY MONITORING -- do not chart) 1 each PRN DAILY PRN MC SEE COMMENTS ; Start 03/03/18 at 10:30; Status UNV Vancomycin HCl (Vancomycin Random Level) 1 each 1X ONCE MC ; Start 03/05/18 at 06:00; Stop 03/05/18 at 06:01 Active Scripts Active Metoprolol Tartrate 50 Mg Tablet 50 Mg PO BID 60 Days Reported Tylenol (Acetaminophen) 325 Mg Tablet 1-2 Tab PO QID PRN Milk Of Magnesia (Magnesium Hydroxide) 400 Mg/5 Ml Oral.susp 30 Ml PO BID PRN Duoneb 0.5-3(2.5) Mg/3 Ml (Albuterol/Ipratropium) 3 Ml Ampul.neb 3 Ml NEB Q4HRS PRN Hydroxyzine Hcl 25 Mg Tablet 1 Tab PO Q6HRS PRN Calcium Acetate 667 Mg Tablet 667 Mg PO TIDWMEALS Calcitriol 0.25 Mcg Capsule 1 Cap PO QTUTHSA Protonix (Pantoprazole Sodium) 20 Mg Tablet.dr 40 Mg PO DAILY Nephro-Bennie Tablet (Folic Acid/Vitamin B Comp W-C) 0.8 Mg Tablet 1 Tab PO DAILY Metoprolol Tartrate 50 Mg Tablet 1 Tab PO BID Lisinopril 40 Mg Tablet 1 Tab PO QHS Ferrous Sulfate 325 Mg Tablet 1 Tab PO DAILY Calcitriol 0.25 Mcg Capsule 1 Cap PO M/W/F Amlodipine Besylate 10 Mg Tablet 10 Mg PO QHS Acetaminophen 325 Mg Tablet 325 Mg PO PRN Q8HRS Vitals/I & O Vital Sign - Last 24 Hours 03/03/18 03/03/18 03/03/18 03/03/18 08:54 09:09 09:09 09:24 Temp 97.0 96.9 97.0 96.9 Pulse 78 92 69 Resp 20 20 20 B/P (MAP) 166/81 138/78 112/85 Pulse Ox 99 100 98 O2 Delivery Nasal Cannula Mask Simple Mask O2 Flow Rate 2 10 10 10 03/03/18 03/03/18 03/03/18 03/03/18 09:39 09:41 09:54 10:00 Temp 97 97.0 Pulse 78 78 Resp 20 22 20 B/P (MAP) 146/77 166/78 Pulse Ox 99 96 98 O2 Delivery Nasal Cannula Room Air Nasal Cannula Nasal Cannula O2 Flow Rate 2 2 2 03/03/18 03/03/18 03/03/18 03/03/18 10:56 11:00 11:49 17:20 Temp 97.5 97.5 Pulse 73 Resp 20 B/P (MAP) 147/73 (97) Pulse Ox 100 99 O2 Delivery Nasal Cannula Nasal Cannula Nasal Cannula Nasal Cannula O2 Flow Rate 2.0 2.0 2.0 2.0 03/03/18 03/03/18 03/03/18 03/03/18 17:56 19:00 19:00 20:00 Temp 98.4 98.4 Pulse 88 Resp 18 B/P (MAP) 151/75 (100) Pulse Ox 98 O2 Delivery Nasal Cannula Nasal Cannula Room Air Nasal Cannula O2 Flow Rate 2.0 2.0 2.0 03/03/18 03/03/18 03/03/18 03/03/18 20:57 20:58 20:58 23:00 Temp 98.3 98.3 Pulse 88 88 84 Resp 18 B/P (MAP) 151/75 151/75 157/82 (107) Pulse Ox 98 O2 Delivery Nasal Cannula Room Air O2 Flow Rate 2.0 95.0 03/04/18 03/04/18 03/04/18 03/04/18 02:12 03:00 06:23 07:00 Temp 98.1 98.2 98.1 98.2 Pulse 91 78 Resp 18 16 B/P (MAP) 156/85 (108) 137/69 (91) Pulse Ox 98 95 95 97 O2 Delivery Nasal Cannula Room Air Nasal Cannula Room Air O2 Flow Rate 95.0 95.0 Intake and Output 03/03/18 03/03/18 03/04/18 15:00 23:00 07:00 Intake Total 540 ml 240 ml 200 ml Output Total 0 ml Balance 540 ml 240 ml 200 ml Nutrition Consultation Dietary Evaluation: Recommendations by RD: Increase Calorie Intake, Protein supplementation Comments: nepro tid Expected Outcomes/Goals: to meet > 75% est nutr needs Interpretation of weight loss: >5% in 1 month Malnutrition Findings: Weight Status: Underweight LUBNA MELCHOR APRN Mar 04, 2018 08:49
--- NOTE | 2018-03-04 09:46 | PDOC ---
Infectious Disease Note Subjective: Subjective pt says feels ok had av fistula on lue yesterday denies any complaints ROS: ROS Negative except for above. Vital Signs: Vital Signs Vital Signs Date Time Temp Pulse Resp B/P (MAP) Pulse Ox O2 Delivery O2 Flow Rate FiO2 03/04/18 08:44 Nasal Cannula 2.0 03/04/18 07:00 98.2 78 16 137/69 (91) 97 98.2 Medications: Inpatient Meds: Current Medications Medications (Trade) Dose Ordered Sig/Lissette Start Time Stop Time Status Last Admin Dose Admin Acetaminophen (Tylenol) 500 mg 1X PRN PRN 02/28/18 14:45 03/01/18 14:44 DC Acetaminophen/ Hydrocodone Bitart (Lortab 5/325) 1 tab PRN Q4HRS PRN 02/26/18 09:15 03/04/18 06:23 1 TAB Albumin Human 200 ml @ 200 mls/hr 1X PRN PRN 02/28/18 14:45 02/28/18 20:44 DC Albuterol Sulfate (Ventolin Neb Soln) 2.5 mg PRN Q4HRS PRN 02/25/18 21:45 03/03/18 17:19 2.5 MG Alprazolam (Xanax) 0.25 mg PRN Q8HRS PRN 02/26/18 14:15 03/04/18 02:12 0.25 MG Amlodipine Besylate (Norvasc) 10 mg QHS 02/26/18 21:00 03/03/18 20:57 10 MG Calcitriol (Rocaltrol) 0.25 mcg MoWeFr 02/27/18 09:00 Cancel Calcium Acetate (Phoslo) 667 mg TIDWMEALS 02/26/18 08:00 03/04/18 08:45 667 MG Cefazolin Sodium 1 gm/Sodium Chloride 500 ml @ 500 mls/hr 1X ONCE 03/03/18 06:00 03/03/18 06:59 DC 03/03/18 08:15 Cefazolin Sodium/ Dextrose 50 ml @ 100 mls/hr 1X PREOP PRN 03/03/18 06:00 03/04/18 05:59 DC 03/03/18 07:53 100 MLS/HR Cellulose (Surgicel Fibrillar 1x2) 1 each STK-MED ONCE 03/03/18 05:52 03/03/18 06:52 DC 03/03/18 08:47 1 EACH Cellulose (Surgicel Hemostat 2x3) 1 each STK-MED ONCE 03/03/18 05:51 03/03/18 06:52 DC Clonidine HCl (Catapres) 0.1 mg 1X PRN PRN 02/28/18 14:45 03/01/18 14:44 DC Darbepoetin Uche (Aranesp) 60 mcg WEEKLYHS 02/26/18 21:00 02/26/18 21:43 60 MCG Dexamethasone Sodium Phosphate (Decadron) 20 mg STK-MED ONCE 03/03/18 08:13 03/03/18 08:14 DC Diphenhydramine HCl (Benadryl) 25 mg 1X PRN PRN 02/28/18 14:45 03/01/18 14:44 DC Fentanyl Citrate (Fentanyl 2ml Vial) 100 mcg STK-MED ONCE 03/03/18 07:21 03/03/18 07:22 DC Ferrous Sulfate (Feosol) 325 mg DAILY 02/26/18 09:00 03/04/18 08:45 325 MG Heparin Sodium (Porcine) (Heparin Sodium) 10,000 unit STK-MED ONCE 03/03/18 08:49 03/03/18 08:50 DC Heparin Sodium (Porcine) 5000 unit/Sodium Chloride 505 ml @ 505 mls/hr 1X ONCE 03/03/18 06:00 03/03/18 06:59 DC 03/03/18 08:15 Hydromorphone HCl (Dilaudid) 0.5 mg PRN Q10MIN PRN 03/03/18 07:00 03/03/18 21:00 DC Hydroxyzine Pamoate (Vistaril) 25 mg PRN Q6HRS PRN 02/25/18 21:45 Info (PHARMACY MONITORING -- do not chart) 1 each PRN DAILY PRN 03/03/18 10:30 UNV Labetalol HCl (Normodyne Iv Push) 10 mg PRN Q1HR PRN 02/28/18 14:45 03/01/18 14:44 DC Lactobacillus Rhamnosus (Culturelle) 1 cap BID 02/27/18 21:00 03/04/18 08:45 1 CAP Lidocaine HCl (Xylocaine 1% Pf 30ml Vial) 30 ml STK-MED ONCE 03/03/18 08:07 03/03/18 08:12 DC 03/03/18 08:07 1 ML Lidocaine HCl (Xylocaine-Mpf 1% 2ml Vial) 2 ml PRN 1X PRN 03/03/18 07:00 03/03/18 21:00 DC Lisinopril (Prinivil) 40 mg QHS 02/25/18 22:00 03/03/18 20:58 40 MG Magnesium Hydroxide (Milk Of Magnesia) 2,400 mg BID PRN 02/25/18 21:30 UNV Metoprolol Tartrate (Lopressor) 50 mg BID 02/26/18 09:00 UNV Morphine Sulfate (Morphine Sulfate) 1 mg PRN Q10MIN PRN 03/03/18 07:00 03/03/18 21:00 DC Ondansetron HCl (Zofran) 4 mg STK-MED ONCE 03/03/18 08:13 03/03/18 08:14 DC Pantoprazole Sodium (Protonix) 40 mg DAILYAC 02/26/18 07:30 03/04/18 08:45 40 MG Papaverine HCl 60 mg STK-MED ONCE 03/03/18 05:53 03/03/18 06:53 DC Phenylephrine HCl (PHENYLEPHRINE in 0.9% NACL PF) 1 mg STK-MED ONCE 03/03/18 08:49 03/03/18 08:50 DC Piperacillin Sod/ Tazobactam Sod 2.25 gm/Sodium Chloride 100 ml @ 200 mls/hr 1X ONCE 02/25/18 08:45 02/25/18 09:14 DC 02/25/18 09:25 200 MLS/HR Prochlorperazine Edisylate (Compazine) 5 mg PACU PRN PRN 03/03/18 07:00 03/03/18 21:00 DC Propofol 20 ml @ As Directed STK-MED ONCE 03/03/18 08:12 03/03/18 08:14 DC Protamine Sulfate (Protamine) 50 mg STK-MED ONCE 03/03/18 08:49 03/03/18 08:50 DC Ringer's Solution 1,000 ml @ 30 mls/hr Q24H 9/18/18 07:00 03/03/18 18:59 DC 03/03/18 07:00 30 MLS/HR Sevoflurane (Ultane) 60 ml STK-MED ONCE 03/03/18 08:13 03/03/18 08:14 DC Sodium Chloride 1,000 ml @ 400 mls/hr Q2H30M PRN 03/03/18 10:19 03/03/18 22:18 DC Sodium Chloride (Normal Saline Flush) 10 ml 1X PRN PRN 02/25/18 16:45 02/26/18 16:44 DC Vancomycin HCl (Vanco Per Pharmacy) 1 each PRN DAILY PRN 02/26/18 10:00 03/03/18 13:48 1 EACH Vancomycin HCl (Vancomycin Random Level) 1 each 1X ONCE 03/05/18 06:00 03/05/18 06:01 Vancomycin HCl 1.5 gm/Sodium Chloride 500 ml @ 250 mls/hr 1X ONCE 02/26/18 11:00 02/26/18 12:59 Cancel Vancomycin HCl 500 mg/Sodium Chloride 100 ml @ 100 mls/hr QTUTHSA 02/26/18 16:00 03/03/18 17:56 100 MLS/HR Vitamin B Complex/ Vitamin C (Kiara-Bennie) 1 tab DAILY 02/26/18 09:00 03/02/18 09:15 1 TAB Zolpidem Tartrate (Ambien) 5 mg HS PRN 02/25/18 21:15 03/03/18 22:45 5 MG Labs: Micro RUN DATE: 03/03/18 PAGE 1 RUN TIME: 1307 [facility] [address] [place] [address] Yossi Wilson M.D., Belly Dancer PATIENT: TEJA ROSENBAUM ACCT: [id number] LOC: [address] [place] [address] U : [id number] AGE/SX: 57/M ROOM: 563 REG : 02/25/[address]: CARRIE SIFUENTES MD : [id number] BED: 1 DIS : STATUS: ADM IN TLOC: SPEC #: [id number] ILYA: 03/02/18 STATUS: COMP REQ #: [id number] RECD: 03/02/[address]: TATA BENTLEY MD SOURCE: BLOOD ENTR: 03/02/[address] [facility] [address]: ALISSA REDMOND MD SPDESC: BILL BENTLEY MD, THOMAS W MD NAIR, VENU S MD NO PCP ORDERED: BCULT Procedure Result BLOOD CULTURE Final GRAM POSITIVE COCCI IN CLUSTERS, SUGGESTIVE OF STAPH, IN 1 OF 2 BOTTLES, ONE SET DRAWN ON 03/02/18 CALLED TO PIPER BARRIENTOS RN ON 5S AT 13:05 ON 03/03/18 DW MNT SENT TO [facility] FOR FURTHER WORKUP. 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 Source ? 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 Plan: Plan of Care Continue vancomycin q //fri postdialysis Random trough 24.1 HDC will need be removed this admission due to high grade bacteremia If possible avoid line placement for HD atleast for 48 hrs f/u BC 03/04 BERNA ordered Supportive care D/W pt and TATA Barnhart MD Mar 04, 2018 09:46
--- NOTE | 2018-03-04 09:52 | DISCH ---
DISCHARGE WITH HOME HEALTH DISCHARGE INFORMATION: Discharge Date: Mar 04, 2018 Final Diagnosis: Problems Medical Problems: (1) End stage renal disease on dialysis Status: Acute (2) Sepsis Status: Acute Condition on Discharge: Stable CODE STATUS: Code Status: Full HOME HEALTH: Face to Face: I certify this patient is under my care and that I, or a nurse practitioner or physician's sales assistant working with me, had a face to face encounter that meets the physician face to face encounter requirements with this patient on []. POST DISCHARGE ORDERS: Activity Instructions for Disc: Activity as tolerated CHECKS AFTER DISCHARGE: Checks after discharge: Check blood press - daily Comment: Vancomycin 500mg IV After dialysis 2 weeks FOLLOW-UP: Follow up with: [facility] Follow Up With: vascular surgery 10-14 days DC TO SNF LABS: per nephrology CERTIFICATION STATEMENT: Certification Statement: Certification Statement: Based on the above finding, I certify that this patient is confined to the home and needs intermittent senior living care, physical therapy and/or speech therapy, or continues to need occupational therapy.~ This patient is under my care, and I have initiated the establishment of the plan of care.~ This patient will be followed by myself or a community physician who will periodically review the plan of care. Home Meds Active Scripts Docusate Sodium (COLACE) 100 Mg Capsule, 1 CAP PO BID PRN for CONSTIPATION, #60 CAP Prov:AMAN COWAN MD 03/04/18 [Darbepoetin Uche] 60 MCG/0.3 ML DISP.SYRIN No Conflict Check, 60 MCG SQ WEEKLYHS, #4 DIS.SYR Prov:AMAN COWAN MD 03/04/18 Vancomycin Hcl (VANCOMYCIN HCL) 1 Gm Vial, 1 EACH MC PRN DAILY PRN for SEE COMMENTS for 14 Days, EACH 500mg IV after each dialysis 2 weeks Prov:AMAN COWAN MD 03/04/18 Metoprolol Tartrate (METOPROLOL TARTRATE) 50 Mg Tablet, 50 MG PO BID for 60 Days , #120 TAB Prov:JIMENEZ BELCHER MD 10/28/17 Reported Medications Acetaminophen (TYLENOL) 325 Mg Tablet, 1-2 TAB PO QID PRN for PAIN, #60 TAB 2 Refills 11/10/17 Magnesium Hydroxide (MILK OF MAGNESIA) 400 Mg/5 Ml Oral.susp, 30 ML PO BID PRN for CONSTIPATION, MISC 11/10/17 Ipratropium/Albuterol Sulfate (DUONEB 0.5-3(2.5) MG/3 ML) 3 Ml Ampul.neb, 3 ML NEB Q4HRS PRN for SHORTNESS OF BREATH, EACH 11/10/17 Hydroxyzine Hcl (HYDROXYZINE HCL) 25 Mg Tablet, 1 TAB PO Q6HRS PRN for ITCHING, #30 TAB 11/10/17 Calcium Acetate (CALCIUM ACETATE) 667 Mg Tablet, 667 MG PO TIDWMEALS for DIALYSIS PATIENTS, CAP 11/10/17 Calcitriol (CALCITRIOL) 0.25 Mcg Capsule, 1 CAP PO QTUTHSA for dialysis, #30 CAP 5 Refills 11/10/17 Pantoprazole Sodium (PROTONIX) 20 Mg Tablet.dr, 40 MG PO DAILY, TAB 10/20/17 Folic Acid/Vitamin B Comp W-C (NEPHRO-PATITO TABLET) 0.8 Mg Tablet, 1 TAB PO DAILY , #30 TAB 5 Refills 10/20/17 Metoprolol Tartrate (METOPROLOL TARTRATE) 50 Mg Tablet, 1 TAB PO BID, #60 TAB 5 Refills 10/20/17 Lisinopril (LISINOPRIL) 40 Mg Tablet, 1 TAB PO QHS, #30 TAB 5 Refills 10/20/17 Ferrous Sulfate (FERROUS SULFATE) 325 Mg Tablet, 1 TAB PO DAILY, #30 TAB 3 Refills 10/20/17 Calcitriol (CALCITRIOL) 0.25 Mcg Capsule, 1 CAP PO //, #30 CAP 5 Refills 10/20/17 Amlodipine Besylate (AMLODIPINE BESYLATE) 10 Mg Tablet, 10 MG PO QHS, TAB 10/20/17 Acetaminophen (ACETAMINOPHEN) 325 Mg Tablet, 325 MG PO PRN Q8HRS, #1 TAB 10/20/17 AMAN COWAN MD Mar 04, 2018 09:51
[2018-03-04] MEDS ORDERED: DOCU-109 PO (09:54)
[2018-03-04] MEDS ORDERED: DARBEPOETIN ALFA IN POLYSORBAT SQ (09:54)
[2018-03-04] MEDS ORDERED: VANC1VIA3 MC (09:54)
--- NOTE | 2018-03-04 09:58 | PDOC3 ---
Discharge Summary Visit Information Date of Admission: Feb 25, 2018 Date of Discharge: Mar 04, 2018 Admitting Diagnosis: sepsis Final Diagnosis Sepsis MRSA BACTEREMIA - End stage renal disease on dialysis Possible volume overload Anemia of ESRD Incarcerated BMI 17 GPC bacteremia 5 /6 bottles Indwelling HD cath, ry subclavian (changed recently) Problems Medical Problems: (1) End stage renal disease on dialysis Status: Acute (2) Sepsis Status: Acute Brief Hospital Course Allergies Allergies Coded Allergies Type Severity Reaction Last Updated Verified I S O L A T I O N *CONTACT* Allergy Unknown 03/03/18 Yes No Known Medication Allergies Allergy Unknown 03/03/18 Yes Vital Signs Vital Signs Date Time Temp Pulse Resp B/P (MAP) Pulse Ox O2 Delivery O2 Flow Rate FiO2 03/04/18 08:44 Nasal Cannula 2.0 03/04/18 07:00 98.2 78 16 137/69 (91) 97 98.2 Brief Hospital Course Mr. Briseno is a 57 old admit with sepsis, sepsis syndrome. + blood cx. staph , then MRSA - IV vanco, ID consult vasc surg placed fistula in left arm. Dr. Souza, 03/03 pt was much improved Discharge Information Condition at Discharge: Improved Follow Up: Weeks Disposition/Orders: D/C to Another Facility ([facility]) Scheduled Acetaminophen (Acetaminophen) 325 Mg Tablet, 325 MG PO PRN Q8HRS, #1 (Reported) Entered as Reported by: SAHARA DUMONT RN on 10/20/172355 Last Action: Continued on 02/25/182129 by Sally Ryan RN Amlodipine Besylate (Amlodipine Besylate) 10 Mg Tablet, 10 MG PO QHS, (Reported) Entered as Reported by: SAHARA DUMONT RN on 10/20/172355 Last Action: Continued on 02/25/182129 by Sally Ryan, SAIMA Calcitriol (Calcitriol) 0.25 Mcg Capsule, 1 CAP PO M//, #30 Ref 5 (Reported) Entered as Reported by: SAHARA DUMONT RN on 10/20/172355 Last Action: Converted on 02/26/18 09 by JIMENEZ BELCHER Calcitriol (Calcitriol) 0.25 Mcg Capsule, 1 CAP PO QTUTHSA for dialysis, #30 Ref 5 (Reported) Entered as Reported by: ELVIN SANCHEZ on 11/10/17343 Last Action: Converted on 02/25/182129 by Sally Ryan RN Calcium Acetate (Calcium Acetate) 667 Mg Tablet, 667 MG PO TIDWMEALS for DIALYSIS PATIENTS, (Reported) Entered as Reported by: ELVIN SANCHEZ on 11/10/17343 Last Action: Converted on 02/25/182129 by Sally Ryan RN Ferrous Sulfate (Ferrous Sulfate) 325 Mg Tablet, 1 TAB PO DAILY, #30 Ref 3 ( Reported) Entered as Reported by: SAHARA DUMONT RN on 10/20/172355 Last Action: Continued on 02/25/182129 by Sally Ryan RN Folic Acid/Vitamin B Comp W-C (Nephro-Bennie Tablet) 0.8 Mg Tablet, 1 TAB PO DAILY , #30 Ref 5 (Reported) Entered as Reported by: SAHARA DUMONT RN on 10/20/172355 Last Action: Continued on 02/25/182129 by Sally Ryan RN Lisinopril (Lisinopril) 40 Mg Tablet, 1 TAB PO QHS, #30 Ref 5 (Reported) Entered as Reported by: SAHARA DUMONT RN on 10/20/172355 Last Action: Continued on 02/25/182129 by Sally Ryan RN Metoprolol Tartrate (Metoprolol Tartrate) 50 Mg Tablet, 1 TAB PO BID, #60 Ref 5 (Reported) Entered as Reported by: SAHARA DUMONT RN on 10/20/172355 Last Action: Continued on 02/25/182129 by Sally Ryan RN Metoprolol Tartrate (Metoprolol Tartrate) 50 Mg Tablet, 50 MG PO BID for 60 Days , #120 Prescribed by: JIMENEZ BELCHER on 10/28/17 1210 Last Action: Continued on 02/25/182129 by Sally Ryan RN Pantoprazole Sodium (Protonix) 20 Mg Tablet.dr, 40 MG PO DAILY, (Reported) Entered as Reported by: SAHARA DUMONT RN on 10/20/172355 Last Action: Converted on 02/25/182129 by Sally Ryan RN [Darbepoetin Uche In Polysorbat] 60 MCG/0.3 ML DISP.SYRIN, 60 MCG SQ WEEKLYHS, # 4 Prescribed by: AMAN COWAN on 03/04/18953 Scheduled PRN Acetaminophen (Tylenol) 325 Mg Tablet, 1-2 TAB PO QID PRN for PAIN, #60 Ref 2 ( Reported) Entered as Reported by: ELVIN SANCHEZ on 11/10/17343 Last Action: HELD on 02/26/18906 by JIMENEZ BELCHER Docusate Sodium (Colace) 100 Mg Capsule, 1 CAP PO BID PRN for CONSTIPATION, #60 Prescribed by: AMAN COWAN on 03/04/18953 Hydroxyzine Hcl (Hydroxyzine Hcl) 25 Mg Tablet, 1 TAB PO Q6HRS PRN for ITCHING, #30 (Reported) Entered as Reported by: ELVIN SANCHEZ on 11/10/17343 Last Action: Converted on 02/25/182129 by Sally Ryan RN Ipratropium/Albuterol Sulfate (Duoneb 0.5-3(2.5) Mg/3 Ml) 3 Ml Ampul.neb, 3 ML NEB Q4HRS PRN for SHORTNESS OF BREATH, (Reported) Entered as Reported by: ELVIN SANCHEZ on 11/10/17343 Last Action: Continued on 02/25/182129 by Sally Ryan RN Magnesium Hydroxide (Milk Of Magnesia) 400 Mg/5 Ml Oral.susp, 30 ML PO BID PRN for CONSTIPATION, (Reported) Entered as Reported by: ELVIN SANCHEZ on 11/10/17343 Last Action: Continued on 02/25/182129 by Sally Ryan RN Vancomycin Hcl (Vancomycin Hcl) 1 Gm Vial, 1 EACH MC PRN DAILY PRN for SEE COMMENTS for 14 Days 500mg IV after each dialysis 2 weeks Prescribed by: AMAN COWAN on 03/04/18953 Patient Instructions Patient Instructions echo <Conclusion> The left ventricular systolic function is normal. The Ejection Fraction is 55-60%. There is normal LV segmental wall motion. Transmitral Doppler flow pattern is Grade I-abnormal relaxation pattern. Mild mitral regurgitation. Trace tricuspid regurgitation. The PA pressure was estimated at 36 mmHg. There is no evidence of significant pericardial effusion. time > 30 min face to face AMAN COWAN MD Mar 04, 2018 09:58
[2018-03-04] MEDS: FOLIC/VIT B COMP W-C (RENAL) TABLET. PO SCH (10:48)
[2018-03-04 11:00] VITALS: BP 155/74
--- NOTE | 2018-03-04 11:34 | PDOC ---
Renal-Progress Notes Subjective Notes Notes NONE History of Present Illness Hx of present illness BETTER Vitals Vitals Vital Signs Date Time Temp Pulse Resp B/P (MAP) Pulse Ox O2 Delivery O2 Flow Rate FiO2 03/04/18 11:00 97.6 87 16 155/74 (101) 95 Room Air 97.6 03/04/18 08:44 2.0 Weight Weight [ ] I.O. Intake and Output Intake and Output 03/04/18 07:00 Intake Total 980 ml Output Total 0 ml Balance 980 ml Intake Oral 930 ml IV Total 50 ml Output Urine Total 0 ml # Voids 1 Micro Micro Microbiology 03/02/18 Blood Culture - Final, Complete Review of Systems Constitutional: yes: weakness, alert, oriented Ears/Nose/Throat: Yes: no symptom reported Eyes: Yes: no symptom reported Pulmonary: Yes dyspnea Cardiovascular: Yes no symptom reported Gastrointestional: Yes: no symptom reported Genitourinary: Yes: no symptom reported Musculoskeletal: Yes: muscle stiffness Skin: Yes no symptom reported Psychiatric/Neurological: Yes: no symptom reported Endocrine: Yes: no symptom reported Physical Exam General Appearance: no apparent distress Skin: warm Respiratory: bilateral CTA Heart: S1S2 Abdomen: soft, bowel sounds present Genitourinary: bladder flat Extremities: pulses present Neurology: alert, oriented Musculoskeletal: Osteoarthritis Assessment Assessment IMP SEPSIS ANEMIA HTN DM II ESRD PNEUMONIA ACUTE DIASTOLIC CHF S/P L AVF PLAN HD TOMORROW D/C PLANS NOTED JEANE ESCOBAR MD Mar 04, 2018 11:34
[2018-03-04] MEDS: VANCOMYCIN PER PHARMACY MC PRN (13:05)
[2018-03-04 15:00] VITALS: BP 156/77
--- NOTE | 2018-03-04 16:50 | PDOC ---
Provider Note Provider Note 03/04/2018 1500 Pt is AOX3. he did have luly several months ago and completed without difficulty. with this admission he has been notes with bacteremia noted to be staph. he is able to lay flat and in no distress. LULY has been requested by ID. Risks and benefits explained and agreeable to proceed. Scheduled at 9 am tomorrow. ANUP VARGAS APRN Mar 04, 2018 16:50
[2018-03-04 19:00] VITALS: BP 163/79
[2018-03-04] MEDS: amLODIPine BESYLATE 10 MG TABLET PO SCH (21:11)
[2018-03-04] MEDS: LISINOPRIL 20 MG TABLET PO SCH (21:12)
[2018-03-04 23:00] VITALS: BP 158/79
[2018-03-05] MEDS: ALBUTEROL SULFATE 2.5 MG/3 ML NEBU. NEB PRN ×2 (01:34→01:39)
[2018-03-05 03:00] VITALS: BP 160/79
[2018-03-05] MEDS: HYDROcodone/APAP 5/325MG 1 TAB TABLET PO PRN ×3 (03:30→22:29)
[2018-03-05] MEDS: ALPRAZolam 0.25 MG TABLET PO PRN ×2 (03:36→17:02)
[2018-03-05] MEDS ORDERED: VANCOMYCIN RANDOM LEVEL. MC ONE (06:00)
[2018-03-05 07:00] VITALS: BP 162/81
[2018-03-05] MEDS ORDERED: MORPHINE SULFATE 2 MG/ML VIAL. IV PRN (07:00)
[2018-03-05] MEDS ORDERED: IV RINGERS,LACTATED 1000ML 1,000 ML IV SCH (07:00)
[2018-03-05] MEDS ORDERED: LIDOCAINE 1% PF 2 ML VIAL. ID PRN (07:00)
[2018-03-05] MEDS ORDERED: IV NORMAL SALINE 1000ML BAG 1,000 ML IV SCH (07:00)
[2018-03-05] MEDS ORDERED: fentaNYL PF VIAL 100 MCG/2 ML VIAL IV PRN ×2 (07:00)
[2018-03-05] MEDS ORDERED: PROCHLORPERAZINE 10 MG/2 ML VIAL. IV PRN (07:00)
[2018-03-05] MEDS ORDERED: HYDROmorphone 2 MG/ML VIAL IV PRN (07:00)
[2018-03-05] MEDS ORDERED: ONDANSETRON PF 4 MG/2 ML VIAL. IV PRN (07:00)
[2018-03-05] MEDS: PANTOPRAZOLE 40 MG TABLET.DR. PO SCH (07:30)
[2018-03-05] MEDS: CALCIUM ACETATE 667 MG CAPSULE PO SCH ×3 (08:00→17:01)
[2018-03-05] MEDS ORDERED: PROPOFOL 20 ML IV ONE (08:17)
[2018-03-05] MEDS ORDERED: LIDOCAINE 2% VISCOUS 15 ML SOLUTION. ONE (08:30)
[2018-03-05] MEDS ORDERED: LIDOCAINE 2% TOPICAL JELLY 5GM TUBE. TP ONE ×2 (08:30→08:45)
[2018-03-05] MEDS ORDERED: BENZOCAINE ONE 20% MUCOSAL SPRAY. (08:30)
[2018-03-05] MEDS ORDERED: LIDOCAINE 2% VISCOUS 15 ML SOLUTION. SWSW ONE (08:45)
[2018-03-05] MEDS ORDERED: BENZOCAINE ONE 20% MUCOSAL SPRAY. MM (08:45)
[2018-03-05] MEDS ORDERED: IV NORMAL SALINE 1000ML BAG 1,000 ML IV PRN ×2 (08:47)
[2018-03-05] MEDS: FOLIC/VIT B COMP W-C (RENAL) TABLET. PO SCH (09:00)
[2018-03-05] MEDS ORDERED: 0.9 % SODIUM CHLORIDE 10 ML DISP.SYRIN. IV PRN ×2 (09:00)
[2018-03-05] MEDS ORDERED: DIALYSIS PATIENT. MC PRN ×2 (09:00)
[2018-03-05] MEDS: LACTOBACILLUS RHAMNOSUS GG 1 CAPSULE. PO SCH ×2 (09:00→21:09)
[2018-03-05] MEDS: FERROUS SULFATE 325 MG TABLET. PO SCH (09:00)
--- NOTE | 2018-03-05 10:56 | PDOC ---
Infectious Disease Note Subjective: Subjective pt says feels ok had av fistula by vascular on lue 03/03 denies any complaints ROS: ROS Negative except for above. Vital Signs: Vital Signs Vital Signs Date Time Temp Pulse Resp B/P (MAP) Pulse Ox O2 Delivery O2 Flow Rate FiO2 03/05/18 08:40 97.5 76 15 148/71 98 Nasal Cannula 2.0 97.5 Medications: Inpatient Meds: Current Medications Medications (Trade) Dose Ordered Sig/Lissette Start Time Stop Time Status Last Admin Dose Admin Acetaminophen (Tylenol) 500 mg 1X PRN PRN 02/28/18 14:45 03/01/18 14:44 DC Acetaminophen/ Hydrocodone Bitart (Lortab 5/325) 1 tab PRN Q4HRS PRN 02/26/18 09:15 03/05/18 03:30 1 TAB Albumin Human 200 ml @ 200 mls/hr 1X PRN PRN 02/28/18 14:45 02/28/18 20:44 DC Albuterol Sulfate (Ventolin Neb Soln) 2.5 mg PRN Q4HRS PRN 02/25/18 21:45 03/05/18 01:39 2.5 MG Alprazolam (Xanax) 0.25 mg PRN Q8HRS PRN 02/26/18 14:15 03/05/18 03:36 0.25 MG Amlodipine Besylate (Norvasc) 10 mg QHS 02/26/18 21:00 03/04/18 21:11 10 MG Benzocaine (Hurricaine One) 3 spray 1X ONCE 03/05/18 08:45 03/05/18 08:47 DC Calcitriol (Rocaltrol) 0.25 mcg MoWeFr 02/27/18 09:00 Cancel Calcium Acetate (Phoslo) 667 mg TIDWMEALS 02/26/18 08:00 03/04/18 17:07 667 MG Cefazolin Sodium 1 gm/Sodium Chloride 500 ml @ 500 mls/hr 1X ONCE 03/03/18 06:00 03/03/18 06:59 DC 03/03/18 08:15 Cefazolin Sodium/ Dextrose 50 ml @ 100 mls/hr 1X PREOP PRN 03/03/18 06:00 03/04/18 05:59 DC 03/03/18 07:53 100 MLS/HR Cellulose (Surgicel Fibrillar 1x2) 1 each STK-MED ONCE 03/03/18 05:52 03/03/18 06:52 DC 03/03/18 08:47 1 EACH Cellulose (Surgicel Hemostat 2x3) 1 each STK-MED ONCE 03/03/18 05:51 03/03/18 06:52 DC Clonidine HCl (Catapres) 0.1 mg 1X PRN PRN 02/28/18 14:45 03/01/18 14:44 DC Darbepoetin Uche (Aranesp) 60 mcg WEEKLYHS 02/26/18 21:00 02/26/18 21:43 60 MCG Dexamethasone Sodium Phosphate (Decadron) 20 mg STK-MED ONCE 03/03/18 08:13 03/03/18 08:14 DC Diphenhydramine HCl (Benadryl) 25 mg 1X PRN PRN 02/28/18 14:45 03/01/18 14:44 DC Fentanyl Citrate (Fentanyl 2ml Vial) 50 mcg PRN Q5MIN PRN 03/05/18 07:00 03/05/18 18:00 Ferrous Sulfate (Feosol) 325 mg DAILY 02/26/18 09:00 03/04/18 08:45 325 MG Heparin Sodium (Porcine) (Heparin Sodium) 10,000 unit STK-MED ONCE 03/03/18 08:49 03/03/18 08:50 DC Heparin Sodium (Porcine) 5000 unit/Sodium Chloride 505 ml @ 505 mls/hr 1X ONCE 03/03/18 06:00 03/03/18 06:59 DC 03/03/18 08:15 Hydromorphone HCl (Dilaudid) 0.5 mg PRN Q10MIN PRN 03/05/18 07:00 03/05/18 18:00 Hydroxyzine Pamoate (Vistaril) 25 mg PRN Q6HRS PRN 02/25/18 21:45 Info (PHARMACY MONITORING -- do not chart) 1 each PRN DAILY PRN 03/05/18 09:00 UNV Labetalol HCl (Normodyne Iv Push) 10 mg PRN Q1HR PRN 02/28/18 14:45 03/01/18 14:44 DC Lactobacillus Rhamnosus (Culturelle) 1 cap BID 02/27/18 21:00 03/04/18 21:11 1 CAP Lidocaine HCl (Viscous Lidocaine) 15 ml 1X ONCE 03/05/18 08:45 03/05/18 08:47 DC Lidocaine HCl (Xylocaine 1% Pf 30ml Vial) 30 ml STK-MED ONCE 03/03/18 08:07 03/03/18 08:12 DC 03/03/18 08:07 1 ML Lidocaine HCl (Xylocaine 2% Topical 5gm Tube) 2 alexandra 1X ONCE 03/05/18 08:45 03/05/18 08:47 DC Lidocaine HCl (Xylocaine-Mpf 1% 2ml Vial) 2 ml PRN 1X PRN 03/05/18 07:00 03/05/18 18:00 Lisinopril (Prinivil) 40 mg QHS 02/25/18 22:00 03/04/18 21:12 40 MG Magnesium Hydroxide (Milk Of Magnesia) 2,400 mg BID PRN 02/25/18 21:30 UNV Metoprolol Tartrate (Lopressor) 50 mg BID 02/26/18 09:00 UNV Morphine Sulfate (Morphine Sulfate) 1 mg PRN Q10MIN PRN 03/05/18 07:00 03/05/18 18:00 Ondansetron HCl (Zofran) 4 mg PRN Q6HRS PRN 03/05/18 07:00 03/05/18 18:00 Pantoprazole Sodium (Protonix) 40 mg DAILYAC 02/26/18 07:30 03/04/18 08:45 40 MG Papaverine HCl 60 mg STK-MED ONCE 03/03/18 05:53 03/03/18 06:53 DC Phenylephrine HCl (PHENYLEPHRINE in 0.9% NACL PF) 1 mg STK-MED ONCE 03/03/18 08:49 03/03/18 08:50 DC Piperacillin Sod/ Tazobactam Sod 2.25 gm/Sodium Chloride 100 ml @ 200 mls/hr 1X ONCE 02/25/18 08:45 02/25/18 09:14 DC 02/25/18 09:25 200 MLS/HR Prochlorperazine Edisylate (Compazine) 5 mg PACU PRN PRN 03/05/18 07:00 03/05/18 18:00 Propofol 40 ml @ As Directed STK-MED ONCE 03/05/18 08:17 03/05/18 08:18 DC Protamine Sulfate (Protamine) 50 mg STK-MED ONCE 03/03/18 08:49 03/03/18 08:50 DC Ringer's Solution 1,000 ml @ 30 mls/hr Q24H 03/05/18 07:00 03/05/18 18:59 Cancel Sevoflurane (Ultane) 60 ml STK-MED ONCE 03/03/18 08:13 03/03/18 08:14 DC Sodium Chloride 1,000 ml @ 400 mls/hr Q2H30M PRN 03/05/18 08:47 03/05/18 20:46 Sodium Chloride (Normal Saline Flush) 10 ml 1X PRN PRN 03/05/18 09:00 03/06/18 08:59 Vancomycin HCl (Vanco Per Pharmacy) 1 each PRN DAILY PRN 02/26/18 10:00 03/04/18 13:05 1 EACH Vancomycin HCl (Vancomycin Random Level) 1 each 1X ONCE 03/05/18 06:00 03/05/18 06:01 DC Vancomycin HCl 1.5 gm/Sodium Chloride 500 ml @ 250 mls/hr 1X ONCE 02/26/18 11:00 02/26/18 12:59 Cancel Vancomycin HCl 500 mg/Sodium Chloride 100 ml @ 100 mls/hr QTUTHSA 02/26/18 16:00 03/03/18 17:56 100 MLS/HR Vitamin B Complex/ Vitamin C (Kiara-Bennie) 1 tab DAILY 02/26/18 09:00 03/04/18 10:48 1 TAB Zolpidem Tartrate (Ambien) 5 mg HS PRN 02/25/18 21:15 03/03/18 22:45 5 MG Labs: Lab Laboratory Tests Test 03/05/18 06:10 Random Vancomycin Level < 0.8 mcg/mL Micro RUN DATE: 03/05/18 PAGE 1 RUN TIME: 1009 [facility] [address] [place] [address] Yossi Wilson M.D., [employer] Applications Development Engineer PATIENT: TEJA ROSENBAUM ACCT: [id number] LOC: [address] [place] [address] U : [id number] AGE/SX: 57/M ROOM: 563 REG : 02/25/[address]: CARRIE SIFUENTES MD : 1960 BED: 1 DIS : STATUS: ADM IN TLOC: SPEC #: [id number] ILYA: 03/03/18-1400 STATUS: COMP REQ #: [id number] RECD: 03/03/18-[address]: TATA BENTLEY MD SOURCE: BLOOD ENTR: 03/03/18-[address]: ALISSA REDMOND MD SPDESC: BILL BENTLEY MD, THOMAS W MD NAIR, VENU S MD NO PCP ORDERED: BCULT Procedure Result BLOOD CULTURE Final GRAM POSITIVE COCCI IN CLUSTERS, SUGGESTIVE OF STAPH, IN 1 OF 2 BOTTLES OF ONE SET DRAWN ON 03/03/18 CALLED TO PIPER BARRIENTOS RN ON 5S AT 10:05 ON 03/05/18 DW MT SENT TO [facility] FOR FURTHER WORKUP. 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
--- NOTE | 2018-03-05 11:06 | PDOC ---
Renal-Progress Notes Subjective Notes Notes NO NEW COMPLAINTS History of Present Illness Hx of present illness STABLE Vitals Vitals Vital Signs Date Time Temp Pulse Resp B/P (MAP) Pulse Ox O2 Delivery O2 Flow Rate FiO2 03/05/18 08:40 97.5 76 15 148/71 98 Nasal Cannula 2.0 97.5 Weight Weight [ ] I.O. Intake and Output Intake and Output 03/05/18 07:00 Intake Total 1000 ml Output Total 0 ml Balance 1000 ml Intake Oral 1000 ml Output Urine Total 0 ml # Voids 1 Labs Labs Laboratory Tests Test 03/05/18 06:10 Random Vancomycin Level < 0.8 mcg/mL Micro Micro Microbiology 03/03/18 Blood Culture - Final, Complete Review of Systems Constitutional: yes: weakness, alert, oriented Ears/Nose/Throat: Yes: no symptom reported Eyes: Yes: no symptom reported Pulmonary: Yes dyspnea Cardiovascular: Yes no symptom reported Gastrointestional: Yes: no symptom reported Genitourinary: Yes: no symptom reported Musculoskeletal: Yes: muscle stiffness Skin: Yes no symptom reported Psychiatric/Neurological: Yes: no symptom reported Endocrine: Yes: no symptom reported Physical Exam General Appearance: no apparent distress Skin: warm Respiratory: bilateral CTA Heart: S1S2 Abdomen: soft, bowel sounds present Genitourinary: bladder flat Extremities: pulses present Neurology: alert, oriented Musculoskeletal: Osteoarthritis Assessment Assessment IMP SEPSIS-MOST RECENT BX STILL POS ANEMIA HTN DM II ESRD PNEUMONIA ACUTE DIASTOLIC CHF S/P L AVF PLAN BERNA TODAY HD TODAY UF TO DW WILL NEED TO HAVE HER DIALYSIS CATHETER REMOVED HAVE D/W ID NEED TO HOLD D/C JEANE ESCOBAR MD Mar 05, 2018 11:06
--- NOTE | 2018-03-05 11:31 | CARD ---
MR#: [id number] Date of Study: 03/05/2018 Ordering Physician: TATA BENTLEY, Referring Physician: CARRIE SIFUENTES Tech: Katie Barber RDCS APPROVED REPORT EXAM: Transesophageal echocardiogram with color flow Doppler. INDICATION Infection:Rule out subacute bacterial endocarditis Reason For Test : Rule out endocarditis. PROCEDURE After obtaining informed consent, patient underwent transesophageal echo in the PACU. Type of Sedation : General Anesthesia Sedation was administered by Tj Montoya CRNA. Sedation was achieved with Propofol 170 mg intravenously. The BERNA was performed without complications. Throughout the procedure, the blood pressure, pulse oximetry, cardiac rhythm, and rate were monitored . The patient tolerated the procedure without adverse effects. Recovery from general anesthesia was une ventful and vital signs were stable. LEFT VENTRICLE There is mild to moderate concentric left ventricular hypertrophy. The left ventricular systolic func tion is normal and the ejection fraction is within normal range. The Ejection Fraction is 55-60%. The re is normal LV segmental wall motion. No left ventricle thrombus noted on this study. There is no ma ss noted in the left ventricle. RIGHT VENTRICLE The right ventricle is normal size. The right ventricular systolic function is normal. ATRIA The left atrium size is normal. There is probably a vegetation on the tip dialysis catheter measuring 0.6cm by 0.4 cm approximately. The interatrial septum is intact with no evidence for an atrial septa l defect or patent foramen ovale as noted on 2-D or Doppler imaging. There is no thrombus noted in th e left atrial appendage. AORTIC VALVE The aortic valve is calcified but opens well. Doppler and Color Flow revealed no significant aortic r egurgitation. There is no significant aortic valvular stenosis. There is no aortic valvular vegetatio n. MITRAL VALVE The mitral valve is normal in structure and function without evidence of vegetation. There is no evid ence of mitral valve prolapse. There is no mitral valve stenosis. Doppler and Color-flow revealed mil d mitral regurgitation. TRICUSPID VALVE The tricuspid valve is normal in structure and function. Doppler and Color Flow revealed trace tricus pid regurgitation. There is no tricuspid valve prolapse or vegetation. There is no tricuspid valve st enosis. PULMONIC VALVE The pulmonary valve is normal in structure and function. Doppler and Color Flow revealed no pulmonic valvular regurgitation. There is no pulmonic valvular stenosis. GREAT VESSELS The aortic root is normal in size. The ascending aorta is normal in size. The IVC is normal in size a nd collapses >50% with inspiration. Critical Notification Critical Value: No <Conclusion> There is mild to moderate concentric left ventricular hypertrophy. The left ventricular systolic function is normal and the ejection fraction is within normal range. Th e Ejection Fraction is 55-60%. There is normal LV segmental wall motion. Doppler and Color-flow revealed mild mitral regurgitation. There is probably a vegetation on the tip of the dialysis catheter measuring 0.6 cm x 0.4 cm appro ximately No other valvular lesions noted Signed by : Joey Norris, Electronically Approved : 03/05/2018 11:29:36
[2018-03-05 12:13] LABS: VANC TR 18.1 mcg/mL (10.0-20.0)
--- NOTE | 2018-03-05 14:29 | PDOC ---
PROGRESS NOTES Chief Complaint Chief Complaint Sepsis MRSA BACTEREMIA - End stage renal disease on dialysis Possible volume overload vs pneumonia, mixed Anemia of ESRD Incarcerated CAchexia BMI 17 GPC bacteremia 5 /6 bottles Indwelling HD cath, ry subclavia History of Present Illness History of Present Illness cont IV abx tried to DC yesterday , still having pos blood cultres Plan: Follow ID recs VAnc PICC maybe tmr HD per renal Vitals Vitals Vital Signs Date Time Temp Pulse Resp B/P (MAP) Pulse Ox O2 Delivery O2 Flow Rate FiO2 03/05/18 11:04 Nasal Cannula 2 03/05/18 11:04 72 16 160/74 100 03/05/18 10:49 97.9 97.9 Physical Exam General: Alert, Oriented X3, Cooperative, No acute distress Heart: Regular rate, Normal S1, Normal S2, No murmurs, Gallops Lungs: Crackles Abdomen: Normal bowel sounds, Soft, No tenderness, No hepatosplenomegaly, No masses Extremities: No clubbing, No cyanosis, No edema, Normal pulses, No tenderness/ swelling Skin: No breakdown Labs LABS Laboratory Tests Test 03/05/18 06:10 03/05/18 11:45 Random Vancomycin Level < 0.8 mcg/mL Vancomycin Level Trough 18.1 mcg/mL (10.0-20.0) Vancomycin Last Dose Date 03/03/18 Vancomycin Last Dose Time 1600 Assessment and Plan Assessmemt and Plan Problems Medical Problems: (1) End stage renal disease on dialysis Status: Acute (2) Sepsis Status: Acute Comment Review of Relevant I have reviewed the following items mirian (where applicable) has been applied. Labs Laboratory Tests Test 03/05/18 06:10 03/05/18 11:45 Random Vancomycin Level < 0.8 mcg/mL Vancomycin Level Trough 18.1 mcg/mL (10.0-20.0) Vancomycin Last Dose Date 03/03/18 Vancomycin Last Dose Time 1600 Laboratory Tests Test 03/05/18 06:10 03/05/18 11:45 Random Vancomycin Level < 0.8 mcg/mL Vancomycin Level Trough 18.1 mcg/mL (10.0-20.0) Vancomycin Last Dose Date 03/03/18 Vancomycin Last Dose Time 1600 Microbiology 03/03/18 Blood Culture - Final, Complete Medications Current Medications Piperacillin Sod/ Tazobactam Sod 2.25 gm/Sodium Chloride 100 ml @ 200 mls/hr 1X ONCE IV Last administered on 02/25/18at 09:25; Start 02/25/18 at 08:45; Stop 02/25/18 at 09:14; Status DC Vancomycin HCl (Vanco Per Pharmacy) 1 each 1X ONCE MC Last administered on 06/02at 08:30; Start 02/25/18 at 08:30; Stop 02/25/18 at 08:56; Status DC Fentanyl Citrate (Fentanyl 2ml Vial) 50 mcg PRN Q15MIN PRN IV PAIN GREATER THAN 3/10 Last administered on 02/25/18at 09:25; Start 02/25/18 at 08:30; Stop at 08:29; Status DC Acetaminophen (Tylenol) 1,000 mg 1X ONCE PO Last administered on 02/25/18at 09: 25; Start 02/25/18 at 09:00; Stop 02/25/18 at 09:01; Status DC Vancomycin HCl 1.5 gm/Sodium Chloride 500 ml @ 250 mls/hr 1X ONCE IV Last administered on 02/25/18at 11:07; Start 02/25/18 at 09:00; Stop 02/25/18 at 10:59 ; Status DC Sodium Chloride 500 ml @ 500 mls/hr 1X ONCE IV Last administered on at 09:47; Start 02/25/18 at 09:30; Stop 02/25/18 at 10:29; Status DC Ondansetron HCl (Zofran) 4 mg PRN Q8HRS PRN IV NAUSEA/VOMITING; Start 02/25/18 at 11:15; Stop 02/26/18 at 09:06; Status DC Fentanyl Citrate (Fentanyl 2ml Vial) 50 mcg PRN Q2HR PRN IV PAIN Last administered on 02/26/18at 03:50; Start 02/25/18 at 11:15; Stop 02/26/18 at 11:14 ; Status DC Acetaminophen (Tylenol) 650 mg PRN Q4HRS PRN PO FEVER Last administered on 02/26at 03:50; Start 02/25/18 at 11:15; Stop 02/26/18 at 09:13; Status DC Sodium Chloride 1,000 ml @ 1,000 mls/hr Q1H PRN IV hypotension; Start 02/25/18 at 16:33; Stop 02/25/18 at 22:32; Status DC Sodium Chloride (Normal Saline Flush) 10 ml 1X PRN PRN IV AP catheter pack; Start 02/25/18 at 16:45; Stop 02/26/18 at 16:44; Status DC Sodium Chloride (Normal Saline Flush) 10 ml 1X PRN PRN IV TRIALS MANAGER catheter pack; Start 02/25/18 at 16:45; Stop 02/26/18 at 16:44; Status DC Sodium Chloride 1,000 ml @ 400 mls/hr Q2H30M PRN IV PATENCY; Start 02/25/18 at 16:33; Stop 02/26/18 at 04:32; Status DC Info (PHARMACY MONITORING -- do not chart) 1 each PRN DAILY PRN MC SEE COMMENTS ; Start 02/25/18 at 16:45; Status UNV Info (PHARMACY MONITORING -- do not chart) 1 each PRN DAILY PRN MC SEE COMMENTS ; Start 02/25/18 at 16:45; Stop 02/28/18 at 13:49; Status DC Zolpidem Tartrate (Ambien) 5 mg HS PRN PO INSOMNIA, MAY REPEAT X1 Last administered on 03/03/18at 22:45; Start 02/25/18 at 21:15 Acetaminophen (Tylenol) 325 mg PRN Q8HRS PRN PO MILD PAIN; Start 02/25/18 at 21 :30; Stop 02/26/18 at 09:06; Status DC Amlodipine Besylate (Norvasc) 10 mg QHS PO Last administered on 03/04/18at 21:11 ; Start 02/26/18 at 21:00 Ferrous Sulfate (Feosol) 325 mg DAILY PO Last administered on 03/04/18at 08:45; Start 02/26/18 at 09:00 Vitamin B Complex/ Vitamin C (Kiara-Bennie) 1 tab DAILY PO Last administered on at 10:48; Start 02/26/18 at 09:00 Albuterol Sulfate (Ventolin Neb Soln) 2.5 mg PRN Q4HRS PRN NEB SHORTNESS OF BREATH Last administered on 03/05/18at 01:39; Start 02/25/18 at 21:45 Lisinopril (Prinivil) 40 mg QHS PO Last administered on 03/04/18at 21:12; Start 02/25/18 at 22:00 Magnesium Hydroxide (Milk Of Magnesia) 2,400 mg BID PRN PO CONSTIPATION; Start 02/25/18 at 21:30; Status UNV Metoprolol Tartrate (Lopressor) 50 mg BID PO ; Start 02/26/18 at 09:00; Status UNV Metoprolol Tartrate (Lopressor) 50 mg BID PO ; Start 02/26/18 at 09:00; Status UNV Calcitriol (Rocaltrol) 0.25 mcg QTUTHSA PO Last administered on 03/03/18at 17:56 ; Start 02/26/18 at 16:00 Calcium Acetate (Phoslo) 667 mg TIDWMEALS PO Last administered on 03/04/18at 17: 07; Start 02/26/18 at 08:00 Hydroxyzine Pamoate (Vistaril) 25 mg PRN Q6HRS PRN PO ITCHING; Start 02/25/18 at 21:45 Pantoprazole Sodium (Protonix) 40 mg DAILYAC PO Last administered on 03/04/18at 08:45; Start 02/26/18 at 07:30 Acetaminophen (Tylenol) 650 mg PRN Q8HRS PRN PO MILD PAIN; Start 02/26/18 at 09 :15 Ondansetron HCl (Zofran) 4 mg PRN Q6HRS PRN IV NAUSEA/VOMITING; Start 02/26/18 at 09:15 Clonidine HCl (Catapres) 0.1 mg PRN Q1HR PRN PO HYPERTENSION, SEE COMMENTS; Start 02/26/18 at 09:15 Fentanyl Citrate (Fentanyl 2ml Vial) 50 mcg PRN Q2HR PRN IV SEVERE PAIN Last administered on 03/03/18at 20:58; Start 02/26/18 at 09:15 Acetaminophen/ Hydrocodone Bitart (Lortab 5/325) 1 tab PRN Q4HRS PRN PO MODERATE-SEVERE PAIN Last administered on 03/05/18at 03:30; Start 02/26/18 at 09: 15 Calcitriol (Rocaltrol) 0.25 mcg MoWeFr PO ; Start 02/27/18 at 09:00; Status Cancel Vancomycin HCl (Vanco Per Pharmacy) 1 each PRN DAILY PRN MC SEE COMMENTS Last administered on 03/04/18at 13:05; Start 02/26/18 at 10:00 Vancomycin HCl 1.5 gm/Sodium Chloride 500 ml @ 250 mls/hr 1X ONCE IV ; Start 02/26/18 at 11:00; Stop 02/26/18 at 12:59; Status Cancel Sodium Chloride 1,000 ml @ 1,000 mls/hr Q1H PRN IV hypotension; Start 02/26/18 at 10:12; Stop 02/26/18 at 16:11; Status DC Diphenhydramine HCl (Benadryl) 25 mg 1X PRN PRN IV ITCHING; Start 02/26/18 at 10:15; Stop 02/27/18 at 10:14; Status DC Diphenhydramine HCl (Benadryl) 25 mg 1X PRN PRN IV ITCHING; Start 02/26/18 at 10:15; Stop 02/27/18 at 10:14; Status DC Sodium Chloride 1,000 ml @ 400 mls/hr Q2H30M PRN IV PATENCY; Start 02/26/18 at 10:12; Stop 02/26/18 at 22:11; Status DC Info (PHARMACY MONITORING -- do not chart) 1 each PRN DAILY PRN MC SEE COMMENTS ; Start 02/26/18 at 10:15; Stop 02/28/18 at 14:47; Status DC Darbepoetin Uche (Aranesp) 60 mcg WEEKLYHS SQ Last administered on 02/26/18at 21 :43; Start 02/26/18 at 21:00 Alprazolam (Xanax) 0.25 mg PRN Q8HRS PRN PO ANXIETY / AGITATION Last administered on 03/05/18at 03:36; Start 02/26/18 at 14:15 Vancomycin HCl 500 mg/Sodium Chloride 100 ml @ 100 mls/hr QTUTHSA IV Last administered on 03/03/18at 17:56; Start 02/26/18 at 16:00 Lactobacillus Rhamnosus (Culturelle) 1 cap BID PO Last administered on at 21:11; Start 02/27/18 at 21:00 Sodium Chloride 1,000 ml @ 1,000 mls/hr Q1H PRN IV hypotension; Start 02/28/18 at 14:39; Stop 02/28/18 at 20:38; Status DC Albumin Human 200 ml @ 200 mls/hr 1X PRN PRN IV Hypotension; Start 02/28/18 at 14:45; Stop 02/28/18 at 20:44; Status DC Acetaminophen (Tylenol) 500 mg 1X PRN PRN PO MILD PAIN / TEMP; Start 02/28/18 at 14:45; Stop 03/01/18 at 14:44; Status DC Diphenhydramine HCl (Benadryl) 25 mg 1X PRN PRN IV ITCHING; Start 02/28/18 at 14:45; Stop 03/01/18 at 14:44; Status DC Diphenhydramine HCl (Benadryl) 25 mg 1X PRN PRN IV ITCHING; Start 02/28/18 at 14:45; Stop 03/01/18 at 14:44; Status DC Labetalol HCl (Normodyne Iv Push) 10 mg PRN Q1HR PRN IVP SBP > 180; Start 02/28 at 14:45; Stop 03/01/18 at 14:44; Status DC Clonidine HCl (Catapres) 0.1 mg 1X PRN PRN PO SBP > 180; Start 02/28/18 at 14: 45; Stop 03/01/18 at 14:44; Status DC Sodium Chloride 1,000 ml @ 400 mls/hr Q2H30M PRN IV PATENCY; Start 02/28/18 at 14:39; Stop 03/01/18 at 02:38; Status DC Info (PHARMACY MONITORING -- do not chart) 1 each PRN DAILY PRN MC SEE COMMENTS ; Start 02/28/18 at 14:45 Heparin Sodium (Porcine) 5000 unit/Sodium Chloride 505 ml @ 505 mls/hr 1X ONCE IRR Last administered on 03/03/18at 08:15; Start 03/03/18 at 06:00; Stop at 06:59; Status DC Cefazolin Sodium 1 gm/Sodium Chloride 500 ml @ 500 mls/hr 1X ONCE IRR Last administered on 03/03/18at 08:15; Start 03/03/18 at 06:00; Stop 03/03/18 at 06:59 ; Status DC Ondansetron HCl (Zofran) 4 mg PRN Q6HRS PRN IV NAUSEA/VOMITING; Start 03/03/18 at 07:00; Stop 03/03/18 at 21:00; Status DC Fentanyl Citrate (Fentanyl 2ml Vial) 25 mcg PRN Q5MIN PRN IV MILD PAIN; Start 03/03/18 at 07:00; Stop 03/03/18 at 21:00; Status DC Fentanyl Citrate (Fentanyl 2ml Vial) 50 mcg PRN Q5MIN PRN IV MODERATE TO SEVERE PAIN Last administered on 03/03/18at 09:41; Start 03/03/18 at 07:00; Stop 03/03/18 at 21:00; Status DC Morphine Sulfate (Morphine Sulfate) 1 mg PRN Q10MIN PRN IV SEVERE PAIN; Start 03/03/18 at 07:00; Stop 03/03/18 at 21:00; Status DC Ringer's Solution 1,000 ml @ 30 mls/hr Q24H IV Last administered on 03/03/18at 07:00; Start 03/03/18 at 07:00; Stop 03/03/18 at 18:59; Status DC Lidocaine HCl (Xylocaine-Mpf 1% 2ml Vial) 2 ml PRN 1X PRN ID IV START; Start at 07:00; Stop 03/03/18 at 21:00; Status DC Hydromorphone HCl (Dilaudid) 0.5 mg PRN Q10MIN PRN IV SEV PAIN, Second choice; Start 03/03/18 at 07:00; Stop 03/03/18 at 21:00; Status DC Prochlorperazine Edisylate (Compazine) 5 mg PACU PRN PRN IV NAUSEA, MRX1; Start 03/03/18 at 07:00; Stop 03/03/18 at 21:00; Status DC Cellulose (Surgicel Hemostat 2x3) 1 each STK-MED ONCE .ROUTE ; Start 03/03/18 at 05:51; Stop 03/03/18 at 06:52; Status DC Cellulose (Surgicel Fibrillar 1x2) 1 each STK-MED ONCE .ROUTE Last administered on 03/03/18at 08:47; Start 03/03/18 at 05:52; Stop 03/03/18 at 06:52 ; Status DC Papaverine HCl 60 mg STK-MED ONCE .ROUTE ; Start 03/03/18 at 05:53; Stop at 06:53; Status DC Cefazolin Sodium/ Dextrose 50 ml @ As Directed STK-MED ONCE IV ; Start 03/03/18 at 06:56; Stop 03/03/18 at 06:57; Status DC Cefazolin Sodium/ Dextrose 50 ml @ 100 mls/hr 1X PREOP PRN IV Pre Op Dose Last administered on 03/03/18at 07:53; Start 03/03/18 at 06:00; Stop 03/04/18 at 05:59; Status DC Fentanyl Citrate (Fentanyl 2ml Vial) 100 mcg STK-MED ONCE .ROUTE ; Start at 07:21; Stop 03/03/18 at 07:22; Status DC Lidocaine HCl (Xylocaine 1% Pf 30ml Vial) 30 ml STK-MED ONCE INJ Last administered on 03/03/18at 08:07; Start 03/03/18 at 08:07; Stop 03/03/18 at 08:12 ; Status DC Propofol 20 ml @ As Directed STK-MED ONCE IV ; Start 03/03/18 at 08:12; Stop at 08:14; Status DC Propofol 20 ml @ As Directed STK-MED ONCE IV ; Start 03/03/18 at 08:12; Stop at 08:14; Status DC Dexamethasone Sodium Phosphate (Decadron) 20 mg STK-MED ONCE .ROUTE ; Start at 08:13; Stop 03/03/18 at 08:14; Status DC Ondansetron HCl (Zofran) 4 mg STK-MED ONCE .ROUTE ; Start 03/03/18 at 08:13; Stop 03/03/18 at 08:14; Status DC Sevoflurane (Ultane) 60 ml STK-MED ONCE IH ; Start 03/03/18 at 08:13; Stop 03/03 at 08:14; Status DC Phenylephrine HCl (PHENYLEPHRINE in 0.9% NACL PF) 1 mg STK-MED ONCE IV ; Start 03/03/18 at 08:17; Stop 03/03/18 at 08:18; Status DC Heparin Sodium (Porcine) (Heparin Sodium) 10,000 unit STK-MED ONCE .ROUTE ; Start 03/03/18 at 08:49; Stop 03/03/18 at 08:50; Status DC Protamine Sulfate (Protamine) 50 mg STK-MED ONCE IV ; Start 03/03/18 at 08:49; Stop 03/03/18 at 08:50; Status DC Phenylephrine HCl (PHENYLEPHRINE in 0.9% NACL PF) 1 mg STK-MED ONCE IV ; Start 03/03/18 at 08:49; Stop 03/03/18 at 08:50; Status DC Sodium Chloride 1,000 ml @ 1,000 mls/hr Q1H PRN IV hypotension; Start 03/03/18 at 10:19; Stop 03/03/18 at 16:18; Status DC Sodium Chloride 1,000 ml @ 400 mls/hr Q2H30M PRN IV PATENCY; Start 03/03/18 at 10:19; Stop 03/03/18 at 22:18; Status DC Info (PHARMACY MONITORING -- do not chart) 1 each PRN DAILY PRN MC SEE COMMENTS ; Start 03/03/18 at 10:30; Status UNV Info (PHARMACY MONITORING -- do not chart) 1 each PRN DAILY PRN MC SEE COMMENTS ; Start 03/03/18 at 10:30; Status UNV Vancomycin HCl (Vancomycin Random Level) 1 each 1X ONCE MC ; Start 03/05/18 at 06:00; Stop 03/05/18 at 06:01; Status DC Ondansetron HCl (Zofran) 4 mg PRN Q6HRS PRN IV NAUSEA/VOMITING; Start 03/05/18 at 07:00; Stop 03/05/18 at 18:00 Fentanyl Citrate (Fentanyl 2ml Vial) 25 mcg PRN Q5MIN PRN IV MILD PAIN; Start 03/05/18 at 07:00; Stop 03/05/18 at 18:00 Fentanyl Citrate (Fentanyl 2ml Vial) 50 mcg PRN Q5MIN PRN IV MODERATE TO SEVERE PAIN; Start 03/05/18 at 07:00; Stop 03/05/18 at 18:00 Morphine Sulfate (Morphine Sulfate) 1 mg PRN Q10MIN PRN IV SEVERE PAIN; Start 03/05/18 at 07:00; Stop 03/05/18 at 18:00 Ringer's Solution 1,000 ml @ 30 mls/hr Q24H IV ; Start 03/05/18 at 07:00; Stop 03/05/18 at 18:59; Status Cancel Lidocaine HCl (Xylocaine-Mpf 1% 2ml Vial) 2 ml PRN 1X PRN ID IV START; Start at 07:00; Stop 03/05/18 at 18:00 Hydromorphone HCl (Dilaudid) 0.5 mg PRN Q10MIN PRN IV SEV PAIN, Second choice; Start 03/05/18 at 07:00; Stop 03/05/18 at 18:00 Prochlorperazine Edisylate (Compazine) 5 mg PACU PRN PRN IV NAUSEA, MRX1; Start 03/05/18 at 07:00; Stop 03/05/18 at 18:00 Sodium Chloride 1,000 ml @ 0 mls/hr Q0M IV Last administered on 03/05/18at 08: 43; Start 03/05/18 at 07:00 Propofol 20 ml @ As Directed STK-MED ONCE IV ; Start 03/05/18 at 08:17; Stop at 08:18; Status DC Benzocaine (Hurricaine One) 1 spray STK-MED ONCE .ROUTE ; Start 03/05/18 at 08: 30; Stop 03/05/18 at 08:31; Status DC Lidocaine HCl (Xylocaine 2% Topical 5gm Tube) 5 alexandra STK-MED ONCE TP ; Start at 08:30; Stop 03/05/18 at 08:31; Status DC Lidocaine HCl (Viscous Lidocaine) 15 ml STK-MED ONCE .ROUTE ; Start 03/05/18 at 08:30; Stop 03/05/18 at 08:32; Status DC Benzocaine (Hurricaine One) 3 spray 1X ONCE MM Last administered on 03/05/18at 08:45; Start 03/05/18 at 08:45; Stop 03/05/18 at 08:47; Status DC Lidocaine HCl (Viscous Lidocaine) 15 ml 1X ONCE SWSW Last administered on 03/05at 08:45; Start 03/05/18 at 08:45; Stop 03/05/18 at 08:47; Status DC Lidocaine HCl (Xylocaine 2% Topical 5gm Tube) 2 alexandra 1X ONCE TP Last administered on 03/05/18at 08:45; Start 03/05/18 at 08:45; Stop 03/05/18 at 08:47 ; Status DC Sodium Chloride 1,000 ml @ 1,000 mls/hr Q1H PRN IV hypotension; Start 03/05/18 at 08:47; Stop 03/05/18 at 14:46 Sodium Chloride (Normal Saline Flush) 10 ml 1X PRN PRN IV AP catheter pack; Start 03/05/18 at 09:00; Stop 03/06/18 at 08:59 Sodium Chloride (Normal Saline Flush) 10 ml 1X PRN PRN IV TRIALS MANAGER catheter pack; Start 03/05/18 at 09:00; Stop 03/06/18 at 08:59 Sodium Chloride 1,000 ml @ 400 mls/hr Q2H30M PRN IV PATENCY; Start 03/05/18 at 08:47; Stop 03/05/18 at 20:46 Info (PHARMACY MONITORING -- do not chart) 1 each PRN DAILY PRN MC SEE COMMENTS ; Start 03/05/18 at 09:00; Status UNV Info (PHARMACY MONITORING -- do not chart) 1 each PRN DAILY PRN MC SEE COMMENTS ; Start 03/05/18 at 09:00; Status UNV Linezolid (Zyvox) 600 mg BID PO ; Start 03/05/18 at 21:00 Active Scripts Active Colace (Docusate Sodium) 100 Mg Capsule 1 Cap PO BID PRN [Darbepoetin Uche In Polysorbat] 60 MCG/0.3 ML Disp.syrin 60 Mcg SQ WEEKLYHS Vancomycin Hcl 1 Gm Vial 1 Each MC PRN DAILY PRN 14 Days 500mg IV after each dialysis 2 weeks Metoprolol Tartrate 50 Mg Tablet 50 Mg PO BID 60 Days Reported Tylenol (Acetaminophen) 325 Mg Tablet 1-2 Tab PO QID PRN Milk Of Magnesia (Magnesium Hydroxide) 400 Mg/5 Ml Oral.susp 30 Ml PO BID PRN Duoneb 0.5-3(2.5) Mg/3 Ml (Albuterol/Ipratropium) 3 Ml Ampul.neb 3 Ml NEB Q4HRS PRN Hydroxyzine Hcl 25 Mg Tablet 1 Tab PO Q6HRS PRN Calcium Acetate 667 Mg Tablet 667 Mg PO TIDWMEALS Calcitriol 0.25 Mcg Capsule 1 Cap PO QTUTHSA Protonix (Pantoprazole Sodium) 20 Mg Tablet.dr 40 Mg PO DAILY Nephro-Bennie Tablet (Folic Acid/Vitamin B Comp W-C) 0.8 Mg Tablet 1 Tab PO DAILY Metoprolol Tartrate 50 Mg Tablet 1 Tab PO BID Lisinopril 40 Mg Tablet 1 Tab PO QHS Ferrous Sulfate 325 Mg Tablet 1 Tab PO DAILY Calcitriol 0.25 Mcg Capsule 1 Cap PO M/W/ Amlodipine Besylate 10 Mg Tablet 10 Mg PO QHS Acetaminophen 325 Mg Tablet 325 Mg PO PRN Q8HRS Vitals/I & O Vital Sign - Last 24 Hours 03/04/18 03/04/18 03/04/18 03/04/18 15:00 15:27 17:08 19:00 Temp 98.0 98.1 98.0 98.1 Pulse 75 75 Resp 16 18 B/P (MAP) 156/77 (103) 163/79 (107) Pulse Ox 99 98 O2 Delivery Room Air Nasal Cannula Nasal Cannula Room Air O2 Flow Rate 2.0 2.0 03/04/18 03/04/18 03/04/18 03/04/18 20:00 21:11 21:12 23:00 Temp 98.6 98.6 Pulse 75 75 78 Resp 18 B/P (MAP) 163/79 163/79 158/79 (105) Pulse Ox 100 O2 Delivery Nasal Cannula Room Air O2 Flow Rate 2.0 03/05/18 03/05/18 03/05/18 03/05/18 01:40 03:00 07:00 08:00 Temp 98.7 98.0 98.7 98.0 Pulse 85 85 Resp 18 18 B/P (MAP) 160/79 (106) 162/81 (108) Pulse Ox 98 99 97 O2 Delivery Nasal Cannula Nasal Cannula Nasal Cannula Nasal Cannula O2 Flow Rate 2.0 2.0 2.0 2.0 03/05/18 03/05/18 03/05/18 03/05/18 08:40 10:49 11:04 11:04 Temp 97.5 97.9 97.5 97.9 Pulse 76 84 72 Resp 15 16 16 B/P (MAP) 148/71 154/71 160/74 Pulse Ox 98 100 100 O2 Delivery Nasal Cannula Simple Mask Nasal Cannula Nasal Cannula O2 Flow Rate 2.0 10 2 Intake and Output 03/04/18 03/04/18 03/05/18 15:00 23:00 07:00 Intake Total 600 ml 400 ml Output Total 0 ml Balance 600 ml 400 ml Nutrition Consultation Dietary Evaluation: Recommendations by RD: Increase Calorie Intake, Protein supplementation Comments: continue nepro tid Expected Outcomes/Goals: to meet > 75% est nutr needs- met, goal ongoing Interpretation of weight loss: >5% in 1 month Malnutrition Findings: Weight Status: Underweight AMAN COWAN MD Mar 05, 2018 14:29
[2018-03-05 15:00] VITALS: BP 156/83
[2018-03-05] MEDS ORDERED: HEPARIN for IV BOLUS 10,000 UNIT/10 ML VIAL. ONE (15:19)
[2018-03-05] MEDS ORDERED: LIDOCAINE WITH 8.4% SOD BICARB 3 ML DISP.SYRIN. ONE ×2 (15:19→16:03)
[2018-03-05] MEDS ORDERED: LIDOCAINE WITH 8.4% SOD BICARB 3 ML DISP.SYRIN. IJ ONE (15:30)
[2018-03-05] MEDS: VANCOMYCIN PER PHARMACY MC PRN (15:37)
--- NOTE | 2018-03-05 16:21 | PDOC ---
BRIEF OPERATIVE NOTE Pre-Op Diagnosis Chronic Renal Failure Post-Op Diagnosis same Procedure Performed left IJ temp HD Catheter, right Tunnelled HD Catheter removal Surgeon Vianney Anesthesia Type: Local Findings 24cm left IJ Edu Temp HD with excellent manual flows, suitable for use. Complications No immediate BUNNY CAMACHO MD Mar 05, 2018 16:21
--- NOTE | 2018-03-05 16:28 | RAD ---
Procedure: Ultrasound and fluoroscopic guided placement of a left IJ temporary hemodialysis catheter, and removal of the right IJ tunneled hemodialysis catheter Clinical Indication: 57-year-old male requiring long-term hemodialysis, with suspected catheter infection Sedation: Local anesthesia only Antibiotics: Patient is on systemic antibiotics Exposure: Kerma-Area Product: Gycm2 OR Fluoro Time: 0.1 minutes Images: 1 Contrast: None Sterility: All elements of maximal sterile barrier technique including the use of a cap, mask, sterile gown, sterile gloves, large sterile sheet, appropriate hand hygiene, and 2% chlorhexidine for cutaneous antisepsis (or acceptable alternative antiseptic per current guidelines) were followed for this procedure. Consent: The procedure was explained in its entirety to the patient or the patients designated manufacturer representative by a member of the treatment team, including a discussion of the risks, benefits and commonly accepted alternatives to the procedure, as well as the expected consequences of no therapy whatsoever. Discussion of the risks included, but was not limited to, those that are most frequent and those that are rare but possibly severe or life-threatening, as well as the possibility of unforeseen complications. Technique and Findings: Following informed consent, the patient was prepped and draped in usual sterile fashion. Fluoroscopy over the anterior chest revealed an intact right IJ tunnel hemodialysis catheter. Ultrasound over the left neck revealed patency and compressibility of the left internal jugular vein. A Hardcopy ultrasound image was recorded. As a 21-gauge micropuncture needle was used to gain access to this vein. The needle was exchanged over wire for serial dilators followed by a 24 cm Schon temporary hemodialysis catheter which was positioned under fluoroscopy with the distal tip in the proximal right atrium. Manual flow rates were assessed and found to be excellent. The catheter was then flushed, packed with heparin, capped, and sutured to the skin. Attention was then turned to the right IJ tunneled hemodialysis catheter. The exit site was copiously anesthetized with 1% lidocaine plus epinephrine, and blunt dissection techniques were used to free the cuff. The catheter was then removed and one piece and hemostasis was achieved with manual compression. The tunnel was irrigated was sterile saline and left to heal by secondary intention. Complications: No immediate Impression: 1. Ultrasound and fluoroscopic guided placement of a left IJ temporary hemodialysis catheter as described. This catheter exhibits excellent manual flow rates and is suitable for use. 2. Fluoroscopic guided removal of a tunneled right IJ hemodialysis catheter as described. Tip was sent for microbiologic analysis.
[2018-03-05] MEDS: CALCITRIOL 0.25 MCG CAPSULE. PO SCH (17:01)
[2018-03-05] MEDS: VANCOMYCIN 500 MG in IV NORMAL SALINE 100ML 100 ML IV SCH (17:01)
[2018-03-05 19:00] VITALS: BP 144/78
[2018-03-05] MEDS: DARBEPOETIN ALFA 60 MCG/0.3 ML DISP.SYRIN. SQ SCH (21:09)
[2018-03-05] MEDS: LINEZOLID 600 MG TABLET PO SCH (21:10)
[2018-03-05] MEDS: amLODIPine BESYLATE 10 MG TABLET PO SCH (21:10)
[2018-03-05] MEDS: LISINOPRIL 20 MG TABLET PO SCH (21:10)
[2018-03-05] MEDS: fentaNYL PF VIAL 100 MCG/2 ML VIAL IV PRN (22:29)
[2018-03-05 23:00] VITALS: BP 178/65
[2018-03-05] MEDS: ZOLPIDEM 5 MG TABLET. PO PRN (23:06)
[2018-03-06 03:00] VITALS: BP 151/69
[2018-03-06] MEDS: fentaNYL PF VIAL 100 MCG/2 ML VIAL IV PRN ×2 (03:24→11:24)
[2018-03-06 07:00] VITALS: BP 181/79
[2018-03-06] MEDS: LACTOBACILLUS RHAMNOSUS GG 1 CAPSULE. PO SCH ×2 (08:11→21:00)
[2018-03-06] MEDS: FERROUS SULFATE 325 MG TABLET. PO SCH (08:11)
[2018-03-06] MEDS: LINEZOLID 600 MG TABLET PO SCH ×2 (08:11→21:00)
[2018-03-06] MEDS: PANTOPRAZOLE 40 MG TABLET.DR. PO SCH (08:11)
[2018-03-06] MEDS: FOLIC/VIT B COMP W-C (RENAL) TABLET. PO SCH (08:11)
[2018-03-06] MEDS: CALCIUM ACETATE 667 MG CAPSULE PO SCH ×3 (08:11→16:17)
[2018-03-06] MEDS: HYDROcodone/APAP 5/325MG 1 TAB TABLET PO PRN ×3 (08:12→21:02)
[2018-03-06 11:00] VITALS: BP 154/75
--- NOTE | 2018-03-06 13:07 | PDOC ---
Infectious Disease Note Subjective: Subjective pt without complaints had HD removed on 03/05 had av fistula by vascular on lue 03/03 denies any complaints ROS: ROS Negative except for above. Vital Signs: Vital Signs Vital Signs Date Time Temp Pulse Resp B/P (MAP) Pulse Ox O2 Delivery O2 Flow Rate FiO2 03/06/18 12:11 Nasal Cannula 3.0 03/06/18 11:00 97.8 79 18 154/75 (101) 100 97.8 Physical Exam: PHYSICAL EXAM GENERAL: Lying down, watching TV LUNGS: Clear. HEART: S1, S2 regular. ABDOMEN: Soft, NT EXTREMITIES: No edema, cyanosis. SKIN: warm without rash ,has some skin lesions ,superficial scratch unger, no signs of secondary infection QUANTITATIVE CONSULTANT: Alert and oriented x 3 Medications: Inpatient Meds: Current Medications Medications (Trade) Dose Ordered Sig/Lissette Start Time Stop Time Status Last Admin Dose Admin Acetaminophen (Tylenol) 500 mg 1X PRN PRN 02/28/18 14:45 03/01/18 14:44 DC Acetaminophen/ Hydrocodone Bitart (Lortab 5/325) 1 tab PRN Q4HRS PRN 02/26/18 09:15 03/06/18 08:12 1 TAB Albumin Human 200 ml @ 200 mls/hr 1X PRN PRN 02/28/18 14:45 02/28/18 20:44 DC Albuterol Sulfate (Ventolin Neb Soln) 2.5 mg PRN Q4HRS PRN 02/25/18 21:45 03/05/18 01:39 2.5 MG Alprazolam (Xanax) 0.25 mg PRN Q8HRS PRN 02/26/18 14:15 03/05/18 17:02 0.25 MG Amlodipine Besylate (Norvasc) 10 mg QHS 02/26/18 21:00 03/05/18 21:10 10 MG Benzocaine (Hurricaine One) 3 spray 1X ONCE 03/05/18 08:45 03/05/18 08:47 DC 03/05/18 08:45 3 SPRAY Calcitriol (Rocaltrol) 0.25 mcg MoWeFr 02/27/18 09:00 Cancel Calcium Acetate (Phoslo) 667 mg TIDWMEALS 02/26/18 08:00 03/06/18 11:23 667 MG Cefazolin Sodium 1 gm/Sodium Chloride 500 ml @ 500 mls/hr 1X ONCE 03/03/18 06:00 03/03/18 06:59 DC 03/03/18 08:15 Cefazolin Sodium/ Dextrose 50 ml @ 100 mls/hr 1X PREOP PRN 03/03/18 06:00 03/04/18 05:59 DC 03/03/18 07:53 100 MLS/HR Cellulose (Surgicel Fibrillar 1x2) 1 each STK-MED ONCE 03/03/18 05:52 03/03/18 06:52 DC 03/03/18 08:47 1 EACH Cellulose (Surgicel Hemostat 2x3) 1 each STK-MED ONCE 03/03/18 05:51 03/03/18 06:52 DC Clonidine HCl (Catapres) 0.1 mg 1X PRN PRN 02/28/18 14:45 03/01/18 14:44 DC Darbepoetin Uche (Aranesp) 60 mcg WEEKLYHS 02/26/18 21:00 03/05/18 21:09 60 MCG Dexamethasone Sodium Phosphate (Decadron) 20 mg STK-MED ONCE 03/03/18 08:13 03/03/18 08:14 DC Diphenhydramine HCl (Benadryl) 25 mg 1X PRN PRN 02/28/18 14:45 03/01/18 14:44 DC Fentanyl Citrate (Fentanyl 2ml Vial) 50 mcg PRN Q5MIN PRN 03/05/18 07:00 03/05/18 18:00 DC Ferrous Sulfate (Feosol) 325 mg DAILY 02/26/18 09:00 03/06/18 08:11 325 MG Heparin Sodium (Porcine) (Heparin Sodium) 2,600 unit 1X ONCE 03/05/18 15:30 03/05/18 15:31 DC 03/05/18 16:16 2,800 UNIT Heparin Sodium (Porcine) 5000 unit/Sodium Chloride 505 ml @ 505 mls/hr 1X ONCE 03/03/18 06:00 03/03/18 06:59 DC 03/03/18 08:15 Hydromorphone HCl (Dilaudid) 0.5 mg PRN Q10MIN PRN 03/05/18 07:00 03/05/18 18:00 DC Hydroxyzine Pamoate (Vistaril) 25 mg PRN Q6HRS PRN 02/25/18 21:45 Info (PHARMACY MONITORING -- do not chart) 1 each PRN DAILY PRN 03/05/18 09:00 UNV Labetalol HCl (Normodyne Iv Push) 10 mg PRN Q1HR PRN 02/28/18 14:45 03/01/18 14:44 DC Lactobacillus Rhamnosus (Culturelle) 1 cap BID 02/27/18 21:00 03/06/18 08:11 1 CAP Lidocaine HCl (Viscous Lidocaine) 15 ml 1X ONCE 03/05/18 08:45 03/05/18 08:47 DC 03/05/18 08:45 15 ML Lidocaine HCl (Xylocaine 1% Pf 30ml Vial) 30 ml STK-MED ONCE 03/03/18 08:07 03/03/18 08:12 DC 03/03/18 08:07 1 ML Lidocaine HCl (Xylocaine 2% Topical 5gm Tube) 2 alexandra 1X ONCE 03/05/18 08:45 03/05/18 08:47 DC 03/05/18 08:45 2 ALEXANDRA Lidocaine HCl (Xylocaine-Mpf 1% 2ml Vial) 2 ml PRN 1X PRN 03/05/18 07:00 03/05/18 18:00 DC Lidocaine/Sodium Bicarbonate (Buffered Lidocaine 1%) 3 ml STK-MED ONCE 03/05/18 16:03 03/05/18 16:04 DC Linezolid (Zyvox) 600 mg BID 03/05/18 21:00 03/06/18 08:11 600 MG Lisinopril (Prinivil) 40 mg QHS 02/25/18 22:00 03/05/18 21:10 40 MG Magnesium Hydroxide (Milk Of Magnesia) 2,400 mg BID PRN 02/25/18 21:30 UNV Metoprolol Tartrate (Lopressor) 50 mg BID 02/26/18 09:00 UNV Morphine Sulfate (Morphine Sulfate) 1 mg PRN Q10MIN PRN 03/05/18 07:00 03/05/18 18:00 DC Ondansetron HCl (Zofran) 4 mg PRN Q6HRS PRN 03/05/18 07:00 03/05/18 18:00 DC Pantoprazole Sodium (Protonix) 40 mg DAILYAC 02/26/18 07:30 03/06/18 08:11 40 MG Papaverine HCl 60 mg STK-MED ONCE 03/03/18 05:53 03/03/18 06:53 DC Phenylephrine HCl (PHENYLEPHRINE in 0.9% NACL PF) 1 mg STK-MED ONCE 03/03/18 08:49 03/03/18 08:50 DC Piperacillin Sod/ Tazobactam Sod 2.25 gm/Sodium Chloride 100 ml @ 200 mls/hr 1X ONCE 02/25/18 08:45 02/25/18 09:14 DC 02/25/18 09:25 200 MLS/HR Prochlorperazine Edisylate (Compazine) 5 mg PACU PRN PRN 03/05/18 07:00 03/05/18 18:00 DC Propofol 20 ml @ As Directed STK-MED ONCE 03/05/18 08:17 03/05/18 08:18 DC Protamine Sulfate (Protamine) 50 mg STK-MED ONCE 03/03/18 08:49 03/03/18 08:50 DC Ringer's Solution 1,000 ml @ 30 mls/hr Q24H 03/05/18 07:00 03/05/18 18:59 Cancel Sevoflurane (Ultane) 60 ml STK-MED ONCE 03/03/18 08:13 03/03/18 08:14 DC Sodium Chloride 1,000 ml @ 400 mls/hr Q2H30M PRN 03/05/18 08:47 03/05/18 20:46 DC Sodium Chloride (Normal Saline Flush) 10 ml 1X PRN PRN 03/05/18 09:00 03/06/18 08:59 DC Vancomycin HCl (Vanco Per Pharmacy) 1 each PRN DAILY PRN 02/26/18 10:00 03/05/18 15:37 1 EACH Vancomycin HCl (Vancomycin Random Level) 1 each 1X ONCE 03/05/18 06:00 03/05/18 06:01 DC Vancomycin HCl 1.5 gm/Sodium Chloride 500 ml @ 250 mls/hr 1X ONCE 02/26/18 11:00 02/26/18 12:59 Cancel Vancomycin HCl 500 mg/Sodium Chloride 100 ml @ 100 mls/hr QTUTHSA 02/26/18 16:00 03/05/18 17:01 100 MLS/HR Vitamin B Complex/ Vitamin C (Kiara-Bennie) 1 tab DAILY 02/26/18 09:00 03/06/18 08:11 1 TAB Zolpidem Tartrate (Ambien) 5 mg HS PRN 02/25/18 21:15 03/05/18 23:06 5 MG Labs: Micro RUN DATE: 03/06/18 PAGE 1 RUN TIME: 943 [facility] [address] [place] [address] Yossi Wilson M.D., Refrigeration System Installer PATIENT: TEJA ROSENBAUM ACCT: [id number] LOC: [address] [place] [address] U : [id number] AGE/SX: 57/M ROOM: 563 REG : 02/25/[address]: CARRIE SIFUENTES MD : 1960 BED: 1 DIS : STATUS: ADM IN TLOC: SPEC #: [id number] ILYA: 03/05/18-1145 STATUS: COMP REQ #: [id number] RECD: 03/05/18-[address]: TATA BENTLEY MD SOURCE: BLOOD ENTR: 03/05/18-[address]: ALISSA REDMOND MD SPDESC: BILL BENTLEY MD, THOMAS W MD MCSWEYN, DONALD J MD NAIR, VENU S MD NO PCP ORDERED: BCULT Procedure Result BLOOD CULTURE Final GRAM POSITIVE COCCI IN CLUSTERS IN 1 OF 2 BOTTLES(AEROBIC);REPRESENTING 1 SET DRAWN ON THIS DATE. THE RESULT WAS CALLED TO KASHIF COMER(5S)ON 03/06/18 AT 0941 BY Matt CLEARY. THE BLOOD CULTURE HAS BEEN SENT TO [facility] FOR FURTHER WORKUP. 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 Plan: Plan of Care Continue vancomycin q //sat postdialysis cont zyvox dapto suscep ,d/w micro repeat bc tomorrow f/u labs and c/s Supportive care TATA BENTLEY MD Mar 06, 2018 13:07
[2018-03-06] MEDS: ALBUTEROL SULFATE 2.5 MG/3 ML NEBU. NEB PRN (13:41)
--- NOTE | 2018-03-06 14:08 | PDOC ---
Renal-Progress Notes Subjective Notes Notes NONE History of Present Illness Hx of present illness STABLE Vitals Vitals Vital Signs Date Time Temp Pulse Resp B/P (MAP) Pulse Ox O2 Delivery O2 Flow Rate FiO2 03/06/18 13:43 100 Nasal Cannula 2.0 03/06/18 11:00 97.8 79 18 154/75 (101) 97.8 Weight Weight [ ] I.O. Intake and Output Intake and Output 03/06/18 07:00 Intake Total 1880 ml Output Total 1 ml Balance 1879 ml Intake Oral 1480 ml IV Total 400 ml Output Urine Total 1 ml Micro Micro Microbiology 03/05/18 Blood Culture - Final, Complete Review of Systems Constitutional: yes: weakness, alert, oriented Ears/Nose/Throat: Yes: no symptom reported Eyes: Yes: no symptom reported Pulmonary: Yes dyspnea Cardiovascular: Yes no symptom reported Gastrointestional: Yes: no symptom reported Genitourinary: Yes: no symptom reported Musculoskeletal: Yes: muscle stiffness Skin: Yes no symptom reported Psychiatric/Neurological: Yes: no symptom reported Endocrine: Yes: no symptom reported Physical Exam General Appearance: no apparent distress Skin: warm Respiratory: bilateral CTA Heart: S1S2 Abdomen: soft, bowel sounds present Genitourinary: bladder flat Extremities: pulses present Neurology: alert, oriented Musculoskeletal: Osteoarthritis Assessment Assessment IMP SEPSIS-MOST RECENT BX STILL POS ANEMIA HTN DM II ESRD PNEUMONIA ACUTE DIASTOLIC CHF S/P L AVF S/P REMOVAL OF TUNNELED HD CATHETER AND TEMP HD CATH PLACEMENT PLAN HD TOMORROW UF TO DW HAVE D/W ID ANTIBIOTICS REPEAT BCX TOMORROW WILL FOLLOW JEANE ESCOBAR MD Mar 06, 2018 14:08
[2018-03-06 15:00] VITALS: BP 161/72
[2018-03-06] MEDS: VANCOMYCIN PER PHARMACY MC PRN (16:36)
--- NOTE | 2018-03-06 16:44 | PDOC ---
PROGRESS NOTES Chief Complaint Chief Complaint Sepsis MRSA BACTEREMIA - End stage renal disease on dialysis Possible volume overload vs pneumonia, mixed Anemia of ESRD Incarcerated [facility] bacteremia 5 /6 bottles Indwelling HD cath, ry subclavian (changed recently) History of Present Illness History of Present Illness MRSA bacteremia feels well need neg blood cx Hold off on PICC line BERNA ok Resistant to most antibiotics, sensitive to gentamicin and vancomycin Vein mapping done, appreciate vasc surgery Vitals Vitals Vital Signs Date Time Temp Pulse Resp B/P (MAP) Pulse Ox O2 Delivery O2 Flow Rate FiO2 03/06/18 16:18 Nasal Cannula 2.0 03/06/18 15:00 97.3 77 18 161/72 (101) 100 97.3 Physical Exam Physical Exam General: Alert, Oriented X3, Cooperative, No acute distress Heart: Regular rate, Normal S1, Normal S2, No murmurs, Gallops Lungs: Crackles Abdomen: Normal bowel sounds, Soft, No tenderness, No hepatosplenomegaly, No masses Extremities: No clubbing, No cyanosis, No edema, Normal pulses, No tenderness/ swelling Skin: No breakdown Assessment and Plan Assessmemt and Plan Problems Medical Problems: (1) End stage renal disease on dialysis Status: Acute (2) Sepsis Status: Acute Comment Review of Relevant I have reviewed the following items mirian (where applicable) has been applied. Labs Laboratory Tests Test 03/05/18 06:10 03/05/18 11:45 Random Vancomycin Level < 0.8 mcg/mL Vancomycin Level Trough 18.1 mcg/mL (10.0-20.0) Vancomycin Last Dose Date 03/03/18 Vancomycin Last Dose Time 1600 Microbiology 03/05/18 Blood Culture - Final, Complete Medications Current Medications Piperacillin Sod/ Tazobactam Sod 2.25 gm/Sodium Chloride 100 ml @ 200 mls/hr 1X ONCE IV Last administered on 02/25/18at 09:25; Start 02/25/18 at 08:45; Stop 02/25/18 at 09:14; Status DC Vancomycin HCl (Vanco Per Pharmacy) 1 each 1X ONCE MC Last administered on 06/02at 08:30; Start 02/25/18 at 08:30; Stop 02/25/18 at 08:56; Status DC Fentanyl Citrate (Fentanyl 2ml Vial) 50 mcg PRN Q15MIN PRN IV PAIN GREATER THAN 3/10 Last administered on 02/25/18at 09:25; Start 02/25/18 at 08:30; Stop at 08:29; Status DC Acetaminophen (Tylenol) 1,000 mg 1X ONCE PO Last administered on 02/25/18at 09: 25; Start 02/25/18 at 09:00; Stop 02/25/18 at 09:01; Status DC Vancomycin HCl 1.5 gm/Sodium Chloride 500 ml @ 250 mls/hr 1X ONCE IV Last administered on 02/25/18at 11:07; Start 02/25/18 at 09:00; Stop 02/25/18 at 10:59 ; Status DC Sodium Chloride 500 ml @ 500 mls/hr 1X ONCE IV Last administered on at 09:47; Start 02/25/18 at 09:30; Stop 02/25/18 at 10:29; Status DC Ondansetron HCl (Zofran) 4 mg PRN Q8HRS PRN IV NAUSEA/VOMITING; Start 02/25/18 at 11:15; Stop 02/26/18 at 09:06; Status DC Fentanyl Citrate (Fentanyl 2ml Vial) 50 mcg PRN Q2HR PRN IV PAIN Last administered on 02/26/18at 03:50; Start 02/25/18 at 11:15; Stop 02/26/18 at 11:14 ; Status DC Acetaminophen (Tylenol) 650 mg PRN Q4HRS PRN PO FEVER Last administered on 02/26at 03:50; Start 02/25/18 at 11:15; Stop 02/26/18 at 09:13; Status DC Sodium Chloride 1,000 ml @ 1,000 mls/hr Q1H PRN IV hypotension; Start 02/25/18 at 16:33; Stop 02/25/18 at 22:32; Status DC Sodium Chloride (Normal Saline Flush) 10 ml 1X PRN PRN IV AP catheter pack; Start 02/25/18 at 16:45; Stop 02/26/18 at 16:44; Status DC Sodium Chloride (Normal Saline Flush) 10 ml 1X PRN PRN 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; Start 02/25/18 at 16:45; Stop 02/26/18 at 16:44; Status DC Sodium Chloride 1,000 ml @ 400 mls/hr Q2H30M PRN IV PATENCY; Start 02/25/18 at 16:33; Stop 02/26/18 at 04:32; Status DC Info (PHARMACY MONITORING -- do not chart) 1 each PRN DAILY PRN MC SEE COMMENTS ; Start 02/25/18 at 16:45; Status UNV Info (PHARMACY MONITORING -- do not chart) 1 each PRN DAILY PRN MC SEE COMMENTS ; Start 02/25/18 at 16:45; Stop 02/28/18 at 13:49; Status DC Zolpidem Tartrate (Ambien) 5 mg HS PRN PO INSOMNIA, MAY REPEAT X1 Last administered on 03/05/18at 23:06; Start 02/25/18 at 21:15 Acetaminophen (Tylenol) 325 mg PRN Q8HRS PRN PO MILD PAIN; Start 02/25/18 at 21 :30; Stop 02/26/18 at 09:06; Status DC Amlodipine Besylate (Norvasc) 10 mg QHS PO Last administered on 03/05/18at 21:10 ; Start 02/26/18 at 21:00 Ferrous Sulfate (Feosol) 325 mg DAILY PO Last administered on 03/06/18at 08:11; Start 02/26/18 at 09:00 Vitamin B Complex/ Vitamin C (Kiara-Bennie) 1 tab DAILY PO Last administered on at 08:11; Start 02/26/18 at 09:00 Albuterol Sulfate (Ventolin Neb Soln) 2.5 mg PRN Q4HRS PRN NEB SHORTNESS OF BREATH Last administered on 03/06/18at 13:41; Start 02/25/18 at 21:45 Lisinopril (Prinivil) 40 mg QHS PO Last administered on 03/05/18at 21:10; Start 02/25/18 at 22:00 Magnesium Hydroxide (Milk Of Magnesia) 2,400 mg BID PRN PO CONSTIPATION; Start 02/25/18 at 21:30; Status UNV Metoprolol Tartrate (Lopressor) 50 mg BID PO ; Start 02/26/18 at 09:00; Status UNV Metoprolol Tartrate (Lopressor) 50 mg BID PO ; Start 02/26/18 at 09:00; Status UNV Calcitriol (Rocaltrol) 0.25 mcg QTUTHSA PO Last administered on 03/05/18at 17:01 ; Start 02/26/18 at 16:00 Calcium Acetate (Phoslo) 667 mg TIDWMEALS PO Last administered on 03/06/18at 16: 17; Start 02/26/18 at 08:00 Hydroxyzine Pamoate (Vistaril) 25 mg PRN Q6HRS PRN PO ITCHING; Start 02/25/18 at 21:45 Pantoprazole Sodium (Protonix) 40 mg DAILYAC PO Last administered on 03/06/18at 08:11; Start 02/26/18 at 07:30 Acetaminophen (Tylenol) 650 mg PRN Q8HRS PRN PO MILD PAIN; Start 02/26/18 at 09 :15 Ondansetron HCl (Zofran) 4 mg PRN Q6HRS PRN IV NAUSEA/VOMITING; Start 02/26/18 at 09:15 Clonidine HCl (Catapres) 0.1 mg PRN Q1HR PRN PO HYPERTENSION, SEE COMMENTS; Start 02/26/18 at 09:15 Fentanyl Citrate (Fentanyl 2ml Vial) 50 mcg PRN Q2HR PRN IV SEVERE PAIN Last administered on 03/06/18at 11:24; Start 02/26/18 at 09:15 Acetaminophen/ Hydrocodone Bitart (Lortab 5/325) 1 tab PRN Q4HRS PRN PO MODERATE-SEVERE PAIN Last administered on 03/06/18at 16:18; Start 02/26/18 at 09: 15 Calcitriol (Rocaltrol) 0.25 mcg MoWeFr PO ; Start 02/27/18 at 09:00; Status Cancel Vancomycin HCl (Vanco Per Pharmacy) 1 each PRN DAILY PRN MC SEE COMMENTS Last administered on 03/06/18at 16:36; Start 02/26/18 at 10:00 Vancomycin HCl 1.5 gm/Sodium Chloride 500 ml @ 250 mls/hr 1X ONCE IV ; Start 02/26/18 at 11:00; Stop 02/26/18 at 12:59; Status Cancel Sodium Chloride 1,000 ml @ 1,000 mls/hr Q1H PRN IV hypotension; Start 02/26/18 at 10:12; Stop 02/26/18 at 16:11; Status DC Diphenhydramine HCl (Benadryl) 25 mg 1X PRN PRN IV ITCHING; Start 02/26/18 at 10:15; Stop 02/27/18 at 10:14; Status DC Diphenhydramine HCl (Benadryl) 25 mg 1X PRN PRN IV ITCHING; Start 02/26/18 at 10:15; Stop 02/27/18 at 10:14; Status DC Sodium Chloride 1,000 ml @ 400 mls/hr Q2H30M PRN IV PATENCY; Start 02/26/18 at 10:12; Stop 02/26/18 at 22:11; Status DC Info (PHARMACY MONITORING -- do not chart) 1 each PRN DAILY PRN MC SEE COMMENTS ; Start 02/26/18 at 10:15; Stop 02/28/18 at 14:47; Status DC Darbepoetin Uche (Aranesp) 60 mcg WEEKLYHS SQ Last administered on 03/05/18at 21 :09; Start 02/26/18 at 21:00 Alprazolam (Xanax) 0.25 mg PRN Q8HRS PRN PO ANXIETY / AGITATION Last administered on 03/05/18at 17:02; Start 02/26/18 at 14:15 Vancomycin HCl 500 mg/Sodium Chloride 100 ml @ 100 mls/hr QTUTHSA IV Last administered on 03/05/18at 17:01; Start 02/26/18 at 16:00 Lactobacillus Rhamnosus (Culturelle) 1 cap BID PO Last administered on at 08:11; Start 02/27/18 at 21:00 Sodium Chloride 1,000 ml @ 1,000 mls/hr Q1H PRN IV hypotension; Start 02/28/18 at 14:39; Stop 02/28/18 at 20:38; Status DC Albumin Human 200 ml @ 200 mls/hr 1X PRN PRN IV Hypotension; Start 02/28/18 at 14:45; Stop 02/28/18 at 20:44; Status DC Acetaminophen (Tylenol) 500 mg 1X PRN PRN PO MILD PAIN / TEMP; Start 02/28/18 at 14:45; Stop 03/01/18 at 14:44; Status DC Diphenhydramine HCl (Benadryl) 25 mg 1X PRN PRN IV ITCHING; Start 02/28/18 at 14:45; Stop 03/01/18 at 14:44; Status DC Diphenhydramine HCl (Benadryl) 25 mg 1X PRN PRN IV ITCHING; Start 02/28/18 at 14:45; Stop 03/01/18 at 14:44; Status DC Labetalol HCl (Normodyne Iv Push) 10 mg PRN Q1HR PRN IVP SBP > 180; Start 02/28 at 14:45; Stop 03/01/18 at 14:44; Status DC Clonidine HCl (Catapres) 0.1 mg 1X PRN PRN PO SBP > 180; Start 02/28/18 at 14: 45; Stop 03/01/18 at 14:44; Status DC Sodium Chloride 1,000 ml @ 400 mls/hr Q2H30M PRN IV PATENCY; Start 02/28/18 at 14:39; Stop 03/01/18 at 02:38; Status DC Info (PHARMACY MONITORING -- do not chart) 1 each PRN DAILY PRN MC SEE COMMENTS ; Start 02/28/18 at 14:45 Heparin Sodium (Porcine) 5000 unit/Sodium Chloride 505 ml @ 505 mls/hr 1X ONCE IRR Last administered on 03/03/18at 08:15; Start 03/03/18 at 06:00; Stop at 06:59; Status DC Cefazolin Sodium 1 gm/Sodium Chloride 500 ml @ 500 mls/hr 1X ONCE IRR Last administered on 03/03/18at 08:15; Start 03/03/18 at 06:00; Stop 03/03/18 at 06:59 ; Status DC Ondansetron HCl (Zofran) 4 mg PRN Q6HRS PRN IV NAUSEA/VOMITING; Start 03/03/18 at 07:00; Stop 03/03/18 at 21:00; Status DC Fentanyl Citrate (Fentanyl 2ml Vial) 25 mcg PRN Q5MIN PRN IV MILD PAIN; Start 03/03/18 at 07:00; Stop 03/03/18 at 21:00; Status DC Fentanyl Citrate (Fentanyl 2ml Vial) 50 mcg PRN Q5MIN PRN IV MODERATE TO SEVERE PAIN Last administered on 03/03/18at 09:41; Start 03/03/18 at 07:00; Stop 03/03/18 at 21:00; Status DC Morphine Sulfate (Morphine Sulfate) 1 mg PRN Q10MIN PRN IV SEVERE PAIN; Start 03/03/18 at 07:00; Stop 03/03/18 at 21:00; Status DC Ringer's Solution 1,000 ml @ 30 mls/hr Q24H IV Last administered on 03/03/18at 07:00; Start 03/03/18 at 07:00; Stop 03/03/18 at 18:59; Status DC Lidocaine HCl (Xylocaine-Mpf 1% 2ml Vial) 2 ml PRN 1X PRN ID IV START; Start at 07:00; Stop 03/03/18 at 21:00; Status DC Hydromorphone HCl (Dilaudid) 0.5 mg PRN Q10MIN PRN IV SEV PAIN, Second choice; Start 03/03/18 at 07:00; Stop 03/03/18 at 21:00; Status DC Prochlorperazine Edisylate (Compazine) 5 mg PACU PRN PRN IV NAUSEA, MRX1; Start 03/03/18 at 07:00; Stop 03/03/18 at 21:00; Status DC Cellulose (Surgicel Hemostat 2x3) 1 each STK-MED ONCE .ROUTE ; Start 03/03/18 at 05:51; Stop 03/03/18 at 06:52; Status DC Cellulose (Surgicel Fibrillar 1x2) 1 each STK-MED ONCE .ROUTE Last administered on 03/03/18at 08:47; Start 03/03/18 at 05:52; Stop 03/03/18 at 06:52 ; Status DC Papaverine HCl 60 mg STK-MED ONCE .ROUTE ; Start 03/03/18 at 05:53; Stop at 06:53; Status DC Cefazolin Sodium/ Dextrose 50 ml @ As Directed STK-MED ONCE IV ; Start 03/03/18 at 06:56; Stop 03/03/18 at 06:57; Status DC Cefazolin Sodium/ Dextrose 50 ml @ 100 mls/hr 1X PREOP PRN IV Pre Op Dose Last administered on 03/03/18at 07:53; Start 03/03/18 at 06:00; Stop 03/04/18 at 05:59; Status DC Fentanyl Citrate (Fentanyl 2ml Vial) 100 mcg STK-MED ONCE .ROUTE ; Start at 07:21; Stop 03/03/18 at 07:22; Status DC Lidocaine HCl (Xylocaine 1% Pf 30ml Vial) 30 ml STK-MED ONCE INJ Last administered on 03/03/18at 08:07; Start 03/03/18 at 08:07; Stop 03/03/18 at 08:12 ; Status DC Propofol 20 ml @ As Directed STK-MED ONCE IV ; Start 03/03/18 at 08:12; Stop at 08:14; Status DC Propofol 20 ml @ As Directed STK-MED ONCE IV ; Start 03/03/18 at 08:12; Stop at 08:14; Status DC Dexamethasone Sodium Phosphate (Decadron) 20 mg STK-MED ONCE .ROUTE ; Start at 08:13; Stop 03/03/18 at 08:14; Status DC Ondansetron HCl (Zofran) 4 mg STK-MED ONCE .ROUTE ; Start 03/03/18 at 08:13; Stop 03/03/18 at 08:14; Status DC Sevoflurane (Ultane) 60 ml STK-MED ONCE IH ; Start 03/03/18 at 08:13; Stop 03/03 at 08:14; Status DC Phenylephrine HCl (PHENYLEPHRINE in 0.9% NACL PF) 1 mg STK-MED ONCE IV ; Start 03/03/18 at 08:17; Stop 03/03/18 at 08:18; Status DC Heparin Sodium (Porcine) (Heparin Sodium) 10,000 unit STK-MED ONCE .ROUTE ; Start 03/03/18 at 08:49; Stop 03/03/18 at 08:50; Status DC Protamine Sulfate (Protamine) 50 mg STK-MED ONCE IV ; Start 03/03/18 at 08:49; Stop 03/03/18 at 08:50; Status DC Phenylephrine HCl (PHENYLEPHRINE in 0.9% NACL PF) 1 mg STK-MED ONCE IV ; Start 03/03/18 at 08:49; Stop 03/03/18 at 08:50; Status DC Sodium Chloride 1,000 ml @ 1,000 mls/hr Q1H PRN IV hypotension; Start 03/03/18 at 10:19; Stop 03/03/18 at 16:18; Status DC Sodium Chloride 1,000 ml @ 400 mls/hr Q2H30M PRN IV PATENCY; Start 03/03/18 at 10:19; Stop 03/03/18 at 22:18; Status DC Info (PHARMACY MONITORING -- do not chart) 1 each PRN DAILY PRN MC SEE COMMENTS ; Start 03/03/18 at 10:30; Status UNV Info (PHARMACY MONITORING -- do not chart) 1 each PRN DAILY PRN MC SEE COMMENTS ; Start 03/03/18 at 10:30; Status UNV Vancomycin HCl (Vancomycin Random Level) 1 each 1X ONCE MC ; Start 03/05/18 at 06:00; Stop 03/05/18 at 06:01; Status DC Ondansetron HCl (Zofran) 4 mg PRN Q6HRS PRN IV NAUSEA/VOMITING; Start 03/05/18 at 07:00; Stop 03/05/18 at 18:00; Status DC Fentanyl Citrate (Fentanyl 2ml Vial) 25 mcg PRN Q5MIN PRN IV MILD PAIN; Start 03/05/18 at 07:00; Stop 03/05/18 at 18:00; Status DC Fentanyl Citrate (Fentanyl 2ml Vial) 50 mcg PRN Q5MIN PRN IV MODERATE TO SEVERE PAIN; Start 03/05/18 at 07:00; Stop 03/05/18 at 18:00; Status DC Morphine Sulfate (Morphine Sulfate) 1 mg PRN Q10MIN PRN IV SEVERE PAIN; Start 03/05/18 at 07:00; Stop 03/05/18 at 18:00; Status DC Ringer's Solution 1,000 ml @ 30 mls/hr Q24H IV ; Start 03/05/18 at 07:00; Stop 03/05/18 at 18:59; Status Cancel Lidocaine HCl (Xylocaine-Mpf 1% 2ml Vial) 2 ml PRN 1X PRN ID IV START; Start at 07:00; Stop 03/05/18 at 18:00; Status DC Hydromorphone HCl (Dilaudid) 0.5 mg PRN Q10MIN PRN IV SEV PAIN, Second choice; Start 03/05/18 at 07:00; Stop 03/05/18 at 18:00; Status DC Prochlorperazine Edisylate (Compazine) 5 mg PACU PRN PRN IV NAUSEA, MRX1; Start 03/05/18 at 07:00; Stop 03/05/18 at 18:00; Status DC Sodium Chloride 1,000 ml @ 0 mls/hr Q0M IV Last administered on 03/05/18at 08: 43; Start 03/05/18 at 07:00 Propofol 20 ml @ As Directed STK-MED ONCE IV ; Start 03/05/18 at 08:17; Stop at 08:18; Status DC Benzocaine (Hurricaine One) 1 spray STK-MED ONCE .ROUTE ; Start 03/05/18 at 08: 30; Stop 03/05/18 at 08:31; Status DC Lidocaine HCl (Xylocaine 2% Topical 5gm Tube) 5 alexandra STK-MED ONCE TP ; Start at 08:30; Stop 03/05/18 at 08:31; Status DC Lidocaine HCl (Viscous Lidocaine) 15 ml STK-MED ONCE .ROUTE ; Start 03/05/18 at 08:30; Stop 03/05/18 at 08:32; Status DC Benzocaine (Hurricaine One) 3 spray 1X ONCE MM Last administered on 03/05/18at 08:45; Start 03/05/18 at 08:45; Stop 03/05/18 at 08:47; Status DC Lidocaine HCl (Viscous Lidocaine) 15 ml 1X ONCE SWSW Last administered on 03/05at 08:45; Start 03/05/18 at 08:45; Stop 03/05/18 at 08:47; Status DC Lidocaine HCl (Xylocaine 2% Topical 5gm Tube) 2 alexandra 1X ONCE TP Last administered on 03/05/18at 08:45; Start 03/05/18 at 08:45; Stop 03/05/18 at 08:47 ; Status DC Sodium Chloride 1,000 ml @ 1,000 mls/hr Q1H PRN IV hypotension; Start 03/05/18 at 08:47; Stop 03/05/18 at 14:46; Status DC Sodium Chloride (Normal Saline Flush) 10 ml 1X PRN PRN IV AP catheter pack; Start 03/05/18 at 09:00; Stop 03/06/18 at 08:59; Status DC Sodium Chloride (Normal Saline Flush) 10 ml 1X PRN PRN 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; Start 03/05/18 at 09:00; Stop 03/06/18 at 08:59; Status DC Sodium Chloride 1,000 ml @ 400 mls/hr Q2H30M PRN IV PATENCY; Start 03/05/18 at 08:47; Stop 03/05/18 at 20:46; Status DC Info (PHARMACY MONITORING -- do not chart) 1 each PRN DAILY PRN MC SEE COMMENTS ; Start 03/05/18 at 09:00; Status UNV Info (PHARMACY MONITORING -- do not chart) 1 each PRN DAILY PRN MC SEE COMMENTS ; Start 03/05/18 at 09:00; Status UNV Linezolid (Zyvox) 600 mg BID PO Last administered on 03/06/18at 08:11; Start at 21:00 Lidocaine/Sodium Bicarbonate (Buffered Lidocaine 1%) 3 ml STK-MED ONCE .ROUTE ; Start 03/05/18 at 15:19; Stop 03/05/18 at 15:20; Status DC Heparin Sodium (Porcine) (Heparin Sodium) 10,000 unit STK-MED ONCE .ROUTE ; Start 03/05/18 at 15:19; Stop 03/05/18 at 15:20; Status DC Lidocaine/Sodium Bicarbonate (Buffered Lidocaine 1%) 3 ml 1X ONCE IJ Last administered on 03/05/18at 16:16; Start 03/05/18 at 15:30; Stop 03/05/18 at 15:31 ; Status DC Heparin Sodium (Porcine) (Heparin Sodium) 2,600 unit 1X ONCE INT CAT Last administered on 03/05/18at 16:16; Start 03/05/18 at 15:30; Stop 03/05/18 at 15:31 ; Status DC Lidocaine/Sodium Bicarbonate (Buffered Lidocaine 1%) 3 ml STK-MED ONCE .ROUTE ; Start 03/05/18 at 16:03; Stop 03/05/18 at 16:04; Status DC Active Scripts Active Colace (Docusate Sodium) 100 Mg Capsule 1 Cap PO BID PRN [Darbepoetin Uche In Polysorbat] 60 MCG/0.3 ML Disp.syrin 60 Mcg SQ WEEKLYHS Vancomycin Hcl 1 Gm Vial 1 Each MC PRN DAILY PRN 14 Days 500mg IV after each dialysis 2 weeks Metoprolol Tartrate 50 Mg Tablet 50 Mg PO BID 60 Days Reported Tylenol (Acetaminophen) 325 Mg Tablet 1-2 Tab PO QID PRN Milk Of Magnesia (Magnesium Hydroxide) 400 Mg/5 Ml Oral.susp 30 Ml PO BID PRN Duoneb 0.5-3(2.5) Mg/3 Ml (Albuterol/Ipratropium) 3 Ml Ampul.neb 3 Ml NEB Q4HRS PRN Hydroxyzine Hcl 25 Mg Tablet 1 Tab PO Q6HRS PRN Calcium Acetate 667 Mg Tablet 667 Mg PO TIDWMEALS Calcitriol 0.25 Mcg Capsule 1 Cap PO QTUTHSA Protonix (Pantoprazole Sodium) 20 Mg Tablet.dr 40 Mg PO DAILY Nephro-Bennie Tablet (Folic Acid/Vitamin B Comp W-C) 0.8 Mg Tablet 1 Tab PO DAILY Metoprolol Tartrate 50 Mg Tablet 1 Tab PO BID Lisinopril 40 Mg Tablet 1 Tab PO QHS Ferrous Sulfate 325 Mg Tablet 1 Tab PO DAILY Calcitriol 0.25 Mcg Capsule 1 Cap PO M/W/ Amlodipine Besylate 10 Mg Tablet 10 Mg PO QHS Acetaminophen 325 Mg Tablet 325 Mg PO PRN Q8HRS Vitals/I & O Vital Sign - Last 24 Hours 03/05/18 03/05/18 03/05/18 03/05/18 17:02 19:00 20:00 21:10 Temp 98.7 98.7 Pulse 90 90 Resp 18 B/P (MAP) 144/78 (100) 144/78 Pulse Ox 98 O2 Delivery Nasal Cannula Room Air Nasal Cannula O2 Flow Rate 2.0 2.0 03/05/18 03/05/18 03/06/18 03/06/18 21:10 23:00 03:00 07:00 Temp 98.8 98.1 97.5 98.8 98.1 97.5 Pulse 90 90 82 77 Resp 20 18 16 B/P (MAP) 144/78 178/65 (102) 151/69 (96) 181/79 (113) Pulse Ox 100 99 100 O2 Delivery Nasal Cannula Room Air Nasal Cannula O2 Flow Rate 2.0 3.0 03/06/18 03/06/18 03/06/18 03/06/18 08:00 08:12 11:00 11:18 Temp 97.8 97.8 Pulse 79 Resp 18 B/P (MAP) 154/75 (101) Pulse Ox 100 O2 Delivery Nasal Cannula Nasal Cannula Nasal Cannula Nasal Cannula O2 Flow Rate 3.0 3.0 3.0 3.0 03/06/18 03/06/18 03/06/18 03/06/18 11:24 12:11 13:43 15:00 Temp 97.3 97.3 Pulse 77 Resp 18 B/P (MAP) 161/72 (101) Pulse Ox 100 100 O2 Delivery Nasal Cannula Nasal Cannula Nasal Cannula Nasal Cannula O2 Flow Rate 3.0 3.0 2.0 3.0 03/06/18 16:18 O2 Delivery Nasal Cannula O2 Flow Rate 2.0 Intake and Output 03/05/18 03/05/18 03/06/18 15:00 23:00 07:00 Intake Total 300 ml 700 ml 880 ml Output Total 1 ml Balance 300 ml 699 ml 880 ml Nutrition Consultation Dietary Evaluation: Recommendations by RD: Increase Calorie Intake, Protein supplementation Comments: continue nepro tid Expected Outcomes/Goals: to meet > 75% est nutr needs- met, goal ongoing Interpretation of weight loss: >5% in 1 month Malnutrition Findings: Weight Status: Underweight AMAN COWAN MD Mar 06, 2018 16:44
[2018-03-06 19:00] VITALS: BP_SYST 108; BP_SYST 172; BP_DIAS 57
[2018-03-06] MEDS: amLODIPine BESYLATE 10 MG TABLET PO SCH (21:01)
[2018-03-06] MEDS: ZOLPIDEM 5 MG TABLET. PO PRN (21:02)
[2018-03-06] MEDS: LISINOPRIL 20 MG TABLET PO SCH (21:02)
[2018-03-06] MEDS: ALPRAZolam 0.25 MG TABLET PO PRN (22:44)
[2018-03-06 23:00] VITALS: BP 162/81
[2018-03-07] MEDS: HYDROcodone/APAP 5/325MG 1 TAB TABLET PO PRN ×3 (01:39→20:33)
[2018-03-07 03:00] VITALS: BP 158/78
[2018-03-07 04:00] LABS: CALCIUM 9.7 mg/dL (8.5-10.1); GFR 9.8
[2018-03-07 04:13] LABS: POTASSIUM 6.1 mmol/L (3.5-5.1)
[2018-03-07 07:00] VITALS: BP 153/84
[2018-03-07] MEDS: CALCIUM ACETATE 667 MG CAPSULE PO SCH ×3 (08:00→16:18)
--- NOTE | 2018-03-07 08:32 | PDOC ---
Infectious Disease Note Subjective: Subjective pt without complaints had HD removed on 03/05 ROS: ROS Negative except for above. Vital Signs: Vital Signs Vital Signs Date Time Temp Pulse Resp B/P (MAP) Pulse Ox O2 Delivery O2 Flow Rate FiO2 03/07/18 07:00 97.9 80 16 153/84 (107) 100 Nasal Cannula 3.0 97.9 Physical Exam: PHYSICAL EXAM Medications: Inpatient Meds: Current Medications Medications (Trade) Dose Ordered Sig/Lissette Start Time Stop Time Status Last Admin Dose Admin Acetaminophen (Tylenol) 500 mg 1X PRN PRN 02/28/18 14:45 03/01/18 14:44 DC Acetaminophen/ Hydrocodone Bitart (Lortab 5/325) 1 tab PRN Q4HRS PRN 02/26/18 09:15 03/07/18 01:39 1 TAB Albumin Human 200 ml @ 200 mls/hr 1X PRN PRN 02/28/18 14:45 02/28/18 20:44 DC Albuterol Sulfate (Ventolin Neb Soln) 2.5 mg PRN Q4HRS PRN 02/25/18 21:45 03/06/18 13:41 2.5 MG Alprazolam (Xanax) 0.25 mg PRN Q8HRS PRN 02/26/18 14:15 03/06/18 22:44 0.25 MG Amlodipine Besylate (Norvasc) 10 mg QHS 02/26/18 21:00 03/06/18 21:01 10 MG Benzocaine (Hurricaine One) 3 spray 1X ONCE 03/05/18 08:45 03/05/18 08:47 DC 03/05/18 08:45 3 SPRAY Calcitriol (Rocaltrol) 0.25 mcg MoWeFr 02/27/18 09:00 Cancel Calcium Acetate (Phoslo) 667 mg TIDWMEALS 02/26/18 08:00 03/06/18 16:17 667 MG Cefazolin Sodium 1 gm/Sodium Chloride 500 ml @ 500 mls/hr 1X ONCE 03/03/18 06:00 03/03/18 06:59 DC 03/03/18 08:15 Cefazolin Sodium/ Dextrose 50 ml @ 100 mls/hr 1X PREOP PRN 03/03/18 06:00 03/04/18 05:59 DC 03/03/18 07:53 100 MLS/HR Cellulose (Surgicel Fibrillar 1x2) 1 each STK-MED ONCE 03/03/18 05:52 03/03/18 06:52 DC 03/03/18 08:47 1 EACH Cellulose (Surgicel Hemostat 2x3) 1 each STK-MED ONCE 03/03/18 05:51 03/03/18 06:52 DC Clonidine HCl (Catapres) 0.1 mg 1X PRN PRN 02/28/18 14:45 03/01/18 14:44 DC Darbepoetin Uche (Aranesp) 60 mcg WEEKLYHS 02/26/18 21:00 03/05/18 21:09 60 MCG Dexamethasone Sodium Phosphate (Decadron) 20 mg STK-MED ONCE 03/03/18 08:13 03/03/18 08:14 DC Diphenhydramine HCl (Benadryl) 25 mg 1X PRN PRN 02/28/18 14:45 03/01/18 14:44 DC Fentanyl Citrate (Fentanyl 2ml Vial) 50 mcg PRN Q5MIN PRN 03/05/18 07:00 03/05/18 18:00 DC Ferrous Sulfate (Feosol) 325 mg DAILY 02/26/18 09:00 03/06/18 08:11 325 MG Heparin Sodium (Porcine) (Heparin Sodium) 2,600 unit 1X ONCE 03/05/18 15:30 03/05/18 15:31 DC 03/05/18 16:16 2,800 UNIT Heparin Sodium (Porcine) 5000 unit/Sodium Chloride 505 ml @ 505 mls/hr 1X ONCE 03/03/18 06:00 03/03/18 06:59 DC 03/03/18 08:15 Hydromorphone HCl (Dilaudid) 0.5 mg PRN Q10MIN PRN 03/05/18 07:00 03/05/18 18:00 DC Hydroxyzine Pamoate (Vistaril) 25 mg PRN Q6HRS PRN 02/25/18 21:45 Info (PHARMACY MONITORING -- do not chart) 1 each PRN DAILY PRN 03/05/18 09:00 UNV Labetalol HCl (Normodyne Iv Push) 10 mg PRN Q1HR PRN 9/15/18 14:45 03/01/18 14:44 DC Lactobacillus Rhamnosus (Culturelle) 1 cap BID 02/27/18 21:00 03/06/18 21:00 1 CAP Lidocaine HCl (Viscous Lidocaine) 15 ml 1X ONCE 03/05/18 08:45 03/05/18 08:47 DC 03/05/18 08:45 15 ML Lidocaine HCl (Xylocaine 1% Pf 30ml Vial) 30 ml STK-MED ONCE 03/03/18 08:07 03/03/18 08:12 DC 03/03/18 08:07 1 ML Lidocaine HCl (Xylocaine 2% Topical 5gm Tube) 2 alexandra 1X ONCE 03/05/18 08:45 03/05/18 08:47 DC 03/05/18 08:45 2 ALEXANDRA Lidocaine HCl (Xylocaine-Mpf 1% 2ml Vial) 2 ml PRN 1X PRN 03/05/18 07:00 03/05/18 18:00 DC Lidocaine/Sodium Bicarbonate (Buffered Lidocaine 1%) 3 ml STK-MED ONCE 03/05/18 16:03 03/05/18 16:04 DC Linezolid (Zyvox) 600 mg BID 03/05/18 21:00 03/06/18 21:00 600 MG Lisinopril (Prinivil) 40 mg QHS 02/25/18 22:00 03/06/18 21:02 40 MG Magnesium Hydroxide (Milk Of Magnesia) 2,400 mg BID PRN 02/25/18 21:30 UNV Metoprolol Tartrate (Lopressor) 50 mg BID 02/26/18 09:00 UNV Morphine Sulfate (Morphine Sulfate) 1 mg PRN Q10MIN PRN 03/05/18 07:00 03/05/18 18:00 DC Ondansetron HCl (Zofran) 4 mg PRN Q6HRS PRN 03/05/18 07:00 03/05/18 18:00 DC Pantoprazole Sodium (Protonix) 40 mg DAILYAC 02/26/18 07:30 03/06/18 08:11 40 MG Papaverine HCl 60 mg STK-MED ONCE 03/03/18 05:53 03/03/18 06:53 DC Phenylephrine HCl (PHENYLEPHRINE in 0.9% NACL PF) 1 mg STK-MED ONCE 03/03/18 08:49 03/03/18 08:50 DC Piperacillin Sod/ Tazobactam Sod 2.25 gm/Sodium Chloride 100 ml @ 200 mls/hr 1X ONCE 02/25/18 08:45 02/25/18 09:14 DC 02/25/18 09:25 200 MLS/HR Prochlorperazine Edisylate (Compazine) 5 mg PACU PRN PRN 03/05/18 07:00 03/05/18 18:00 DC Propofol 20 ml @ As Directed STK-MED ONCE 03/05/18 08:17 03/05/18 08:18 DC Protamine Sulfate (Protamine) 50 mg STK-MED ONCE 03/03/18 08:49 03/03/18 08:50 DC Ringer's Solution 1,000 ml @ 30 mls/hr Q24H 03/05/18 07:00 03/05/18 18:59 Cancel Sevoflurane (Ultane) 60 ml STK-MED ONCE 03/03/18 08:13 03/03/18 08:14 DC Sodium Chloride 1,000 ml @ 400 mls/hr Q2H30M PRN 03/05/18 08:47 03/05/18 20:46 DC Sodium Chloride (Normal Saline Flush) 10 ml 1X PRN PRN 03/05/18 09:00 03/06/18 08:59 DC Vancomycin HCl (Vanco Per Pharmacy) 1 each PRN DAILY PRN 02/26/18 10:00 03/06/18 16:36 1 EACH Vancomycin HCl (Vancomycin Random Level) 1 each 1X ONCE 03/05/18 06:00 03/05/18 06:01 DC Vancomycin HCl 1.5 gm/Sodium Chloride 500 ml @ 250 mls/hr 1X ONCE 02/26/18 11:00 02/26/18 12:59 Cancel Vancomycin HCl 500 mg/Sodium Chloride 100 ml @ 100 mls/hr QTUTHSA 02/26/18 16:00 03/05/18 17:01 100 MLS/HR Vitamin B Complex/ Vitamin C (Kiara-Bennie) 1 tab DAILY 02/26/18 09:00 03/06/18 08:11 1 TAB Zolpidem Tartrate (Ambien) 5 mg HS PRN 02/25/18 21:15 03/06/18 21:02 5 MG Labs: Lab Laboratory Tests Test 03/07/18 03:40 Sodium Level 134 mmol/L (136-145) Potassium Level 6.1 mmol/L (3.5-5.1) Chloride Level 98 mmol/L (98-107) Carbon Dioxide Level 30 mmol/L (21-32) Anion Gap 6 (6-14) Blood Urea Nitrogen 56 mg/dL (8-26) Creatinine 7.0 mg/dL (0.7-1.3) Estimated GFR (Cockcroft-Gault) 9.8 Glucose Level 104 mg/dL (70-99) Calcium Level 9.7 mg/dL (8.5-10.1) Micro RUN DATE: 03/06/18 PAGE 1 RUN TIME: 943 [facility] [address] [place] [address] Yossi Wilson M.D., Kaitara Taraka PATIENT: TEJA ROSENBAUM ACCT: [id number] LOC: [address] [place] [address] U : [id number] AGE/SX: 57/M ROOM: [facility] REG : 02/25/[address]: CARRIE SIFUENTES MD : 1960 BED: 1 DIS : STATUS: ADM IN TLOC: SPEC #: [id number] ILYA: 03/05/18-1140 STATUS: COMP REQ #: [id number] RECD: 03/05/18-[address]: TATA BENTLEY MD SOURCE: BLOOD ENTR: 03/05/18-[address]: ALISSA REDMOND MD [facility]: BILL BENTLEY MD,CARRIE MCCANN,JEANE CHILD MD, MD NO PCP ORDERED: BCULT Procedure Result BLOOD CULTURE Final GRAM POSITIVE COCCI IN CLUSTERS IN 1 OF 2 BOTTLES(AEROBIC);REPRESENTING 1 SET DRAWN ON THIS DATE. THE RESULT WAS CALLED TO KASHIF COMER(5S)ON 03/06/18 AT 0941 BY Matt CLEARY. THE BLOOD CULTURE HAS BEEN SENT TO [facility] FOR FURTHER WORKUP. 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
[2018-03-07] MEDS: LACTOBACILLUS RHAMNOSUS GG 1 CAPSULE. PO SCH ×2 (09:00→20:31)
[2018-03-07] MEDS: ALBUTEROL SULFATE 2.5 MG/3 ML NEBU. NEB PRN ×2 (09:38→21:12)
[2018-03-07] MEDS ORDERED: IV NORMAL SALINE 1000ML BAG 1,000 ML IV PRN ×2 (10:06)
[2018-03-07] MEDS ORDERED: DIALYSIS PATIENT. MC PRN ×2 (10:15)
--- NOTE | 2018-03-07 13:01 | PDOC ---
Dialysis Progress Note Dialysis Note Dialysis Note Seen on Hemodialysis, tolerating treatment Well so far Vitals on Hemodialysis :171/81 81 16 afeb General Appearance: Awake: Alert Oriented x 2 Neck: No JVD or JVP Chest: CTA Ryan Heart: S1 S2 Abdomen - Soft NTND Extremities - No Edema ESRD: Dialysis as below F 180 NR 3.0 Hrs 2 K 2.5 Ca 140 Na 35 HC03 Qb 350 + Qd 500+ Heparin 0 Units Uf 1-2 Kgs or to dry weight as tolerated ay give 25-50 gms of 25% Albumin if needed to maintain Hemodynamic stability Treatment plan reviewed and discussed with medical sales specialist Vitals Vital Signs Vital Signs Date Time Temp Pulse Resp B/P (MAP) Pulse Ox O2 Delivery O2 Flow Rate FiO2 03/07/18 09:38 100 Nasal Cannula 2.0 03/07/18 07:00 97.9 80 16 153/84 (107) 97.9 Labs Last Labs Laboratory Tests Test 03/07/18 03:40 Sodium Level 134 mmol/L (136-145) Potassium Level 6.1 mmol/L (3.5-5.1) Chloride Level 98 mmol/L (98-107) Carbon Dioxide Level 30 mmol/L (21-32) Anion Gap 6 (6-14) Blood Urea Nitrogen 56 mg/dL (8-26) Creatinine 7.0 mg/dL (0.7-1.3) Estimated GFR (Cockcroft-Gault) 9.8 Glucose Level 104 mg/dL (70-99) Calcium Level 9.7 mg/dL (8.5-10.1) Laboratory Tests Test 03/07/18 03:40 Sodium Level 134 mmol/L (136-145) Potassium Level 6.1 mmol/L (3.5-5.1) Chloride Level 98 mmol/L (98-107) Carbon Dioxide Level 30 mmol/L (21-32) Anion Gap 6 (6-14) Blood Urea Nitrogen 56 mg/dL (8-26) Creatinine 7.0 mg/dL (0.7-1.3) Estimated GFR (Cockcroft-Gault) 9.8 Glucose Level 104 mg/dL (70-99) Calcium Level 9.7 mg/dL (8.5-10.1) Assessment Assessment Problems Medical Problems: (1) End stage renal disease on dialysis Status: Acute (2) Sepsis Status: Acute Plan Plan of Care Problems Medical Problems: (1) End stage renal disease on dialysis Status: Acute (2) Sepsis Status: Acute SHAHRAM BENTLEY MD Mar 07, 2018 13:01
--- NOTE | 2018-03-07 13:39 | PDOC ---
PROGRESS NOTES Chief Complaint Chief Complaint Sepsis MRSA bacteremia End stage renal disease on dialysis Possible volume overload vs pneumonia, mixed Anemia of ESRD Incarcerated CAchexia BMI 17 GPC bacteremia 5 /6 bottles Indwelling HD cath, ry subclavia History of Present Illness History of Present Illness cont IV abx, needs neg blood cx seen at HD repeated blood cult with today labs Plan: Follow ID recs PICC or have abx with HD HD per renal Vitals Vitals Vital Signs Date Time Temp Pulse Resp B/P (MAP) Pulse Ox O2 Delivery O2 Flow Rate FiO2 03/07/18 09:38 100 Nasal Cannula 2.0 03/07/18 07:00 97.9 80 16 153/84 (107) 97.9 Physical Exam Physical Exam General: Alert, Oriented X3, Cooperative, No acute distress Heart: Regular rate, Normal S1, Normal S2, No murmurs, Gallops Lungs: Crackles Abdomen: Normal bowel sounds, Soft, No tenderness, No hepatosplenomegaly, No masses Extremities: No clubbing, No cyanosis, No edema, Normal pulses, No tenderness/ swelling Skin: No breakdown Labs LABS Laboratory Tests Test 03/07/18 03:40 Sodium Level 134 mmol/L (136-145) Potassium Level 6.1 mmol/L (3.5-5.1) Chloride Level 98 mmol/L (98-107) Carbon Dioxide Level 30 mmol/L (21-32) Anion Gap 6 (6-14) Blood Urea Nitrogen 56 mg/dL (8-26) Creatinine 7.0 mg/dL (0.7-1.3) Estimated GFR (Cockcroft-Gault) 9.8 Glucose Level 104 mg/dL (70-99) Calcium Level 9.7 mg/dL (8.5-10.1) Assessment and Plan Assessmemt and Plan Problems Medical Problems: (1) End stage renal disease on dialysis Status: Acute (2) Sepsis Status: Acute Comment Review of Relevant I have reviewed the following items mirian (where applicable) has been applied. Labs Laboratory Tests Test 03/07/18 03:40 Sodium Level 134 mmol/L (136-145) Potassium Level 6.1 mmol/L (3.5-5.1) Chloride Level 98 mmol/L (98-107) Carbon Dioxide Level 30 mmol/L (21-32) Anion Gap 6 (6-14) Blood Urea Nitrogen 56 mg/dL (8-26) Creatinine 7.0 mg/dL (0.7-1.3) Estimated GFR (Cockcroft-Gault) 9.8 Glucose Level 104 mg/dL (70-99) Calcium Level 9.7 mg/dL (8.5-10.1) Laboratory Tests Test 03/07/18 03:40 Sodium Level 134 mmol/L (136-145) Potassium Level 6.1 mmol/L (3.5-5.1) Chloride Level 98 mmol/L (98-107) Carbon Dioxide Level 30 mmol/L (21-32) Anion Gap 6 (6-14) Blood Urea Nitrogen 56 mg/dL (8-26) Creatinine 7.0 mg/dL (0.7-1.3) Estimated GFR (Cockcroft-Gault) 9.8 Glucose Level 104 mg/dL (70-99) Calcium Level 9.7 mg/dL (8.5-10.1) Microbiology 03/05/18 Blood Culture - Final, Complete Medications Current Medications Piperacillin Sod/ Tazobactam Sod 2.25 gm/Sodium Chloride 100 ml @ 200 mls/hr 1X ONCE IV Last administered on 02/25/18at 09:25; Start 02/25/18 at 08:45; Stop 02/25/18 at 09:14; Status DC Vancomycin HCl (Vanco Per Pharmacy) 1 each 1X ONCE MC Last administered on 06/02at 08:30; Start 02/25/18 at 08:30; Stop 02/25/18 at 08:56; Status DC Fentanyl Citrate (Fentanyl 2ml Vial) 50 mcg PRN Q15MIN PRN IV PAIN GREATER THAN 3/10 Last administered on 02/25/18at 09:25; Start 02/25/18 at 08:30; Stop at 08:29; Status DC Acetaminophen (Tylenol) 1,000 mg 1X ONCE PO Last administered on 02/25/18at 09: 25; Start 02/25/18 at 09:00; Stop 02/25/18 at 09:01; Status DC Vancomycin HCl 1.5 gm/Sodium Chloride 500 ml @ 250 mls/hr 1X ONCE IV Last administered on 02/25/18at 11:07; Start 02/25/18 at 09:00; Stop 02/25/18 at 10:59 ; Status DC Sodium Chloride 500 ml @ 500 mls/hr 1X ONCE IV Last administered on at 09:47; Start 02/25/18 at 09:30; Stop 02/25/18 at 10:29; Status DC Ondansetron HCl (Zofran) 4 mg PRN Q8HRS PRN IV NAUSEA/VOMITING; Start 02/25/18 at 11:15; Stop 02/26/18 at 09:06; Status DC Fentanyl Citrate (Fentanyl 2ml Vial) 50 mcg PRN Q2HR PRN IV PAIN Last administered on 02/26/18at 03:50; Start 02/25/18 at 11:15; Stop 02/26/18 at 11:14 ; Status DC Acetaminophen (Tylenol) 650 mg PRN Q4HRS PRN PO FEVER Last administered on 02/26at 03:50; Start 02/25/18 at 11:15; Stop 02/26/18 at 09:13; Status DC Sodium Chloride 1,000 ml @ 1,000 mls/hr Q1H PRN IV hypotension; Start 02/25/18 at 16:33; Stop 02/25/18 at 22:32; Status DC Sodium Chloride (Normal Saline Flush) 10 ml 1X PRN PRN IV AP catheter pack; Start 02/25/18 at 16:45; Stop 02/26/18 at 16:44; Status DC Sodium Chloride (Normal Saline Flush) 10 ml 1X PRN PRN IV QUOTATION CHECKER catheter pack; Start 02/25/18 at 16:45; Stop 02/26/18 at 16:44; Status DC Sodium Chloride 1,000 ml @ 400 mls/hr Q2H30M PRN IV PATENCY; Start 02/25/18 at 16:33; Stop 02/26/18 at 04:32; Status DC Info (PHARMACY MONITORING -- do not chart) 1 each PRN DAILY PRN MC SEE COMMENTS ; Start 02/25/18 at 16:45; Status UNV Info (PHARMACY MONITORING -- do not chart) 1 each PRN DAILY PRN MC SEE COMMENTS ; Start 02/25/18 at 16:45; Stop 02/28/18 at 13:49; Status DC Zolpidem Tartrate (Ambien) 5 mg HS PRN PO INSOMNIA, MAY REPEAT X1 Last administered on 03/06/18at 21:02; Start 02/25/18 at 21:15 Acetaminophen (Tylenol) 325 mg PRN Q8HRS PRN PO MILD PAIN; Start 02/25/18 at 21 :30; Stop 02/26/18 at 09:06; Status DC Amlodipine Besylate (Norvasc) 10 mg QHS PO Last administered on 03/06/18at 21:01 ; Start 02/26/18 at 21:00 Ferrous Sulfate (Feosol) 325 mg DAILY PO Last administered on 03/06/18at 08:11; Start 02/26/18 at 09:00 Vitamin B Complex/ Vitamin C (Kiara-Bennie) 1 tab DAILY PO Last administered on at 08:11; Start 02/26/18 at 09:00 Albuterol Sulfate (Ventolin Neb Soln) 2.5 mg PRN Q4HRS PRN NEB SHORTNESS OF BREATH Last administered on 03/07/18at 09:38; Start 02/25/18 at 21:45 Lisinopril (Prinivil) 40 mg QHS PO Last administered on 03/06/18at 21:02; Start 02/25/18 at 22:00 Magnesium Hydroxide (Milk Of Magnesia) 2,400 mg BID PRN PO CONSTIPATION; Start 02/25/18 at 21:30; Status UNV Metoprolol Tartrate (Lopressor) 50 mg BID PO ; Start 02/26/18 at 09:00; Status UNV Metoprolol Tartrate (Lopressor) 50 mg BID PO ; Start 02/26/18 at 09:00; Status UNV Calcitriol (Rocaltrol) 0.25 mcg QTUTHSA PO Last administered on 03/05/18at 17:01 ; Start 02/26/18 at 16:00 Calcium Acetate (Phoslo) 667 mg TIDWMEALS PO Last administered on 03/06/18at 16: 17; Start 02/26/18 at 08:00 Hydroxyzine Pamoate (Vistaril) 25 mg PRN Q6HRS PRN PO ITCHING; Start 02/25/18 at 21:45 Pantoprazole Sodium (Protonix) 40 mg DAILYAC PO Last administered on 03/06/18at 08:11; Start 02/26/18 at 07:30 Acetaminophen (Tylenol) 650 mg PRN Q8HRS PRN PO MILD PAIN; Start 02/26/18 at 09 :15 Ondansetron HCl (Zofran) 4 mg PRN Q6HRS PRN IV NAUSEA/VOMITING; Start 02/26/18 at 09:15 Clonidine HCl (Catapres) 0.1 mg PRN Q1HR PRN PO HYPERTENSION, SEE COMMENTS; Start 02/26/18 at 09:15 Fentanyl Citrate (Fentanyl 2ml Vial) 50 mcg PRN Q2HR PRN IV SEVERE PAIN Last administered on 03/06/18at 11:24; Start 02/26/18 at 09:15 Acetaminophen/ Hydrocodone Bitart (Lortab 5/325) 1 tab PRN Q4HRS PRN PO MODERATE-SEVERE PAIN Last administered on 03/07/18at 01:39; Start 02/26/18 at 09: 15 Calcitriol (Rocaltrol) 0.25 mcg MoWeFr PO ; Start 02/27/18 at 09:00; Status Cancel Vancomycin HCl (Vanco Per Pharmacy) 1 each PRN DAILY PRN MC SEE COMMENTS Last administered on 03/06/18at 16:36; Start 02/26/18 at 10:00 Vancomycin HCl 1.5 gm/Sodium Chloride 500 ml @ 250 mls/hr 1X ONCE IV ; Start 02/26/18 at 11:00; Stop 02/26/18 at 12:59; Status Cancel Sodium Chloride 1,000 ml @ 1,000 mls/hr Q1H PRN IV hypotension; Start 02/26/18 at 10:12; Stop 02/26/18 at 16:11; Status DC Diphenhydramine HCl (Benadryl) 25 mg 1X PRN PRN IV ITCHING; Start 02/26/18 at 10:15; Stop 02/27/18 at 10:14; Status DC Diphenhydramine HCl (Benadryl) 25 mg 1X PRN PRN IV ITCHING; Start 02/26/18 at 10:15; Stop 02/27/18 at 10:14; Status DC Sodium Chloride 1,000 ml @ 400 mls/hr Q2H30M PRN IV PATENCY; Start 02/26/18 at 10:12; Stop 02/26/18 at 22:11; Status DC Info (PHARMACY MONITORING -- do not chart) 1 each PRN DAILY PRN MC SEE COMMENTS ; Start 02/26/18 at 10:15; Stop 02/28/18 at 14:47; Status DC Darbepoetin Uche (Aranesp) 60 mcg WEEKLYHS SQ Last administered on 03/05/18at 21 :09; Start 02/26/18 at 21:00 Alprazolam (Xanax) 0.25 mg PRN Q8HRS PRN PO ANXIETY / AGITATION Last administered on 03/06/18at 22:44; Start 02/26/18 at 14:15 Vancomycin HCl 500 mg/Sodium Chloride 100 ml @ 100 mls/hr QTUTHSA IV Last administered on 03/05/18at 17:01; Start 02/26/18 at 16:00 Lactobacillus Rhamnosus (Culturelle) 1 cap BID PO Last administered on at 21:00; Start 02/27/18 at 21:00 Sodium Chloride 1,000 ml @ 1,000 mls/hr Q1H PRN IV hypotension; Start 02/28/18 at 14:39; Stop 02/28/18 at 20:38; Status DC Albumin Human 200 ml @ 200 mls/hr 1X PRN PRN IV Hypotension; Start 02/28/18 at 14:45; Stop 02/28/18 at 20:44; Status DC Acetaminophen (Tylenol) 500 mg 1X PRN PRN PO MILD PAIN / TEMP; Start 02/28/18 at 14:45; Stop 03/01/18 at 14:44; Status DC Diphenhydramine HCl (Benadryl) 25 mg 1X PRN PRN IV ITCHING; Start 02/28/18 at 14:45; Stop 03/01/18 at 14:44; Status DC Diphenhydramine HCl (Benadryl) 25 mg 1X PRN PRN IV ITCHING; Start 02/28/18 at 14:45; Stop 03/01/18 at 14:44; Status DC Labetalol HCl (Normodyne Iv Push) 10 mg PRN Q1HR PRN IVP SBP > 180; Start 02/28 at 14:45; Stop 03/01/18 at 14:44; Status DC Clonidine HCl (Catapres) 0.1 mg 1X PRN PRN PO SBP > 180; Start 02/28/18 at 14: 45; Stop 03/01/18 at 14:44; Status DC Sodium Chloride 1,000 ml @ 400 mls/hr Q2H30M PRN IV PATENCY; Start 02/28/18 at 14:39; Stop 03/01/18 at 02:38; Status DC Info (PHARMACY MONITORING -- do not chart) 1 each PRN DAILY PRN MC SEE COMMENTS ; Start 02/28/18 at 14:45 Heparin Sodium (Porcine) 5000 unit/Sodium Chloride 505 ml @ 505 mls/hr 1X ONCE IRR Last administered on 03/03/18at 08:15; Start 03/03/18 at 06:00; Stop at 06:59; Status DC Cefazolin Sodium 1 gm/Sodium Chloride 500 ml @ 500 mls/hr 1X ONCE IRR Last administered on 03/03/18at 08:15; Start 03/03/18 at 06:00; Stop 03/03/18 at 06:59 ; Status DC Ondansetron HCl (Zofran) 4 mg PRN Q6HRS PRN IV NAUSEA/VOMITING; Start 03/03/18 at 07:00; Stop 03/03/18 at 21:00; Status DC Fentanyl Citrate (Fentanyl 2ml Vial) 25 mcg PRN Q5MIN PRN IV MILD PAIN; Start 03/03/18 at 07:00; Stop 03/03/18 at 21:00; Status DC Fentanyl Citrate (Fentanyl 2ml Vial) 50 mcg PRN Q5MIN PRN IV MODERATE TO SEVERE PAIN Last administered on 03/03/18at 09:41; Start 03/03/18 at 07:00; Stop 03/03/18 at 21:00; Status DC Morphine Sulfate (Morphine Sulfate) 1 mg PRN Q10MIN PRN IV SEVERE PAIN; Start 03/03/18 at 07:00; Stop 03/03/18 at 21:00; Status DC Ringer's Solution 1,000 ml @ 30 mls/hr Q24H IV Last administered on 03/03/18at 07:00; Start 03/03/18 at 07:00; Stop 03/03/18 at 18:59; Status DC Lidocaine HCl (Xylocaine-Mpf 1% 2ml Vial) 2 ml PRN 1X PRN ID IV START; Start at 07:00; Stop 03/03/18 at 21:00; Status DC Hydromorphone HCl (Dilaudid) 0.5 mg PRN Q10MIN PRN IV SEV PAIN, Second choice; Start 03/03/18 at 07:00; Stop 03/03/18 at 21:00; Status DC Prochlorperazine Edisylate (Compazine) 5 mg PACU PRN PRN IV NAUSEA, MRX1; Start 03/03/18 at 07:00; Stop 03/03/18 at 21:00; Status DC Cellulose (Surgicel Hemostat 2x3) 1 each STK-MED ONCE .ROUTE ; Start 03/03/18 at 05:51; Stop 03/03/18 at 06:52; Status DC Cellulose (Surgicel Fibrillar 1x2) 1 each STK-MED ONCE .ROUTE Last administered on 03/03/18at 08:47; Start 03/03/18 at 05:52; Stop 03/03/18 at 06:52 ; Status DC Papaverine HCl 60 mg STK-MED ONCE .ROUTE ; Start 03/03/18 at 05:53; Stop at 06:53; Status DC Cefazolin Sodium/ Dextrose 50 ml @ As Directed STK-MED ONCE IV ; Start 03/03/18 at 06:56; Stop 03/03/18 at 06:57; Status DC Cefazolin Sodium/ Dextrose 50 ml @ 100 mls/hr 1X PREOP PRN IV Pre Op Dose Last administered on 03/03/18at 07:53; Start 03/03/18 at 06:00; Stop 03/04/18 at 05:59; Status DC Fentanyl Citrate (Fentanyl 2ml Vial) 100 mcg STK-MED ONCE .ROUTE ; Start at 07:21; Stop 03/03/18 at 07:22; Status DC Lidocaine HCl (Xylocaine 1% Pf 30ml Vial) 30 ml STK-MED ONCE INJ Last administered on 03/03/18at 08:07; Start 03/03/18 at 08:07; Stop 03/03/18 at 08:12 ; Status DC Propofol 20 ml @ As Directed STK-MED ONCE IV ; Start 03/03/18 at 08:12; Stop at 08:14; Status DC Propofol 20 ml @ As Directed STK-MED ONCE IV ; Start 03/03/18 at 08:12; Stop at 08:14; Status DC Dexamethasone Sodium Phosphate (Decadron) 20 mg STK-MED ONCE .ROUTE ; Start at 08:13; Stop 03/03/18 at 08:14; Status DC Ondansetron HCl (Zofran) 4 mg STK-MED ONCE .ROUTE ; Start 03/03/18 at 08:13; Stop 03/03/18 at 08:14; Status DC Sevoflurane (Ultane) 60 ml STK-MED ONCE IH ; Start 03/03/18 at 08:13; Stop 03/03 at 08:14; Status DC Phenylephrine HCl (PHENYLEPHRINE in 0.9% NACL PF) 1 mg STK-MED ONCE IV ; Start 03/03/18 at 08:17; Stop 03/03/18 at 08:18; Status DC Heparin Sodium (Porcine) (Heparin Sodium) 10,000 unit STK-MED ONCE .ROUTE ; Start 03/03/18 at 08:49; Stop 03/03/18 at 08:50; Status DC Protamine Sulfate (Protamine) 50 mg STK-MED ONCE IV ; Start 03/03/18 at 08:49; Stop 03/03/18 at 08:50; Status DC Phenylephrine HCl (PHENYLEPHRINE in 0.9% NACL PF) 1 mg STK-MED ONCE IV ; Start 03/03/18 at 08:49; Stop 03/03/18 at 08:50; Status DC Sodium Chloride 1,000 ml @ 1,000 mls/hr Q1H PRN IV hypotension; Start 03/03/18 at 10:19; Stop 03/03/18 at 16:18; Status DC Sodium Chloride 1,000 ml @ 400 mls/hr Q2H30M PRN IV PATENCY; Start 03/03/18 at 10:19; Stop 03/03/18 at 22:18; Status DC Info (PHARMACY MONITORING -- do not chart) 1 each PRN DAILY PRN MC SEE COMMENTS ; Start 03/03/18 at 10:30; Status UNV Info (PHARMACY MONITORING -- do not chart) 1 each PRN DAILY PRN MC SEE COMMENTS ; Start 03/03/18 at 10:30; Status UNV Vancomycin HCl (Vancomycin Random Level) 1 each 1X ONCE MC ; Start 03/05/18 at 06:00; Stop 03/05/18 at 06:01; Status DC Ondansetron HCl (Zofran) 4 mg PRN Q6HRS PRN IV NAUSEA/VOMITING; Start 03/05/18 at 07:00; Stop 03/05/18 at 18:00; Status DC Fentanyl Citrate (Fentanyl 2ml Vial) 25 mcg PRN Q5MIN PRN IV MILD PAIN; Start 03/05/18 at 07:00; Stop 03/05/18 at 18:00; Status DC Fentanyl Citrate (Fentanyl 2ml Vial) 50 mcg PRN Q5MIN PRN IV MODERATE TO SEVERE PAIN; Start 03/05/18 at 07:00; Stop 03/05/18 at 18:00; Status DC Morphine Sulfate (Morphine Sulfate) 1 mg PRN Q10MIN PRN IV SEVERE PAIN; Start 03/05/18 at 07:00; Stop 03/05/18 at 18:00; Status DC Ringer's Solution 1,000 ml @ 30 mls/hr Q24H IV ; Start 03/05/18 at 07:00; Stop 03/05/18 at 18:59; Status Cancel Lidocaine HCl (Xylocaine-Mpf 1% 2ml Vial) 2 ml PRN 1X PRN ID IV START; Start at 07:00; Stop 03/05/18 at 18:00; Status DC Hydromorphone HCl (Dilaudid) 0.5 mg PRN Q10MIN PRN IV SEV PAIN, Second choice; Start 03/05/18 at 07:00; Stop 03/05/18 at 18:00; Status DC Prochlorperazine Edisylate (Compazine) 5 mg PACU PRN PRN IV NAUSEA, MRX1; Start 03/05/18 at 07:00; Stop 03/05/18 at 18:00; Status DC Sodium Chloride 1,000 ml @ 0 mls/hr Q0M IV Last administered on 03/05/18at 08: 43; Start 03/05/18 at 07:00 Propofol 20 ml @ As Directed STK-MED ONCE IV ; Start 03/05/18 at 08:17; Stop at 08:18; Status DC Benzocaine (Hurricaine One) 1 spray STK-MED ONCE .ROUTE ; Start 03/05/18 at 08: 30; Stop 03/05/18 at 08:31; Status DC Lidocaine HCl (Xylocaine 2% Topical 5gm Tube) 5 alexandra STK-MED ONCE TP ; Start at 08:30; Stop 03/05/18 at 08:31; Status DC Lidocaine HCl (Viscous Lidocaine) 15 ml STK-MED ONCE .ROUTE ; Start 03/05/18 at 08:30; Stop 03/05/18 at 08:32; Status DC Benzocaine (Hurricaine One) 3 spray 1X ONCE MM Last administered on 03/05/18at 08:45; Start 03/05/18 at 08:45; Stop 03/05/18 at 08:47; Status DC Lidocaine HCl (Viscous Lidocaine) 15 ml 1X ONCE SWSW Last administered on 03/05at 08:45; Start 03/05/18 at 08:45; Stop 03/05/18 at 08:47; Status DC Lidocaine HCl (Xylocaine 2% Topical 5gm Tube) 2 alexandra 1X ONCE TP Last administered on 03/05/18at 08:45; Start 03/05/18 at 08:45; Stop 03/05/18 at 08:47 ; Status DC Sodium Chloride 1,000 ml @ 1,000 mls/hr Q1H PRN IV hypotension; Start 03/05/18 at 08:47; Stop 03/05/18 at 14:46; Status DC Sodium Chloride (Normal Saline Flush) 10 ml 1X PRN PRN IV AP catheter pack; Start 03/05/18 at 09:00; Stop 03/06/18 at 08:59; Status DC Sodium Chloride (Normal Saline Flush) 10 ml 1X PRN PRN IV QUOTATION CHECKER catheter pack; Start 03/05/18 at 09:00; Stop 03/06/18 at 08:59; Status DC Sodium Chloride 1,000 ml @ 400 mls/hr Q2H30M PRN IV PATENCY; Start 03/05/18 at 08:47; Stop 03/05/18 at 20:46; Status DC Info (PHARMACY MONITORING -- do not chart) 1 each PRN DAILY PRN MC SEE COMMENTS ; Start 03/05/18 at 09:00; Status UNV Info (PHARMACY MONITORING -- do not chart) 1 each PRN DAILY PRN MC SEE COMMENTS ; Start 03/05/18 at 09:00; Status UNV Linezolid (Zyvox) 600 mg BID PO Last administered on 03/06/18at 21:00; Start at 21:00 Lidocaine/Sodium Bicarbonate (Buffered Lidocaine 1%) 3 ml STK-MED ONCE .ROUTE ; Start 03/05/18 at 15:19; Stop 03/05/18 at 15:20; Status DC Heparin Sodium (Porcine) (Heparin Sodium) 10,000 unit STK-MED ONCE .ROUTE ; Start 03/05/18 at 15:19; Stop 03/05/18 at 15:20; Status DC Lidocaine/Sodium Bicarbonate (Buffered Lidocaine 1%) 3 ml 1X ONCE IJ Last administered on 03/05/18at 16:16; Start 03/05/18 at 15:30; Stop 03/05/18 at 15:31 ; Status DC Heparin Sodium (Porcine) (Heparin Sodium) 2,600 unit 1X ONCE INT CAT Last administered on 03/05/18at 16:16; Start 03/05/18 at 15:30; Stop 03/05/18 at 15:31 ; Status DC Lidocaine/Sodium Bicarbonate (Buffered Lidocaine 1%) 3 ml STK-MED ONCE .ROUTE ; Start 03/05/18 at 16:03; Stop 03/05/18 at 16:04; Status DC Sodium Chloride 1,000 ml @ 1,000 mls/hr Q1H PRN IV hypotension; Start 03/07/18 at 10:06; Stop 03/07/18 at 16:05 Sodium Chloride 1,000 ml @ 400 mls/hr Q2H30M PRN IV PATENCY; Start 03/07/18 at 10:06; Stop 03/07/18 at 22:05 Info (PHARMACY MONITORING -- do not chart) 1 each PRN DAILY PRN MC SEE COMMENTS ; Start 03/07/18 at 10:15; Status UNV Info (PHARMACY MONITORING -- do not chart) 1 each PRN DAILY PRN MC SEE COMMENTS ; Start 03/07/18 at 10:15 Active Scripts Active Colace (Docusate Sodium) 100 Mg Capsule 1 Cap PO BID PRN [Darbepoetin Uche In Polysorbat] 60 MCG/0.3 ML Disp.syrin 60 Mcg SQ WEEKLYHS Vancomycin Hcl 1 Gm Vial 1 Each MC PRN DAILY PRN 14 Days 500mg IV after each dialysis 2 weeks Metoprolol Tartrate 50 Mg Tablet 50 Mg PO BID 60 Days Reported Tylenol (Acetaminophen) 325 Mg Tablet 1-2 Tab PO QID PRN Milk Of Magnesia (Magnesium Hydroxide) 400 Mg/5 Ml Oral.susp 30 Ml PO BID PRN Duoneb 0.5-3(2.5) Mg/3 Ml (Albuterol/Ipratropium) 3 Ml Ampul.neb 3 Ml NEB Q4HRS PRN Hydroxyzine Hcl 25 Mg Tablet 1 Tab PO Q6HRS PRN Calcium Acetate 667 Mg Tablet 667 Mg PO TIDWMEALS Calcitriol 0.25 Mcg Capsule 1 Cap PO QTUTHSA Protonix (Pantoprazole Sodium) 20 Mg Tablet.dr 40 Mg PO DAILY Nephro-Bennie Tablet (Folic Acid/Vitamin B Comp W-C) 0.8 Mg Tablet 1 Tab PO DAILY Metoprolol Tartrate 50 Mg Tablet 1 Tab PO BID Lisinopril 40 Mg Tablet 1 Tab PO QHS Ferrous Sulfate 325 Mg Tablet 1 Tab PO DAILY Calcitriol 0.25 Mcg Capsule 1 Cap PO M// Amlodipine Besylate 10 Mg Tablet 10 Mg PO QHS Acetaminophen 325 Mg Tablet 325 Mg PO PRN Q8HRS Vitals/I & O Vital Sign - Last 24 Hours 03/06/18 03/06/18 03/06/18 03/06/18 13:43 15:00 16:18 19:00 Temp 97.3 97.6 97.3 97.6 Pulse 77 79 Resp 18 20 B/P (MAP) 161/72 (101) 172/57 (95) Pulse Ox 100 100 98 O2 Delivery Nasal Cannula Nasal Cannula Nasal Cannula Nasal Cannula O2 Flow Rate 2.0 3.0 2.0 3.0 03/06/18 03/06/18 03/06/18 03/06/18 20:00 21:01 21:02 21:02 Pulse 76 76 B/P (MAP) 177/82 177/82 O2 Delivery Nasal Cannula Nasal Cannula O2 Flow Rate 3.0 2.0 03/06/18 03/07/18 03/07/18 03/07/18 23:00 01:39 02:39 03:00 Temp 97.8 97.7 97.8 97.7 Pulse 77 74 Resp 20 20 B/P (MAP) 162/81 (108) 158/78 (104) Pulse Ox 100 98 O2 Delivery Nasal Cannula Nasal Cannula Nasal Cannula Nasal Cannula O2 Flow Rate 3.0 2.0 2.0 03/07/18 03/07/18 03/07/18 07:00 08:00 09:38 Temp 97.9 97.9 Pulse 80 Resp 16 B/P (MAP) 153/84 (107) Pulse Ox 100 100 O2 Delivery Nasal Cannula Nasal Cannula Nasal Cannula O2 Flow Rate 3.0 2.0 2.0 Intake and Output 03/06/18 03/06/18 03/07/18 15:00 23:00 07:00 Intake Total 700 ml 200 ml Output Total 0 ml Balance 700 ml 200 ml Nutrition Consultation Dietary Evaluation: Recommendations by RD: Increase Calorie Intake, Protein supplementation Comments: continue nepro tid Expected Outcomes/Goals: to meet > 75% est nutr needs- met, goal ongoing Interpretation of weight loss: >5% in 1 month Malnutrition Findings: Weight Status: Underweight AMAN COWAN MD Mar 07, 2018 13:39
[2018-03-07] MEDS: PANTOPRAZOLE 40 MG TABLET.DR. PO SCH (14:17)
[2018-03-07] MEDS: FOLIC/VIT B COMP W-C (RENAL) TABLET. PO SCH (14:17)
[2018-03-07] MEDS: LINEZOLID 600 MG TABLET PO SCH ×2 (14:17→20:31)
[2018-03-07] MEDS: FERROUS SULFATE 325 MG TABLET. PO SCH (14:17)
[2018-03-07 15:00] VITALS: BP 182/77
[2018-03-07] MEDS: CALCITRIOL 0.25 MCG CAPSULE. PO SCH (16:17)
[2018-03-07] MEDS: VANCOMYCIN 500 MG in IV NORMAL SALINE 100ML 100 ML IV SCH (16:18)
[2018-03-07] MEDS: hydrOXYzine PAMOATE 25 MG CAPSULE PO PRN (16:32)
[2018-03-07 19:00] VITALS: BP 191/65
[2018-03-07] MEDS: ONDANSETRON PF 4 MG/2 ML VIAL. IV PRN (20:30)
[2018-03-07] MEDS: ZOLPIDEM 5 MG TABLET. PO PRN (20:31)
[2018-03-07] MEDS: ALPRAZolam 0.25 MG TABLET PO PRN (20:31)
[2018-03-07] MEDS: LISINOPRIL 20 MG TABLET PO SCH (20:32)
[2018-03-07] MEDS: amLODIPine BESYLATE 10 MG TABLET PO SCH (20:33)
[2018-03-07 23:07] VITALS: BP 160/80
[2018-03-08] MEDS: ZOLPIDEM 5 MG TABLET. PO PRN ×3 (00:23→23:52)
[2018-03-08 02:38] VITALS: BP 158/73
[2018-03-08] MEDS: HYDROcodone/APAP 5/325MG 1 TAB TABLET PO PRN ×4 (05:23→21:41)
[2018-03-08 07:00] VITALS: BP 159/69
--- NOTE | 2018-03-08 07:09 | PDOC ---
SUBJECTIVE ROS Asked to see for ESRD on hemodialysis Friday Patient denies any new complaints today. He is busy eating his breakfast CVS: no Orthopnea, no CP RESP: no SOB, no SWIFT GI: no Nausea, no Vomiting : no Dysuria, no Urgency OBJECTIVE Vital Signs Vital Signs Date Time Temp Pulse Resp B/P (MAP) Pulse Ox O2 Delivery O2 Flow Rate FiO2 03/08/18 05:23 15 100 Nasal Cannula 3.0 03/08/18 02:38 98.1 67 158/73 (101) 98.1 I & 0 Intake and Output 03/08/18 07:00 Intake Total 2020 ml Balance 2020 ml Intake Oral 2020 ml # Voids 1 # Bowel Movements 1 PHYSICAL EXAM Physical Exam GEN: Awake, Oriented x 3, In no distress EYES: Vision Unchanged, Conjunctiva Normal EN: No EN Drainage, Mucous Membranes moist NECK: no JVD, min JVP, Supple, no Thyromegaly CVS: S1S2, soft Murmur, No Gallop, No Rub,no Edema RESP: no Rales, no Rhonchi,no Acc. Muscle Use GI: BS + ve, NO Bruit, Non Tender, Non Distended : no CVA tenderness, no Suprapubic Tenderness DIAGNOSIS/ASSESSMENT Assessment & Plan ESRD: Current fluid and E-lyte status does not necessitate emergent need for dialysis. Will re-evaluate for dialysis in the am and continue on Friday schedule. ANEMIA; Aranap as ordered, Transfuse with next HD as needed HTN: Current BP meds as reviewed. See orders for changes. BONE & MINERAL: Follow phosphorus levels and alter binder regimen as needed Infected dialysis catheter: Permacath removed, temporary dialysis catheter in place. Long-term Dialysis access placement to be determined depending on course of current infection and recovery. Leukocytosis appears to have resolved Hyperkalemia from yesterday: I anticipate this to have resolved with dialysis yesterday. COMMENT/RELEVANT DATA Meds Current Medications Medications (Trade) Dose Ordered Sig/Lissette Start Time Stop Time Status Last Admin Dose Admin Acetaminophen (Tylenol) 500 mg 1X PRN PRN 02/28/18 14:45 03/01/18 14:44 DC Acetaminophen/ Hydrocodone Bitart (Lortab 5/325) 1 tab PRN Q4HRS PRN 02/26/18 09:15 03/08/18 05:23 1 TAB Albumin Human 200 ml @ 200 mls/hr 1X PRN PRN 02/28/18 14:45 02/28/18 20:44 DC Albuterol Sulfate (Ventolin Neb Soln) 2.5 mg PRN Q4HRS PRN 02/25/18 21:45 03/07/18 21:12 2.5 MG Alprazolam (Xanax) 0.25 mg PRN Q8HRS PRN 02/26/18 14:15 03/07/18 20:31 0.25 MG Amlodipine Besylate (Norvasc) 10 mg QHS 02/26/18 21:00 03/07/18 20:33 10 MG Benzocaine (Hurricaine One) 3 spray 1X ONCE 03/05/18 08:45 03/05/18 08:47 DC 03/05/18 08:45 3 SPRAY Calcitriol (Rocaltrol) 0.25 mcg MoWeFr 02/27/18 09:00 Cancel Calcium Acetate (Phoslo) 667 mg TIDWMEALS 02/26/18 08:00 03/07/18 16:18 667 MG Cefazolin Sodium 1 gm/Sodium Chloride 500 ml @ 500 mls/hr 1X ONCE 03/03/18 06:00 03/03/18 06:59 DC 03/03/18 08:15 Cefazolin Sodium/ Dextrose 50 ml @ 100 mls/hr 1X PREOP PRN 03/03/18 06:00 03/04/18 05:59 DC 03/03/18 07:53 100 MLS/HR Cellulose (Surgicel Fibrillar 1x2) 1 each STK-MED ONCE 03/03/18 05:52 03/03/18 06:52 DC 03/03/18 08:47 1 EACH Cellulose (Surgicel Hemostat 2x3) 1 each STK-MED ONCE 03/03/18 05:51 03/03/18 06:52 DC Clonidine HCl (Catapres) 0.1 mg 1X PRN PRN 02/28/18 14:45 03/01/18 14:44 DC Darbepoetin Uche (Aranesp) 60 mcg WEEKLYHS 02/26/18 21:00 03/05/18 21:09 60 MCG Dexamethasone Sodium Phosphate (Decadron) 20 mg STK-MED ONCE 03/03/18 08:13 03/03/18 08:14 DC Diphenhydramine HCl (Benadryl) 25 mg 1X PRN PRN 02/28/18 14:45 03/01/18 14:44 DC Fentanyl Citrate (Fentanyl 2ml Vial) 50 mcg PRN Q5MIN PRN 03/05/18 07:00 03/05/18 18:00 DC Ferrous Sulfate (Feosol) 325 mg DAILY 02/26/18 09:00 03/07/18 14:17 325 MG Heparin Sodium (Porcine) (Heparin Sodium) 2,600 unit 1X ONCE 03/05/18 15:30 03/05/18 15:31 DC 03/05/18 16:16 2,800 UNIT Heparin Sodium (Porcine) 5000 unit/Sodium Chloride 505 ml @ 505 mls/hr 1X ONCE 03/03/18 06:00 03/03/18 06:59 DC 03/03/18 08:15 Hydromorphone HCl (Dilaudid) 0.5 mg PRN Q10MIN PRN 03/05/18 07:00 03/05/18 18:00 DC Hydroxyzine Pamoate (Vistaril) 25 mg PRN Q6HRS PRN 02/25/18 21:45 03/07/18 16:32 25 MG Info (PHARMACY MONITORING -- do not chart) 1 each PRN DAILY PRN 03/07/18 10:15 Labetalol HCl (Normodyne Iv Push) 10 mg PRN Q1HR PRN 02/28/18 14:45 03/01/18 14:44 DC Lactobacillus Rhamnosus (Culturelle) 1 cap BID 02/27/18 21:00 03/07/18 20:31 1 CAP Lidocaine HCl (Viscous Lidocaine) 15 ml 1X ONCE 03/05/18 08:45 03/05/18 08:47 DC 03/05/18 08:45 15 ML Lidocaine HCl (Xylocaine 1% Pf 30ml Vial) 30 ml STK-MED ONCE 03/03/18 08:07 03/03/18 08:12 DC 03/03/18 08:07 1 ML Lidocaine HCl (Xylocaine 2% Topical 5gm Tube) 2 alexandra 1X ONCE 03/05/18 08:45 03/05/18 08:47 DC 03/05/18 08:45 2 ALEXANDRA Lidocaine HCl (Xylocaine-Mpf 1% 2ml Vial) 2 ml PRN 1X PRN 03/05/18 07:00 03/05/18 18:00 DC Lidocaine/Sodium Bicarbonate (Buffered Lidocaine 1%) 3 ml STK-MED ONCE 03/05/18 16:03 03/05/18 16:04 DC Linezolid (Zyvox) 600 mg BID 03/05/18 21:00 03/07/18 20:31 600 MG Lisinopril (Prinivil) 40 mg QHS 02/25/18 22:00 03/07/18 20:32 40 MG Magnesium Hydroxide (Milk Of Magnesia) 2,400 mg BID PRN 02/25/18 21:30 UNV Metoprolol Tartrate (Lopressor) 50 mg BID 02/26/18 09:00 UNV Morphine Sulfate (Morphine Sulfate) 1 mg PRN Q10MIN PRN 03/05/18 07:00 03/05/18 18:00 DC Ondansetron HCl (Zofran) 4 mg PRN Q6HRS PRN 03/05/18 07:00 03/05/18 18:00 DC Pantoprazole Sodium (Protonix) 40 mg DAILYAC 02/26/18 07:30 03/07/18 14:17 40 MG Papaverine HCl 60 mg STK-MED ONCE 03/03/18 05:53 03/03/18 06:53 DC Phenylephrine HCl (PHENYLEPHRINE in 0.9% NACL PF) 1 mg STK-MED ONCE 03/03/18 08:49 03/03/18 08:50 DC Piperacillin Sod/ Tazobactam Sod 2.25 gm/Sodium Chloride 100 ml @ 200 mls/hr 1X ONCE 02/25/18 08:45 02/25/18 09:14 DC 02/25/18 09:25 200 MLS/HR Prochlorperazine Edisylate (Compazine) 5 mg PACU PRN PRN 03/05/18 07:00 03/05/18 18:00 DC Propofol 20 ml @ As Directed STK-MED ONCE 03/05/18 08:17 03/05/18 08:18 DC Protamine Sulfate (Protamine) 50 mg STK-MED ONCE 03/03/18 08:49 03/03/18 08:50 DC Ringer's Solution 1,000 ml @ 30 mls/hr Q24H 03/05/18 07:00 03/05/18 18:59 Cancel Sevoflurane (Ultane) 60 ml STK-MED ONCE 03/03/18 08:13 03/03/18 08:14 DC Sodium Chloride 1,000 ml @ 400 mls/hr Q2H30M PRN 03/07/18 10:06 03/07/18 22:05 DC Sodium Chloride (Normal Saline Flush) 10 ml 1X PRN PRN 03/05/18 09:00 03/06/18 08:59 DC Vancomycin HCl (Vanco Per Pharmacy) 1 each PRN DAILY PRN 02/26/18 10:00 03/06/18 16:36 1 EACH Vancomycin HCl (Vancomycin Random Level) 1 each 1X ONCE 03/05/18 06:00 03/05/18 06:01 DC Vancomycin HCl 1.5 gm/Sodium Chloride 500 ml @ 250 mls/hr 1X ONCE 02/26/18 11:00 02/26/18 12:59 Cancel Vancomycin HCl 500 mg/Sodium Chloride 100 ml @ 100 mls/hr QTUTHSA 02/26/18 16:00 03/07/18 16:18 100 MLS/HR Vitamin B Complex/ Vitamin C (Kiara-Bennie) 1 tab DAILY 02/26/18 09:00 03/07/18 14:17 1 TAB Zolpidem Tartrate (Ambien) 5 mg HS PRN 02/25/18 21:15 03/08/18 00:23 5 MG Results All relevant outside records, renal labs, imaging studies, telemetry/EKG's were reviewed. SHAHRAM BENTLEY MD Mar 08, 2018 07:09
[2018-03-08] MEDS ORDERED: MAGNESIUM SULFATE 2GM 50 ML IV PRN (07:15)
--- NOTE | 2018-03-08 08:15 | PDOC ---
Infectious Disease Note Subjective: Subjective pt without complaints ROS: ROS Negative except for above. Vital Signs: Vital Signs Vital Signs Date Time Temp Pulse Resp B/P (MAP) Pulse Ox O2 Delivery O2 Flow Rate FiO2 03/08/18 07:00 97.6 77 20 159/69 (99) 99 2l 97.6 03/08/18 06:30 3.0 Physical Exam: PHYSICAL EXAM GENERAL: alert awake in nad LUNGS: Clear. HEART: S1, S2 regular. ABDOMEN: Soft, NT EXTREMITIES: No edema, cyanosis. 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 Lines clean Medications: Inpatient Meds: Current Medications Medications (Trade) Dose Ordered Sig/Lissette Start Time Stop Time Status Last Admin Dose Admin Acetaminophen (Tylenol) 500 mg 1X PRN PRN 02/28/18 14:45 03/01/18 14:44 DC Acetaminophen/ Hydrocodone Bitart (Lortab 5/325) 1 tab PRN Q4HRS PRN 02/26/18 09:15 03/08/18 05:23 1 TAB Albumin Human 200 ml @ 200 mls/hr 1X PRN PRN 02/28/18 14:45 02/28/18 20:44 DC Albuterol Sulfate (Ventolin Neb Soln) 2.5 mg PRN Q4HRS PRN 02/25/18 21:45 03/07/18 21:12 2.5 MG Alprazolam (Xanax) 0.25 mg PRN Q8HRS PRN 02/26/18 14:15 03/07/18 20:31 0.25 MG Amlodipine Besylate (Norvasc) 10 mg QHS 02/26/18 21:00 03/07/18 20:33 10 MG Benzocaine (Hurricaine One) 3 spray 1X ONCE 03/05/18 08:45 03/05/18 08:47 DC 03/05/18 08:45 3 SPRAY Calcitriol (Rocaltrol) 0.25 mcg MoWeFr 02/27/18 09:00 Cancel Calcium Acetate (Phoslo) 667 mg TIDWMEALS 02/26/18 08:00 03/07/18 16:18 667 MG Cefazolin Sodium 1 gm/Sodium Chloride 500 ml @ 500 mls/hr 1X ONCE 03/03/18 06:00 03/03/18 06:59 DC 03/03/18 08:15 Cefazolin Sodium/ Dextrose 50 ml @ 100 mls/hr 1X PREOP PRN 03/03/18 06:00 03/04/18 05:59 DC 03/03/18 07:53 100 MLS/HR Cellulose (Surgicel Fibrillar 1x2) 1 each STK-MED ONCE 03/03/18 05:52 03/03/18 06:52 DC 03/03/18 08:47 1 EACH Cellulose (Surgicel Hemostat 2x3) 1 each STK-MED ONCE 03/03/18 05:51 03/03/18 06:52 DC Clonidine HCl (Catapres) 0.1 mg 1X PRN PRN 02/28/18 14:45 03/01/18 14:44 DC Darbepoetin Uche (Aranesp) 60 mcg WEEKLYHS 02/26/18 21:00 03/05/18 21:09 60 MCG Dexamethasone Sodium Phosphate (Decadron) 20 mg STK-MED ONCE 03/03/18 08:13 03/03/18 08:14 DC Diphenhydramine HCl (Benadryl) 25 mg 1X PRN PRN 02/28/18 14:45 03/01/18 14:44 DC Fentanyl Citrate (Fentanyl 2ml Vial) 50 mcg PRN Q5MIN PRN 03/05/18 07:00 03/05/18 18:00 DC Ferrous Sulfate (Feosol) 325 mg DAILY 02/26/18 09:00 03/07/18 14:17 325 MG Heparin Sodium (Porcine) (Heparin Sodium) 2,600 unit 1X ONCE 03/05/18 15:30 03/05/18 15:31 DC 03/05/18 16:16 2,800 UNIT Heparin Sodium (Porcine) 5000 unit/Sodium Chloride 505 ml @ 505 mls/hr 1X ONCE 03/03/18 06:00 03/03/18 06:59 DC 03/03/18 08:15 Hydromorphone HCl (Dilaudid) 0.5 mg PRN Q10MIN PRN 03/05/18 07:00 03/05/18 18:00 DC Hydroxyzine Pamoate (Vistaril) 25 mg PRN Q6HRS PRN 02/25/18 21:45 9/22/18 16:32 25 MG Info (PHARMACY MONITORING -- do not chart) 1 each PRN DAILY PRN 03/07/18 10:15 Labetalol HCl (Normodyne Iv Push) 10 mg PRN Q1HR PRN 02/28/18 14:45 03/01/18 14:44 DC Lactobacillus Rhamnosus (Culturelle) 1 cap BID 02/27/18 21:00 03/07/18 20:31 1 CAP Lidocaine HCl (Viscous Lidocaine) 15 ml 1X ONCE 03/05/18 08:45 03/05/18 08:47 DC 03/05/18 08:45 15 ML Lidocaine HCl (Xylocaine 1% Pf 30ml Vial) 30 ml STK-MED ONCE 03/03/18 08:07 03/03/18 08:12 DC 03/03/18 08:07 1 ML Lidocaine HCl (Xylocaine 2% Topical 5gm Tube) 2 alexandra 1X ONCE 03/05/18 08:45 03/05/18 08:47 DC 03/05/18 08:45 2 ALEXANDRA Lidocaine HCl (Xylocaine-Mpf 1% 2ml Vial) 2 ml PRN 1X PRN 03/05/18 07:00 03/05/18 18:00 DC Lidocaine/Sodium Bicarbonate (Buffered Lidocaine 1%) 3 ml STK-MED ONCE 03/05/18 16:03 03/05/18 16:04 DC Linezolid (Zyvox) 600 mg BID 03/05/18 21:00 03/07/18 20:31 600 MG Lisinopril (Prinivil) 40 mg QHS 02/25/18 22:00 03/07/18 20:32 40 MG Magnesium Hydroxide (Milk Of Magnesia) 2,400 mg BID PRN 02/25/18 21:30 UNV Magnesium Sulfate 50 ml @ 25 mls/hr PRN DAILY PRN 03/08/18 07:15 Metoprolol Tartrate (Lopressor) 50 mg BID 02/26/18 09:00 UNV Morphine Sulfate (Morphine Sulfate) 1 mg PRN Q10MIN PRN 03/05/18 07:00 03/05/18 18:00 DC Ondansetron HCl (Zofran) 4 mg PRN Q6HRS PRN 03/05/18 07:00 03/05/18 18:00 DC Pantoprazole Sodium (Protonix) 40 mg DAILYAC 02/26/18 07:30 03/07/18 14:17 40 MG Papaverine HCl 60 mg STK-MED ONCE 03/03/18 05:53 03/03/18 06:53 DC Phenylephrine HCl (PHENYLEPHRINE in 0.9% NACL PF) 1 mg STK-MED ONCE 03/03/18 08:49 03/03/18 08:50 DC Piperacillin Sod/ Tazobactam Sod 2.25 gm/Sodium Chloride 100 ml @ 200 mls/hr 1X ONCE 02/25/18 08:45 02/25/18 09:14 DC 02/25/18 09:25 200 MLS/HR Prochlorperazine Edisylate (Compazine) 5 mg PACU PRN PRN 03/05/18 07:00 03/05/18 18:00 DC Propofol 20 ml @ As Directed STK-MED ONCE 03/05/18 08:17 03/05/18 08:18 DC Protamine Sulfate (Protamine) 50 mg STK-MED ONCE 03/03/18 08:49 03/03/18 08:50 DC Ringer's Solution 1,000 ml @ 30 mls/hr Q24H 03/05/18 07:00 03/05/18 18:59 Cancel Sevoflurane (Ultane) 60 ml STK-MED ONCE 03/03/18 08:13 03/03/18 08:14 DC Sodium Chloride 1,000 ml @ 400 mls/hr Q2H30M PRN 03/07/18 10:06 03/07/18 22:05 DC Sodium Chloride (Normal Saline Flush) 10 ml 1X PRN PRN 03/05/18 09:00 03/06/18 08:59 DC Vancomycin HCl (Vanco Per Pharmacy) 1 each PRN DAILY PRN 02/26/18 10:00 03/06/18 16:36 1 EACH Vancomycin HCl (Vancomycin Random Level) 1 each 1X ONCE 03/05/18 06:00 03/05/18 06:01 DC Vancomycin HCl 1.5 gm/Sodium Chloride 500 ml @ 250 mls/hr 1X ONCE 02/26/18 11:00 02/26/18 12:59 Cancel Vancomycin HCl 500 mg/Sodium Chloride 100 ml @ 100 mls/hr QTUTHSA 02/26/18 16:00 03/07/18 16:18 100 MLS/HR Vitamin B Complex/ Vitamin C (Kiara-Bennie) 1 tab DAILY 02/26/18 09:00 03/07/18 14:17 1 TAB Zolpidem Tartrate (Ambien) 5 mg HS PRN 02/25/18 21:15 03/08/18 00:23 5 MG Labs: Micro RUN DATE: 03/06/18 PAGE 1 RUN TIME: 943 [facility] [address] [place] [address] Yossi Wilson M.D., Income Tax Consultant PATIENT: TEJA ROSENBAUM ACCT: [id number] LOC: [address] [place] [address] U : [id number] AGE/SX: 57/M ROOM: 3 REG : 02/25/[address]: CARRIE SIFUENTES MD : [id number] BED: 1 DIS : STATUS: ADM IN TLOC: SPEC #: [id number] ILYA: 03/05/18-1145 STATUS: COMP REQ #: [id number] RECD: 03/05/18-[address]: TATA BENTLEY MD SOURCE: BLOOD ENTR: 03/05/18-[address]: ALISSA REDMOND MD SPDESC: BILL BENTLEY MD, THOMAS W MD MCSWEYN, DONALD J MD NAIR, VENU S MD NO PCP ORDERED: BCULT Procedure Result BLOOD CULTURE Final GRAM POSITIVE COCCI IN CLUSTERS IN 1 OF 2 BOTTLES(AEROBIC);REPRESENTING 1 SET DRAWN ON THIS DATE. THE RESULT WAS CALLED TO KASHIF COMER(5S)ON 03/06/18 AT 0941 BY Matt CLEARY. THE BLOOD CULTURE HAS BEEN SENT TO [facility] FOR FURTHER WORKUP. 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
[2018-03-08] MEDS: hydrOXYzine PAMOATE 25 MG CAPSULE PO PRN ×2 (09:28→16:05)
[2018-03-08] MEDS: PANTOPRAZOLE 40 MG TABLET.DR. PO SCH (09:28)
[2018-03-08] MEDS: CALCIUM ACETATE 667 MG CAPSULE PO SCH ×3 (09:28→16:05)
[2018-03-08] MEDS: FOLIC/VIT B COMP W-C (RENAL) TABLET. PO SCH (09:28)
[2018-03-08] MEDS: LINEZOLID 600 MG TABLET PO SCH ×2 (09:29→20:13)
[2018-03-08] MEDS: LACTOBACILLUS RHAMNOSUS GG 1 CAPSULE. PO SCH ×2 (09:29→20:12)
[2018-03-08] MEDS: FERROUS SULFATE 325 MG TABLET. PO SCH (09:29)
[2018-03-08 11:00] VITALS: BP 163/82
[2018-03-08] MEDS: ALBUTEROL SULFATE 2.5 MG/3 ML NEBU. NEB PRN ×3 (12:41→22:18)
--- NOTE | 2018-03-08 13:27 | PDOC ---
PROGRESS NOTES Chief Complaint Chief Complaint Sepsis MRSA bacteremia End stage renal disease on dialysis Possible volume overload vs pneumonia, mixed Anemia of ESRD Incarcerated CAchexia BMI 17 GPC bacteremia 5 /6 bottles Indwelling HD cath, ry subclavia History of Present Illness History of Present Illness cont IV abx, needs neg blood cx, ID following, repeated blood cult pending Plan: Follow ID recs may have PICC or have abx with HD, will need new tunneled cath for DC, on temp cath now HD per renal Vitals Vitals Vital Signs Date Time Temp Pulse Resp B/P (MAP) Pulse Ox O2 Delivery O2 Flow Rate FiO2 03/08/18 12:42 Nasal Cannula 2.0 03/08/18 11:00 97.7 77 20 163/82 (109) 99 97.7 Physical Exam Physical Exam GENERAL: alert awake in nad LUNGS: Clear. HEART: S1, S2 regular. ABDOMEN: Soft, NT EXTREMITIES: No edema, cyanosis. 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 Labs Laboratory Tests Test 03/07/18 03:40 Sodium Level 134 mmol/L (136-145) Potassium Level 6.1 mmol/L (3.5-5.1) Chloride Level 98 mmol/L (98-107) Carbon Dioxide Level 30 mmol/L (21-32) Anion Gap 6 (6-14) Blood Urea Nitrogen 56 mg/dL (8-26) Creatinine 7.0 mg/dL (0.7-1.3) Estimated GFR (Cockcroft-Gault) 9.8 Glucose Level 104 mg/dL (70-99) Calcium Level 9.7 mg/dL (8.5-10.1) Microbiology 03/07/18 Blood Culture - Preliminary, Resulted NO GROWTH AFTER 1 DAY 03/05/18 Aerobic Culture, Resulted Pending 03/05/18 Aerobic Culture Result 1 (LILIANA), Resulted Pending 03/05/18 Gram Stain - Final, Resulted 03/05/18 Gram Stain Result 1 (LILIANA) - Final, Resulted 03/05/18 Gram Stain Result 2 (LILIANA) - Final, Resulted Medications Current Medications Piperacillin Sod/ Tazobactam Sod 2.25 gm/Sodium Chloride 100 ml @ 200 mls/hr 1X ONCE IV Last administered on 02/25/18at 09:25; Start 02/25/18 at 08:45; Stop 02/25/18 at 09:14; Status DC Vancomycin HCl (Vanco Per Pharmacy) 1 each 1X ONCE MC Last administered on 06/02at 08:30; Start 02/25/18 at 08:30; Stop 02/25/18 at 08:56; Status DC Fentanyl Citrate (Fentanyl 2ml Vial) 50 mcg PRN Q15MIN PRN IV PAIN GREATER THAN 3/10 Last administered on 02/25/18at 09:25; Start 02/25/18 at 08:30; Stop at 08:29; Status DC Acetaminophen (Tylenol) 1,000 mg 1X ONCE PO Last administered on 02/25/18at 09: 25; Start 02/25/18 at 09:00; Stop 02/25/18 at 09:01; Status DC Vancomycin HCl 1.5 gm/Sodium Chloride 500 ml @ 250 mls/hr 1X ONCE IV Last administered on 02/25/18at 11:07; Start 02/25/18 at 09:00; Stop 02/25/18 at 10:59 ; Status DC Sodium Chloride 500 ml @ 500 mls/hr 1X ONCE IV Last administered on at 09:47; Start 02/25/18 at 09:30; Stop 02/25/18 at 10:29; Status DC Ondansetron HCl (Zofran) 4 mg PRN Q8HRS PRN IV NAUSEA/VOMITING; Start 02/25/18 at 11:15; Stop 02/26/18 at 09:06; Status DC Fentanyl Citrate (Fentanyl 2ml Vial) 50 mcg PRN Q2HR PRN IV PAIN Last administered on 02/26/18at 03:50; Start 02/25/18 at 11:15; Stop 02/26/18 at 11:14 ; Status DC Acetaminophen (Tylenol) 650 mg PRN Q4HRS PRN PO FEVER Last administered on 02/26at 03:50; Start 02/25/18 at 11:15; Stop 02/26/18 at 09:13; Status DC Sodium Chloride 1,000 ml @ 1,000 mls/hr Q1H PRN IV hypotension; Start 02/25/18 at 16:33; Stop 02/25/18 at 22:32; Status DC Sodium Chloride (Normal Saline Flush) 10 ml 1X PRN PRN IV AP catheter pack; Start 02/25/18 at 16:45; Stop 02/26/18 at 16:44; Status DC Sodium Chloride (Normal Saline Flush) 10 ml 1X PRN PRN IV LIFT MANAGER catheter pack; Start 02/25/18 at 16:45; Stop 02/26/18 at 16:44; Status DC Sodium Chloride 1,000 ml @ 400 mls/hr Q2H30M PRN IV PATENCY; Start 02/25/18 at 16:33; Stop 02/26/18 at 04:32; Status DC Info (PHARMACY MONITORING -- do not chart) 1 each PRN DAILY PRN MC SEE COMMENTS ; Start 02/25/18 at 16:45; Status UNV Info (PHARMACY MONITORING -- do not chart) 1 each PRN DAILY PRN MC SEE COMMENTS ; Start 02/25/18 at 16:45; Stop 02/28/18 at 13:49; Status DC Zolpidem Tartrate (Ambien) 5 mg HS PRN PO INSOMNIA, MAY REPEAT X1 Last administered on 03/08/18at 00:23; Start 02/25/18 at 21:15 Acetaminophen (Tylenol) 325 mg PRN Q8HRS PRN PO MILD PAIN; Start 02/25/18 at 21 :30; Stop 02/26/18 at 09:06; Status DC Amlodipine Besylate (Norvasc) 10 mg QHS PO Last administered on 03/07/18at 20:33 ; Start 02/26/18 at 21:00 Ferrous Sulfate (Feosol) 325 mg DAILY PO Last administered on 03/08/18at 09:29; Start 02/26/18 at 09:00 Vitamin B Complex/ Vitamin C (Kiara-Bennie) 1 tab DAILY PO Last administered on 09:28; Start 02/26/18 at 09:00 Albuterol Sulfate (Ventolin Neb Soln) 2.5 mg PRN Q4HRS PRN NEB SHORTNESS OF BREATH Last administered on 03/08/18 12:41; Start 02/25/18 at 21:45 Lisinopril (Prinivil) 40 mg QHS PO Last administered on 03/07/18 20:32; Start 02/25/18 at 22:00 Magnesium Hydroxide (Milk Of Magnesia) 2,400 mg BID PRN PO CONSTIPATION; Start 02/25/18 at 21:30; Status UNV Metoprolol Tartrate (Lopressor) 50 mg BID PO ; Start 02/26/18 at 09:00; Status UNV Metoprolol Tartrate (Lopressor) 50 mg BID PO ; Start 02/26/18 at 09:00; Status UNV Calcitriol (Rocaltrol) 0.25 mcg QTUTHSA PO Last administered on 03/07/18 16:17 ; Start 02/26/18 at 16:00 Calcium Acetate (Phoslo) 667 mg TIDWMEALS PO Last administered on 03/08/18 11: 02; Start 02/26/18 at 08:00 Hydroxyzine Pamoate (Vistaril) 25 mg PRN Q6HRS PRN PO ITCHING Last administered on 03/08/18 09:28; Start 02/25/18 at 21:45 Pantoprazole Sodium (Protonix) 40 mg DAILYAC PO Last administered on 03/08/18 09:28; Start 02/26/18 at 07:30 Acetaminophen (Tylenol) 650 mg PRN Q8HRS PRN PO MILD PAIN; Start 02/26/18 at 09 :15 Ondansetron HCl (Zofran) 4 mg PRN Q6HRS PRN IV NAUSEA/VOMITING Last administered on 03/07/18 20:30; Start 02/26/18 at 09:15 Clonidine HCl (Catapres) 0.1 mg PRN Q1HR PRN PO HYPERTENSION, SEE COMMENTS Last administered on 03/07/18 16:32; Start 02/26/18 at 09:15 Fentanyl Citrate (Fentanyl 2ml Vial) 50 mcg PRN Q2HR PRN IV SEVERE PAIN Last administered on 03/06/18at 11:24; Start 02/26/18 at 09:15 Acetaminophen/ Hydrocodone Bitart (Lortab 5/325) 1 tab PRN Q4HRS PRN PO MODERATE-SEVERE PAIN Last administered on 03/08/18at 09:28; Start 02/26/18 at 09: 15 Calcitriol (Rocaltrol) 0.25 mcg MoWeFr PO ; Start 02/27/18 at 09:00; Status Cancel Vancomycin HCl (Vanco Per Pharmacy) 1 each PRN DAILY PRN MC SEE COMMENTS Last administered on 03/06/18at 16:36; Start 02/26/18 at 10:00 Vancomycin HCl 1.5 gm/Sodium Chloride 500 ml @ 250 mls/hr 1X ONCE IV ; Start 02/26/18 at 11:00; Stop 02/26/18 at 12:59; Status Cancel Sodium Chloride 1,000 ml @ 1,000 mls/hr Q1H PRN IV hypotension; Start 02/26/18 at 10:12; Stop 02/26/18 at 16:11; Status DC Diphenhydramine HCl (Benadryl) 25 mg 1X PRN PRN IV ITCHING; Start 02/26/18 at 10:15; Stop 02/27/18 at 10:14; Status DC Diphenhydramine HCl (Benadryl) 25 mg 1X PRN PRN IV ITCHING; Start 02/26/18 at 10:15; Stop 02/27/18 at 10:14; Status DC Sodium Chloride 1,000 ml @ 400 mls/hr Q2H30M PRN IV PATENCY; Start 02/26/18 at 10:12; Stop 02/26/18 at 22:11; Status DC Info (PHARMACY MONITORING -- do not chart) 1 each PRN DAILY PRN MC SEE COMMENTS ; Start 02/26/18 at 10:15; Stop 02/28/18 at 14:47; Status DC Darbepoetin Uche (Aranesp) 60 mcg WEEKLYHS SQ Last administered on 03/05/18at 21 :09; Start 02/26/18 at 21:00 Alprazolam (Xanax) 0.25 mg PRN Q8HRS PRN PO ANXIETY / AGITATION Last administered on 03/07/18at 20:31; Start 02/26/18 at 14:15 Vancomycin HCl 500 mg/Sodium Chloride 100 ml @ 100 mls/hr QTUTHSA IV Last administered on 03/07/18at 16:18; Start 02/26/18 at 16:00 Lactobacillus Rhamnosus (Culturelle) 1 cap BID PO Last administered on at 09:29; Start 02/27/18 at 21:00 Sodium Chloride 1,000 ml @ 1,000 mls/hr Q1H PRN IV hypotension; Start 02/28/18 at 14:39; Stop 02/28/18 at 20:38; Status DC Albumin Human 200 ml @ 200 mls/hr 1X PRN PRN IV Hypotension; Start 02/28/18 at 14:45; Stop 02/28/18 at 20:44; Status DC Acetaminophen (Tylenol) 500 mg 1X PRN PRN PO MILD PAIN / TEMP; Start 02/28/18 at 14:45; Stop 03/01/18 at 14:44; Status DC Diphenhydramine HCl (Benadryl) 25 mg 1X PRN PRN IV ITCHING; Start 02/28/18 at 14:45; Stop 03/01/18 at 14:44; Status DC Diphenhydramine HCl (Benadryl) 25 mg 1X PRN PRN IV ITCHING; Start 02/28/18 at 14:45; Stop 03/01/18 at 14:44; Status DC Labetalol HCl (Normodyne Iv Push) 10 mg PRN Q1HR PRN IVP SBP > 180; Start 02/28 at 14:45; Stop 03/01/18 at 14:44; Status DC Clonidine HCl (Catapres) 0.1 mg 1X PRN PRN PO SBP > 180; Start 02/28/18 at 14: 45; Stop 03/01/18 at 14:44; Status DC Sodium Chloride 1,000 ml @ 400 mls/hr Q2H30M PRN IV PATENCY; Start 02/28/18 at 14:39; Stop 03/01/18 at 02:38; Status DC Info (PHARMACY MONITORING -- do not chart) 1 each PRN DAILY PRN MC SEE COMMENTS ; Start 02/28/18 at 14:45 Heparin Sodium (Porcine) 5000 unit/Sodium Chloride 505 ml @ 505 mls/hr 1X ONCE IRR Last administered on 03/03/18at 08:15; Start 03/03/18 at 06:00; Stop at 06:59; Status DC Cefazolin Sodium 1 gm/Sodium Chloride 500 ml @ 500 mls/hr 1X ONCE IRR Last administered on 03/03/18at 08:15; Start 03/03/18 at 06:00; Stop 03/03/18 at 06:59 ; Status DC Ondansetron HCl (Zofran) 4 mg PRN Q6HRS PRN IV NAUSEA/VOMITING; Start 03/03/18 at 07:00; Stop 03/03/18 at 21:00; Status DC Fentanyl Citrate (Fentanyl 2ml Vial) 25 mcg PRN Q5MIN PRN IV MILD PAIN; Start 03/03/18 at 07:00; Stop 03/03/18 at 21:00; Status DC Fentanyl Citrate (Fentanyl 2ml Vial) 50 mcg PRN Q5MIN PRN IV MODERATE TO SEVERE PAIN Last administered on 03/03/18at 09:41; Start 03/03/18 at 07:00; Stop 03/03/18 at 21:00; Status DC Morphine Sulfate (Morphine Sulfate) 1 mg PRN Q10MIN PRN IV SEVERE PAIN; Start 03/03/18 at 07:00; Stop 03/03/18 at 21:00; Status DC Ringer's Solution 1,000 ml @ 30 mls/hr Q24H IV Last administered on 03/03/18at 07:00; Start 03/03/18 at 07:00; Stop 03/03/18 at 18:59; Status DC Lidocaine HCl (Xylocaine-Mpf 1% 2ml Vial) 2 ml PRN 1X PRN ID IV START; Start at 07:00; Stop 03/03/18 at 21:00; Status DC Hydromorphone HCl (Dilaudid) 0.5 mg PRN Q10MIN PRN IV SEV PAIN, Second choice; Start 03/03/18 at 07:00; Stop 03/03/18 at 21:00; Status DC Prochlorperazine Edisylate (Compazine) 5 mg PACU PRN PRN IV NAUSEA, MRX1; Start 03/03/18 at 07:00; Stop 03/03/18 at 21:00; Status DC Cellulose (Surgicel Hemostat 2x3) 1 each STK-MED ONCE .ROUTE ; Start 03/03/18 at 05:51; Stop 03/03/18 at 06:52; Status DC Cellulose (Surgicel Fibrillar 1x2) 1 each STK-MED ONCE .ROUTE Last administered on 03/03/18at 08:47; Start 03/03/18 at 05:52; Stop 03/03/18 at 06:52 ; Status DC Papaverine HCl 60 mg STK-MED ONCE .ROUTE ; Start 03/03/18 at 05:53; Stop at 06:53; Status DC Cefazolin Sodium/ Dextrose 50 ml @ As Directed STK-MED ONCE IV ; Start 03/03/18 at 06:56; Stop 03/03/18 at 06:57; Status DC Cefazolin Sodium/ Dextrose 50 ml @ 100 mls/hr 1X PREOP PRN IV Pre Op Dose Last administered on 03/03/18at 07:53; Start 03/03/18 at 06:00; Stop 03/04/18 at 05:59; Status DC Fentanyl Citrate (Fentanyl 2ml Vial) 100 mcg STK-MED ONCE .ROUTE ; Start at 07:21; Stop 03/03/18 at 07:22; Status DC Lidocaine HCl (Xylocaine 1% Pf 30ml Vial) 30 ml STK-MED ONCE INJ Last administered on 03/03/18at 08:07; Start 03/03/18 at 08:07; Stop 03/03/18 at 08:12 ; Status DC Propofol 20 ml @ As Directed STK-MED ONCE IV ; Start 03/03/18 at 08:12; Stop at 08:14; Status DC Propofol 20 ml @ As Directed STK-MED ONCE IV ; Start 03/03/18 at 08:12; Stop at 08:14; Status DC Dexamethasone Sodium Phosphate (Decadron) 20 mg STK-MED ONCE .ROUTE ; Start at 08:13; Stop 03/03/18 at 08:14; Status DC Ondansetron HCl (Zofran) 4 mg STK-MED ONCE .ROUTE ; Start 03/03/18 at 08:13; Stop 03/03/18 at 08:14; Status DC Sevoflurane (Ultane) 60 ml STK-MED ONCE IH ; Start 03/03/18 at 08:13; Stop 03/03 at 08:14; Status DC Phenylephrine HCl (PHENYLEPHRINE in 0.9% NACL PF) 1 mg STK-MED ONCE IV ; Start 03/03/18 at 08:17; Stop 03/03/18 at 08:18; Status DC Heparin Sodium (Porcine) (Heparin Sodium) 10,000 unit STK-MED ONCE .ROUTE ; Start 03/03/18 at 08:49; Stop 03/03/18 at 08:50; Status DC Protamine Sulfate (Protamine) 50 mg STK-MED ONCE IV ; Start 03/03/18 at 08:49; Stop 03/03/18 at 08:50; Status DC Phenylephrine HCl (PHENYLEPHRINE in 0.9% NACL PF) 1 mg STK-MED ONCE IV ; Start 03/03/18 at 08:49; Stop 03/03/18 at 08:50; Status DC Sodium Chloride 1,000 ml @ 1,000 mls/hr Q1H PRN IV hypotension; Start 03/03/18 at 10:19; Stop 03/03/18 at 16:18; Status DC Sodium Chloride 1,000 ml @ 400 mls/hr Q2H30M PRN IV PATENCY; Start 03/03/18 at 10:19; Stop 03/03/18 at 22:18; Status DC Info (PHARMACY MONITORING -- do not chart) 1 each PRN DAILY PRN MC SEE COMMENTS ; Start 03/03/18 at 10:30; Status UNV Info (PHARMACY MONITORING -- do not chart) 1 each PRN DAILY PRN MC SEE COMMENTS ; Start 03/03/18 at 10:30; Status UNV Vancomycin HCl (Vancomycin Random Level) 1 each 1X ONCE MC ; Start 03/05/18 at 06:00; Stop 03/05/18 at 06:01; Status DC Ondansetron HCl (Zofran) 4 mg PRN Q6HRS PRN IV NAUSEA/VOMITING; Start 03/05/18 at 07:00; Stop 03/05/18 at 18:00; Status DC Fentanyl Citrate (Fentanyl 2ml Vial) 25 mcg PRN Q5MIN PRN IV MILD PAIN; Start 03/05/18 at 07:00; Stop 03/05/18 at 18:00; Status DC Fentanyl Citrate (Fentanyl 2ml Vial) 50 mcg PRN Q5MIN PRN IV MODERATE TO SEVERE PAIN; Start 03/05/18 at 07:00; Stop 03/05/18 at 18:00; Status DC Morphine Sulfate (Morphine Sulfate) 1 mg PRN Q10MIN PRN IV SEVERE PAIN; Start 03/05/18 at 07:00; Stop 03/05/18 at 18:00; Status DC Ringer's Solution 1,000 ml @ 30 mls/hr Q24H IV ; Start 03/05/18 at 07:00; Stop 03/05/18 at 18:59; Status Cancel Lidocaine HCl (Xylocaine-Mpf 1% 2ml Vial) 2 ml PRN 1X PRN ID IV START; Start at 07:00; Stop 03/05/18 at 18:00; Status DC Hydromorphone HCl (Dilaudid) 0.5 mg PRN Q10MIN PRN IV SEV PAIN, Second choice; Start 03/05/18 at 07:00; Stop 03/05/18 at 18:00; Status DC Prochlorperazine Edisylate (Compazine) 5 mg PACU PRN PRN IV NAUSEA, MRX1; Start 03/05/18 at 07:00; Stop 03/05/18 at 18:00; Status DC Sodium Chloride 1,000 ml @ 0 mls/hr Q0M IV Last administered on 03/05/18at 08: 43; Start 03/05/18 at 07:00 Propofol 20 ml @ As Directed STK-MED ONCE IV ; Start 03/05/18 at 08:17; Stop at 08:18; Status DC Benzocaine (Hurricaine One) 1 spray STK-MED ONCE .ROUTE ; Start 03/05/18 at 08: 30; Stop 03/05/18 at 08:31; Status DC Lidocaine HCl (Xylocaine 2% Topical 5gm Tube) 5 alexandra STK-MED ONCE TP ; Start at 08:30; Stop 03/05/18 at 08:31; Status DC Lidocaine HCl (Viscous Lidocaine) 15 ml STK-MED ONCE .ROUTE ; Start 03/05/18 at 08:30; Stop 03/05/18 at 08:32; Status DC Benzocaine (Hurricaine One) 3 spray 1X ONCE MM Last administered on 03/05/18at 08:45; Start 03/05/18 at 08:45; Stop 03/05/18 at 08:47; Status DC Lidocaine HCl (Viscous Lidocaine) 15 ml 1X ONCE SWSW Last administered on 03/05at 08:45; Start 03/05/18 at 08:45; Stop 03/05/18 at 08:47; Status DC Lidocaine HCl (Xylocaine 2% Topical 5gm Tube) 2 alexandra 1X ONCE TP Last administered on 03/05/18at 08:45; Start 03/05/18 at 08:45; Stop 03/05/18 at 08:47 ; Status DC Sodium Chloride 1,000 ml @ 1,000 mls/hr Q1H PRN IV hypotension; Start 03/05/18 at 08:47; Stop 03/05/18 at 14:46; Status DC Sodium Chloride (Normal Saline Flush) 10 ml 1X PRN PRN IV AP catheter pack; Start 03/05/18 at 09:00; Stop 03/06/18 at 08:59; Status DC Sodium Chloride (Normal Saline Flush) 10 ml 1X PRN PRN IV LIFT MANAGER catheter pack; Start 03/05/18 at 09:00; Stop 03/06/18 at 08:59; Status DC Sodium Chloride 1,000 ml @ 400 mls/hr Q2H30M PRN IV PATENCY; Start 03/05/18 at 08:47; Stop 03/05/18 at 20:46; Status DC Info (PHARMACY MONITORING -- do not chart) 1 each PRN DAILY PRN MC SEE COMMENTS ; Start 03/05/18 at 09:00; Status UNV Info (PHARMACY MONITORING -- do not chart) 1 each PRN DAILY PRN MC SEE COMMENTS ; Start 03/05/18 at 09:00; Status UNV Linezolid (Zyvox) 600 mg BID PO Last administered on 03/08/18at 09:29; Start at 21:00 Lidocaine/Sodium Bicarbonate (Buffered Lidocaine 1%) 3 ml STK-MED ONCE .ROUTE ; Start 03/05/18 at 15:19; Stop 03/05/18 at 15:20; Status DC Heparin Sodium (Porcine) (Heparin Sodium) 10,000 unit STK-MED ONCE .ROUTE ; Start 03/05/18 at 15:19; Stop 03/05/18 at 15:20; Status DC Lidocaine/Sodium Bicarbonate (Buffered Lidocaine 1%) 3 ml 1X ONCE IJ Last administered on 03/05/18at 16:16; Start 03/05/18 at 15:30; Stop 03/05/18 at 15:31 ; Status DC Heparin Sodium (Porcine) (Heparin Sodium) 2,600 unit 1X ONCE INT CAT Last administered on 03/05/18at 16:16; Start 03/05/18 at 15:30; Stop 03/05/18 at 15:31 ; Status DC Lidocaine/Sodium Bicarbonate (Buffered Lidocaine 1%) 3 ml STK-MED ONCE .ROUTE ; Start 03/05/18 at 16:03; Stop 03/05/18 at 16:04; Status DC Sodium Chloride 1,000 ml @ 1,000 mls/hr Q1H PRN IV hypotension; Start 03/07/18 at 10:06; Stop 03/07/18 at 16:05; Status DC Sodium Chloride 1,000 ml @ 400 mls/hr Q2H30M PRN IV PATENCY; Start 03/07/18 at 10:06; Stop 03/07/18 at 22:05; Status DC Info (PHARMACY MONITORING -- do not chart) 1 each PRN DAILY PRN MC SEE COMMENTS ; Start 03/07/18 at 10:15; Status UNV Info (PHARMACY MONITORING -- do not chart) 1 each PRN DAILY PRN MC SEE COMMENTS ; Start 03/07/18 at 10:15 Magnesium Sulfate 50 ml @ 25 mls/hr PRN DAILY PRN IV for Mag < 1.7 on am labs; Start 03/08/18 at 07:15 Active Scripts Active Colace (Docusate Sodium) 100 Mg Capsule 1 Cap PO BID PRN [Darbepoetin Uche In Polysorbat] 60 MCG/0.3 ML Disp.syrin 60 Mcg SQ WEEKLYHS Vancomycin Hcl 1 Gm Vial 1 Each MC PRN DAILY PRN 14 Days 500mg IV after each dialysis 2 weeks Metoprolol Tartrate 50 Mg Tablet 50 Mg PO BID 60 Days Reported Tylenol (Acetaminophen) 325 Mg Tablet 1-2 Tab PO QID PRN Milk Of Magnesia (Magnesium Hydroxide) 400 Mg/5 Ml Oral.susp 30 Ml PO BID PRN Duoneb 0.5-3(2.5) Mg/3 Ml (Albuterol/Ipratropium) 3 Ml Ampul.neb 3 Ml NEB Q4HRS PRN Hydroxyzine Hcl 25 Mg Tablet 1 Tab PO Q6HRS PRN Calcium Acetate 667 Mg Tablet 667 Mg PO TIDWMEALS Calcitriol 0.25 Mcg Capsule 1 Cap PO QTUTHSA Protonix (Pantoprazole Sodium) 20 Mg Tablet.dr 40 Mg PO DAILY Nephro-Bennie Tablet (Folic Acid/Vitamin B Comp W-C) 0.8 Mg Tablet 1 Tab PO DAILY Metoprolol Tartrate 50 Mg Tablet 1 Tab PO BID Lisinopril 40 Mg Tablet 1 Tab PO QHS Ferrous Sulfate 325 Mg Tablet 1 Tab PO DAILY Calcitriol 0.25 Mcg Capsule 1 Cap PO // Amlodipine Besylate 10 Mg Tablet 10 Mg PO QHS Acetaminophen 325 Mg Tablet 325 Mg PO PRN Q8HRS Vitals/I & O Vital Sign - Last 24 Hours 03/07/18 03/07/18 03/07/18 03/07/18 14:17 15:00 16:32 19:00 Temp 97.8 97.9 97.8 97.9 Pulse 86 86 96 Resp 16 22 B/P (MAP) 182/77 (112) 182/77 191/65 (107) Pulse Ox 98 93 O2 Delivery Nasal Cannula Nasal Cannula Nasal Cannula O2 Flow Rate 2.0 3.0 3.0 03/07/18 03/07/18 03/07/18 03/07/18 20:00 20:32 20:33 20:33 Pulse 96 96 Resp 17 B/P (MAP) 191/65 191/65 Pulse Ox 93 O2 Delivery Nasal Cannula Nasal Cannula O2 Flow Rate 2.0 3.0 03/07/18 03/07/18 03/08/18 03/08/18 21:14 23:07 02:38 05:23 Temp 98.1 98.1 Pulse 72 67 Resp 17 18 15 B/P (MAP) 160/80 (106) 158/73 (101) Pulse Ox 98 100 100 100 O2 Delivery Nasal Cannula Nasal Cannula Nasal Cannula Nasal Cannula O2 Flow Rate 2.0 3.0 2.0 3.0 03/08/18 03/08/18 03/08/18 03/08/18 06:30 07:00 08:00 09:28 Temp 97.6 97.6 Pulse 77 Resp 15 20 B/P (MAP) 159/69 (99) Pulse Ox 100 99 O2 Delivery 2l Nasal Cannula Nasal Cannula O2 Flow Rate 2.0 2.0 03/08/18 03/08/18 03/08/18 10:35 11:00 12:42 Temp 97.7 97.7 Pulse 77 Resp 20 B/P (MAP) 163/82 (109) Pulse Ox 99 O2 Delivery Nasal Cannula 2l Nasal Cannula O2 Flow Rate 2.0 2.0 Intake and Output 03/07/18 03/07/18 03/08/18 15:00 23:00 07:00 Intake Total 50 ml 1120 ml 850 ml Balance 50 ml 1120 ml 850 ml Nutrition Consultation Dietary Evaluation: Recommendations by RD: Increase Calorie Intake, Protein supplementation Comments: continue nepro tid Expected Outcomes/Goals: to meet > 75% est nutr needs- met, goal ongoing Interpretation of weight loss: >5% in 1 month Malnutrition Findings: Weight Status: Underweight AMAN COWAN MD Mar 08, 2018 13:27
[2018-03-08 15:00] VITALS: BP 151/64
[2018-03-08 19:52] VITALS: BP 176/81
[2018-03-08] MEDS: amLODIPine BESYLATE 10 MG TABLET PO SCH (20:13)
[2018-03-08] MEDS: LISINOPRIL 20 MG TABLET PO SCH (20:14)
[2018-03-08] MEDS: ALPRAZolam 0.25 MG TABLET PO PRN (21:40)
[2018-03-08 23:14] VITALS: BP 151/68
[2018-03-09] MEDS: hydrOXYzine PAMOATE 25 MG CAPSULE PO PRN (02:05)
[2018-03-09] MEDS: HYDROcodone/APAP 5/325MG 1 TAB TABLET PO PRN ×3 (02:06→17:08)
[2018-03-09] MEDS: ALBUTEROL SULFATE 2.5 MG/3 ML NEBU. NEB PRN ×3 (02:35→19:59)
[2018-03-09 03:13] VITALS: BP 172/83
[2018-03-09 05:07] LABS: ALBUMIN 2.3 g/dL (3.4-5.0); CALCIUM 9.7 mg/dL (8.5-10.1); GFR 9.8; MAGNESIUM 2.4 mg/dL (1.8-2.4); PHOSPHORUS 5.4 mg/dL (2.6-4.7)
[2018-03-09] MEDS ORDERED: SODIUM BICARB ADULT 8.4% 50 MEQ/50 ML DISP.SYRIN. IV ONE (05:45)
[2018-03-09] MEDS ORDERED: SODIUM POLYSTYRENE SULFONATE 15 GM/60 ML ORAL.SUSP. PO ONE (05:45)
[2018-03-09] MEDS ORDERED: INSULIN REGULAR 100 UNIT/ML 3ML VIAL. IV ONE (05:45)
[2018-03-09] MEDS ORDERED: DEXTROSE 50% 25 GM / 50ML DISP.SYRIN. IV ONE (06:00)
[2018-03-09] MEDS ORDERED: CALCIUM GLUCONATE 1,000 MG/10 ML VIAL. IVP ONE (06:00)
[2018-03-09 07:00] VITALS: BP 183/82
[2018-03-09] MEDS ORDERED: DIALYSIS PATIENT. MC PRN ×2 (08:15)
[2018-03-09] MEDS: FOLIC/VIT B COMP W-C (RENAL) TABLET. PO SCH (09:00)
[2018-03-09] MEDS: LACTOBACILLUS RHAMNOSUS GG 1 CAPSULE. PO SCH ×2 (09:00→21:51)
[2018-03-09] MEDS ORDERED: LABETALOL 20 MG/4 ML DISP.SYRIN. IVP ONE (09:15)
[2018-03-09] MEDS ORDERED: LABETALOL 20 MG/4 ML DISP.SYRIN. IVP PRN (09:15)
--- NOTE | 2018-03-09 11:05 | PDOC ---
PROGRESS NOTES Chief Complaint Chief Complaint Sepsis MRSA bacteremia End stage renal disease on dialysis Possible volume overload vs pneumonia, mixed Anemia of ESRD Incarcerated CAchexia BMI 17 GPC bacteremia 5 /6 bottles Indwelling HD cath, ryt subclavia - removed now Accelerated hypertension, 03/09/18 History of Present Illness History of Present Illness Has a temporary dialysis catheter on the left subclavian Tunneled right catheter was removed on the RT Needs a tunneled dialysis catheter prior to discharge But still bacteremia Echo was normal low Patient wants to go home No white count, nontoxic appearing, no fevers Plan: Await ID and renal Rounds Add labetalol 20 now then IV every 2 when necessary-blood pressure is very high along with heart rate of 115 Follow-up dapto sensitivities Vitals Vitals Vital Signs Date Time Temp Pulse Resp B/P (MAP) Pulse Ox O2 Delivery O2 Flow Rate FiO2 03/09/18 07:00 98.0 115 16 183/82 (115) 93 Nasal Cannula 3.0 98.0 Physical Exam Physical Exam GENERAL: alert awake in nad LUNGS: Clear. HEART: S1, S2 regular. ABDOMEN: Soft, NT EXTREMITIES: No edema, cyanosis. SKIN: warm without rash ,has some skin lesions ,superficial scratch unger, no signs of secondary infection MANAGER PHOTO: Alert and oriented x 3 Lines clean General: Alert, Oriented X3, Cooperative, No acute distress Heart: Regular rate, Normal S1, Normal S2, No murmurs, Gallops Lungs: Crackles Abdomen: Normal bowel sounds, Soft, No tenderness, No hepatosplenomegaly, No masses Extremities: No clubbing, No cyanosis, No edema, Normal pulses, No tenderness/ swelling Skin: No breakdown Labs LABS Laboratory Tests Test 03/09/18 04:05 Hemoglobin 8.9 g/dL (13.0-17.5) Sodium Level 136 mmol/L (136-145) Potassium Level 7.0 mmol/L (3.5-5.1) Chloride Level 100 mmol/L (98-107) Carbon Dioxide Level 30 mmol/L (21-32) Anion Gap 6 (6-14) Blood Urea Nitrogen 49 mg/dL (8-26) Creatinine 7.0 mg/dL (0.7-1.3) Estimated GFR (Cockcroft-Gault) 9.8 Glucose Level 79 mg/dL (70-99) Calcium Level 9.7 mg/dL (8.5-10.1) Phosphorus Level 5.4 mg/dL (2.6-4.7) Magnesium Level 2.4 mg/dL (1.8-2.4) Albumin 2.3 g/dL (3.4-5.0) Review of Systems Review of Systems A 14 point ROS was completed with the following noted as positive: Other systems reviewed and negative. \CONSTITUTIONAL: No fever or chills EYES: No recent changes SKIN: No rash or itching CARDIOVASCULAR: No chest pain, syncope, palpitations, or edema RESPIRATORY: No SOB or cough GASTROINTESTINAL: No nausea, vomiting or abdominal pain NEUROLOGICAL: No headaches or weakness ENDOCRINE: No cold or heat intolerance GENITOURINARY: No urgency or frequency of urination MUSCULOSKELETAL: No back pain or joint pain LYMPHATICS: No enlarged lymph nodes PSYCHIATRIC: No anxiety or depression Assessment and Plan Assessmemt and Plan Problems Medical Problems: (1) End stage renal disease on dialysis Status: Acute (2) Sepsis Status: Acute Comment Review of Relevant I have reviewed the following items mirian (where applicable) has been applied. Labs Laboratory Tests Test 03/09/18 04:05 Hemoglobin 8.9 g/dL (13.0-17.5) Sodium Level 136 mmol/L (136-145) Potassium Level 7.0 mmol/L (3.5-5.1) Chloride Level 100 mmol/L (98-107) Carbon Dioxide Level 30 mmol/L (21-32) Anion Gap 6 (6-14) Blood Urea Nitrogen 49 mg/dL (8-26) Creatinine 7.0 mg/dL (0.7-1.3) Estimated GFR (Cockcroft-Gault) 9.8 Glucose Level 79 mg/dL (70-99) Calcium Level 9.7 mg/dL (8.5-10.1) Phosphorus Level 5.4 mg/dL (2.6-4.7) Magnesium Level 2.4 mg/dL (1.8-2.4) Albumin 2.3 g/dL (3.4-5.0) Laboratory Tests Test 03/09/18 04:05 Hemoglobin 8.9 g/dL (13.0-17.5) Sodium Level 136 mmol/L (136-145) Potassium Level 7.0 mmol/L (3.5-5.1) Chloride Level 100 mmol/L (98-107) Carbon Dioxide Level 30 mmol/L (21-32) Anion Gap 6 (6-14) Blood Urea Nitrogen 49 mg/dL (8-26) Creatinine 7.0 mg/dL (0.7-1.3) Estimated GFR (Cockcroft-Gault) 9.8 Glucose Level 79 mg/dL (70-99) Calcium Level 9.7 mg/dL (8.5-10.1) Phosphorus Level 5.4 mg/dL (2.6-4.7) Magnesium Level 2.4 mg/dL (1.8-2.4) Albumin 2.3 g/dL (3.4-5.0) Microbiology 03/07/18 Blood Culture - Preliminary, Resulted NO GROWTH AFTER 2 DAYS 03/05/18 Aerobic Culture - Preliminary, Resulted 03/05/18 Aerobic Culture Result 1 (LILIANA) - Preliminary, Resulted 03/05/18 Gram Stain - Final, Resulted 03/05/18 Gram Stain Result 1 (LILIANA) - Final, Resulted 03/05/18 Gram Stain Result 2 (LILIANA) - Final, Resulted Medications Current Medications Piperacillin Sod/ Tazobactam Sod 2.25 gm/Sodium Chloride 100 ml @ 200 mls/hr 1X ONCE IV Last administered on 02/25/18at 09:25; Start 02/25/18 at 08:45; Stop 02/25/18 at 09:14; Status DC Vancomycin HCl (Vanco Per Pharmacy) 1 each 1X ONCE MC Last administered on 06/02at 08:30; Start 02/25/18 at 08:30; Stop 02/25/18 at 08:56; Status DC Fentanyl Citrate (Fentanyl 2ml Vial) 50 mcg PRN Q15MIN PRN IV PAIN GREATER THAN 3/10 Last administered on 02/25/18at 09:25; Start 02/25/18 at 08:30; Stop at 08:29; Status DC Acetaminophen (Tylenol) 1,000 mg 1X ONCE PO Last administered on 02/25/18at 09: 25; Start 02/25/18 at 09:00; Stop 02/25/18 at 09:01; Status DC Vancomycin HCl 1.5 gm/Sodium Chloride 500 ml @ 250 mls/hr 1X ONCE IV Last administered on 02/25/18at 11:07; Start 02/25/18 at 09:00; Stop 02/25/18 at 10:59 ; Status DC Sodium Chloride 500 ml @ 500 mls/hr 1X ONCE IV Last administered on at 09:47; Start 02/25/18 at 09:30; Stop 02/25/18 at 10:29; Status DC Ondansetron HCl (Zofran) 4 mg PRN Q8HRS PRN IV NAUSEA/VOMITING; Start 02/25/18 at 11:15; Stop 02/26/18 at 09:06; Status DC Fentanyl Citrate (Fentanyl 2ml Vial) 50 mcg PRN Q2HR PRN IV PAIN Last administered on 02/26/18at 03:50; Start 02/25/18 at 11:15; Stop 02/26/18 at 11:14 ; Status DC Acetaminophen (Tylenol) 650 mg PRN Q4HRS PRN PO FEVER Last administered on 02/26at 03:50; Start 02/25/18 at 11:15; Stop 02/26/18 at 09:13; Status DC Sodium Chloride 1,000 ml @ 1,000 mls/hr Q1H PRN IV hypotension; Start 02/25/18 at 16:33; Stop 02/25/18 at 22:32; Status DC Sodium Chloride (Normal Saline Flush) 10 ml 1X PRN PRN IV AP catheter pack; Start 02/25/18 at 16:45; Stop 02/26/18 at 16:44; Status DC Sodium Chloride (Normal Saline Flush) 10 ml 1X PRN PRN IV IT TELECOM TECHNICIAN catheter pack; Start 02/25/18 at 16:45; Stop 02/26/18 at 16:44; Status DC Sodium Chloride 1,000 ml @ 400 mls/hr Q2H30M PRN IV PATENCY; Start 02/25/18 at 16:33; Stop 02/26/18 at 04:32; Status DC Info (PHARMACY MONITORING -- do not chart) 1 each PRN DAILY PRN MC SEE COMMENTS ; Start 02/25/18 at 16:45; Status UNV Info (PHARMACY MONITORING -- do not chart) 1 each PRN DAILY PRN MC SEE COMMENTS ; Start 02/25/18 at 16:45; Stop 02/28/18 at 13:49; Status DC Zolpidem Tartrate (Ambien) 5 mg HS PRN PO INSOMNIA, MAY REPEAT X1 Last administered on 03/08/18 23:52; Start 02/25/18 at 21:15 Acetaminophen (Tylenol) 325 mg PRN Q8HRS PRN PO MILD PAIN; Start 02/25/18 at 21 :30; Stop 02/26/18 at 09:06; Status DC Amlodipine Besylate (Norvasc) 10 mg QHS PO Last administered on 03/08/18 20:13 ; Start 02/26/18 at 21:00 Ferrous Sulfate (Feosol) 325 mg DAILY PO Last administered on 03/08/18 09:29; Start 02/26/18 at 09:00 Vitamin B Complex/ Vitamin C (Kiara-Bennie) 1 tab DAILY PO Last administered on 09:28; Start 02/26/18 at 09:00 Albuterol Sulfate (Ventolin Neb Soln) 2.5 mg PRN Q4HRS PRN NEB SHORTNESS OF BREATH Last administered on 03/09/18 02:35; Start 02/25/18 at 21:45 Lisinopril (Prinivil) 40 mg QHS PO Last administered on 03/08/18 20:14; Start 02/25/18 at 22:00 Magnesium Hydroxide (Milk Of Magnesia) 2,400 mg BID PRN PO CONSTIPATION; Start 02/25/18 at 21:30; Status UNV Metoprolol Tartrate (Lopressor) 50 mg BID PO ; Start 02/26/18 at 09:00; Status UNV Metoprolol Tartrate (Lopressor) 50 mg BID PO ; Start 02/26/18 at 09:00; Status UNV Calcitriol (Rocaltrol) 0.25 mcg QTUTHSA PO Last administered on 03/07/18 16:17 ; Start 02/26/18 at 16:00 Calcium Acetate (Phoslo) 667 mg TIDWMEALS PO Last administered on 03/08/18 16: 05; Start 02/26/18 at 08:00 Hydroxyzine Pamoate (Vistaril) 25 mg PRN Q6HRS PRN PO ITCHING Last administered on 03/09/18 02:05; Start 02/25/18 at 21:45 Pantoprazole Sodium (Protonix) 40 mg DAILYAC PO Last administered on 9/23/18at 09:28; Start 02/26/18 at 07:30 Acetaminophen (Tylenol) 650 mg PRN Q8HRS PRN PO MILD PAIN; Start 02/26/18 at 09 :15 Ondansetron HCl (Zofran) 4 mg PRN Q6HRS PRN IV NAUSEA/VOMITING Last administered on 03/07/18at 20:30; Start 02/26/18 at 09:15 Clonidine HCl (Catapres) 0.1 mg PRN Q1HR PRN PO HYPERTENSION, SEE COMMENTS Last administered on 03/07/18at 16:32; Start 02/26/18 at 09:15 Fentanyl Citrate (Fentanyl 2ml Vial) 50 mcg PRN Q2HR PRN IV SEVERE PAIN Last administered on 03/06/18at 11:24; Start 02/26/18 at 09:15 Acetaminophen/ Hydrocodone Bitart (Lortab 5/325) 1 tab PRN Q4HRS PRN PO MODERATE-SEVERE PAIN Last administered on 03/09/18at 02:06; Start 02/26/18 at 09: 15 Calcitriol (Rocaltrol) 0.25 mcg MoWeFr PO ; Start 02/27/18 at 09:00; Status Cancel Vancomycin HCl (Vanco Per Pharmacy) 1 each PRN DAILY PRN MC SEE COMMENTS Last administered on 03/06/18at 16:36; Start 02/26/18 at 10:00 Vancomycin HCl 1.5 gm/Sodium Chloride 500 ml @ 250 mls/hr 1X ONCE IV ; Start 02/26/18 at 11:00; Stop 02/26/18 at 12:59; Status Cancel Sodium Chloride 1,000 ml @ 1,000 mls/hr Q1H PRN IV hypotension; Start 02/26/18 at 10:12; Stop 02/26/18 at 16:11; Status DC Diphenhydramine HCl (Benadryl) 25 mg 1X PRN PRN IV ITCHING; Start 02/26/18 at 10:15; Stop 02/27/18 at 10:14; Status DC Diphenhydramine HCl (Benadryl) 25 mg 1X PRN PRN IV ITCHING; Start 02/26/18 at 10:15; Stop 02/27/18 at 10:14; Status DC Sodium Chloride 1,000 ml @ 400 mls/hr Q2H30M PRN IV PATENCY; Start 02/26/18 at 10:12; Stop 02/26/18 at 22:11; Status DC Info (PHARMACY MONITORING -- do not chart) 1 each PRN DAILY PRN MC SEE COMMENTS ; Start 02/26/18 at 10:15; Stop 02/28/18 at 14:47; Status DC Darbepoetin Uche (Aranesp) 60 mcg WEEKLYHS SQ Last administered on 03/05/18at 21 :09; Start 02/26/18 at 21:00 Alprazolam (Xanax) 0.25 mg PRN Q8HRS PRN PO ANXIETY / AGITATION Last administered on 03/08/18at 21:40; Start 02/26/18 at 14:15 Vancomycin HCl 500 mg/Sodium Chloride 100 ml @ 100 mls/hr QTUTHSA IV Last administered on 03/07/18at 16:18; Start 02/26/18 at 16:00 Lactobacillus Rhamnosus (Culturelle) 1 cap BID PO Last administered on at 20:12; Start 02/27/18 at 21:00 Sodium Chloride 1,000 ml @ 1,000 mls/hr Q1H PRN IV hypotension; Start 02/28/18 at 14:39; Stop 02/28/18 at 20:38; Status DC Albumin Human 200 ml @ 200 mls/hr 1X PRN PRN IV Hypotension; Start 02/28/18 at 14:45; Stop 02/28/18 at 20:44; Status DC Acetaminophen (Tylenol) 500 mg 1X PRN PRN PO MILD PAIN / TEMP; Start 02/28/18 at 14:45; Stop 03/01/18 at 14:44; Status DC Diphenhydramine HCl (Benadryl) 25 mg 1X PRN PRN IV ITCHING; Start 02/28/18 at 14:45; Stop 03/01/18 at 14:44; Status DC Diphenhydramine HCl (Benadryl) 25 mg 1X PRN PRN IV ITCHING; Start 02/28/18 at 14:45; Stop 03/01/18 at 14:44; Status DC Labetalol HCl (Normodyne Iv Push) 10 mg PRN Q1HR PRN IVP SBP > 180; Start 02/28 at 14:45; Stop 03/01/18 at 14:44; Status DC Clonidine HCl (Catapres) 0.1 mg 1X PRN PRN PO SBP > 180; Start 02/28/18 at 14: 45; Stop 03/01/18 at 14:44; Status DC Sodium Chloride 1,000 ml @ 400 mls/hr Q2H30M PRN IV PATENCY; Start 02/28/18 at 14:39; Stop 03/01/18 at 02:38; Status DC Info (PHARMACY MONITORING -- do not chart) 1 each PRN DAILY PRN MC SEE COMMENTS ; Start 02/28/18 at 14:45 Heparin Sodium (Porcine) 5000 unit/Sodium Chloride 505 ml @ 505 mls/hr 1X ONCE IRR Last administered on 03/03/18at 08:15; Start 03/03/18 at 06:00; Stop at 06:59; Status DC Cefazolin Sodium 1 gm/Sodium Chloride 500 ml @ 500 mls/hr 1X ONCE IRR Last administered on 03/03/18at 08:15; Start 03/03/18 at 06:00; Stop 03/03/18 at 06:59 ; Status DC Ondansetron HCl (Zofran) 4 mg PRN Q6HRS PRN IV NAUSEA/VOMITING; Start 03/03/18 at 07:00; Stop 03/03/18 at 21:00; Status DC Fentanyl Citrate (Fentanyl 2ml Vial) 25 mcg PRN Q5MIN PRN IV MILD PAIN; Start 03/03/18 at 07:00; Stop 03/03/18 at 21:00; Status DC Fentanyl Citrate (Fentanyl 2ml Vial) 50 mcg PRN Q5MIN PRN IV MODERATE TO SEVERE PAIN Last administered on 03/03/18at 09:41; Start 03/03/18 at 07:00; Stop 03/03/18 at 21:00; Status DC Morphine Sulfate (Morphine Sulfate) 1 mg PRN Q10MIN PRN IV SEVERE PAIN; Start 03/03/18 at 07:00; Stop 03/03/18 at 21:00; Status DC Ringer's Solution 1,000 ml @ 30 mls/hr Q24H IV Last administered on 03/03/18at 07:00; Start 03/03/18 at 07:00; Stop 03/03/18 at 18:59; Status DC Lidocaine HCl (Xylocaine-Mpf 1% 2ml Vial) 2 ml PRN 1X PRN ID IV START; Start at 07:00; Stop 03/03/18 at 21:00; Status DC Hydromorphone HCl (Dilaudid) 0.5 mg PRN Q10MIN PRN IV SEV PAIN, Second choice; Start 03/03/18 at 07:00; Stop 03/03/18 at 21:00; Status DC Prochlorperazine Edisylate (Compazine) 5 mg PACU PRN PRN IV NAUSEA, MRX1; Start 03/03/18 at 07:00; Stop 03/03/18 at 21:00; Status DC Cellulose (Surgicel Hemostat 2x3) 1 each STK-MED ONCE .ROUTE ; Start 03/03/18 at 05:51; Stop 03/03/18 at 06:52; Status DC Cellulose (Surgicel Fibrillar 1x2) 1 each STK-MED ONCE .ROUTE Last administered on 03/03/18at 08:47; Start 03/03/18 at 05:52; Stop 03/03/18 at 06:52 ; Status DC Papaverine HCl 60 mg STK-MED ONCE .ROUTE ; Start 03/03/18 at 05:53; Stop at 06:53; Status DC Cefazolin Sodium/ Dextrose 50 ml @ As Directed STK-MED ONCE IV ; Start 03/03/18 at 06:56; Stop 03/03/18 at 06:57; Status DC Cefazolin Sodium/ Dextrose 50 ml @ 100 mls/hr 1X PREOP PRN IV Pre Op Dose Last administered on 03/03/18at 07:53; Start 03/03/18 at 06:00; Stop 03/04/18 at 05:59; Status DC Fentanyl Citrate (Fentanyl 2ml Vial) 100 mcg STK-MED ONCE .ROUTE ; Start at 07:21; Stop 03/03/18 at 07:22; Status DC Lidocaine HCl (Xylocaine 1% Pf 30ml Vial) 30 ml STK-MED ONCE INJ Last administered on 03/03/18at 08:07; Start 03/03/18 at 08:07; Stop 03/03/18 at 08:12 ; Status DC Propofol 20 ml @ As Directed STK-MED ONCE IV ; Start 03/03/18 at 08:12; Stop at 08:14; Status DC Propofol 20 ml @ As Directed STK-MED ONCE IV ; Start 03/03/18 at 08:12; Stop at 08:14; Status DC Dexamethasone Sodium Phosphate (Decadron) 20 mg STK-MED ONCE .ROUTE ; Start at 08:13; Stop 03/03/18 at 08:14; Status DC Ondansetron HCl (Zofran) 4 mg STK-MED ONCE .ROUTE ; Start 03/03/18 at 08:13; Stop 03/03/18 at 08:14; Status DC Sevoflurane (Ultane) 60 ml STK-MED ONCE IH ; Start 03/03/18 at 08:13; Stop 03/03 at 08:14; Status DC Phenylephrine HCl (PHENYLEPHRINE in 0.9% NACL PF) 1 mg STK-MED ONCE IV ; Start 03/03/18 at 08:17; Stop 03/03/18 at 08:18; Status DC Heparin Sodium (Porcine) (Heparin Sodium) 10,000 unit STK-MED ONCE .ROUTE ; Start 03/03/18 at 08:49; Stop 03/03/18 at 08:50; Status DC Protamine Sulfate (Protamine) 50 mg STK-MED ONCE IV ; Start 03/03/18 at 08:49; Stop 03/03/18 at 08:50; Status DC Phenylephrine HCl (PHENYLEPHRINE in 0.9% NACL PF) 1 mg STK-MED ONCE IV ; Start 03/03/18 at 08:49; Stop 03/03/18 at 08:50; Status DC Sodium Chloride 1,000 ml @ 1,000 mls/hr Q1H PRN IV hypotension; Start 03/03/18 at 10:19; Stop 03/03/18 at 16:18; Status DC Sodium Chloride 1,000 ml @ 400 mls/hr Q2H30M PRN IV PATENCY; Start 03/03/18 at 10:19; Stop 03/03/18 at 22:18; Status DC Info (PHARMACY MONITORING -- do not chart) 1 each PRN DAILY PRN MC SEE COMMENTS ; Start 03/03/18 at 10:30; Status UNV Info (PHARMACY MONITORING -- do not chart) 1 each PRN DAILY PRN MC SEE COMMENTS ; Start 03/03/18 at 10:30; Status UNV Vancomycin HCl (Vancomycin Random Level) 1 each 1X ONCE MC ; Start 03/05/18 at 06:00; Stop 03/05/18 at 06:01; Status DC Ondansetron HCl (Zofran) 4 mg PRN Q6HRS PRN IV NAUSEA/VOMITING; Start 03/05/18 at 07:00; Stop 03/05/18 at 18:00; Status DC Fentanyl Citrate (Fentanyl 2ml Vial) 25 mcg PRN Q5MIN PRN IV MILD PAIN; Start 03/05/18 at 07:00; Stop 03/05/18 at 18:00; Status DC Fentanyl Citrate (Fentanyl 2ml Vial) 50 mcg PRN Q5MIN PRN IV MODERATE TO SEVERE PAIN; Start 03/05/18 at 07:00; Stop 03/05/18 at 18:00; Status DC Morphine Sulfate (Morphine Sulfate) 1 mg PRN Q10MIN PRN IV SEVERE PAIN; Start 03/05/18 at 07:00; Stop 03/05/18 at 18:00; Status DC Ringer's Solution 1,000 ml @ 30 mls/hr Q24H IV ; Start 03/05/18 at 07:00; Stop 03/05/18 at 18:59; Status Cancel Lidocaine HCl (Xylocaine-Mpf 1% 2ml Vial) 2 ml PRN 1X PRN ID IV START; Start at 07:00; Stop 03/05/18 at 18:00; Status DC Hydromorphone HCl (Dilaudid) 0.5 mg PRN Q10MIN PRN IV SEV PAIN, Second choice; Start 03/05/18 at 07:00; Stop 03/05/18 at 18:00; Status DC Prochlorperazine Edisylate (Compazine) 5 mg PACU PRN PRN IV NAUSEA, MRX1; Start 03/05/18 at 07:00; Stop 03/05/18 at 18:00; Status DC Sodium Chloride 1,000 ml @ 0 mls/hr Q0M IV Last administered on 03/05/18at 08: 43; Start 03/05/18 at 07:00 Propofol 20 ml @ As Directed STK-MED ONCE IV ; Start 03/05/18 at 08:17; Stop at 08:18; Status DC Benzocaine (Hurricaine One) 1 spray STK-MED ONCE .ROUTE ; Start 03/05/18 at 08: 30; Stop 03/05/18 at 08:31; Status DC Lidocaine HCl (Xylocaine 2% Topical 5gm Tube) 5 alexandra STK-MED ONCE TP ; Start at 08:30; Stop 03/05/18 at 08:31; Status DC Lidocaine HCl (Viscous Lidocaine) 15 ml STK-MED ONCE .ROUTE ; Start 03/05/18 at 08:30; Stop 03/05/18 at 08:32; Status DC Benzocaine (Hurricaine One) 3 spray 1X ONCE MM Last administered on 03/05/18at 08:45; Start 03/05/18 at 08:45; Stop 03/05/18 at 08:47; Status DC Lidocaine HCl (Viscous Lidocaine) 15 ml 1X ONCE SWSW Last administered on 03/05at 08:45; Start 03/05/18 at 08:45; Stop 03/05/18 at 08:47; Status DC Lidocaine HCl (Xylocaine 2% Topical 5gm Tube) 2 alexandra 1X ONCE TP Last administered on 03/05/18at 08:45; Start 03/05/18 at 08:45; Stop 03/05/18 at 08:47 ; Status DC Sodium Chloride 1,000 ml @ 1,000 mls/hr Q1H PRN IV hypotension; Start 03/05/18 at 08:47; Stop 03/05/18 at 14:46; Status DC Sodium Chloride (Normal Saline Flush) 10 ml 1X PRN PRN IV AP catheter pack; Start 03/05/18 at 09:00; Stop 03/06/18 at 08:59; Status DC Sodium Chloride (Normal Saline Flush) 10 ml 1X PRN PRN IV IT TELECOM TECHNICIAN catheter pack; Start 03/05/18 at 09:00; Stop 03/06/18 at 08:59; Status DC Sodium Chloride 1,000 ml @ 400 mls/hr Q2H30M PRN IV PATENCY; Start 03/05/18 at 08:47; Stop 03/05/18 at 20:46; Status DC Info (PHARMACY MONITORING -- do not chart) 1 each PRN DAILY PRN MC SEE COMMENTS ; Start 03/05/18 at 09:00; Status UNV Info (PHARMACY MONITORING -- do not chart) 1 each PRN DAILY PRN MC SEE COMMENTS ; Start 03/05/18 at 09:00; Status UNV Linezolid (Zyvox) 600 mg BID PO Last administered on 03/08/18at 20:13; Start at 21:00 Lidocaine/Sodium Bicarbonate (Buffered Lidocaine 1%) 3 ml STK-MED ONCE .ROUTE ; Start 03/05/18 at 15:19; Stop 03/05/18 at 15:20; Status DC Heparin Sodium (Porcine) (Heparin Sodium) 10,000 unit STK-MED ONCE .ROUTE ; Start 03/05/18 at 15:19; Stop 03/05/18 at 15:20; Status DC Lidocaine/Sodium Bicarbonate (Buffered Lidocaine 1%) 3 ml 1X ONCE IJ Last administered on 03/05/18at 16:16; Start 03/05/18 at 15:30; Stop 03/05/18 at 15:31 ; Status DC Heparin Sodium (Porcine) (Heparin Sodium) 2,600 unit 1X ONCE INT CAT Last administered on 03/05/18at 16:16; Start 03/05/18 at 15:30; Stop 03/05/18 at 15:31 ; Status DC Lidocaine/Sodium Bicarbonate (Buffered Lidocaine 1%) 3 ml STK-MED ONCE .ROUTE ; Start 03/05/18 at 16:03; Stop 03/05/18 at 16:04; Status DC Sodium Chloride 1,000 ml @ 1,000 mls/hr Q1H PRN IV hypotension; Start 03/07/18 at 10:06; Stop 03/07/18 at 16:05; Status DC Sodium Chloride 1,000 ml @ 400 mls/hr Q2H30M PRN IV PATENCY; Start 03/07/18 at 10:06; Stop 03/07/18 at 22:05; Status DC Info (PHARMACY MONITORING -- do not chart) 1 each PRN DAILY PRN MC SEE COMMENTS ; Start 03/07/18 at 10:15; Status UNV Info (PHARMACY MONITORING -- do not chart) 1 each PRN DAILY PRN MC SEE COMMENTS ; Start 03/07/18 at 10:15 Magnesium Sulfate 50 ml @ 25 mls/hr PRN DAILY PRN IV for Mag < 1.7 on am labs; Start 03/08/18 at 07:15 Insulin Human Regular (HumuLIN R VIAL) 10 unit 1X ONCE IV Last administered on 03/09/18at 06:10; Start 03/09/18 at 05:45; Stop 03/09/18 at 05:47; Status DC Dextrose (Dextrose 50%-Water Syringe) 25 gm 1X ONCE IV Last administered on at 06:09; Start 03/09/18 at 06:00; Stop 03/09/18 at 06:01; Status DC Sodium Bicarbonate (Sodium Bicarb Adult 8.4% Syr) 50 meq 1X ONCE IV Last administered on 03/09/18at 06:09; Start 03/09/18 at 05:45; Stop 03/09/18 at 05:46 ; Status DC Calcium Gluconate (Calcium Gluconate) 1,000 mg 1X ONCE IVP Last administered on 03/09/18at 06:10; Start 03/09/18 at 06:00; Stop 03/09/18 at 06:01; Status DC Sodium Polystyrene Sulfonate (Kayexalate) 60 gm 1X ONCE PO Last administered on 03/09/18at 07:56; Start 03/09/18 at 05:45; Stop 03/09/18 at 05:46; Status DC Info (PHARMACY MONITORING -- do not chart) 1 each PRN DAILY PRN MC SEE COMMENTS ; Start 03/09/18 at 08:15; Status UNV Info (PHARMACY MONITORING -- do not chart) 1 each PRN DAILY PRN MC SEE COMMENTS ; Start 03/09/18 at 08:15; Status UNV Labetalol HCl (Normodyne Iv Push) 20 mg PRN Q2HR PRN IVP HYPERTENSION, SEE COMMENTS; Start 03/09/18 at 09:15 Labetalol HCl (Normodyne Iv Push) 20 mg 1X ONCE IVP ; Start 03/09/18 at 09:15; Stop 03/09/18 at 09:16; Status DC Active Scripts Active Colace (Docusate Sodium) 100 Mg Capsule 1 Cap PO BID PRN [Darbepoetin Uche In Polysorbat] 60 MCG/0.3 ML Disp.syrin 60 Mcg SQ WEEKLYHS Vancomycin Hcl 1 Gm Vial 1 Each MC PRN DAILY PRN 14 Days 500mg IV after each dialysis 2 weeks Metoprolol Tartrate 50 Mg Tablet 50 Mg PO BID 60 Days Reported Tylenol (Acetaminophen) 325 Mg Tablet 1-2 Tab PO QID PRN Milk Of Magnesia (Magnesium Hydroxide) 400 Mg/5 Ml Oral.susp 30 Ml PO BID PRN Duoneb 0.5-3(2.5) Mg/3 Ml (Albuterol/Ipratropium) 3 Ml Ampul.neb 3 Ml NEB Q4HRS PRN Hydroxyzine Hcl 25 Mg Tablet 1 Tab PO Q6HRS PRN Calcium Acetate 667 Mg Tablet 667 Mg PO TIDWMEALS Calcitriol 0.25 Mcg Capsule 1 Cap PO QTUTHSA Protonix (Pantoprazole Sodium) 20 Mg Tablet.dr 40 Mg PO DAILY Nephro-Bennie Tablet (Folic Acid/Vitamin B Comp W-C) 0.8 Mg Tablet 1 Tab PO DAILY Metoprolol Tartrate 50 Mg Tablet 1 Tab PO BID Lisinopril 40 Mg Tablet 1 Tab PO QHS Ferrous Sulfate 325 Mg Tablet 1 Tab PO DAILY Calcitriol 0.25 Mcg Capsule 1 Cap PO M// Amlodipine Besylate 10 Mg Tablet 10 Mg PO QHS Acetaminophen 325 Mg Tablet 325 Mg PO PRN Q8HRS Vitals/I & O Vital Sign - Last 24 Hours 03/08/18 03/08/18 03/08/18 03/08/18 12:42 13:55 15:00 16:07 Temp 97.7 97.7 Pulse 79 Resp 20 B/P (MAP) 151/64 (93) Pulse Ox 98 O2 Delivery Nasal Cannula Nasal Cannula 3l Nasal Cannula O2 Flow Rate 2.0 3.0 2.0 03/08/18 03/08/18 03/08/18 03/08/18 19:35 19:52 20:13 20:14 Temp 98.1 98.1 Pulse 82 82 82 Resp 16 B/P (MAP) 176/81 (112) 176/81 176/81 Pulse Ox 96 O2 Delivery Nasal Cannula Room Air O2 Flow Rate 3.0 3.0 03/08/18 03/08/18 03/08/18 03/09/18 21:41 22:18 23:14 02:06 Temp 97.7 97.7 Pulse 90 Resp 15 18 16 B/P (MAP) 151/68 (95) Pulse Ox 96 95 96 96 O2 Delivery Nasal Cannula Nasal Cannula Nasal Cannula Nasal Cannula O2 Flow Rate 3.0 2.0 3.0 3.0 03/09/18 03/09/18 03/09/18 03/09/18 02:49 03:13 03:15 07:00 Temp 97.2 98.0 97.2 98.0 Pulse 86 115 Resp 15 14 16 B/P (MAP) 172/83 (112) 183/82 (115) Pulse Ox 95 96 96 93 O2 Delivery Nasal Cannula Nasal Cannula Nasal Cannula Nasal Cannula O2 Flow Rate 2.0 3.0 3.0 3.0 Intake and Output 03/08/18 03/08/18 03/09/18 15:00 23:00 07:00 Intake Total 600 ml 2694 ml 850 ml Balance 600 ml 2694 ml 850 ml Nutrition Consultation Dietary Evaluation: Recommendations by RD: Increase Calorie Intake, Protein supplementation Comments: continue nepro tid Expected Outcomes/Goals: to meet > 75% est nutr needs- met, goal ongoing Interpretation of weight loss: >5% in 1 month Malnutrition Findings: Weight Status: Underweight JIMENEZ BELCHER MD Mar 09, 2018 11:05
--- NOTE | 2018-03-09 12:51 | PDOC ---
Infectious Disease Note Subjective Subjective a little SOA pos tHD No F/C/S/N/V/Rash Vital Sign Vital Signs Vital Signs Date Time Temp Pulse Resp B/P (MAP) Pulse Ox O2 Delivery O2 Flow Rate FiO2 03/09/18 07:00 98.0 115 16 183/82 (115) 93 Nasal Cannula 3.0 98.0 Physical Exam PHYSICAL EXAM GENERAL: alert awake in nad OC/op- clear LUNGS: Clear. HEART: S1, S2 regular. ABDOMEN: Soft, NT EXTREMITIES: No edema, cyanosis. SKIN: warm without rash ,has some skin lesions ,superficial scratch unger, no signs of secondary infection BLACK STUDIES PROFESSOR: Alert and oriented x 3 Lines clean Labs Lab Laboratory Tests Test 03/09/18 04:05 Hemoglobin 8.9 g/dL (13.0-17.5) Sodium Level 136 mmol/L (136-145) Potassium Level 7.0 mmol/L (3.5-5.1) Chloride Level 100 mmol/L (98-107) Carbon Dioxide Level 30 mmol/L (21-32) Anion Gap 6 (6-14) Blood Urea Nitrogen 49 mg/dL (8-26) Creatinine 7.0 mg/dL (0.7-1.3) Estimated GFR (Cockcroft-Gault) 9.8 Glucose Level 79 mg/dL (70-99) Calcium Level 9.7 mg/dL (8.5-10.1) Phosphorus Level 5.4 mg/dL (2.6-4.7) Magnesium Level 2.4 mg/dL (1.8-2.4) Albumin 2.3 g/dL (3.4-5.0) Micro Microbiology 03/07/18 Blood Culture - Preliminary, Resulted NO GROWTH AFTER 2 DAYS 03/05/18 Aerobic Culture - Preliminary, Resulted 03/05/18 Aerobic Culture Result 1 ([facility]ILIANA) - Preliminary, Resulted 03/05/18 Gram Stain - Final, Resulted 03/05/18 Gram Stain Result 1 ([facility]ILIANA) - Final, Resulted 03/05/18 Gram Stain Result 2 ([facility]ILIANA) - Final, Resulted Objective Assessment 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 Cath tip with neg cult No valvular vegetation Tetracycline resistant S/P HDC removal on 03/05 Repeat BC 03/07 neg so far Fever - better Leukocytosis - resolved Pulmonary infiltrates with bilateral pleural effusion,likely CHF Encephalopathy - improved ESRD currently getting dialysed through temp HD cath, s/p AV fistula 03/03 Rt HD tunneled catheter. 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
[2018-03-09] MEDS: ONDANSETRON PF 4 MG/2 ML VIAL. IV PRN (13:14)
[2018-03-09] MEDS: ALPRAZolam 0.25 MG TABLET PO PRN (13:14)
[2018-03-09] MEDS: CALCIUM ACETATE 667 MG CAPSULE PO SCH ×3 (13:15→17:08)
[2018-03-09] MEDS: LINEZOLID 600 MG TABLET PO SCH (13:16)
[2018-03-09] MEDS: FERROUS SULFATE 325 MG TABLET. PO SCH (13:16)
[2018-03-09] MEDS: PANTOPRAZOLE 40 MG TABLET.DR. PO SCH (13:16)
[2018-03-09] MEDS: VANCOMYCIN PER PHARMACY MC PRN (14:09)
[2018-03-09 15:00] VITALS: BP 146/90
[2018-03-09] MEDS ORDERED: VANCOMYCIN 500 MG in IV NORMAL SALINE 100ML 100 ML IV ONE (16:00)
[2018-03-09] MEDS: ZOLPIDEM 5 MG TABLET. PO PRN (18:13)
[2018-03-09 19:00] VITALS: BP 156/80
[2018-03-09] MEDS: LISINOPRIL 20 MG TABLET PO SCH (21:50)
[2018-03-09] MEDS: amLODIPine BESYLATE 10 MG TABLET PO SCH (21:51)
[2018-03-09 22:45] VITALS: BP 162/76
[2018-03-10] MEDS: ALPRAZolam 0.25 MG TABLET PO PRN ×2 (01:06→20:50)
[2018-03-10] MEDS: HYDROcodone/APAP 5/325MG 1 TAB TABLET PO PRN ×4 (01:07→20:51)
[2018-03-10] MEDS: ALBUTEROL SULFATE 2.5 MG/3 ML NEBU. NEB PRN ×2 (01:26→21:51)
[2018-03-10 02:40] VITALS: BP 165/78
[2018-03-10 07:00] VITALS: BP 175/87
[2018-03-10 08:00] LABS: ALBUMIN 2.3 g/dL (3.4-5.0); CALCIUM 9.9 mg/dL (8.5-10.1); CREATININE 5.6 mg/dL (0.7-1.3); GFR 12.7; MAGNESIUM 2.2 mg/dL (1.8-2.4); PHOSPHORUS 6.1 mg/dL (2.6-4.7)
[2018-03-10 08:04] LABS: POTASSIUM 6.1 mmol/L (3.5-5.1)
--- NOTE | 2018-03-10 09:44 | PDOC ---
Infectious Disease Note Subjective Subjective Much better No F/C/S/N/V/Rash ROS ROS o/w neg Vital Sign Vital Signs Vital Signs Date Time Temp Pulse Resp B/P (MAP) Pulse Ox O2 Delivery O2 Flow Rate FiO2 03/10/18 07:00 98.0 86 18 175/87 (116) 92 Nasal Cannula 4.0 98.0 Physical Exam PHYSICAL EXAM GENERAL: alert awake in nad - in HD OC/op- clear LUNGS: Clear. HEART: S1, S2 regular. ABDOMEN: Soft, NT EXTREMITIES: No edema, cyanosis. SKIN: warm without rash ,has some skin lesions ,superficial scratch unger, no signs of secondary infection FAMILY NURSE PRACTITIONER: Alert and oriented x 3 Lines clean Labs Lab Laboratory Tests Test 03/10/18 07:14 Sodium Level 135 mmol/L (136-145) Potassium Level 6.1 mmol/L (3.5-5.1) Chloride Level 98 mmol/L (98-107) Carbon Dioxide Level 33 mmol/L (21-32) Anion Gap 4 (6-14) Blood Urea Nitrogen 31 mg/dL (8-26) Creatinine 5.6 mg/dL (0.7-1.3) Estimated GFR (Cockcroft-Gault) 12.7 Glucose Level 64 mg/dL (70-99) Calcium Level 9.9 mg/dL (8.5-10.1) Phosphorus Level 6.1 mg/dL (2.6-4.7) Magnesium Level 2.2 mg/dL (1.8-2.4) Albumin 2.3 g/dL (3.4-5.0) Micro Microbiology 03/07/18 Blood Culture - Preliminary, Resulted NO GROWTH AFTER 2 DAYS 03/05/18 Aerobic Culture - Preliminary, Resulted 03/05/18 Aerobic Culture Result 1 (LILIANA) - Preliminary, Resulted 03/05/18 Gram Stain - Final, Resulted 03/05/18 Gram Stain Result 1 (LILIANA) - Final, Resulted 03/05/18 Gram Stain Result 2 ([facility]ILIANA) - Final, Resulted Objective Assessment High grade MRSA bacteremia (5 of 6 bottles) POA from 02/25, BC positive from 03/02,03/03, Cults 03/05 [facility] Source likely Rt tunneled HDC with probably a vegetation on the tip of the dialysis catheter measuring 0.6 cm x 0.4 cm approximately on BERNA 9/20. Cath tip with neg cult No valvular vegetation Tetracycline resistant S/P HDC removal on 03/05 Repeat BC 03/07 neg so far Fever - better Leukocytosis - resolved Pulmonary infiltrates with bilateral pleural effusion,likely CHF Encephalopathy - improved ESRD currently getting dialysed through temp HD cath, s/p AV fistula 03/03 Rt HD tunneled catheter. 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 Will need to be arranged with HD f/u repeat bc f/u labs and c/s CRISTIANA STYLES MD Mar 10, 2018 09:44
[2018-03-10] MEDS ORDERED: SODIUM POLYSTYRENE SULFONATE 15 GM/60 ML ORAL.SUSP. PO ONE (10:15)
[2018-03-10] MEDS ORDERED: IV NORMAL SALINE 1000ML BAG 1,000 ML IV PRN (10:41)
[2018-03-10] MEDS ORDERED: 0.9 % SODIUM CHLORIDE 10 ML DISP.SYRIN. IV PRN ×2 (10:45)
[2018-03-10] MEDS ORDERED: DIALYSIS PATIENT. MC PRN (10:45)
[2018-03-10 11:37] VITALS: BP 176/87
--- NOTE | 2018-03-10 12:12 | PDOC ---
PROGRESS NOTES Chief Complaint Chief Complaint 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 Cath tip with neg cult No valvular vegetation Tetracycline resistant S/P HDC removal on 03/05 Repeat BC 03/07 neg so far Fever - better Leukocytosis - resolved Pulmonary infiltrates with bilateral pleural effusion,likely CHF Encephalopathy - improved ESRD currently getting dialysed through temp HD cath, s/p AV fistula 03/03 Rt HD tunneled catheter. 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 HD due today Labs during HD days Vitals Vitals Vital Signs Date Time Temp Pulse Resp B/P (MAP) Pulse Ox O2 Delivery O2 Flow Rate FiO2 03/10/18 11:37 98.5 91 18 176/87 (116) 98 Nasal Cannula 4.0 98.5 Physical Exam Physical Exam GENERAL: alert awake in nad - in HD OC/op- clear LUNGS: Clear. HEART: S1, S2 regular. ABDOMEN: Soft, NT EXTREMITIES: No edema, cyanosis. 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 Lines clean General: Alert, Oriented X3, Cooperative, No acute distress Heart: Regular rate, Normal S1, Normal S2, No murmurs, Gallops Lungs: Crackles Abdomen: Normal bowel sounds, Soft, No tenderness, No hepatosplenomegaly, No masses Extremities: No clubbing, No cyanosis, No edema, Normal pulses, No tenderness/ swelling Skin: No breakdown Labs LABS Laboratory Tests Test 03/10/18 07:14 Sodium Level 135 mmol/L (136-145) Potassium Level 6.1 mmol/L (3.5-5.1) Chloride Level 98 mmol/L (98-107) Carbon Dioxide Level 33 mmol/L (21-32) Anion Gap 4 (6-14) Blood Urea Nitrogen 31 mg/dL (8-26) Creatinine 5.6 mg/dL (0.7-1.3) Estimated GFR (Cockcroft-Gault) 12.7 Glucose Level 64 mg/dL (70-99) Calcium Level 9.9 mg/dL (8.5-10.1) Phosphorus Level 6.1 mg/dL (2.6-4.7) Magnesium Level 2.2 mg/dL (1.8-2.4) Albumin 2.3 g/dL (3.4-5.0) Review of Systems Review of Systems A 14 point ROS was completed with the following noted as positive: Other systems reviewed and negative. \CONSTITUTIONAL: No fever or chills EYES: No recent changes SKIN: No rash or itching CARDIOVASCULAR: No chest pain, syncope, palpitations, or edema RESPIRATORY: No SOB or cough GASTROINTESTINAL: No nausea, vomiting or abdominal pain NEUROLOGICAL: No headaches or weakness ENDOCRINE: No cold or heat intolerance GENITOURINARY: No urgency or frequency of urination MUSCULOSKELETAL: No back pain or joint pain LYMPHATICS: No enlarged lymph nodes PSYCHIATRIC: No anxiety or depression Assessment and Plan Assessmemt and Plan Problems Medical Problems: (1) End stage renal disease on dialysis Status: Acute (2) Sepsis Status: Acute Comment Review of Relevant I have reviewed the following items mirian (where applicable) has been applied. Labs Laboratory Tests Test 03/09/18 04:05 03/10/18 07:14 Hemoglobin 8.9 g/dL (13.0-17.5) Sodium Level 136 mmol/L (136-145) 135 mmol/L (136-145) Potassium Level 7.0 mmol/L (3.5-5.1) 6.1 mmol/L (3.5-5.1) Chloride Level 100 mmol/L (98-107) 98 mmol/L (98-107) Carbon Dioxide Level 30 mmol/L (21-32) 33 mmol/L (21-32) Anion Gap 6 (6-14) 4 (6-14) Blood Urea Nitrogen 49 mg/dL (8-26) 31 mg/dL (8-26) Creatinine 7.0 mg/dL (0.7-1.3) 5.6 mg/dL (0.7-1.3) Estimated GFR (Cockcroft-Gault) 9.8 12.7 Glucose Level 79 mg/dL (70-99) 64 mg/dL (70-99) Calcium Level 9.7 mg/dL (8.5-10.1) 9.9 mg/dL (8.5-10.1) Phosphorus Level 5.4 mg/dL (2.6-4.7) 6.1 mg/dL (2.6-4.7) Magnesium Level 2.4 mg/dL (1.8-2.4) 2.2 mg/dL (1.8-2.4) Albumin 2.3 g/dL (3.4-5.0) 2.3 g/dL (3.4-5.0) Laboratory Tests Test 03/10/18 07:14 Sodium Level 135 mmol/L (136-145) Potassium Level 6.1 mmol/L (3.5-5.1) Chloride Level 98 mmol/L (98-107) Carbon Dioxide Level 33 mmol/L (21-32) Anion Gap 4 (6-14) Blood Urea Nitrogen 31 mg/dL (8-26) Creatinine 5.6 mg/dL (0.7-1.3) Estimated GFR (Cockcroft-Gault) 12.7 Glucose Level 64 mg/dL (70-99) Calcium Level 9.9 mg/dL (8.5-10.1) Phosphorus Level 6.1 mg/dL (2.6-4.7) Magnesium Level 2.2 mg/dL (1.8-2.4) Albumin 2.3 g/dL (3.4-5.0) Microbiology 03/07/18 Blood Culture - Preliminary, Resulted NO GROWTH AFTER 3 DAYS 03/05/18 Aerobic Culture - Final, Complete 03/05/18 Aerobic Culture Result 1 (LILIANA) - Final, Complete 03/05/18 Gram Stain - Final, Complete 03/05/18 Gram Stain Result 1 (LILIANA) - Final, Complete 03/05/18 Gram Stain Result 2 (LILIANA) - Final, Complete Medications Current Medications Piperacillin Sod/ Tazobactam Sod 2.25 gm/Sodium Chloride 100 ml @ 200 mls/hr 1X ONCE IV Last administered on 02/25/18at 09:25; Start 02/25/18 at 08:45; Stop 02/25/18 at 09:14; Status DC Vancomycin HCl (Vanco Per Pharmacy) 1 each 1X ONCE MC Last administered on 06/02at 08:30; Start 02/25/18 at 08:30; Stop 02/25/18 at 08:56; Status DC Fentanyl Citrate (Fentanyl 2ml Vial) 50 mcg PRN Q15MIN PRN IV PAIN GREATER THAN 3/10 Last administered on 02/25/18at 09:25; Start 02/25/18 at 08:30; Stop at 08:29; Status DC Acetaminophen (Tylenol) 1,000 mg 1X ONCE PO Last administered on 02/25/18at 09: 25; Start 02/25/18 at 09:00; Stop 02/25/18 at 09:01; Status DC Vancomycin HCl 1.5 gm/Sodium Chloride 500 ml @ 250 mls/hr 1X ONCE IV Last administered on 02/25/18at 11:07; Start 02/25/18 at 09:00; Stop 02/25/18 at 10:59 ; Status DC Sodium Chloride 500 ml @ 500 mls/hr 1X ONCE IV Last administered on at 09:47; Start 02/25/18 at 09:30; Stop 02/25/18 at 10:29; Status DC Ondansetron HCl (Zofran) 4 mg PRN Q8HRS PRN IV NAUSEA/VOMITING; Start 02/25/18 at 11:15; Stop 02/26/18 at 09:06; Status DC Fentanyl Citrate (Fentanyl 2ml Vial) 50 mcg PRN Q2HR PRN IV PAIN Last administered on 02/26/18at 03:50; Start 02/25/18 at 11:15; Stop 02/26/18 at 11:14 ; Status DC Acetaminophen (Tylenol) 650 mg PRN Q4HRS PRN PO FEVER Last administered on 02/26at 03:50; Start 02/25/18 at 11:15; Stop 02/26/18 at 09:13; Status DC Sodium Chloride 1,000 ml @ 1,000 mls/hr Q1H PRN IV hypotension; Start 02/25/18 at 16:33; Stop 02/25/18 at 22:32; Status DC Sodium Chloride (Normal Saline Flush) 10 ml 1X PRN PRN IV AP catheter pack; Start 02/25/18 at 16:45; Stop 02/26/18 at 16:44; Status DC Sodium Chloride (Normal Saline Flush) 10 ml 1X PRN PRN IV PILOT BOAT OPERATOR catheter 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; Start 02/25/18 at 16:45; Stop 02/26/18 at 16:44; Status DC Sodium Chloride 1,000 ml @ 400 mls/hr Q2H30M PRN IV PATENCY; Start 02/25/18 at 16:33; Stop 02/26/18 at 04:32; Status DC Info (PHARMACY MONITORING -- do not chart) 1 each PRN DAILY PRN MC SEE COMMENTS ; Start 02/25/18 at 16:45; Status UNV Info (PHARMACY MONITORING -- do not chart) 1 each PRN DAILY PRN MC SEE COMMENTS ; Start 02/25/18 at 16:45; Stop 02/28/18 at 13:49; Status DC Zolpidem Tartrate (Ambien) 5 mg HS PRN PO INSOMNIA, MAY REPEAT X1 Last administered on 03/09/18at 18:13; Start 02/25/18 at 21:15 Acetaminophen (Tylenol) 325 mg PRN Q8HRS PRN PO MILD PAIN; Start 02/25/18 at 21 :30; Stop 02/26/18 at 09:06; Status DC Amlodipine Besylate (Norvasc) 10 mg QHS PO Last administered on 03/09/18at 21:51 ; Start 02/26/18 at 21:00 Ferrous Sulfate (Feosol) 325 mg DAILY PO Last administered on 03/09/18at 13:16; Start 02/26/18 at 09:00 Vitamin B Complex/ Vitamin C (Kiara-Bennie) 1 tab DAILY PO Last administered on at 09:28; Start 02/26/18 at 09:00 Albuterol Sulfate (Ventolin Neb Soln) 2.5 mg PRN Q4HRS PRN NEB SHORTNESS OF BREATH Last administered on 03/10/18at 01:26; Start 02/25/18 at 21:45 Lisinopril (Prinivil) 40 mg QHS PO Last administered on 03/09/18at 21:50; Start 02/25/18 at 22:00 Magnesium Hydroxide (Milk Of Magnesia) 2,400 mg BID PRN PO CONSTIPATION; Start 02/25/18 at 21:30; Status UNV Metoprolol Tartrate (Lopressor) 50 mg BID PO ; Start 02/26/18 at 09:00; Status UNV Metoprolol Tartrate (Lopressor) 50 mg BID PO ; Start 02/26/18 at 09:00; Status UNV Calcitriol (Rocaltrol) 0.25 mcg QTUTHSA PO Last administered on 03/07/18 16:17 ; Start 02/26/18 at 16:00 Calcium Acetate (Phoslo) 667 mg TIDWMEALS PO Last administered on 03/09/18 17: 08; Start 02/26/18 at 08:00 Hydroxyzine Pamoate (Vistaril) 25 mg PRN Q6HRS PRN PO ITCHING Last administered on 03/09/18 02:05; Start 02/25/18 at 21:45 Pantoprazole Sodium (Protonix) 40 mg DAILYAC PO Last administered on 03/09/18 13:16; Start 02/26/18 at 07:30 Acetaminophen (Tylenol) 650 mg PRN Q8HRS PRN PO MILD PAIN Last administered on 03/09/18 13:14; Start 02/26/18 at 09:15 Ondansetron HCl (Zofran) 4 mg PRN Q6HRS PRN IV NAUSEA/VOMITING Last administered on 03/09/18 13:14; Start 02/26/18 at 09:15 Clonidine HCl (Catapres) 0.1 mg PRN Q1HR PRN PO HYPERTENSION, SEE COMMENTS Last administered on 03/07/18at 16:32; Start 02/26/18 at 09:15 Fentanyl Citrate (Fentanyl 2ml Vial) 50 mcg PRN Q2HR PRN IV SEVERE PAIN Last administered on 03/06/18at 11:24; Start 02/26/18 at 09:15 Acetaminophen/ Hydrocodone Bitart (Lortab 5/325) 1 tab PRN Q4HRS PRN PO MODERATE-SEVERE PAIN Last administered on 03/10/18 01:07; Start 02/26/18 at 09: 15 Calcitriol (Rocaltrol) 0.25 mcg MoWeFr PO ; Start 02/27/18 at 09:00; Status Cancel Vancomycin HCl (Vanco Per Pharmacy) 1 each PRN DAILY PRN MC SEE COMMENTS Last administered on 03/09/18at 14:09; Start 02/26/18 at 10:00 Vancomycin HCl 1.5 gm/Sodium Chloride 500 ml @ 250 mls/hr 1X ONCE IV ; Start 02/26/18 at 11:00; Stop 02/26/18 at 12:59; Status Cancel Sodium Chloride 1,000 ml @ 1,000 mls/hr Q1H PRN IV hypotension; Start 02/26/18 at 10:12; Stop 02/26/18 at 16:11; Status DC Diphenhydramine HCl (Benadryl) 25 mg 1X PRN PRN IV ITCHING; Start 02/26/18 at 10:15; Stop 02/27/18 at 10:14; Status DC Diphenhydramine HCl (Benadryl) 25 mg 1X PRN PRN IV ITCHING; Start 02/26/18 at 10:15; Stop 02/27/18 at 10:14; Status DC Sodium Chloride 1,000 ml @ 400 mls/hr Q2H30M PRN IV PATENCY; Start 02/26/18 at 10:12; Stop 02/26/18 at 22:11; Status DC Info (PHARMACY MONITORING -- do not chart) 1 each PRN DAILY PRN MC SEE COMMENTS ; Start 02/26/18 at 10:15; Stop 02/28/18 at 14:47; Status DC Darbepoetin Uche (Aranesp) 60 mcg WEEKLYHS SQ Last administered on 03/05/18at 21 :09; Start 02/26/18 at 21:00 Alprazolam (Xanax) 0.25 mg PRN Q8HRS PRN PO ANXIETY / AGITATION Last administered on 03/10/18at 01:06; Start 02/26/18 at 14:15 Vancomycin HCl 500 mg/Sodium Chloride 100 ml @ 100 mls/hr QTUTHSA IV Last administered on 03/07/18at 16:18; Start 02/26/18 at 16:00 Lactobacillus Rhamnosus (Culturelle) 1 cap BID PO Last administered on at 21:51; Start 02/27/18 at 21:00 Sodium Chloride 1,000 ml @ 1,000 mls/hr Q1H PRN IV hypotension; Start 02/28/18 at 14:39; Stop 02/28/18 at 20:38; Status DC Albumin Human 200 ml @ 200 mls/hr 1X PRN PRN IV Hypotension; Start 02/28/18 at 14:45; Stop 02/28/18 at 20:44; Status DC Acetaminophen (Tylenol) 500 mg 1X PRN PRN PO MILD PAIN / TEMP; Start 02/28/18 at 14:45; Stop 03/01/18 at 14:44; Status DC Diphenhydramine HCl (Benadryl) 25 mg 1X PRN PRN IV ITCHING; Start 02/28/18 at 14:45; Stop 03/01/18 at 14:44; Status DC Diphenhydramine HCl (Benadryl) 25 mg 1X PRN PRN IV ITCHING; Start 02/28/18 at 14:45; Stop 03/01/18 at 14:44; Status DC Labetalol HCl (Normodyne Iv Push) 10 mg PRN Q1HR PRN IVP SBP > 180; Start 02/28 at 14:45; Stop 03/01/18 at 14:44; Status DC Clonidine HCl (Catapres) 0.1 mg 1X PRN PRN PO SBP > 180; Start 02/28/18 at 14: 45; Stop 03/01/18 at 14:44; Status DC Sodium Chloride 1,000 ml @ 400 mls/hr Q2H30M PRN IV PATENCY; Start 02/28/18 at 14:39; Stop 03/01/18 at 02:38; Status DC Info (PHARMACY MONITORING -- do not chart) 1 each PRN DAILY PRN MC SEE COMMENTS ; Start 02/28/18 at 14:45 Heparin Sodium (Porcine) 5000 unit/Sodium Chloride 505 ml @ 505 mls/hr 1X ONCE IRR Last administered on 03/03/18at 08:15; Start 03/03/18 at 06:00; Stop at 06:59; Status DC Cefazolin Sodium 1 gm/Sodium Chloride 500 ml @ 500 mls/hr 1X ONCE IRR Last administered on 03/03/18at 08:15; Start 03/03/18 at 06:00; Stop 03/03/18 at 06:59 ; Status DC Ondansetron HCl (Zofran) 4 mg PRN Q6HRS PRN IV NAUSEA/VOMITING; Start 03/03/18 at 07:00; Stop 03/03/18 at 21:00; Status DC Fentanyl Citrate (Fentanyl 2ml Vial) 25 mcg PRN Q5MIN PRN IV MILD PAIN; Start 03/03/18 at 07:00; Stop 03/03/18 at 21:00; Status DC Fentanyl Citrate (Fentanyl 2ml Vial) 50 mcg PRN Q5MIN PRN IV MODERATE TO SEVERE PAIN Last administered on 03/03/18at 09:41; Start 03/03/18 at 07:00; Stop 03/03/18 at 21:00; Status DC Morphine Sulfate (Morphine Sulfate) 1 mg PRN Q10MIN PRN IV SEVERE PAIN; Start 03/03/18 at 07:00; Stop 03/03/18 at 21:00; Status DC Ringer's Solution 1,000 ml @ 30 mls/hr Q24H IV Last administered on 03/03/18at 07:00; Start 03/03/18 at 07:00; Stop 03/03/18 at 18:59; Status DC Lidocaine HCl (Xylocaine-Mpf 1% 2ml Vial) 2 ml PRN 1X PRN ID IV START; Start at 07:00; Stop 03/03/18 at 21:00; Status DC Hydromorphone HCl (Dilaudid) 0.5 mg PRN Q10MIN PRN IV SEV PAIN, Second choice; Start 03/03/18 at 07:00; Stop 03/03/18 at 21:00; Status DC Prochlorperazine Edisylate (Compazine) 5 mg PACU PRN PRN IV NAUSEA, MRX1; Start 03/03/18 at 07:00; Stop 03/03/18 at 21:00; Status DC Cellulose (Surgicel Hemostat 2x3) 1 each STK-MED ONCE .ROUTE ; Start 03/03/18 at 05:51; Stop 03/03/18 at 06:52; Status DC Cellulose (Surgicel Fibrillar 1x2) 1 each STK-MED ONCE .ROUTE Last administered on 03/03/18at 08:47; Start 03/03/18 at 05:52; Stop 03/03/18 at 06:52 ; Status DC Papaverine HCl 60 mg STK-MED ONCE .ROUTE ; Start 03/03/18 at 05:53; Stop at 06:53; Status DC Cefazolin Sodium/ Dextrose 50 ml @ As Directed STK-MED ONCE IV ; Start 03/03/18 at 06:56; Stop 03/03/18 at 06:57; Status DC Cefazolin Sodium/ Dextrose 50 ml @ 100 mls/hr 1X PREOP PRN IV Pre Op Dose Last administered on 03/03/18at 07:53; Start 03/03/18 at 06:00; Stop 03/04/18 at 05:59; Status DC Fentanyl Citrate (Fentanyl 2ml Vial) 100 mcg STK-MED ONCE .ROUTE ; Start at 07:21; Stop 03/03/18 at 07:22; Status DC Lidocaine HCl (Xylocaine 1% Pf 30ml Vial) 30 ml STK-MED ONCE INJ Last administered on 03/03/18at 08:07; Start 03/03/18 at 08:07; Stop 03/03/18 at 08:12 ; Status DC Propofol 20 ml @ As Directed STK-MED ONCE IV ; Start 03/03/18 at 08:12; Stop at 08:14; Status DC Propofol 20 ml @ As Directed STK-MED ONCE IV ; Start 03/03/18 at 08:12; Stop at 08:14; Status DC Dexamethasone Sodium Phosphate (Decadron) 20 mg STK-MED ONCE .ROUTE ; Start at 08:13; Stop 03/03/18 at 08:14; Status DC Ondansetron HCl (Zofran) 4 mg STK-MED ONCE .ROUTE ; Start 03/03/18 at 08:13; Stop 03/03/18 at 08:14; Status DC Sevoflurane (Ultane) 60 ml STK-MED ONCE IH ; Start 03/03/18 at 08:13; Stop 03/03 at 08:14; Status DC Phenylephrine HCl (PHENYLEPHRINE in 0.9% NACL PF) 1 mg STK-MED ONCE IV ; Start 03/03/18 at 08:17; Stop 03/03/18 at 08:18; Status DC Heparin Sodium (Porcine) (Heparin Sodium) 10,000 unit STK-MED ONCE .ROUTE ; Start 03/03/18 at 08:49; Stop 03/03/18 at 08:50; Status DC Protamine Sulfate (Protamine) 50 mg STK-MED ONCE IV ; Start 03/03/18 at 08:49; Stop 03/03/18 at 08:50; Status DC Phenylephrine HCl (PHENYLEPHRINE in 0.9% NACL PF) 1 mg STK-MED ONCE IV ; Start 03/03/18 at 08:49; Stop 03/03/18 at 08:50; Status DC Sodium Chloride 1,000 ml @ 1,000 mls/hr Q1H PRN IV hypotension; Start 03/03/18 at 10:19; Stop 03/03/18 at 16:18; Status DC Sodium Chloride 1,000 ml @ 400 mls/hr Q2H30M PRN IV PATENCY; Start 03/03/18 at 10:19; Stop 03/03/18 at 22:18; Status DC Info (PHARMACY MONITORING -- do not chart) 1 each PRN DAILY PRN MC SEE COMMENTS ; Start 03/03/18 at 10:30; Status UNV Info (PHARMACY MONITORING -- do not chart) 1 each PRN DAILY PRN MC SEE COMMENTS ; Start 03/03/18 at 10:30; Status UNV Vancomycin HCl (Vancomycin Random Level) 1 each 1X ONCE MC ; Start 03/05/18 at 06:00; Stop 03/05/18 at 06:01; Status DC Ondansetron HCl (Zofran) 4 mg PRN Q6HRS PRN IV NAUSEA/VOMITING; Start 03/05/18 at 07:00; Stop 03/05/18 at 18:00; Status DC Fentanyl Citrate (Fentanyl 2ml Vial) 25 mcg PRN Q5MIN PRN IV MILD PAIN; Start 03/05/18 at 07:00; Stop 03/05/18 at 18:00; Status DC Fentanyl Citrate (Fentanyl 2ml Vial) 50 mcg PRN Q5MIN PRN IV MODERATE TO SEVERE PAIN; Start 03/05/18 at 07:00; Stop 03/05/18 at 18:00; Status DC Morphine Sulfate (Morphine Sulfate) 1 mg PRN Q10MIN PRN IV SEVERE PAIN; Start 03/05/18 at 07:00; Stop 03/05/18 at 18:00; Status DC Ringer's Solution 1,000 ml @ 30 mls/hr Q24H IV ; Start 03/05/18 at 07:00; Stop 03/05/18 at 18:59; Status Cancel Lidocaine HCl (Xylocaine-Mpf 1% 2ml Vial) 2 ml PRN 1X PRN ID IV START; Start at 07:00; Stop 03/05/18 at 18:00; Status DC Hydromorphone HCl (Dilaudid) 0.5 mg PRN Q10MIN PRN IV SEV PAIN, Second choice; Start 03/05/18 at 07:00; Stop 03/05/18 at 18:00; Status DC Prochlorperazine Edisylate (Compazine) 5 mg PACU PRN PRN IV NAUSEA, MRX1; Start 03/05/18 at 07:00; Stop 03/05/18 at 18:00; Status DC Sodium Chloride 1,000 ml @ 0 mls/hr Q0M IV Last administered on 03/05/18at 08: 43; Start 03/05/18 at 07:00 Propofol 20 ml @ As Directed STK-MED ONCE IV ; Start 03/05/18 at 08:17; Stop at 08:18; Status DC Benzocaine (Hurricaine One) 1 spray STK-MED ONCE .ROUTE ; Start 03/05/18 at 08: 30; Stop 03/05/18 at 08:31; Status DC Lidocaine HCl (Xylocaine 2% Topical 5gm Tube) 5 alexandra STK-MED ONCE TP ; Start at 08:30; Stop 03/05/18 at 08:31; Status DC Lidocaine HCl (Viscous Lidocaine) 15 ml STK-MED ONCE .ROUTE ; Start 03/05/18 at 08:30; Stop 03/05/18 at 08:32; Status DC Benzocaine (Hurricaine One) 3 spray 1X ONCE MM Last administered on 03/05/18at 08:45; Start 03/05/18 at 08:45; Stop 03/05/18 at 08:47; Status DC Lidocaine HCl (Viscous Lidocaine) 15 ml 1X ONCE SWSW Last administered on 03/05at 08:45; Start 03/05/18 at 08:45; Stop 03/05/18 at 08:47; Status DC Lidocaine HCl (Xylocaine 2% Topical 5gm Tube) 2 alexandra 1X ONCE TP Last administered on 03/05/18at 08:45; Start 03/05/18 at 08:45; Stop 03/05/18 at 08:47 ; Status DC Sodium Chloride 1,000 ml @ 1,000 mls/hr Q1H PRN IV hypotension; Start 03/05/18 at 08:47; Stop 03/05/18 at 14:46; Status DC Sodium Chloride (Normal Saline Flush) 10 ml 1X PRN PRN IV AP catheter pack; Start 03/05/18 at 09:00; Stop 03/06/18 at 08:59; Status DC Sodium Chloride (Normal Saline Flush) 10 ml 1X PRN PRN IV PILOT BOAT OPERATOR catheter pack; Start 03/05/18 at 09:00; Stop 03/06/18 at 08:59; Status DC Sodium Chloride 1,000 ml @ 400 mls/hr Q2H30M PRN IV PATENCY; Start 03/05/18 at 08:47; Stop 03/05/18 at 20:46; Status DC Info (PHARMACY MONITORING -- do not chart) 1 each PRN DAILY PRN MC SEE COMMENTS ; Start 03/05/18 at 09:00; Status UNV Info (PHARMACY MONITORING -- do not chart) 1 each PRN DAILY PRN MC SEE COMMENTS ; Start 03/05/18 at 09:00; Status UNV Linezolid (Zyvox) 600 mg BID PO Last administered on 03/09/18at 13:16; Start at 21:00; Stop 03/09/18 at 13:35; Status DC Lidocaine/Sodium Bicarbonate (Buffered Lidocaine 1%) 3 ml STK-MED ONCE .ROUTE ; Start 03/05/18 at 15:19; Stop 03/05/18 at 15:20; Status DC Heparin Sodium (Porcine) (Heparin Sodium) 10,000 unit STK-MED ONCE .ROUTE ; Start 03/05/18 at 15:19; Stop 03/05/18 at 15:20; Status DC Lidocaine/Sodium Bicarbonate (Buffered Lidocaine 1%) 3 ml 1X ONCE IJ Last administered on 03/05/18at 16:16; Start 03/05/18 at 15:30; Stop 03/05/18 at 15:31 ; Status DC Heparin Sodium (Porcine) (Heparin Sodium) 2,600 unit 1X ONCE INT CAT Last administered on 03/05/18at 16:16; Start 03/05/18 at 15:30; Stop 03/05/18 at 15:31 ; Status DC Lidocaine/Sodium Bicarbonate (Buffered Lidocaine 1%) 3 ml STK-MED ONCE .ROUTE ; Start 03/05/18 at 16:03; Stop 03/05/18 at 16:04; Status DC Sodium Chloride 1,000 ml @ 1,000 mls/hr Q1H PRN IV hypotension; Start 03/07/18 at 10:06; Stop 03/07/18 at 16:05; Status DC Sodium Chloride 1,000 ml @ 400 mls/hr Q2H30M PRN IV PATENCY; Start 03/07/18 at 10:06; Stop 03/07/18 at 22:05; Status DC Info (PHARMACY MONITORING -- do not chart) 1 each PRN DAILY PRN MC SEE COMMENTS ; Start 03/07/18 at 10:15; Status UNV Info (PHARMACY MONITORING -- do not chart) 1 each PRN DAILY PRN MC SEE COMMENTS ; Start 03/07/18 at 10:15 Magnesium Sulfate 50 ml @ 25 mls/hr PRN DAILY PRN IV for Mag < 1.7 on am labs; Start 03/08/18 at 07:15 Insulin Human Regular (HumuLIN R VIAL) 10 unit 1X ONCE IV Last administered on 03/09/18at 06:10; Start 03/09/18 at 05:45; Stop 03/09/18 at 05:47; Status DC Dextrose (Dextrose 50%-Water Syringe) 25 gm 1X ONCE IV Last administered on at 06:09; Start 03/09/18 at 06:00; Stop 03/09/18 at 06:01; Status DC Sodium Bicarbonate (Sodium Bicarb Adult 8.4% Syr) 50 meq 1X ONCE IV Last administered on 03/09/18at 06:09; Start 03/09/18 at 05:45; Stop 03/09/18 at 05:46 ; Status DC Calcium Gluconate (Calcium Gluconate) 1,000 mg 1X ONCE IVP Last administered on 03/09/18at 06:10; Start 03/09/18 at 06:00; Stop 03/09/18 at 06:01; Status DC Sodium Polystyrene Sulfonate (Kayexalate) 60 gm 1X ONCE PO Last administered on 03/09/18at 07:56; Start 03/09/18 at 05:45; Stop 03/09/18 at 05:46; Status DC Info (PHARMACY MONITORING -- do not chart) 1 each PRN DAILY PRN MC SEE COMMENTS ; Start 03/09/18 at 08:15; Status UNV Info (PHARMACY MONITORING -- do not chart) 1 each PRN DAILY PRN MC SEE COMMENTS ; Start 03/09/18 at 08:15; Status UNV Labetalol HCl (Normodyne Iv Push) 20 mg PRN Q2HR PRN IVP HYPERTENSION, SEE COMMENTS; Start 03/09/18 at 09:15 Labetalol HCl (Normodyne Iv Push) 20 mg 1X ONCE IVP ; Start 03/09/18 at 09:15; Stop 03/09/18 at 09:16; Status DC Vancomycin HCl 500 mg/Sodium Chloride 100 ml @ 100 mls/hr 1X ONCE IV Last administered on 03/09/18at 17:08; Start 03/09/18 at 16:00; Stop 03/09/18 at 16:59 ; Status DC Sodium Polystyrene Sulfonate (Kayexalate) 30 gm 1X ONCE PO ; Start 03/10/18 at 10:15; Stop 03/10/18 at 10:16; Status DC Sodium Chloride 1,000 ml @ 1,000 mls/hr Q1H PRN IV hypotension; Start 03/10/18 at 10:41; Stop 03/10/18 at 16:40 Sodium Chloride (Normal Saline Flush) 10 ml 1X PRN PRN IV AP catheter pack; Start 03/10/18 at 10:45; Stop 03/11/18 at 10:44 Sodium Chloride (Normal Saline Flush) 10 ml 1X PRN PRN IV [employer] catheter pack; Start 03/10/18 at 10:45; Stop 03/11/18 at 10:44 Info (PHARMACY MONITORING -- do not chart) 1 each PRN DAILY PRN MC SEE COMMENTS ; Start 03/10/18 at 10:45 Active Scripts Active Colace (Docusate Sodium) 100 Mg Capsule 1 Cap PO BID PRN [Darbepoetin Uche In Polysorbat] 60 MCG/0.3 ML Disp.syrin 60 Mcg SQ WEEKLYHS Vancomycin Hcl 1 Gm Vial 1 Each MC PRN DAILY PRN 14 Days 500mg IV after each dialysis 2 weeks Metoprolol Tartrate 50 Mg Tablet 50 Mg PO BID 60 Days Reported Tylenol (Acetaminophen) 325 Mg Tablet 1-2 Tab PO QID PRN Milk Of Magnesia (Magnesium Hydroxide) 400 Mg/5 Ml Oral.susp 30 Ml PO BID PRN Duoneb 0.5-3(2.5) Mg/3 Ml (Albuterol/Ipratropium) 3 Ml Ampul.neb 3 Ml NEB Q4HRS PRN Hydroxyzine Hcl 25 Mg Tablet 1 Tab PO Q6HRS PRN Calcium Acetate 667 Mg Tablet 667 Mg PO TIDWMEALS Calcitriol 0.25 Mcg Capsule 1 Cap PO QTUTHSA Protonix (Pantoprazole Sodium) 20 Mg Tablet.dr 40 Mg PO DAILY Nephro-Bennie Tablet (Folic Acid/Vitamin B Comp W-C) 0.8 Mg Tablet 1 Tab PO DAILY Metoprolol Tartrate 50 Mg Tablet 1 Tab PO BID Lisinopril 40 Mg Tablet 1 Tab PO QHS Ferrous Sulfate 325 Mg Tablet 1 Tab PO DAILY Calcitriol 0.25 Mcg Capsule 1 Cap PO M// Amlodipine Besylate 10 Mg Tablet 10 Mg PO QHS Acetaminophen 325 Mg Tablet 325 Mg PO PRN Q8HRS Vitals/I & O Vital Sign - Last 24 Hours 03/09/18 03/09/18 03/09/18 03/09/18 12:57 13:15 15:00 17:08 Temp 98.2 98.2 Pulse 150 Resp 16 B/P (MAP) 146/90 (108) Pulse Ox 91 91 96 96 O2 Delivery Nasal Cannula Nasal Cannula Room Air Nasal Cannula O2 Flow Rate 4.0 4.0 4.0 03/09/18 03/09/18 03/09/18 03/09/18 18:15 19:00 20:00 21:50 Temp 99.6 99.6 Pulse 71 71 Resp 16 B/P (MAP) 156/80 (105) 156/80 Pulse Ox 96 96 O2 Delivery Nasal Cannula Nasal Cannula O2 Flow Rate 4.0 4.0 03/09/18 03/09/18 03/09/18 03/10/18 21:51 22:45 23:20 01:07 Temp 99.1 99.1 Pulse 71 94 Resp 19 24 B/P (MAP) 156/80 162/76 (104) Pulse Ox 95 O2 Delivery Nasal Cannula Nasal Cannula Nasal Cannula O2 Flow Rate 4.0 4.0 3.5 03/10/18 03/10/18 03/10/18 03/10/18 01:25 02:07 02:40 07:00 Temp 98.8 98.0 98.8 98.0 Pulse 91 86 Resp 20 19 18 B/P (MAP) 165/78 (107) 175/87 (116) Pulse Ox 95 92 O2 Delivery Nasal Cannula Nasal Cannula Nasal Cannula Nasal Cannula O2 Flow Rate 3.0 3.0 4.0 4.0 03/10/18 11:37 Temp 98.5 98.5 Pulse 91 Resp 18 B/P (MAP) 176/87 (116) Pulse Ox 98 O2 Delivery Nasal Cannula O2 Flow Rate 4.0 Intake and Output 03/09/18 03/09/18 03/10/18 15:00 23:00 07:00 Intake Total 400 ml Balance 400 ml Nutrition Consultation Dietary Evaluation: Recommendations by RD: Increase Calorie Intake, Protein supplementation Comments: continue nepro tid Expected Outcomes/Goals: to meet > 75% est nutr needs- met, goal ongoing Interpretation of weight loss: >5% in 1 month Malnutrition Findings: Weight Status: Underweight JIMENEZ BELCHER MD Mar 10, 2018 12:12
[2018-03-10] MEDS: CALCIUM ACETATE 667 MG CAPSULE PO SCH ×3 (12:25→16:36)
[2018-03-10] MEDS: FERROUS SULFATE 325 MG TABLET. PO SCH (12:25)
[2018-03-10] MEDS: LACTOBACILLUS RHAMNOSUS GG 1 CAPSULE. PO SCH ×2 (12:25→20:49)
[2018-03-10] MEDS: PANTOPRAZOLE 40 MG TABLET.DR. PO SCH (12:25)
[2018-03-10] MEDS: FOLIC/VIT B COMP W-C (RENAL) TABLET. PO SCH (12:26)
[2018-03-10] MEDS: hydrOXYzine PAMOATE 25 MG CAPSULE PO PRN ×2 (12:56→20:50)
--- NOTE | 2018-03-10 13:54 | PDOC ---
SUBJECTIVE ROS No complaints Upset that cant be discharged back tp alf Feels everything is going too slow OBJECTIVE Vital Signs Vital Signs Date Time Temp Pulse Resp B/P (MAP) Pulse Ox O2 Delivery O2 Flow Rate FiO2 03/10/18 12:56 Nasal Cannula 3.0 03/10/18 11:37 98.5 91 18 176/87 (116) 98 98.5 I & 0 Intake and Output 03/10/18 07:00 Intake Total 400 ml Balance 400 ml Intake Oral 400 ml # Voids 2 # Bowel Movements 1 PHYSICAL EXAM Physical Exam GEN: Awake, Oriented x 3, In no distress EYES: Vision Unchanged, Conjunctiva Normal EN: No EN Drainage, Mucous Membranes moist NECK: no JVD, min JVP, Supple, no Thyromegaly CVS: S1S2, soft Murmur, No Gallop, No Rub,no Edema RESP: no Rales, no Rhonchi,no Acc. 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 Long-term Dialysis access placement to be determined depending on course of current infection and recovery- When approved by ID ANEMIA; Aranesp as ordered, Transfuse with next HD as needed HTN: Current BP meds as reviewed. See orders for changes. BONE & MINERAL: Follow phosphorus levels and alter binder regimen as needed COMMENT/RELEVANT DATA Meds Current Medications Medications (Trade) Dose Ordered Sig/Lissette Start Time Stop Time Status Last Admin Dose Admin Acetaminophen (Tylenol) 500 mg 1X PRN PRN 02/28/18 14:45 03/01/18 14:44 DC Acetaminophen/ Hydrocodone Bitart (Lortab 5/325) 1 tab PRN Q4HRS PRN 02/26/18 09:15 03/10/18 12:56 1 TAB Albumin Human 200 ml @ 200 mls/hr 1X PRN PRN 02/28/18 14:45 02/28/18 20:44 DC Albuterol Sulfate (Ventolin Neb Soln) 2.5 mg PRN Q4HRS PRN 02/25/18 21:45 03/10/18 01:26 2.5 MG Alprazolam (Xanax) 0.25 mg PRN Q8HRS PRN 02/26/18 14:15 03/10/18 01:06 0.25 MG Amlodipine Besylate (Norvasc) 10 mg QHS 02/26/18 21:00 03/09/18 21:51 10 MG Benzocaine (Hurricaine One) 3 spray 1X ONCE 03/05/18 08:45 03/05/18 08:47 DC 03/05/18 08:45 3 SPRAY Calcitriol (Rocaltrol) 0.25 mcg MoWeFr 02/27/18 09:00 Cancel Calcium Acetate (Phoslo) 667 mg TIDWMEALS 02/26/18 08:00 03/10/18 12:27 667 MG Calcium Gluconate (Calcium Gluconate) 1,000 mg 1X ONCE 03/09/18 06:00 03/09/18 06:01 DC 03/09/18 06:10 1,000 MG Cefazolin Sodium 1 gm/Sodium Chloride 500 ml @ 500 mls/hr 1X ONCE 03/03/18 06:00 03/03/18 06:59 DC 03/03/18 08:15 Cefazolin Sodium/ Dextrose 50 ml @ 100 mls/hr 1X PREOP PRN 03/03/18 06:00 03/04/18 05:59 DC 03/03/18 07:53 100 MLS/HR Cellulose (Surgicel Fibrillar 1x2) 1 each STK-MED ONCE 03/03/18 05:52 03/03/18 06:52 DC 03/03/18 08:47 1 EACH Cellulose (Surgicel Hemostat 2x3) 1 each STK-MED ONCE 03/03/18 05:51 03/03/18 06:52 DC Clonidine HCl (Catapres) 0.1 mg 1X PRN PRN 02/28/18 14:45 03/01/18 14:44 DC Darbepoetin Uche (Aranesp) 60 mcg WEEKLYHS 02/26/18 21:00 03/05/18 21:09 60 MCG Dexamethasone Sodium Phosphate (Decadron) 20 mg STK-MED ONCE 03/03/18 08:13 03/03/18 08:14 DC Dextrose (Dextrose 50%-Water Syringe) 25 gm 1X ONCE 03/09/18 06:00 03/09/18 06:01 DC 03/09/18 06:09 25 GM Diphenhydramine HCl (Benadryl) 25 mg 1X PRN PRN 02/28/18 14:45 03/01/18 14:44 DC Fentanyl Citrate (Fentanyl 2ml Vial) 50 mcg PRN Q5MIN PRN 03/05/18 07:00 03/05/18 18:00 DC Ferrous Sulfate (Feosol) 325 mg DAILY 02/26/18 09:00 03/10/18 12:25 325 MG Heparin Sodium (Porcine) (Heparin Sodium) 2,600 unit 1X ONCE 03/05/18 15:30 03/05/18 15:31 DC 03/05/18 16:16 2,800 UNIT Heparin Sodium (Porcine) 5000 unit/Sodium Chloride 505 ml @ 505 mls/hr 1X ONCE 03/03/18 06:00 03/03/18 06:59 DC 03/03/18 08:15 Hydromorphone HCl (Dilaudid) 0.5 mg PRN Q10MIN PRN 03/05/18 07:00 03/05/18 18:00 DC Hydroxyzine Pamoate (Vistaril) 25 mg PRN Q6HRS PRN 02/25/18 21:45 03/10/18 12:56 25 MG Info (PHARMACY MONITORING -- do not chart) 1 each PRN DAILY PRN 03/10/18 10:45 Insulin Human Regular (HumuLIN R VIAL) 10 unit 1X ONCE 03/09/18 05:45 03/09/18 05:47 DC 03/09/18 06:10 10 UNIT Labetalol HCl (Normodyne Iv Push) 20 mg 1X ONCE 03/09/18 09:15 03/09/18 09:16 DC Lactobacillus Rhamnosus (Culturelle) 1 cap BID 02/27/18 21:00 03/10/18 12:25 1 CAP Lidocaine HCl (Viscous Lidocaine) 15 ml 1X ONCE 03/05/18 08:45 03/05/18 08:47 DC 03/05/18 08:45 15 ML Lidocaine HCl (Xylocaine 1% Pf 30ml Vial) 30 ml STK-MED ONCE 03/03/18 08:07 03/03/18 08:12 DC 03/03/18 08:07 1 ML Lidocaine HCl (Xylocaine 2% Topical 5gm Tube) 2 alexandra 1X ONCE 03/05/18 08:45 03/05/18 08:47 DC 03/05/18 08:45 2 ALEXANDRA Lidocaine HCl (Xylocaine-Mpf 1% 2ml Vial) 2 ml PRN 1X PRN 03/05/18 07:00 03/05/18 18:00 DC Lidocaine/Sodium Bicarbonate (Buffered Lidocaine 1%) 3 ml STK-MED ONCE 03/05/18 16:03 03/05/18 16:04 DC Linezolid (Zyvox) 600 mg BID 03/05/18 21:00 03/09/18 13:35 DC 03/09/18 13:16 600 MG Lisinopril (Prinivil) 40 mg QHS 02/25/18 22:00 03/09/18 21:50 40 MG Magnesium Hydroxide (Milk Of Magnesia) 2,400 mg BID PRN 02/25/18 21:30 UNV Magnesium Sulfate 50 ml @ 25 mls/hr PRN DAILY PRN 03/08/18 07:15 Metoprolol Tartrate (Lopressor) 50 mg BID 02/26/18 09:00 UNV Morphine Sulfate (Morphine Sulfate) 1 mg PRN Q10MIN PRN 03/05/18 07:00 03/05/18 18:00 DC Ondansetron HCl (Zofran) 4 mg PRN Q6HRS PRN 03/05/18 07:00 03/05/18 18:00 DC Pantoprazole Sodium (Protonix) 40 mg DAILYAC 02/26/18 07:30 03/10/18 12:25 40 MG Papaverine HCl 60 mg STK-MED ONCE 03/03/18 05:53 03/03/18 06:53 DC Phenylephrine HCl (PHENYLEPHRINE in 0.9% NACL PF) 1 mg STK-MED ONCE 03/03/18 08:49 03/03/18 08:50 DC Piperacillin Sod/ Tazobactam Sod 2.25 gm/Sodium Chloride 100 ml @ 200 mls/hr 1X ONCE 02/25/18 08:45 02/25/18 09:14 DC 02/25/18 09:25 200 MLS/HR Prochlorperazine Edisylate (Compazine) 5 mg PACU PRN PRN 03/05/18 07:00 03/05/18 18:00 DC Propofol 20 ml @ As Directed STK-MED ONCE 03/05/18 08:17 03/05/18 08:18 DC Protamine Sulfate (Protamine) 50 mg STK-MED ONCE 03/03/18 08:49 03/03/18 08:50 DC Ringer's Solution 1,000 ml @ 30 mls/hr Q24H 03/05/18 07:00 03/05/18 18:59 Cancel Sevoflurane (Ultane) 60 ml STK-MED ONCE 03/03/18 08:13 03/03/18 08:14 DC Sodium Polystyrene Sulfonate (Kayexalate) 30 gm 1X ONCE 03/10/18 10:15 03/10/18 10:16 DC 03/10/18 12:57 30 GM Sodium Bicarbonate (Sodium Bicarb Adult 8.4% Syr) 50 meq 1X ONCE 03/09/18 05:45 03/09/18 05:46 DC 03/09/18 06:09 50 MEQ Sodium Chloride (Normal Saline Flush) 10 ml 1X PRN PRN 03/10/18 10:45 03/11/18 10:44 Vancomycin HCl (Vanco Per Pharmacy) 1 each PRN DAILY PRN 02/26/18 10:00 03/09/18 14:09 1 EACH Vancomycin HCl (Vancomycin Random Level) 1 each 1X ONCE 03/05/18 06:00 03/05/18 06:01 DC Vancomycin HCl 1.5 gm/Sodium Chloride 500 ml @ 250 mls/hr 1X ONCE 02/26/18 11:00 02/26/18 12:59 Cancel Vancomycin HCl 500 mg/Sodium Chloride 100 ml @ 100 mls/hr 1X ONCE 03/09/18 16:00 03/09/18 16:59 DC 03/09/18 17:08 100 MLS/HR Vitamin B Complex/ Vitamin C (Kiara-Bennie) 1 tab DAILY 02/26/18 09:00 03/10/18 12:26 1 TAB Zolpidem Tartrate (Ambien) 5 mg HS PRN 02/25/18 21:15 03/09/18 18:13 5 MG Lab Laboratory Tests Test 03/10/18 07:14 Sodium Level 135 mmol/L (136-145) Potassium Level 6.1 mmol/L (3.5-5.1) Chloride Level 98 mmol/L (98-107) Carbon Dioxide Level 33 mmol/L (21-32) Anion Gap 4 (6-14) Blood Urea Nitrogen 31 mg/dL (8-26) Creatinine 5.6 mg/dL (0.7-1.3) Estimated GFR (Cockcroft-Gault) 12.7 Glucose Level 64 mg/dL (70-99) Calcium Level 9.9 mg/dL (8.5-10.1) Phosphorus Level 6.1 mg/dL (2.6-4.7) Magnesium Level 2.2 mg/dL (1.8-2.4) Albumin 2.3 g/dL (3.4-5.0) Results All relevant outside records, renal labs, imaging studies, telemetry/EKG's were reviewed. RASHID BRIGHT MD Mar 10, 2018 13:54
[2018-03-10] MEDS: VANCOMYCIN PER PHARMACY MC PRN (14:11)
[2018-03-10 15:00] VITALS: BP 151/87
[2018-03-10] MEDS: CALCITRIOL 0.25 MCG CAPSULE. PO SCH (16:36)
[2018-03-10] MEDS: VANCOMYCIN 500 MG in IV NORMAL SALINE 100ML 100 ML IV SCH (16:37)
[2018-03-10 19:25] VITALS: BP 195/101
[2018-03-10] MEDS: ZOLPIDEM 5 MG TABLET. PO PRN ×2 (20:49→22:09)
[2018-03-10] MEDS: amLODIPine BESYLATE 10 MG TABLET PO SCH (20:50)
[2018-03-10] MEDS: LISINOPRIL 20 MG TABLET PO SCH (20:51)
[2018-03-10 23:00] VITALS: BP 178/88
[2018-03-11 03:56] VITALS: BP 177/88
[2018-03-11 07:00] VITALS: BP 175/90
[2018-03-11] MEDS: PANTOPRAZOLE 40 MG TABLET.DR. PO SCH (07:30)
[2018-03-11] MEDS: CALCIUM ACETATE 667 MG CAPSULE PO SCH ×2 (07:31→11:47)
[2018-03-11] MEDS: LACTOBACILLUS RHAMNOSUS GG 1 CAPSULE. PO SCH (07:31)
[2018-03-11] MEDS: FOLIC/VIT B COMP W-C (RENAL) TABLET. PO SCH (07:31)
[2018-03-11] MEDS: FERROUS SULFATE 325 MG TABLET. PO SCH (07:31)
--- NOTE | 2018-03-11 08:20 | PDOC ---
Infectious Disease Note Subjective Subjective Much better No F/C/S/N/V/Rash/SOA Ready to go Awaiting line placement ROS ROS o/w neg Vital Sign Vital Signs Vital Signs Date Time Temp Pulse Resp B/P (MAP) Pulse Ox O2 Delivery O2 Flow Rate FiO2 03/11/18 03:56 97.6 93 16 177/88 (117) 98 Nasal Cannula 3.0 97.6 Physical Exam PHYSICAL EXAM GENERAL: alert awake in nad - in bed OC/op- clear LUNGS: Clear. HEART: S1, S2 regular. ABDOMEN: Soft, NT EXTREMITIES: No edema, cyanosis. SKIN: warm without rash ,has some skin lesions ,superficial scratch unger, no signs of secondary infection MUD WORKER: Alert and oriented x 3 Lines clean Left HD. Previous Right side is clean Labs Micro Microbiology 03/07/18 Blood Culture - Preliminary, Resulted NO GROWTH AFTER 2 DAYS 03/05/18 Aerobic Culture - Preliminary, Resulted 03/05/18 Aerobic Culture Result 1 (LILIANA) - Preliminary, Resulted 03/05/18 Gram Stain - Final, Resulted 03/05/18 Gram Stain Result 1 (LILIANA) - Final, Resulted 03/05/18 Gram Stain Result 2 (LILIANA) - Final, Resulted Objective Assessment 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 Cath tip with neg cult No valvular vegetation Tetracycline resistant S/P HDC removal on 03/05 Repeat BC 03/07 neg so far Fever - better Leukocytosis - resolved Pulmonary infiltrates with bilateral pleural effusion,likely CHF Encephalopathy - improved ESRD currently getting dialysed through temp HD cath, s/p AV fistula 03/03 Rt HD tunneled catheter. 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 Will need to be arranged with HD Would check Weekly CBC and fax results to [phone] Should f/u in ID office 2 weeks [phone] ID to sign off CRISTIANA STYLES MD Mar 11, 2018 08:20
[2018-03-11 08:47] LABS: ALBUMIN 2.3 g/dL (3.4-5.0); CALCIUM 9.8 mg/dL (8.5-10.1); CREATININE 5.7 mg/dL (0.7-1.3); GFR 12.4; MAGNESIUM 2.1 mg/dL (1.8-2.4); PHOSPHORUS 7.2 mg/dL (2.6-4.7); POTASSIUM 4.7 mmol/L (3.5-5.1)
[2018-03-11] MEDS ORDERED: CARVEDILOL 6.25 MG TABLET. PO SCH (10:00)
--- NOTE | 2018-03-11 10:51 | DISCH ---
DISCHARGE DISCHARGE INFORMATION: DISCHARGE DATE: Mar 04, 2018 FINAL DIAGNOSIS Problems Medical Problems: (1) End stage renal disease on dialysis Status: Acute (2) Sepsis Status: Acute CONDITION ON DISCHARGE: Stable CODE STATUS: Code Status: Full SENIOR CARE: SNF STAY <30 DAYS: No HOSPICE: HOSPICE: No HOSPICE EVAL & TREAT: No LTAC: ADMIT TO LTAC: No POST DISCHARGE ORDERS: ACTIVITY ORDERS: Activity as tolerated WEIGHT BEARING STATUS: As tolerated DIET AFTER DISCHARGE: Renal CHECKS AFTER DISCHARGE: CHECKS AFTER DISCHARGE: Check blood press - daily COMMENTS: Vancomycin 500mg IV After dialysis 2 weeks FOLLOW-UP: PHYSICIAN FOLLOW-UP: [facility] ADDITIONAL FOLLOW-UP: vascular surgery 10-14 days LAB ORDERS FOR FOLLOW-UP: per nephrology TREATMENT/EQUIPMENT ORDERS: INFUSION EQUIPMENT NEEDED: PICC Line DISCHARGE MEDICATIONS: Home Meds Active Scripts Docusate Sodium (COLACE) 100 Mg Capsule, 1 CAP PO BID PRN for CONSTIPATION, #60 CAP Prov:AMAN COWAN MD 03/04/18 [Darbepoetin Uche] 60 MCG/0.3 ML DISP.SYRIN No Conflict Check, 60 MCG SQ WEEKLYHS, #4 DIS.SYR Prov:AMAN COWAN MD 03/04/18 Vancomycin Hcl (VANCOMYCIN HCL) 1 Gm Vial, 1 EACH MC PRN DAILY PRN for SEE COMMENTS for 14 Days, EACH 500mg IV after each dialysis 2 weeks Prov:AMAN COWAN MD 03/04/18 Metoprolol Tartrate (METOPROLOL TARTRATE) 50 Mg Tablet, 50 MG PO BID for 60 Days , #120 TAB Prov:JIMENEZ BELCHER MD 10/28/17 Reported Medications Acetaminophen (TYLENOL) 325 Mg Tablet, 1-2 TAB PO QID PRN for PAIN, #60 TAB 2 Refills 11/10/17 Magnesium Hydroxide (MILK OF MAGNESIA) 400 Mg/5 Ml Oral.susp, 30 ML PO BID PRN for CONSTIPATION, MISC 11/10/17 Ipratropium/Albuterol Sulfate (DUONEB 0.5-3(2.5) MG/3 ML) 3 Ml Ampul.neb, 3 ML NEB Q4HRS PRN for SHORTNESS OF BREATH, EACH 11/10/17 Hydroxyzine Hcl (HYDROXYZINE HCL) 25 Mg Tablet, 1 TAB PO Q6HRS PRN for ITCHING, #30 TAB 11/10/17 Calcium Acetate (CALCIUM ACETATE) 667 Mg Tablet, 667 MG PO TIDWMEALS for DIALYSIS PATIENTS, CAP 11/10/17 Calcitriol (CALCITRIOL) 0.25 Mcg Capsule, 1 CAP PO QTUTHSA for dialysis, #30 CAP 5 Refills 11/10/17 Pantoprazole Sodium (PROTONIX) 20 Mg Tablet.dr, 40 MG PO DAILY, TAB 10/20/17 Folic Acid/Vitamin B Comp W-C (NEPHRO-APTITO TABLET) 0.8 Mg Tablet, 1 TAB PO DAILY , #30 TAB 5 Refills 10/20/17 Metoprolol Tartrate (METOPROLOL TARTRATE) 50 Mg Tablet, 1 TAB PO BID, #60 TAB 5 Refills 10/20/17 Lisinopril (LISINOPRIL) 40 Mg Tablet, 1 TAB PO QHS, #30 TAB 5 Refills 10/20/17 Ferrous Sulfate (FERROUS SULFATE) 325 Mg Tablet, 1 TAB PO DAILY, #30 TAB 3 Refills 10/20/17 Calcitriol (CALCITRIOL) 0.25 Mcg Capsule, 1 CAP PO //, #30 CAP 5 Refills 10/20/17 Amlodipine Besylate (AMLODIPINE BESYLATE) 10 Mg Tablet, 10 MG PO QHS, TAB 10/20/17 Acetaminophen (ACETAMINOPHEN) 325 Mg Tablet, 325 MG PO PRN Q8HRS, #1 TAB 10/20/17 JIMENEZ BELCHER MD Mar 11, 2018 10:51
--- NOTE | 2018-03-11 10:53 | PDOC3 ---
Discharge Summary Visit Information Date of Admission: Feb 25, 2018 Date of Discharge: Mar 11, 2018 Admitting Diagnosis: sepsis Admitting Diagnosis Comment: 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 Cath tip with neg cult No valvular vegetation Tetracycline resistant S/P HDC removal on 03/05 Repeat BC 03/07 neg so far Fever - better Leukocytosis - resolved Pulmonary infiltrates with bilateral pleural effusion,likely CHF Encephalopathy - improved ESRD currently getting dialysed through temp HD cath, s/p AV fistula 03/03 Rt HD tunneled catheter. 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 Final Diagnosis Problems Medical Problems: (1) End stage renal disease on dialysis Status: Acute (2) Sepsis Status: Acute Brief Hospital Course Allergies Allergies Coded Allergies Type Severity Reaction Last Updated Verified I S O L A T I O N *CONTACT* Allergy Unknown 03/03/18 Yes No Known Medication Allergies Allergy Unknown 03/03/18 Yes Vital Signs Vital Signs Date Time Temp Pulse Resp B/P (MAP) Pulse Ox O2 Delivery O2 Flow Rate FiO2 03/11/18 08:00 Nasal Cannula 2.0 03/11/18 07:00 97.7 94 18 175/90 (118) 99 97.7 Lab Results Laboratory Tests Test 03/10/18 07:14 03/11/18 08:03 Sodium Level 135 mmol/L (136-145) 141 mmol/L (136-145) Potassium Level 6.1 mmol/L (3.5-5.1) 4.7 mmol/L (3.5-5.1) Chloride Level 98 mmol/L (98-107) 99 mmol/L (98-107) Carbon Dioxide Level 33 mmol/L (21-32) 36 mmol/L (21-32) Anion Gap 4 (6-14) 6 (6-14) Blood Urea Nitrogen 31 mg/dL (8-26) 29 mg/dL (8-26) Creatinine 5.6 mg/dL (0.7-1.3) 5.7 mg/dL (0.7-1.3) Estimated GFR (Cockcroft-Gault) 12.7 12.4 Glucose Level 64 mg/dL (70-99) 75 mg/dL (70-99) Calcium Level 9.9 mg/dL (8.5-10.1) 9.8 mg/dL (8.5-10.1) Phosphorus Level 6.1 mg/dL (2.6-4.7) 7.2 mg/dL (2.6-4.7) Magnesium Level 2.2 mg/dL (1.8-2.4) 2.1 mg/dL (1.8-2.4) Albumin 2.3 g/dL (3.4-5.0) 2.3 g/dL (3.4-5.0) Laboratory Tests Test 03/11/18 08:03 Sodium Level 141 mmol/L (136-145) Potassium Level 4.7 mmol/L (3.5-5.1) Chloride Level 99 mmol/L (98-107) Carbon Dioxide Level 36 mmol/L (21-32) Anion Gap 6 (6-14) Blood Urea Nitrogen 29 mg/dL (8-26) Creatinine 5.7 mg/dL (0.7-1.3) Estimated GFR (Cockcroft-Gault) 12.4 Glucose Level 75 mg/dL (70-99) Calcium Level 9.8 mg/dL (8.5-10.1) Phosphorus Level 7.2 mg/dL (2.6-4.7) Magnesium Level 2.1 mg/dL (1.8-2.4) Albumin 2.3 g/dL (3.4-5.0) Brief Hospital Course Mr. Briseno is a 57 old [sex] who presented with [ ]and other episode of bacteremia. 5 out of 6 bottles were MRSA bacteremia. Likely source is the tunneled dialysis catheter. We have changed of again maybe for the third time, this is maybe his third admission for the same issue. He will get another tunneled dialysis catheter today cleared by ID. Then to get vancomycin during dialysis days which is Friday after dialysis. To follow-up with ID. Further instructions of ID per below Ok to place HD cath today Would continue vancomycin q //fri postdialysis until 04/17 min. Will need to be arranged with HD Would check Weekly CBC and fax results to [phone] Should f/u in ID office 2 weeks [phone] He stayed a total of 2 weeks with us He is incarcerated but this being released from long-term and he is excited about that Was not a difficult patient to deal with Consults ID, renal Procedures performed temporary dialysis catheter insertion-then tunneled dialysis catheter insertion of daily discharge 03/11/18 Discharge Information Condition at Discharge: Improved, Stable Disposition/Orders: Other (long-term) Scheduled Acetaminophen (Acetaminophen) 325 Mg Tablet, 325 MG PO PRN Q8HRS, #1 (Reported) Entered as Reported by: SAHARA DUMONT RN on 10/20/172355 Last Action: Continued on 02/25/182129 by Sally Ryan RN Amlodipine Besylate (Amlodipine Besylate) 10 Mg Tablet, 10 MG PO QHS, (Reported) Entered as Reported by: SAHARA DUMONT RN on 10/20/172355 Last Action: Continued on 02/25/182129 by Sally Ryan RN Calcitriol (Calcitriol) 0.25 Mcg Capsule, 1 CAP PO M//, #30 Ref 5 (Reported) Entered as Reported by: SAHARA DUMONT RN on 10/20/172355 Last Action: Converted on 02/26/18906 by JIMENEZ BELCHER Calcitriol (Calcitriol) 0.25 Mcg Capsule, 1 CAP PO QTUTHSA for dialysis, #30 Ref 5 (Reported) Entered as Reported by: ELVIN SANCHEZ on 11/10/17343 Last Action: Converted on 02/25/182129 by Sally Ryan RN Calcium Acetate (Calcium Acetate) 667 Mg Tablet, 667 MG PO TIDWMEALS for DIALYSIS PATIENTS, (Reported) Entered as Reported by: ELVIN SANCHEZ on 11/10/17343 Last Action: Converted on 02/25/182129 by Sally Ryan RN Ferrous Sulfate (Ferrous Sulfate) 325 Mg Tablet, 1 TAB PO DAILY, #30 Ref 3 ( Reported) Entered as Reported by: SAHARA DUMONT RN on 10/20/172355 Last Action: Continued on 02/25/182129 by Sally Ryan RN Folic Acid/Vitamin B Comp W-C (Nephro-Bennie Tablet) 0.8 Mg Tablet, 1 TAB PO DAILY , #30 Ref 5 (Reported) Entered as Reported by: SAHARA DUMONT RN on 10/20/172355 Last Action: Continued on 02/25/182129 by Sally Ryan RN Lisinopril (Lisinopril) 40 Mg Tablet, 1 TAB PO QHS, #30 Ref 5 (Reported) Entered as Reported by: SAHARA DUMONT RN on 10/20/172355 Last Action: Continued on 02/25/182129 by Sally Ryan RN Metoprolol Tartrate (Metoprolol Tartrate) 50 Mg Tablet, 1 TAB PO BID, #60 Ref 5 (Reported) Entered as Reported by: SAHARA DUMONT RN on 10/20/172355 Last Action: Continued on 02/25/182129 by Sally Ryan RN Metoprolol Tartrate (Metoprolol Tartrate) 50 Mg Tablet, 50 MG PO BID for 60 Days , #120 Prescribed by: JIMENEZ BELCHER on 10/28/17 1210 Last Action: Continued on 02/25/182129 by Sally Ryan RN Pantoprazole Sodium (Protonix) 20 Mg Tablet.dr, 40 MG PO DAILY, (Reported) Entered as Reported by: SAHARA DUMONT RN on 10/20/172355 Last Action: Converted on 02/25/182129 by Sally Ryan RN [Darbepoetin Uche In Polysorbat] 60 MCG/0.3 ML DISP.SYRIN, 60 MCG SQ WEEKLYHS, # 4 Prescribed by: AMAN COWAN on 03/04/18 0954 Scheduled PRN Acetaminophen (Tylenol) 325 Mg Tablet, 1-2 TAB PO QID PRN for PAIN, #60 Ref 2 ( Reported) Entered as Reported by: ELVIN SANCHEZ on 11/10/17 0344 Last Action: HELD on 02/26/18 0907 by JIMENEZ BELCHER Docusate Sodium (Colace) 100 Mg Capsule, 1 CAP PO BID PRN for CONSTIPATION, #60 Prescribed by: AMAN COWAN on 03/04/18 0954 Hydroxyzine Hcl (Hydroxyzine Hcl) 25 Mg Tablet, 1 TAB PO Q6HRS PRN for ITCHING, #30 (Reported) Entered as Reported by: ELVIN SANCHEZ on 11/10/17343 Last Action: Converted on 02/25/182129 by Sally Ryan RN Ipratropium/Albuterol Sulfate (Duoneb 0.5-3(2.5) Mg/3 Ml) 3 Ml Ampul.neb, 3 ML NEB Q4HRS PRN for SHORTNESS OF BREATH, (Reported) Entered as Reported by: ELVIN SANCHEZ on 11/10/17343 Last Action: Continued on 02/25/182129 by Sally Ryan RN Magnesium Hydroxide (Milk Of Magnesia) 400 Mg/5 Ml Oral.susp, 30 ML PO BID PRN for CONSTIPATION, (Reported) Entered as Reported by: ELVIN SANCHEZ on 11/10/17343 Last Action: Continued on 02/25/182129 by Sally Ryan RN Vancomycin Hcl (Vancomycin Hcl) 1 Gm Vial, 1 EACH MC PRN DAILY PRN for SEE COMMENTS for 14 Days 500mg IV after each dialysis 2 weeks Prescribed by: AMAN COWAN on 03/04/18 0954 JIMENEZ BELCHER MD Mar 11, 2018 10:53
[2018-03-11 11:00] VITALS: BP 179/90
--- NOTE | 2018-03-11 12:58 | PDOC ---
SUBJECTIVE ROS No complaints OBJECTIVE Vital Signs Vital Signs Date Time Temp Pulse Resp B/P (MAP) Pulse Ox O2 Delivery O2 Flow Rate FiO2 03/11/18 11:04 94 175/90 03/11/18 11:00 97.7 18 99 4l 97.7 03/11/18 08:00 2.0 I & 0 Intake and Output 03/11/18 07:00 Intake Total 840 ml Balance 840 ml Intake Oral 840 ml PHYSICAL EXAM Physical Exam GENERAL: alert awake in nad HEENT -OM moist LUNGS: Clear. HEART: S1, S2 regular. ABDOMEN: Soft, NT EXTREMITIES: No edema SKIN: No rash CARGO INSPECTOR: Alert and oriented x 3 DIAGNOSIS/ASSESSMENT Assessment & Plan ESRD: Scheduled Dialysis TTS E-Lytes stable, No indication for HD today Hyperkalemia- Normal K today Recd HD 2 consecutive for Hyperkalemia No Indication today Infected dialysis catheter: Permacath removed, temporary dialysis catheter was placed Awaiting TDC today - approved by ID Will Continue Vanc on HD ANEMIA; Aranesp as ordered, Transfuse with next HD as needed HTN: Current BP meds as reviewed. See orders for changes. BONE & MINERAL: Follow phosphorus levels and alter binder regimen as needed COMMENT/RELEVANT DATA Meds Current Medications Medications (Trade) Dose Ordered Sig/Lissette Start Time Stop Time Status Last Admin Dose Admin Acetaminophen (Tylenol) 500 mg 1X PRN PRN 02/28/18 14:45 03/01/18 14:44 DC Acetaminophen/ Hydrocodone Bitart (Lortab 5/325) 1 tab PRN Q4HRS PRN 02/26/18 09:15 03/10/18 20:51 1 TAB Albumin Human 200 ml @ 200 mls/hr 1X PRN PRN 02/28/18 14:45 02/28/18 20:44 DC Albuterol Sulfate (Ventolin Neb Soln) 2.5 mg PRN Q4HRS PRN 02/25/18 21:45 03/10/18 21:51 2.5 MG Alprazolam (Xanax) 0.25 mg PRN Q8HRS PRN 02/26/18 14:15 03/10/18 20:50 0.25 MG Amlodipine Besylate (Norvasc) 10 mg QHS 02/26/18 21:00 03/10/18 20:50 10 MG Benzocaine (Hurricaine One) 3 spray 1X ONCE 03/05/18 08:45 03/05/18 08:47 DC 03/05/18 08:45 3 SPRAY Calcitriol (Rocaltrol) 0.25 mcg MoWeFr 02/27/18 09:00 Cancel Calcium Acetate (Phoslo) 667 mg TIDWMEALS 02/26/18 08:00 03/10/18 16:36 667 MG Calcium Gluconate (Calcium Gluconate) 1,000 mg 1X ONCE 03/09/18 06:00 03/09/18 06:01 DC 03/09/18 06:10 1,000 MG Carvedilol (Coreg) 6.25 mg BIDWMEALS 03/11/18 10:00 03/11/18 11:04 6.25 MG Cefazolin Sodium 1 gm/Sodium Chloride 500 ml @ 500 mls/hr 1X ONCE 03/03/18 06:00 03/03/18 06:59 DC 03/03/18 08:15 Cefazolin Sodium/ Dextrose 50 ml @ 100 mls/hr 1X PREOP PRN 03/03/18 06:00 03/04/18 05:59 DC 03/03/18 07:53 100 MLS/HR Cellulose (Surgicel Fibrillar 1x2) 1 each STK-MED ONCE 03/03/18 05:52 03/03/18 06:52 DC 03/03/18 08:47 1 EACH Cellulose (Surgicel Hemostat 2x3) 1 each STK-MED ONCE 03/03/18 05:51 03/03/18 06:52 DC Clonidine HCl (Catapres) 0.1 mg 1X PRN PRN 02/28/18 14:45 03/01/18 14:44 DC Darbepoetin Uche (Aranesp) 60 mcg WEEKLYHS 02/26/18 21:00 03/05/18 21:09 60 MCG Dexamethasone Sodium Phosphate (Decadron) 20 mg STK-MED ONCE 03/03/18 08:13 03/03/18 08:14 DC Dextrose (Dextrose 50%-Water Syringe) 25 gm 1X ONCE 03/09/18 06:00 03/09/18 06:01 DC 03/09/18 06:09 25 GM Diphenhydramine HCl (Benadryl) 25 mg 1X PRN PRN 02/28/18 14:45 03/01/18 14:44 DC Fentanyl Citrate (Fentanyl 2ml Vial) 50 mcg PRN Q5MIN PRN 03/05/18 07:00 03/05/18 18:00 DC Ferrous Sulfate (Feosol) 325 mg DAILY 02/26/18 09:00 03/10/18 12:25 325 MG Heparin Sodium (Porcine) (Heparin Sodium) 2,600 unit 1X ONCE 03/05/18 15:30 03/05/18 15:31 DC 03/05/18 16:16 2,800 UNIT Heparin Sodium (Porcine) 5000 unit/Sodium Chloride 505 ml @ 505 mls/hr 1X ONCE 03/03/18 06:00 03/03/18 06:59 DC 03/03/18 08:15 Hydromorphone HCl (Dilaudid) 0.5 mg PRN Q10MIN PRN 03/05/18 07:00 03/05/18 18:00 DC Hydroxyzine Pamoate (Vistaril) 25 mg PRN Q6HRS PRN 02/25/18 21:45 03/10/18 20:50 25 MG Info (PHARMACY MONITORING -- do not chart) 1 each PRN DAILY PRN 03/10/18 10:45 Insulin Human Regular (HumuLIN R VIAL) 10 unit 1X ONCE 03/09/18 05:45 03/09/18 05:47 DC 03/09/18 06:10 10 UNIT Labetalol HCl (Normodyne Iv Push) 20 mg 1X ONCE 03/09/18 09:15 03/09/18 09:16 DC Lactobacillus Rhamnosus (Culturelle) 1 cap BID 02/27/18 21:00 03/10/18 20:49 1 CAP Lidocaine HCl (Viscous Lidocaine) 15 ml 1X ONCE 03/05/18 08:45 03/05/18 08:47 DC 03/05/18 08:45 15 ML Lidocaine HCl (Xylocaine 1% Pf 30ml Vial) 30 ml STK-MED ONCE 03/03/18 08:07 03/03/18 08:12 DC 03/03/18 08:07 1 ML Lidocaine HCl (Xylocaine 2% Topical 5gm Tube) 2 alexandra 1X ONCE 03/05/18 08:45 03/05/18 08:47 DC 03/05/18 08:45 2 ALEXANDRA Lidocaine HCl (Xylocaine-Mpf 1% 2ml Vial) 2 ml PRN 1X PRN 03/05/18 07:00 03/05/18 18:00 DC Lidocaine/Sodium Bicarbonate (Buffered Lidocaine 1%) 3 ml STK-MED ONCE 03/05/18 16:03 03/05/18 16:04 DC Linezolid (Zyvox) 600 mg BID 03/05/18 21:00 03/09/18 13:35 DC 03/09/18 13:16 600 MG Lisinopril (Prinivil) 40 mg QHS 02/25/18 22:00 03/10/18 20:51 40 MG Magnesium Hydroxide (Milk Of Magnesia) 2,400 mg BID PRN 02/25/18 21:30 UNV Magnesium Sulfate 50 ml @ 25 mls/hr PRN DAILY PRN 03/08/18 07:15 Metoprolol Tartrate (Lopressor) 50 mg BID 02/26/18 09:00 UNV Morphine Sulfate (Morphine Sulfate) 1 mg PRN Q10MIN PRN 03/05/18 07:00 03/05/18 18:00 DC Ondansetron HCl (Zofran) 4 mg PRN Q6HRS PRN 03/05/18 07:00 03/05/18 18:00 DC Pantoprazole Sodium (Protonix) 40 mg DAILYAC 02/26/18 07:30 03/10/18 12:25 40 MG Papaverine HCl 60 mg STK-MED ONCE 03/03/18 05:53 03/03/18 06:53 DC Phenylephrine HCl (PHENYLEPHRINE in 0.9% NACL PF) 1 mg STK-MED ONCE 03/03/18 08:49 03/03/18 08:50 DC Piperacillin Sod/ Tazobactam Sod 2.25 gm/Sodium Chloride 100 ml @ 200 mls/hr 1X ONCE 02/25/18 08:45 02/25/18 09:14 DC 02/25/18 09:25 200 MLS/HR Prochlorperazine Edisylate (Compazine) 5 mg PACU PRN PRN 03/05/18 07:00 03/05/18 18:00 DC Propofol 20 ml @ As Directed STK-MED ONCE 03/05/18 08:17 03/05/18 08:18 DC Protamine Sulfate (Protamine) 50 mg STK-MED ONCE 03/03/18 08:49 03/03/18 08:50 DC Ringer's Solution 1,000 ml @ 30 mls/hr Q24H 03/05/18 07:00 03/05/18 18:59 Cancel Sevoflurane (Ultane) 60 ml STK-MED ONCE 03/03/18 08:13 03/03/18 08:14 DC Sodium Polystyrene Sulfonate (Kayexalate) 30 gm 1X ONCE 03/10/18 10:15 03/10/18 10:16 DC 03/10/18 12:57 30 GM Sodium Bicarbonate (Sodium Bicarb Adult 8.4% Syr) 50 meq 1X ONCE 03/09/18 05:45 03/09/18 05:46 DC 03/09/18 06:09 50 MEQ Sodium Chloride (Normal Saline Flush) 10 ml 1X PRN PRN 03/10/18 10:45 03/11/18 10:44 DC Vancomycin HCl (Vanco Per Pharmacy) 1 each PRN DAILY PRN 02/26/18 10:00 03/10/18 14:11 1 EACH Vancomycin HCl (Vancomycin Random Level) 1 each 1X ONCE 03/05/18 06:00 03/05/18 06:01 DC Vancomycin HCl 1.5 gm/Sodium Chloride 500 ml @ 250 mls/hr 1X ONCE 02/26/18 11:00 02/26/18 12:59 Cancel Vancomycin HCl 500 mg/Sodium Chloride 100 ml @ 100 mls/hr 1X ONCE 03/09/18 16:00 03/09/18 16:59 DC 03/09/18 17:08 100 MLS/HR Vitamin B Complex/ Vitamin C (Kiara-Bennie) 1 tab DAILY 02/26/18 09:00 03/10/18 12:26 1 TAB Zolpidem Tartrate (Ambien) 5 mg HS PRN 02/25/18 21:15 03/10/18 22:09 5 MG Lab Laboratory Tests Test 03/11/18 08:03 Sodium Level 141 mmol/L (136-145) Potassium Level 4.7 mmol/L (3.5-5.1) Chloride Level 99 mmol/L (98-107) Carbon Dioxide Level 36 mmol/L (21-32) Anion Gap 6 (6-14) Blood Urea Nitrogen 29 mg/dL (8-26) Creatinine 5.7 mg/dL (0.7-1.3) Estimated GFR (Cockcroft-Gault) 12.4 Glucose Level 75 mg/dL (70-99) Calcium Level 9.8 mg/dL (8.5-10.1) Phosphorus Level 7.2 mg/dL (2.6-4.7) Magnesium Level 2.1 mg/dL (1.8-2.4) Albumin 2.3 g/dL (3.4-5.0) Results All relevant outside records, renal labs, imaging studies, telemetry/EKG's were reviewed. RASHID BRIGHT MD Mar 11, 2018 12:58
[2018-03-11] MEDS ORDERED: LIDOCAINE 1%/EPI 1:100,000 20 ML VIAL. ONE (13:20)
[2018-03-11] MEDS ORDERED: HEPARIN for IV BOLUS 10,000 UNIT/10 ML VIAL. ONE (13:20)
[2018-03-11] MEDS ORDERED: MIDAZOLAM HCL/PF 2 MG/2 ML VIAL. ONE (13:34)
[2018-03-11] MEDS ORDERED: fentaNYL PF VIAL 100 MCG/2 ML VIAL ONE (13:34)
[2018-03-11] MEDS ORDERED: MIDAZOLAM HCL/PF 2 MG/2 ML VIAL. IV ONE (14:00)
[2018-03-11] MEDS ORDERED: HEPARIN for IV BOLUS 10,000 UNIT/10 ML VIAL. INT CAT ONE (14:00)
[2018-03-11] MEDS ORDERED: LIDOCAINE 1%/EPI 1:100,000 20 ML VIAL. IJ ONE (14:00)
[2018-03-11] MEDS ORDERED: fentaNYL PF VIAL 100 MCG/2 ML VIAL IV ONE (14:00)
[2018-03-11 14:17] VITALS: BP 198/95
[2018-03-11] MEDS: VANCOMYCIN PER PHARMACY MC PRN (16:04)
--- NOTE | 2018-03-12 16:11 | RAD ---
Conversion of a left internal jugular temporary dialysis catheter to a tunneled catheter 03/11/2018 Indication: Need for longer term dialysis access Discussion: The risks and benefits of the procedure were discussed the patient. Informed consent was obtained. A timeout procedure was performed. The left upper chest including the appendix and catheter were prepped and draped using maximum sterile barrier technique. All elements of maximal sterile barrier technique including the use of a cap, mask, sterile gown, sterile gloves, large sterile sheet, appropriate hand hygiene, and 2% chlorhexidine for cutaneous antisepsis (or acceptable alternative antiseptic per current guidelines) were followed for this procedure. The pre-existing catheter was removed over guidewire. A peel-away sheath was placed. A 28 cm tip to cuff palindrome dialysis catheter was advanced from a small dermatotomy several centimeters inferior to the left clavicle to the venous access site. The new catheter was delivered to the peel-away sheath such that its tip is at the cavoatrial junction. The new catheter was found to flush and aspirate normally. Catheter was packed with heparin. Sterile dressings were applied. No immediate complications were identified. Fluoroscopy time: 1.6 minutes Fluoroscopic exposures: 1 The procedures performed under conscious sedation including continuous cardiopulmonary monitoring via dedicated sedation nurse. [id number] sedation time: 25 minutes Impression: Conversion of a left internal jugular temporary dialysis catheter to a tunneled catheter.
== END 2018-03-11 16:00 | DRG 853 ==
LOC: EEVIPCON 08:16 → ER 08:16 → 5 SOUTH 10:56
PROVIDERS: ADMIT Family Medicine; ATTEND Family Medicine
PROC: 5A1D70Z Performance of Urinary Filtration, Intermittent, Less than 6 Hours Per Day (ICD-10-PCS; 2018-02-25)
PROC: 5A1D70Z Performance of Urinary Filtration, Intermittent, Less than 6 Hours Per Day (ICD-10-PCS; 2018-02-26)
PROC: 5A1D70Z Performance of Urinary Filtration, Intermittent, Less than 6 Hours Per Day (ICD-10-PCS; 2018-02-28)
PROC: 5A1D70Z Performance of Urinary Filtration, Intermittent, Less than 6 Hours Per Day (ICD-10-PCS; 2018-03-03)
PROC: 03180ZD Bypass Left Brachial Artery to Upper Arm Vein, Open Approach (ICD-10-PCS; principal; 2018-03-03 07:30)
PROC: 02H633Z Insertion of Infusion Device into Right Atrium, Percutaneous Approach (ICD-10-PCS; 2018-03-05)
PROC: B2141ZZ Fluoroscopy of Right Heart using Low Osmolar Contrast (ICD-10-PCS; 2018-03-05)
PROC: 05PY33Z Removal of Infusion Device from Upper Vein, Percutaneous Approach (ICD-10-PCS; 2018-03-05)
PROC: 5A1D70Z Performance of Urinary Filtration, Intermittent, Less than 6 Hours Per Day (ICD-10-PCS; 2018-03-05)
PROC: 5A1D70Z Performance of Urinary Filtration, Intermittent, Less than 6 Hours Per Day (ICD-10-PCS; 2018-03-07)
PROC: 5A1D70Z Performance of Urinary Filtration, Intermittent, Less than 6 Hours Per Day (ICD-10-PCS; 2018-03-09)
PROC: 5A1D70Z Performance of Urinary Filtration, Intermittent, Less than 6 Hours Per Day (ICD-10-PCS; 2018-03-10)
PROC: 05PY33Z Removal of Infusion Device from Upper Vein, Percutaneous Approach (ICD-10-PCS; 2018-03-11)
PROC: 02HV33Z Insertion of Infusion Device into Superior Vena Cava, Percutaneous Approach (ICD-10-PCS; 2018-03-11)
PROC: 0JH63XZ Insertion of Tunneled Vascular Access Device into Chest Subcutaneous Tissue and Fascia, Percutaneous Approach (ICD-10-PCS; 2018-03-11)
PROC: B5181ZA Fluoroscopy of Superior Vena Cava using Low Osmolar Contrast, Guidance (ICD-10-PCS; 2018-03-11)
DX: A41.02 Sepsis due to Methicillin resistant Staphylococcus aureus (principal); N18.6 End stage renal disease; G93.40 Encephalopathy, unspecified; I50.31 Acute diastolic (congestive) heart failure; J18.9 Pneumonia, unspecified organism; I13.2 Hypertensive heart and chronic kidney disease with heart failure and with stage 5 chronic kidney disease, or end stage renal disease; J44.0 Chronic obstructive pulmonary disease with (acute) lower respiratory infection; R64 Cachexia; Z68.1 Body mass index [BMI] 19.9 or less, adult; D63.1 Anemia in chronic kidney disease; E11.22 Type 2 diabetes mellitus with diabetic chronic kidney disease; E78.5 Hyperlipidemia, unspecified; F32.9 Major depressive disorder, single episode, unspecified; M19.90 Unspecified osteoarthritis, unspecified site; E87.5 Hyperkalemia; I34.0 Nonrheumatic mitral (valve) insufficiency; K21.9 Gastro-esophageal reflux disease without esophagitis; Z83.3 Family history of diabetes mellitus; Z86.711 Personal history of pulmonary embolism; Z90.49 Acquired absence of other specified parts of digestive tract; Z99.2 Dependence on renal dialysis; Z90.81 Acquired absence of spleen; Z79.899 Other long term (current) drug therapy
CPT/HCPCS: 36415; 36556; 36558; 36581; 36589; 71045; 76937; 77001; 80048; 80053; 80069; 80202; 83605; 83735; 85007; 85018; 85025; 85610; 85651; 86706; 87040; 87070; 87186; 87205; 87340; 87641; 93005; 93306; 93312; 93970; 94640; 94760; 96365; 96368; 96375; 99152; 99153; A7015; C1750; C1769; C1892; J0610; J0690; J0881; J1100; J1644; J1815; J2250; J2370; J2405; J2440; J2543; J2704; J3010; J3370; J3490; J7030; J7040; J7042; J7120; J7613; Q0177; 99291-25